=== PATIENT | male | born 1945 | race Caucasian/White ===

== ENCOUNTER → 2018-07-17 15:19 | Outpatient (CLI) | payer MEDICARE, BC, SELFPAY ==
[2018-07-17 16:51] LABS: Absolute Lymphocyte Count 2.88 X10^3/ul (0.83-4.51); Absolute Neutrophil Count 4.5 X10^3/uL (2.0-7.7); Basophil# 0.04 X10^3/uL; Basophil% 0.5 % (0-1); Eosinophil# 0.15 X10^3/uL; Eosinophils% 1.8 % (0-5); Hematocrit 39.9 % (40-54); Lymphocyte # 2.88 X10^3/ul (4.0); Lymphocyte % 34.4 % (19-41); Mean Corp Hgb Conc 32.6 g/gl (32-36); Mean Corpuscular Hgb 31.9 pg (27.0-32.0); Mean Platelet Vol. 10.8 fl (6.2-12.0); Monocyte# 0.78 X10^3/uL; Monocyte% 9.3 % (0-10); Neutrophil # 4.52 X10^3/uL (2.7-7.7); Neutrophil % 53.9 % (47-70); Platelet Count 285 K/mm3 (150-450); RBC Distribution Width CV 13.8 % (11.6-14.6); RBC Distribution Width SD 49.3 fl (35.1-43.9); Red Blood Count 4.07 M/mm3 (4.6-6.2); White Blood Count 8.4 K/mm3 (4.4-11.0)
[2018-07-17 16:54] LABS: POSITIVE COUNT NO; POSITIVE DIFFERENTIAL NO; POSITIVE MORPHOLOGY NO
[2018-07-17 17:29] LABS: Vitamin D,25 Hydroxy 16.3 ng/mL (29.95-100.01)
[2018-07-17 17:31] LABS: ALB/GLOB Ratio 1.1 RATIO (0.9-2.4); AST(SGOT) 16 U/L (15-37); Alanine Aminotransfer ALT/SGPT 22 U/L (16-61); Albumin, Serum 3.5 g/dL (3.2-5.0); Alkaline Phosphatase 402 U/L (45-117); Anion Gap 9 (5-15); BUN 16 mg/dL (7-18); BUN/Creat Ratio 16.1 RATIO (10-20); Calcium,Total 8.7 mg/dL (8.5-10.1); Chloride 109 mmol/L (98-107); Creatinine, Serum 0.99 mg/dL (0.70-1.30); EST Glomerular Filtration Rate 79 mL/min (>60); Est Glom Filt Rate - Afr Amer 96 mL/min (>60); Globulin 3.2 g/dL (2.2-4.2); Glucose 105 mg/dL (74-106); Potassium 4.1 mmol/L (3.5-5.1); Protein, Total 6.7 g/dL (6.4-8.2); Sodium Level 143 mmol/L (136-145); Thyroid Stim Hormone (TSH) 2.69 uIU/mL (0.358-3.74)
[2018-07-19 12:40] LABS: Hep C Antibodies <0.1 s/co ratio (0.0-0.9)
== END ==
PROVIDERS: Family Provider Family Medicine Geriatric Medicine; PCP Family Medicine Geriatric Medicine; Visit Provider Family Medicine Geriatric Medicine
DX: E55.9 Vitamin D deficiency, unspecified (principal); I10 Essential (primary) hypertension; F52.8 Other sexual dysfunction not due to a substance or known physiological condition; Z12.5 Encounter for screening for malignant neoplasm of prostate; Z13.89 Encounter for screening for other disorder
CPT/HCPCS: 36415; 80053; 82306; 84153; 84403; 84443; 85025; 86803; G0103

== ENCOUNTER → 2018-07-23 13:38 | Outpatient (CLI) | payer MEDICARE, BC, SELFPAY ==
--- NOTE | 2018-07-23 13:44 | CT_ITS ---
We are attempting to reach Jorgito Villeda MD to discuss findings. An addendum with communication details will be sent when the communication is complete. STUDY: LOW DOSE CT LUNG CANCER SCREENING REASON FOR EXAM: Male, 72 years old. Tobacco abuse, 1 years. Screening. RADIATION DOSAGE (If Supplied By Facility): CTDIvol = ( 3.02 ) mGy, DLP = ( 102.69 ) mGycm TECHNIQUE: No contrast was administered. Low dose technique was utilized (average mAS-38 and kVp 120). 1.25 mm axial source images with a slice interval of 1.25-mm were reconstructed in lung windows. Nodule measured using lung windows on PACS and/or independent workstation with automated measurement of minimum and maximum diameter. Nodule measurement reported as average diameter rounded to the nearest whole number. Growth is defined as an increase ins size of greater than 1.5 mm. COMPARISON: Low dose chest CT 11/25/2015. CT abdomen and pelvis 08/03/2016. FINDINGS: Total lung nodules (excluding granulomas): There are a few scattered small pulmonary nodules in the lungs, the largest in the right upper lobe measuring approximately 3.5 mm. Not substantially changed compared to prior imaging. Emphysema: Generalized pulmonary hyperlucency consistent with COPD with mild features of centrilobular emphysema, stable. Mild bronchial wall thickening in particular in the lower lobes, chronic inflammatory, stable. Endobronchial lesion: None. Aorta: Nonaneurysmal ectasia of the ascending aorta and proximal arch up to 3.8 cm. Minimal arch atherosclerosis. Coronary arteries: Moderate cortex cases are present in the proximal LAD, proximal circumflex, mid RCA. Heart: No cardiomegaly or pericardial effusion. Pulmonary artery: Nondilated. Mediastinal nodes: No mass or lymphadenopathy. A few small lymph nodes are present. Other chest and abdominal findings: Upper abdomen, supraclavicular and body wall soft tissues exhibit no acute process. There are multiple blastic lesions within multiple vertebral bodies in the thoracic spine, consistent with metastatic disease. Several small sclerotic lesions of the sternum. A few scattered in the ribs. Correlate clinically for any history of primary neoplasm. 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 Correlate relative to any known primary malignancy. A few tiny pulmonary nodules, 3 mm or less. ACR lung RADS category 2, benign appearance, less than 1% chance of pulmonary malignancy. Continued annual low dose screening chest CT follow-up is recommended. Coronary atherosclerosis. Nonaneurysmal ectasia of the ascending aorta and proximal arch, stable. IMPORTANT NOTES FOR USE: ACR Lung-RADS Version 1.0 Assessment Categories Release Date: September 08, 2013 Category: Coded 0-4 bases on nodule(s) with highest degree of suspicion. Negative screen is defined as categories 1 and 2; a positive screen is defined as categories 3 and 4. Category 3 and 4A nodules that are unchanged on interval CT should be coded as category 2, and individuals returned to screening in 12 months. Category 4X: Category 3 or 4 nodules with additional imaging findings that increase the suspicion of lung cancer, such as spiculation, GGN that doubles in size in 1 year, enlarged lymph notes, etc. Category Modifiers: S (significant finding unrelated to lung cancer) and C (prior history of treated lung cancer) may be added to the 0-4 Lung-RADS Electronically Signed: Bartolo Restrepo MD at 14:00 EDT Tel , Service support ,
== END ==
PROVIDERS: Family Provider Family Medicine Geriatric Medicine; PCP Family Medicine Geriatric Medicine; Referring Provider Family Medicine Geriatric Medicine; Visit Provider Family Medicine Geriatric Medicine
DX: Z87.891 Personal history of nicotine dependence (principal); Z12.2 Encounter for screening for malignant neoplasm of respiratory organs
CPT/HCPCS: G0297

== ENCOUNTER → 2018-08-01 09:47 | Outpatient (CLI) | payer MEDICARE, BC, SELFPAY ==
--- NOTE | 2018-08-01 09:50 | NM_ITS ---
CLINICAL: 72-year-old male with reported recent diagnosis of carcinoma of the prostate. WHOLE BODY 99m Tc MDP RADIONUCLIDE BONE SCINTIGRAPHY COMPARISON: CT of the chest report 07/23/2018 FINDINGS: Following the intravenous administration of 24.8 mCi of 99m Tc MDP, whole body bone images reveal: 1. Increased radiopharmaceutical concentration is multifocally apparent in the axial skeletal structures, too many to individually articulate-most accentuated at the level of the 11th-12th thoracic vertebra diffusely, focally apparent in the right femoral neck, the left distal femoral diaphysis medially, the right proximal tibial metaphysis, the distal left humeral diaphysis, right mid humeral diaphysis, the bilateral hemicalvarium. 2. Facilitated uptake is defined in the right elbow articulation, the glenohumeral compartments of both shoulders, acromioclavicular compartment of the left shoulder. 3. The remaining skeletal structures are scintigraphically unremarkable with normal-appearing renal images and urinary bladder activity identified. NM/Bone Scan Whole Body IMPRESSION: 1. The multifocal increase in radiopharmaceutical concentration noted in the calvarium, appendicular and axial skeletal structures is consistent with diffuse skeletal metastatic disease. 2. Degenerative arthritis is otherwise visualized in the right elbow articulation, bilateral shoulders. Electronically Signed: Bartolo Paredes DO at 23:24 EDT Tel , Service support ,
== END ==
PROVIDERS: Family Provider Family Medicine Geriatric Medicine; PCP Family Medicine Geriatric Medicine; Referring Provider Nurse Practitioner Adult Health; Visit Provider Nurse Practitioner Adult Health
DX: N40.2 Nodular prostate without lower urinary tract symptoms (principal); R97.20 Elevated prostate specific antigen [PSA]; R93.89 Abnormal findings on diagnostic imaging of other specified body structures
CPT/HCPCS: 78306

== ENCOUNTER → 2018-08-08 16:50 | Outpatient (CLI) | payer MEDICARE, BC, SELFPAY ==
--- NOTE | 2018-08-08 | PROSBIL_PTH ---
PATIENT: JUSTICE OWEN LOC: [facility] U#:[id number] AGE/SX: 79/M ROOM: RE08/08/[address]: Dr. Fei Fernandez MD : 1945 BED: DIS: SPEC #: [id number] RECD: 08/09/18 09:04 STATUS: JEUSS ASHWIN #: [id number] NBA: 08/08/18 00:[address]: Fei Fernandez DEPT: SURGICAL PATHOLOGY RECD BY: Bernabe Maravilla ENTERED: 08/09/18 09:05 SP TYPE: PROST BX JAYLAN DR: Dr. Jorgito Villeda MD Tissues: A - PROSTATE RIGHT B - PROSTATE RIGHT C - PROSTATE RIGHT D - PROSTATE LEFT E - PROSTATE LEFT F - PROSTATE LEFT Procedures: PROSTATE BX HEADER OPERATION: Prostate biopsy PRE-OP DIAGNOSIS: Elevated PSA TISSUE SUBMITTED: A - Right apex, B - Right mid, C - Right base, D - Left apex, E - Left mid, F - Left base MICROSCOPIC DIAGNOSIS A. Right prostate, apex, core biopsy: Adenocarcinoma: [place]ully grade: 7 (3+4). Cores involved: 1 out of 1 Tissue involved: 30% Greatest tumor length: 3.8 mm B. Right prostate, mid, core biopsy: Adenocarcinoma: Zully grade: 7 (4+3). Pattern 4 comprises 80% of tumor. Cores involved: 1 out of 1 Tissue involved: 80% Greatest tumor length: 7 mm C. Right prostate, base, core biopsy: Adenocarcinoma: Zully grade: 7 (4+3). Cores involved: 1 out of 1 Tissue involved: 98% Greatest tumor length: 9.5 mm D. Left prostate, apex, core biopsy: Adenocarcinoma: Zully grade: 7 (3+4). Pattern 4 comprises 90% of tumor. Cores involved: 2 out of 2 Tissue involved: 80% Greatest tumor length: 6 mm Perineural invasion: Present E. Left prostate, mid, core biopsy: Adenocarcinoma: [place] grade: 7 (3+4) Cores involved: 1 out of 1 Tissue involved: 70% Greatest tumor length: 7 mm Perineural invasion: Present F. Left prostate, base, core biopsy: Adenocarcinoma: Zully grade: 7 (4+3). Pattern 4 comprises 90% of tumor. Cores involved: 1 out of 1 Tissue involved: 70% Greatest tumor length: 9 mm Perineural invasion: Present AM:yobani 08/12/18 COMMENT Case has been reviewed in consultation with Dr. Langford who concurs with the above diagnosis. IDC:SJ MICROSCOPIC DESCRIPTION Slides are reviewed. GROSS DESCRIPTION A - Received is one container designated prostate, right apex. The specimen consists of one elongated fragment of light clark-white soft tissue measuring 1.4 cm in length and 0.1 cm in diameter. The specimen is totally submitted in one cassette. B - Received is one container designated prostate, right mid. The specimen consists of one elongated fragment of light clark-white soft tissue measuring 1 cm in length and 0.1 cm in diameter. The specimen is totally submitted in one cassette. C - Received is one container designated prostate, right base. The specimen consists of one elongated fragment of light clark-white soft tissue measuring 1.5 cm in length and 0.1 cm in diameter. The specimen is totally submitted in one cassette. D - Received is one container designated prostate, left apex. The specimen consists of two elongated fragments of light clark-white soft tissue measuring 0.5 and 0.8 cm in length and 0.1 cm in diameter. The specimen is totally submitted in one cassette. E - Received is one container designated prostate, left mid. The specimen consists of one elongated fragment of light clark-white soft tissue measuring 1.2 cm in length and 0.1 cm in diameter. The specimen is totally submitted in one cassette. F - Received is one container designated prostate, left base. The specimen consists of one elongated fragment of light clark-white soft tissue measuring 1.5 cm in length and 0.1 cm in diameter. The specimen is totally submitted in one cassette. / SJ:rg 08/09/18 TC:0 [facility]: [id number]
== END ==
PROVIDERS: Family Provider Family Medicine Geriatric Medicine; PCP Family Medicine Geriatric Medicine; Referring Provider Urology; Visit Provider Urology
DX: R97.20 Elevated prostate specific antigen [PSA] (principal)
CPT/HCPCS: 88305; G0416

== ENCOUNTER → 2018-08-12 16:26 | Outpatient (CLI) | payer MEDICARE, BC, SELFPAY | PROVIDERS: Family Provider Family Medicine Geriatric Medicine; PCP Family Medicine Geriatric Medicine; Visit Provider Family Medicine Geriatric Medicine | DX: N39.0 Urinary tract infection, site not specified (principal) | CPT/HCPCS: 87086 ==

== ENCOUNTER → 2018-08-21 | Outpatient (CLI) | payer MEDICARE, BC, SELFPAY ==
--- NOTE | 2018-08-21 15:22 | CT_ITS ---
STUDY: CT ABDOMEN AND PELVIS WITH CONTRAST REASON FOR EXAM: Male, 72 years old. New diagnosis of prostate cancer. RADIATION DOSAGE (If Supplied By Facility): CTDIvol = ( 17.16 ) mGy, DLP = ( 1080.66 ) mGycm TECHNIQUE: Transaxial images were obtained from the dome of the diaphragm to the symphysis pubis without oral contrast. 100 IV Isovue 370 was administered. Sagittal and coronal images were reconstructed. Individualized dose optimization techniques were used for this CT. COMPARISON: Comparison is made with prior study dated August 03, 2016. FINDINGS: The visualized lung bases are unremarkable. The visualized portions of the heart are within normal limits. Normal liver. Normal gallbladder and extrahepatic biliary system. Normal spleen. Normal pancreas. There is a small, circumscribed, smooth, low attenuation left adrenal mass, consistent with an adrenal adenoma. This measures 8.5 mm. Normal right adrenal gland. Normal right kidney. Normal left kidney. Normal visualized stomach. Normal small intestine. There are multiple colonic diverticula consistent with diverticulosis. The appendix is visualized and appears normal. There is diffuse atherosclerotic calcification of the abdominal aorta, without a demonstrated aneurysm. Normal inferior vena cava. There is borderline retroperitoneal lymphadenopathy with enlarged nodes no greater than 10mm in the short axis diameter. Normal urinary bladder. There are prostatic calcifications. Normal abdominal wall. Multiple sclerotic lesions are seen throughout the lumbar vertebrae and lower thoracic vertebrae as well as tiny blastic lesion seen in the pelvic bones. Lung metastasis should BE ruled out. CT/Abdomen/Pelvis WITH Contrast IMPRESSION: Small left adrenal adenoma. Findings suggestive of skeletal metastasis. Correlation with a bone scan is recommended. Electronically Signed: Vincent Marley, at 15:38 EDT , Service support ,
== END | disposition home or self-care (01) ==
LOC: CT 15:21
PROVIDERS: Family Provider Family Medicine Geriatric Medicine; PCP Family Medicine Geriatric Medicine; Referring Provider Urology; Visit Provider Urology
DX: C61 Malignant neoplasm of prostate (principal)
CPT/HCPCS: 74177; Q9967

== ENCOUNTER → 2018-09-24 11:50 | Outpatient (CLI) | payer MEDICARE, BC, SELFPAY | PROVIDERS: Family Provider Family Medicine Geriatric Medicine; PCP Family Medicine Geriatric Medicine; Referring Provider Urology; Visit Provider Urology | DX: C61 Malignant neoplasm of prostate (principal) | CPT/HCPCS: 36415; 84153 ==

== ENCOUNTER → 2018-10-03 | Outpatient (CLI) | payer MEDICARE, BC, SELFPAY ==
[2018-10-03 12:35] LABS: Absolute Lymphocyte Count 1.62 X10^3/ul (0.83-4.51); Absolute Neutrophil Count 3.4 X10^3/uL (2.0-7.7); Basophil# 0.03 X10^3/uL; Basophil% 0.5 % (0-1); Eosinophil# 0.09 X10^3/uL; Eosinophils% 1.5 % (0-5); Hematocrit 36.4 % (40-54); Hemoglobin 12.4 g/dl (13.0-16.5); Lymphocyte # 1.62 X10^3/ul (4.0); Lymphocyte % 27.2 % (19-41); Mean Corp Hgb Conc 34.1 g/gl (32-36); Mean Corpuscular Hgb 31.2 pg (27.0-32.0); Mean Corpuscular Volume 91.5 fL (80-94); Mean Platelet Vol. 10.1 fl (6.2-12.0); Monocyte# 0.77 X10^3/uL; Monocyte% 12.9 % (0-10); Neutrophil # 3.44 X10^3/uL (2.7-7.7); Neutrophil % 57.7 % (47-70); Platelet Count 313 K/mm3 (150-450); RBC Distribution Width SD 46.1 fl (35.1-43.9); Red Blood Count 3.98 M/mm3 (4.6-6.2)
[2018-10-03 12:43] LABS: POSITIVE COUNT NO; POSITIVE DIFFERENTIAL NO; POSITIVE MORPHOLOGY NO
[2018-10-03 13:07] LABS: BNP,B-Type NATRIURETIC PEPTIDE 31.2 pg/mL (0-100)
[2018-10-03 13:20] LABS: Anion Gap 4 (5-15); BUN 16 mg/dL (7-18); BUN/Creat Ratio 17.3 RATIO (10-20); CPK Total, Creatine Kinase 48 U/L (39-308); Calcium,Total 9.6 mg/dL (8.5-10.1); Chloride 109 mmol/L (98-107); Creatinine, Serum 0.92 mg/dL (0.70-1.30); EST Glomerular Filtration Rate 86 mL/min (>60); Est Glom Filt Rate - Afr Amer 104 mL/min (>60); Glucose 102 mg/dL (74-106); Potassium 4.7 mmol/L (3.5-5.1); Sodium Level 139 mmol/L (136-145)
[2018-10-04 10:12] LABS: Myoglobin, Serum < 21 ng/mL (28-72)
== END | disposition home or self-care (01) ==
LOC: POLAB3 12:00
PROVIDERS: Family Provider Family Medicine Geriatric Medicine; PCP Family Medicine Geriatric Medicine; Visit Provider Family Medicine Geriatric Medicine
DX: R07.9 Chest pain, unspecified (principal)
CPT/HCPCS: 36415; 80048; 82550; 83874; 83880; 84484; 85025

== ENCOUNTER → 2018-12-25 | Outpatient (CLI) | payer MEDICARE, BC, SELFPAY ==
[2018-12-25 12:59] LABS: PSA,Total- Diagnostic 0.83 ng/mL (0.0-4.0)
== END | disposition home or self-care (01) ==
LOC: LAB 11:33
PROVIDERS: Family Provider Family Medicine Geriatric Medicine; PCP Family Medicine Geriatric Medicine; Referring Provider Urology; Visit Provider Urology
DX: C61 Malignant neoplasm of prostate (principal)
CPT/HCPCS: 36415; 84153

== ENCOUNTER 2019-01-01 15:17 | Outpatient (RCR) | payer MEDICARE, BC, SELFPAY ==
--- NOTE | 2019-01-01 16:30 | HP.PTEVAL_ITS ---
Patient's Visit Information JUSTICE OWEN is a 73 year old M referred to Physical Therapy by Jorgito Villeda MD with a diagnosis of Dysequilibrium. Date of Evaluation: 01/01/19 Physical Therapist: Cortez Le, RUFUST, OCS, CSCS - Visit Plan Frequency: 2x /Week Duration: 4-6 Weeks Plan: will wait a week for new blood pressure meds to kick in then, if not improved, will go 2x/week for 4-6 weeks as needed for balance emphasizing vestibular system and head movements/VOR. Seems to be nore unsteadiness upon standing(blood pressure ) than true vestibualr dizzyness. Next session check foam stance ec, FGA, and VOR walking. - Subjective Findings: Dizzy all the time for 2.5 months now. Has prostate CA spread to bones diagnosed in july adn has been treated with hormone shots. Takes pills for legs restless adn low blood pressure adn bones. Might be low bood pressure. Described as loss of baalnce and goofy feeling but not spinning. Happens when up on feet. Doesn't feel it sitting or lying down. Sleeping not great due to restless leg but dizzyness isn't keeping him up. Retired from factory. Acitivites include sitting on couch and going for rides. Avoids yard work due to dizzyness with bending adn heat. Balance is not great but no falls. No AD needed or owned. Basic ADLs are getting done OK, shower can be tough due to dizzyness. - Objective Walks slowly but safely back to eval room without SOB. Trasnfers I but needs UE to exit chair. - B hallpike nicholas test, - roll test. LE AROM WFL, some tightness in HS and gasroc. Sensation WNL to gross light touch in LE. reflexes 2/3 patella and achilles. MSQ positions not causing dizzyness today. Oculomotor: no nystagmus with gaze or headshake. - skew eye deviation. normal convergence. pursuit and saccades are normal. VOR is normal in sitting but unsteady in walking and standing descirbed as dizzyness. - Balance Scores Functional Gait Assessment Score: 23 % Disability: 23.3400 CATSIB Score (Max score 120 seconds): 100 - Goals Goal 1:: Pt feel 75% back to normal withotu dizzyness Goal Time Frame: 4-6 Weeks Goal 2:: 25/30 FGA to improve steadiness. 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 Rehabilitation Potential: Questionable - Anticipated Interventions Patient/Client Instruction: Educate patient on: Condition, Plan of Care For the Purpose of:: To improve muscle performance and motor function, To increase tolerance to activity/condition/position, To improve gait and locomotor functions Therapeutic Exercise to Include: Strength training, Balance training Comment: adaptation For the Purpose of:: To increase tolerance to activity/condition/position, To improve balance Thank you for the opportunity to evaluate your patient. For Medicare and Medicare HMO plans, please review the plan of care and approve it. It will need to be FAXED BACK to us at [phone] for Medicare purposes. For Medicare only, by signing this I certify the plan of care. Please let me know if there are questions or concerns regarding this plan of ca re. Physician Signature: Date:
--- NOTE | 2019-02-19 13:52 | HP.PTDCNRP_ITS ---
HP - Discharge Summary (1) - Patient Information JUSTICE OWEN was seen in my office for initial evaluation on 01/01/19. The following Plan of Care was established for this patient: Initial Frequency: 2x /Week Initial Duration: 4-6 Weeks - Anticipated Interventions Patient/Client Instruction: Educate patient on: Condition, Plan of Care For the Purpose of:: To improve muscle performance and motor function, To incr ease tolerance to activity/condition/position, To improve gait and locomotor functions Therapeutic Exercise to Include: Strength training, Balance training For the Purpose of:: To increase tolerance to activity/condition/position, To improve balance This patient was last seen in our office 01/01/19. Pertinent comments regarding their Physical therapy will appear below: Pt seen for evaluation and POC was established if dizzyness returned once new blood pressure meds kicked in. Pt was to schedule but at this time, it has been over 6 weeks adn I will discontinue due to nonattendance. At this point I will be discontinuing this patient from physical therapy. I would be happy to see this patient again in the future if found appropriate by the physician. Thank you! Cortez Le, DPT, OCS, CSCS
== END 2019-01-01 19:00 | disposition home or self-care (01) ==
LOC: PT 15:17
PROVIDERS: Family Provider Family Medicine Geriatric Medicine; PCP Family Medicine Geriatric Medicine; Referring Provider Family Medicine Geriatric Medicine; Visit Provider Family Medicine Geriatric Medicine
DX: R42 Dizziness and giddiness (principal)
CPT/HCPCS: 97162

== ENCOUNTER → 2019-01-15 | Outpatient (CLI) | payer MEDICARE, BC, SELFPAY ==
[2019-01-15 12:35] LABS: Absolute Lymphocyte Count 2.14 X10^3/uL (0.83-4.51); Basophil# 0.04 X10^3/uL; Basophil% 0.5 % (0-1); Eosinophil# 0.26 X10^3/uL; Eosinophils% 3.2 % (0-5); Hematocrit 31.7 % (40-54); Hemoglobin 10.2 g/dL (13.0-16.5); Lymphocyte # 2.14 X10^3/ul (4.0); Mean Corp Hgb Conc 32.2 g/dL (32-36); Mean Corpuscular Hgb 30.6 pg (27.0-32.0); Mean Corpuscular Volume 95.2 fL (80-94); Mean Platelet Vol. 10.2 fl (6.2-12.0); Monocyte# 0.76 X10^3/uL; Monocyte% 9.2 % (0-10); NRBC Flagged by Analyzer 0 % (0-5); Neutrophil # 5.01 X10^3/uL (2.7-7.7); Neutrophil % 60.7 % (47-70); Platelet Count 302 K/mm3 (150-450); RBC Distribution Width CV 14.1 % (11.6-14.6); RBC Distribution Width SD 49.2 fl (35.1-43.9); Red Blood Count 3.33 M/mm3 (4.6-6.2); White Blood Count 8.2 K/mm3 (4.4-11.0)
[2019-01-15 13:00] LABS: ALB/GLOB Ratio 0.9 RATIO (0.9-2.4); AST(SGOT) 14 U/L (15-37); Alanine Aminotransfer ALT/SGPT 14 U/L (16-61); Albumin, Serum 3.4 g/dL (3.2-5.0); Alkaline Phosphatase 138 U/L (45-117); Anion Gap 6 (5-15); BUN 16 mg/dL (7-18); BUN/Creat Ratio 15.1 RATIO (10-20); Calcium,Total 9.3 mg/dL (8.5-10.1); Chloride 107 mmol/L (98-107); Creatinine, Serum 1.06 mg/dL (0.70-1.30); EST Glomerular Filtration Rate 73 mL/min (>60); Est Glom Filt Rate - Afr Amer 89 mL/min (>60); Globulin 3.7 g/dL (2.2-4.2); Glucose 135 mg/dL (74-106); Potassium 3.9 mmol/L (3.5-5.1); Protein, Total 7.1 g/dL (6.4-8.2); Sodium Level 139 mmol/L (136-145); Thyroid Stim Hormone (TSH) 4.15 uIU/mL (0.358-3.74); Vitamin D,25 Hydroxy 33.7 ng/mL (29.95-100.01)
== END | disposition home or self-care (01) ==
LOC: POLAB3 11:24
PROVIDERS: Family Provider Family Medicine Geriatric Medicine; PCP Family Medicine Geriatric Medicine; Visit Provider Family Medicine Geriatric Medicine
DX: E55.9 Vitamin D deficiency, unspecified (principal); I10 Essential (primary) hypertension; F52.8 Other sexual dysfunction not due to a substance or known physiological condition
CPT/HCPCS: 36415; 80053; 82306; 84403; 84443; 85025

== ENCOUNTER 2019-01-20 00:03 | Emergency (ER) | payer MEDICARE, BC, SELFPAY ==
[2019-01-20 00:04] VITALS: BP 125/83; PULSE 88; RESP 16; TEMP 36.8; O2SAT 97; BMI 26.7
[2019-01-20 00:08] VITALS: RESP 18
[2019-01-20] MEDS: Morphine 4 MG/ML Syringe IV ×2 (01:18→03:20)
[2019-01-20 01:25] LABS: Absolute Lymphocyte Count 1.93 X10^3/uL (0.83-4.51); Absolute Neutrophil Count 10.3 X10^3/uL (2.0-7.7); Basophil# 0.04 X10^3/uL; Basophil% 0.3 % (0-1); Eosinophils% 2.2 % (0-5); Hematocrit 29.3 % (40-54); Hemoglobin 9.6 g/dL (13.0-16.5); Lymphocyte # 1.93 X10^3/ul (4.0); Mean Corp Hgb Conc 32.8 g/dL (32-36); Mean Corpuscular Hgb 31.2 pg (27.0-32.0); Mean Corpuscular Volume 95.1 fL (80-94); Mean Platelet Vol. 9.9 fl (6.2-12.0); Monocyte# 1.16 X10^3/uL; Monocyte% 8.4 % (0-10); NRBC Flagged by Analyzer 0 % (0-5); Neutrophil % 74.9 % (47-70); Platelet Count 298 K/mm3 (150-450); RBC Distribution Width CV 13.7 % (11.6-14.6); RBC Distribution Width SD 47.9 fl (35.1-43.9); Red Blood Count 3.08 M/mm3 (4.6-6.2); White Blood Count 13.8 K/mm3 (4.4-11.0)
--- NOTE | 2019-01-20 01:30 | RAD_ITS ---
STUDY: X-RAY - RIGHT KNEE REASON FOR EXAM: Male, 73 years old. Sudden right-sided knee pain. TECHNIQUE: AP and lateral view(s) of the knee. COMPARISON: Bone scan dated August 01, 2018. FINDINGS: Normal visualized distal femur. Normal visualized proximal tibia and fibula. Normal proximal tibiofibular articulation. There is no demonstrated fracture. Normal medial femorotibial compartment. Normal lateral femorotibial compartment. Normal patellofemoral articulation. There is a soft tissue prominence in the suprapatellar region suggesting a small volume joint effusion. There are atherosclerotic calcifications. RAD/Knee 1 or 2 Views IMPRESSION: Small joint effusion. Electronically Signed: Shira Henriquez MD at 1:57 EDT , Service support ,
[2019-01-20 01:34] LABS: Anion Gap 7 (5-15); BUN 18 mg/dL (7-18); BUN/Creat Ratio 17.3 RATIO (10-20); Calcium,Total 9.3 mg/dL (8.5-10.1); Chloride 108 mmol/L (98-107); Creatinine, Serum 1.04 mg/dL (0.70-1.30); EST Glomerular Filtration Rate 75 mL/min (>60); Est Glom Filt Rate - Afr Amer 91 mL/min (>60); Estimated Creatinine Clearance 71.51 ml/min; Glucose 112 mg/dL (74-106); Potassium 4.2 mmol/L (3.5-5.1); Sodium Level 140 mmol/L (136-145)
--- NOTE | 2019-01-20 01:49 | ED.DCSUM_ITS ---
- ER Visit Summary Date of Service: 01/20/19 Chief Complaint: Right knee pain History of Present Illness: The patient is a 73 M who presents with right knee pain that began suddenly tonight. Patient states the pain began in the right knee. Patient denies any trauma or injury. Patient states the pain is sharp and is worse with any movement. Patient denies any paresthesias or weakness. Patient denies any trauma or injury. Patient states he does have a history of prostate cancer with metastasis to the bone. Patient denies any fevers or chills. Physical Examination: Vital signs are stable. Patient is afebrile. Patient is in no acute distress. Musculoskeletal exam reveals a mild effusion of the right knee. Range of motion was limited in all motions of the right knee secondary to pain. Patient maintains the knee at approximately 60 degrees of flexion. There is no erythema. There is no deformity noted. Pedal pulses are equal bilaterally. There is no calf tenderness. There are no motor or sensory deficits noted. Test Results: X-rays of the right knee were obtained. There is a mild effusion. There is no loose body noted. There is no evidence of metastasis. These were interpreted by myself and the radiologist. CBC showed a mild leukocytosis of 13.8. Emergency Department Course and Treatment: Given the leukocytosis and limited range of motion of his right knee, aspiration of the right knee was attempted. I was unable to aspirate any synovial fluid from the knee. Patient had improved range of motion of his right knee. Patient was given a dose of Ancef here. Patient was instructed to ice and elevate the right knee. Patient was given a prescription for [place]. Patient was instructed to follow-up with his primary care physician in 5 to 7 days. Patient understood and was agreeable with the plan. All questions were answered. Disposition: Discharge home Impression: Right knee pain This note was generated with [employer] dictation software. It may contain incorrect words, spelling, and punctuation that were not noted in review of the chart prior to signing ED Disposition - Plan for ED Patient: Disposition: Home or Assisted Living Diagnosis: Right knee pain Instructions: KNEE PAIN, Uncertain Cause Prescriptions: Hydrocodone Bitart/Apap 5-325 [[place] 5MG-325MG] 1 tab PO Q6H PRN PRN 3 Days #10 tab PRN Reason: Pain Prescription Printed Referrals: Jorgito Villeda Chi, MD [Primary Care Provider] - 3-5 Days
[2019-01-20 03:19] VITALS: BP 108/76; PULSE 81; RESP 22; O2SAT 97
[2019-01-20] MEDS: Cefazolin 1 GM/50 ML BAG IV (03:25)
== END 2019-01-20 04:19 | disposition home or self-care (01) ==
PROVIDERS: Emergency Provider Emergency Medicine; Family Provider Family Medicine Geriatric Medicine; PCP Family Medicine Geriatric Medicine
DX: M25.561 Pain in right knee (principal); I10 Essential (primary) hypertension; Z72.0 Tobacco use; Z79.899 Other long term (current) drug therapy; Z85.46 Personal history of malignant neoplasm of prostate; Z85.830 Personal history of malignant neoplasm of bone
CPT/HCPCS: 73560; 80048; 85025; 96365; 96375; 96376; 99285; J7040; A4216; J3490

== ENCOUNTER → 2019-02-11 | Outpatient (CLI) | payer MEDICARE, BC, SELFPAY ==
[2019-01-20 00:04] VITALS: BMI 26.7
[2019-02-11 17:24] LABS: Absolute Lymphocyte Count 2.44 X10^3/uL (0.83-4.51); Basophil# 0.04 X10^3/uL; Basophil% 0.5 % (0-1); Eosinophil# 0.13 X10^3/uL; Eosinophils% 1.7 % (0-5); Hematocrit 30.1 % (40-54); Hemoglobin 9.7 g/dL (13.0-16.5); Lymphocyte # 2.44 X10^3/ul (4.0); Lymphocyte % 32.7 % (19-41); Mean Corp Hgb Conc 32.2 g/dL (32-36); Mean Corpuscular Hgb 29.6 pg (27.0-32.0); Mean Corpuscular Volume 91.8 fL (80-94); Mean Platelet Vol. 10.1 fl (6.2-12.0); Monocyte# 0.82 X10^3/uL; NRBC Flagged by Analyzer 0 % (0-5); Neutrophil # 4.01 X10^3/uL (2.7-7.7); Neutrophil % 53.8 % (47-70); Platelet Count 424 K/mm3 (150-450); RBC Distribution Width CV 14.8 % (11.6-14.6); RBC Distribution Width SD 50.3 fl (35.1-43.9); Red Blood Count 3.28 M/mm3 (4.6-6.2); White Blood Count 7.5 K/mm3 (4.4-11.0)
[2019-02-11 17:35] LABS: Anion Gap 11 (5-15); BUN 14 mg/dL (7-18); BUN/Creat Ratio 13.1 RATIO (10-20); Calcium,Total 10.1 mg/dL (8.5-10.1); Chloride 102 mmol/L (98-107); Creatinine, Serum 1.07 mg/dL (0.70-1.30); EST Glomerular Filtration Rate 72 mL/min (>60); Est Glom Filt Rate - Afr Amer 88 mL/min (>60); Glucose 102 mg/dL (74-106); Potassium 4.3 mmol/L (3.5-5.1); Sodium Level 138 mmol/L (136-145)
== END | disposition home or self-care (01) ==
LOC: POLAB3 16:02
PROVIDERS: Family Provider Family Medicine Geriatric Medicine; PCP Family Medicine Geriatric Medicine; Visit Provider Family Medicine Geriatric Medicine
DX: R11.0 Nausea (principal)
CPT/HCPCS: 36415; 80048; 85025

== ENCOUNTER → 2019-02-12 | Outpatient (CLI) | payer MEDICARE, BC, SELFPAY ==
[2019-01-20 00:04] VITALS: BMI 26.7
[2019-02-12 15:52] LABS: Absolute Lymphocyte Count 2.61 X10^3/uL (0.83-4.51); Absolute Neutrophil Count 3.5 X10^3/uL (2.0-7.7); Basophil# 0.06 X10^3/uL; Basophil% 0.8 % (0-1); Eosinophil# 0.21 X10^3/uL; Eosinophils% 2.9 % (0-5); Hematocrit 29.6 % (40-54); Hemoglobin 9.6 g/dL (13.0-16.5); Lymphocyte # 2.61 X10^3/ul (4.0); Lymphocyte % 36.2 % (19-41); Mean Corp Hgb Conc 32.4 g/dL (32-36); Mean Corpuscular Volume 92.5 fL (80-94); Mean Platelet Vol. 10.1 fl (6.2-12.0); Monocyte# 0.77 X10^3/uL; Monocyte% 10.7 % (0-10); NRBC Flagged by Analyzer 0 % (0-5); Neutrophil # 3.54 X10^3/uL (2.7-7.7); Neutrophil % 49.1 % (47-70); POSITIVE MORPHOLOGY YES; Platelet Count 417 K/mm3 (150-450); RBC Distribution Width CV 14.7 % (11.6-14.6); RBC Distribution Width SD 50.1 fl (35.1-43.9); RET-HE 30.9 pg (30-35); Reticulocyte Count 1.83 % (0.5-1.5); White Blood Count 7.2 K/mm3 (4.4-11.0)
[2019-02-12 15:55] LABS: Differential Indicated SCAN CRITERIA MET
[2019-02-12 16:24] LABS: Differential Comment SCANNED
[2019-02-12 16:31] LABS: Ferritin 17 ng/mL (26-388); Iron 20 ug/dL (65-175); Iron Binding Capacity,Total 422 ug/dL (250-450)
[2019-02-13 10:03] LABS: Vitamin B12 283 pg/mL (211-911)
== END | disposition home or self-care (01) ==
LOC: POLAB3 14:01
PROVIDERS: Family Provider Family Medicine Geriatric Medicine; PCP Family Medicine Geriatric Medicine; Visit Provider Family Medicine Geriatric Medicine
DX: D50.9 Iron deficiency anemia, unspecified (principal)
CPT/HCPCS: 82607; 82728; 82746; 83540; 83550; 85025; 85045

== ENCOUNTER → 2019-02-14 | Outpatient (CLI) | payer MEDICARE, BC, SELFPAY ==
[2019-01-20 00:04] VITALS: BMI 26.7
[2019-02-14 11:05] LABS: Homocysteine 13.2 umol/L (3.2-10.7)
== END | disposition home or self-care (01) ==
LOC: POLAB3 09:49
PROVIDERS: Family Provider Family Medicine Geriatric Medicine; PCP Family Medicine Geriatric Medicine; Visit Provider Family Medicine Geriatric Medicine
DX: E53.8 Deficiency of other specified B group vitamins (principal)
CPT/HCPCS: 36415; 83090; 83921

== ENCOUNTER → 2019-02-17 | Outpatient (CLI) | payer MEDICARE, BC, SELFPAY ==
[2019-01-20 00:04] VITALS: BMI 26.7
--- NOTE | 2019-02-17 14:32 | CT_ITS ---
STUDY: CT BRAIN WITHOUT CONTRAST REASON FOR EXAM: Male, 73 years old. Dizziness RADIATION DOSAGE (If Supplied By Facility): CTDIvol = ( 44.99 ) mGy, DLP = ( 829.85 ) mGycm TECHNIQUE: Transaxial CT imaging of the brain was performed without administration of intravenous contrast material. Individualized dose optimization techniques were used for this CT. COMPARISON: No relevant priors. FINDINGS: Brain parenchyma is without focal lesions, mass effect, acute intracranial hemorrhage, extra parenchymal fluid collections, hydrocephalus or herniation. The patient has known skull metastases which are not well-visualized. Refer to prior imaging. CT/Brain/Head without Contrast IMPRESSION: 1. Normal CT brain. Electronically Signed: Popeye Pickett, at 16:27 EDT Tel , Service support ,
== END | disposition home or self-care (01) ==
LOC: CT 14:30
PROVIDERS: Family Provider Family Medicine Geriatric Medicine; PCP Family Medicine Geriatric Medicine; Referring Provider Family Medicine Geriatric Medicine; Visit Provider Family Medicine Geriatric Medicine
DX: R42 Dizziness and giddiness (principal)
CPT/HCPCS: 70450

== ENCOUNTER → 2019-03-11 | Outpatient (CLI) | payer MEDICARE, BC, SELFPAY ==
[2019-03-11 17:47] LABS: Absolute Lymphocyte Count 2.87 X10^3/uL (0.83-4.51); Absolute Neutrophil Count 4.7 X10^3/uL (2.0-7.7); Basophil# 0.04 X10^3/uL; Basophil% 0.5 % (0-1); Eosinophil# 0.29 X10^3/uL; Eosinophils% 3.3 % (0-5); Hematocrit 29.1 % (40-54); Lymphocyte # 2.87 X10^3/ul (4.0); Lymphocyte % 32.9 % (19-41); Mean Corp Hgb Conc 30.9 g/dL (32-36); Mean Corpuscular Hgb 28.5 pg (27.0-32.0); Mean Corpuscular Volume 92.1 fL (80-94); Monocyte# 0.85 X10^3/uL; Monocyte% 9.7 % (0-10); NRBC Flagged by Analyzer 0 % (0-5); Neutrophil # 4.66 X10^3/uL (2.7-7.7); Neutrophil % 53.4 % (47-70); Platelet Count 425 K/mm3 (150-450); RBC Distribution Width CV 15.9 % (11.6-14.6); Red Blood Count 3.16 M/mm3 (4.6-6.2); White Blood Count 8.7 K/mm3 (4.4-11.0)
== END | disposition home or self-care (01) ==
LOC: POLAB3 13:36
PROVIDERS: Family Provider Family Medicine Geriatric Medicine; PCP Family Medicine Geriatric Medicine; Visit Provider Family Medicine Geriatric Medicine
DX: D64.9 Anemia, unspecified (principal)
CPT/HCPCS: 36415; 85025

== ENCOUNTER → 2019-03-18 | Outpatient (CLI) | payer MEDICARE, BC, SELFPAY ==
[2019-03-18 17:54] LABS: Absolute Lymphocyte Count 2.84 X10^3/uL (0.83-4.51); Absolute Neutrophil Count 5.4 X10^3/uL (2.0-7.7); Basophil# 0.05 X10^3/uL; Basophil% 0.5 % (0-1); Eosinophils% 3.1 % (0-5); Hematocrit 27.7 % (40-54); Hemoglobin 8.6 g/dL (13.0-16.5); Lymphocyte # 2.84 X10^3/ul (4.0); Lymphocyte % 29.6 % (19-41); Mean Corpuscular Hgb 28.1 pg (27.0-32.0); Mean Corpuscular Volume 90.5 fL (80-94); Monocyte# 0.92 X10^3/uL; Monocyte% 9.6 % (0-10); NRBC Flagged by Analyzer 0 % (0-5); Neutrophil # 5.43 X10^3/uL (2.7-7.7); Neutrophil % 56.8 % (47-70); Platelet Count 432 K/mm3 (150-450); RBC Distribution Width CV 15.7 % (11.6-14.6); RBC Distribution Width SD 52.2 fl (35.1-43.9); Red Blood Count 3.06 M/mm3 (4.6-6.2); White Blood Count 9.6 K/mm3 (4.4-11.0)
== END | disposition home or self-care (01) ==
LOC: POLAB3 15:36
PROVIDERS: Family Provider Family Medicine Geriatric Medicine; PCP Family Medicine Geriatric Medicine; Visit Provider Family Medicine Geriatric Medicine
DX: D64.9 Anemia, unspecified (principal)
CPT/HCPCS: 36415; 85025

== ENCOUNTER → 2019-04-01 15:50 | Outpatient (CLI) | payer MEDICARE, BC, SELFPAY ==
[2019-04-01 18:06] LABS: PSA,Total- Diagnostic 0.24 ng/mL (0.0-4.0)
== END ==
PROVIDERS: Family Provider Family Medicine Geriatric Medicine; PCP Family Medicine Geriatric Medicine; Referring Provider Urology; Visit Provider Urology
DX: C61 Malignant neoplasm of prostate (principal)
CPT/HCPCS: 36415; 84153

== ENCOUNTER 2019-04-02 12:29 | Inpatient (IN) | payer MEDICARE, BC, SELFPAY ==
[2019-04-02] VITALS (8 sets, daily range): BP systolic 88–134; BP diastolic 64–83; PULSE 76–113; RESP 15–18; TEMP 36.4–36.9; O2SAT 95–100; BMI 26.2; BMI 25.3
--- NOTE | 2019-04-02 13:16 | ED.VIS.GEN ---
History of Present Illness Chief Complaint: Dizziness Detail of Chief Complaint: Lightheadedness with standing or rising from supine position Informant: Patient, Family Onset: Weeks Context: Onset with activity Timing: Intermittent Quality: Lightheadedness not vertigo Location: Change in position Current Severity: - - None Maximum Severity: Moderate Worsened by: Upright position Relieved by: Supine Associated Symptoms: History of anemia with Hemoccult positive stool Narrative: Patient is an elderly gentleman who presents because of orthostatic symptoms. He is scheduled to have endoscopy performed by Dr. Julien Sainz. He has been told that his stool has occult blood. His last hemoglobin was 8.4. He is only taking 1 iron tablet daily. He describes dark stool not black and is not sticky and does not have an odor. Patient denies nausea or vomiting. Patient is on no anticoagulant. He does have history of prostate cancer. Prior similar symptoms: Yes Recent Illness/Hospitalization: Yes - Past Medical History (1) Prostate cancer Status: Acute (2) Neuropathy Status: Acute (3) Iron deficiency anemia Status: Acute Past Medical History - Allergies and Home Meds Allergies/Adverse Reactions: Allergies No Known Allergies Allergy (Verified 04/02/19 12:40) Primary Care Physician: Jorgito Villeda Chi, MD [Primary Care Provider] - Prior records reviewed: Yes Lives: Alone Smoking Status: Current every day smoker Alcohol: None Drugs: None Review of Systems General: Reports: Malaise. Denies: Chills, Fever, Subjective, Sweats, Weight loss, - Eyes: Denies: Visual changes - bilaterally, Diplopia ENT: Denies: Bilateral ear pain, Rhinorrhea, Sore throat Cardiovascular: Denies: Chest pain, Palpitations Respiratory: Denies: Dyspnea, Cough, Sputum, Dyspnea on exertion Gastrointestinal: Denies: Abdominal pain, Nausea, Vomiting, Diarrhea, Melena, Hematochezia Genitourinary: Denies: Dysuria, Hematuria, Frequency Musculoskeletal: Denies: Myalgias, Arthralgias, Neck pain, Back pain, Swelling, Extremity Pain, -, - Neurological: Reports: Weakness, Parasthesia. Denies: Headache Psych: Denies: Depression Hematologic: Denies: Easy bruising, Easy bleeding Allergy: Denies: Uticaria, Swelling of the mouth Physical Exam Vital Signs/Narrative: Vital Signs Temp Pulse Resp BP Pulse Ox 04/02/19 12:38 98.1 F 04/02/19 12:30 98.1 F 89 15 121/82 H 95 Inital Vital Signs reviewed: Yes General: Well nourished, Well developed, No Acute Distress Head: Normocephalic, Atraumatic Eyes: Perrl, EOMI, Pale conjunctiva. Negative for: Scleral icterus ENT: Moist mucous membranes, No rhinorrhea, TM's clear Neck: Supple, Nontender Cardiovascular: Regular rate, Regular rhythm, No murmurs, Normal S1, Normal S2 Respiratory: No distress, CTA bilaterally, Chest nontender Abdomen: Soft, Nontender, Nondistended, Normal bowel sounds Back: Nontender, Normal Inspection Extremities: Nontender, No edema Skin: Normal color, No rash Neurological: Alert, Oriented x3, Cranial nerves II-XII grossly intact, Normal Strength, Normal Sensation Psychological: Normal affect, Normal Mood Diagnostic/Tx/Re-eval Laboratory Results 04/02/19 04/02/19 12:45 12:45 WBC 7.5 RBC 2.92 L Hgb 8.4 L Hct 25.3 L MCV 86.6 MCH 28.8 MCHC 33.2 RDW Std Deviation 49.1 H RDW Coeff of Lisa 15.4 H Plt Count 417 MPV 9.9 Immature Gran % (Auto) 0.400 Neut % (Auto) 55.5 Lymph % (Auto) 28.1 [place] % (Auto) 11.8 H Eos % (Auto) 3.7 Baso % (Auto) 0.5 Absolute Neuts (auto) 4.2 Absolute Lymphs (auto) 2.10 Nucleated RBC % 0 Sodium 140 Potassium 4.3 Chloride 108 H Carbon Dioxide 27.0 Anion Gap 5 BUN 18 Creatinine 1.03 Estim Creat Clear Calc 72.20 Est GFR (MDRD) Af Amer 92 Est GFR (MDRD) Non-Af 76 BUN/Creatinine Ratio 17.5 Glucose 84 Calcium 9.5 H&H has not changed from prior. BUN to creatinine ratio is less than 20-1 which is suggestive that this is not an acute bleed. Patient is markedly orthostatic. He did receive IV fluids. Since he has gradient of 40 mm drop in his blood pressure and greater than 30 rising his heart rate hospitalist was called for assignment to [facility] for IV hydration and further testing. - Medical Decision Making Orthostatic vital signs were ordered. CBC was obtained to assess H&H and indices. BMP was obtained to determine if there is elevated BUN to creatinine ratio which would suggest an acute GI bleed. His dark stool in all likely secondary to iron. He has been on iron for approximately 1 month. The dog stool has been present for 2 to 3 weeks. Patient markedly orthostatic positive. Will contact hospitalist for further hydration and testing. Dr. Julien Sainz was informed the patient. Patient was scheduled to have a colonoscopy in 2 weeks. He states he would perform colonoscopy if not performed during his hospital admission. ED Disposition - Plan for ED Patient: Disposition: Acute Care Hospital [facility] Diagnosis: Orthostatic hypotension, Anemia due to gastrointestinal blood loss Referrals: Jorgito Villeda Chi, MD [Primary Care Provider] -
[2019-04-02 13:19] LABS: Absolute Neutrophil Count 4.2 X10^3/uL (2.0-7.7); Basophil# 0.04 X10^3/uL; Basophil% 0.5 % (0-1); Eosinophil# 0.28 X10^3/uL; Eosinophils% 3.7 % (0-5); Hematocrit 25.3 % (40-54); Hemoglobin 8.4 g/dL (13.0-16.5); Lymphocyte % 28.1 % (19-41); Mean Corp Hgb Conc 33.2 g/dL (32-36); Mean Corpuscular Hgb 28.8 pg (27.0-32.0); Mean Corpuscular Volume 86.6 fL (80-94); Mean Platelet Vol. 9.9 fl (6.2-12.0); Monocyte# 0.88 X10^3/uL; Monocyte% 11.8 % (0-10); NRBC Flagged by Analyzer 0 % (0-5); Neutrophil # 4.15 X10^3/uL (2.7-7.7); Neutrophil % 55.5 % (47-70); Platelet Count 417 K/mm3 (150-450); RBC Distribution Width CV 15.4 % (11.6-14.6); RBC Distribution Width SD 49.1 fl (35.1-43.9); Red Blood Count 2.92 M/mm3 (4.6-6.2); White Blood Count 7.5 K/mm3 (4.4-11.0)
[2019-04-02 13:26] LABS: Anion Gap 5 (5-15); BUN 18 mg/dL (7-18); BUN/Creat Ratio 17.5 RATIO (10-20); Calcium,Total 9.5 mg/dL (8.5-10.1); Chloride 108 mmol/L (98-107); Creatinine, Serum 1.03 mg/dL (0.70-1.30); EST Glomerular Filtration Rate 76 mL/min (>60); Est Glom Filt Rate - Afr Amer 92 mL/min (>60); Glucose 84 mg/dL (74-106); Potassium 4.3 mmol/L (3.5-5.1); Sodium Level 140 mmol/L (136-145)
--- NOTE | 2019-04-02 15:46 | NURSING ---
MED SURG OBS ORTHOSTATIC HYPOTENSION, GI BLOOD LOSS CHRONIC, ANEMIA ABDELRAHMAN
[2019-04-02] MEDS: Lactated Ringers 1,000 ML 125 ML IV (17:43)
[2019-04-02] MEDS: Multivitamins,Therapeutic Tablet 1 TABLET PO (17:43)
--- NOTE | 2019-04-02 18:15 | CON.PCM_ITS ---
Problem List (1) Iron deficiency anemia Status: Acute Qualifiers: Iron deficiency anemia type: chronic blood loss Qualified Code(s): D50.0 - Iron deficiency anemia secondary to blood loss (chronic) Reason for Consult Date of Consultation: 04/02/19 History of Present Illness: The patient is a 73 year old M who presented to the [facility] emergency room with a 2-month history of anemia and a 1 month history of orthostatic dizziness. I have been asked to see him by Dr. Zayas and a written copy of my surgical consult will be present in the charting. It is of note that August 21, 2018 he was diagnosed as having metastatic prostate cancer. He is under the care of Dr. Fernandez. On October 03, 2018 his hemoglobin was 12.4 on January 15, 2019 it was 10.2 on January 20, 2019 it was 9.6 on March 18, 2019 it was 8.6 and then on his presentation to the emergency room today it was 8.4. The patient has been seen by gastroneurologist and had endoscopy scheduled for April 14. A request has been made for urgent endoscopic evaluation. The patient by report had a stool card that was positive. He absolutely denies any bright red blood per rectum or melena. He has not had any history of peptic ulcer disease. He has never had a previous colonoscopy. He has never had previous carotid duplex imaging. He states that when he goes from a lying to a standing position that he will become dizzy. He denies chest pain. He denies shortness of breath. His laboratory today demonstrates a white blood cell count of 7.5 with a hemoglobin 8.4 hematocrit 25.3 platelet count 417,000 with a normal differential except for monocytes of 11.8%. BUN is normal at 18 and creatinine is 1.03. 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 At the time of my interview with the patient he is completing a full regular supper Past Medical History Allergies No Known Allergies Allergy (Verified 04/02/19 12:40) Home Medications: Ambulatory Orders Medication Instructions Recorded Enzalutamide [Xtandi] 160 mg PO DAILY@1930 01/20/19 Iron Polysaccharide Complex 300 mg PO DAILY 04/02/19 [Ferrex 150] Multivitamin with Minerals 1 tab PO DAILY@1200 04/02/19 [Multiple Vitamin] Lives: Alone Smoking Status: Current every day smoker Tobacco Use: Cigarettes Alcohol: None Drugs: None Review of Systems Constitutional: Denies: Anorexia HEENT: Reports: Difficulty Hearing. Denies: Difficulty Swallowing Cardiovascular: Denies: Chest Pain Respiratory: Denies: Cough Gastrointestinal: Denies: Abdominal Pain, Hematochezia, Melena, Vomiting Neurological: Denies: Difficulty swallowing Patient Problems: Active and Suspected Problems Prostate cancer (Acute) Neuropathy (Acute) Iron deficiency anemia (Acute) Orthostatic hypotension (Acute) Anemia due to gastrointestinal blood loss (Acute) - Physical Exam Vitals/I&O's: Vital Signs Temp Pulse Resp BP Pulse Ox 97.6 F L 80 18 134/83 H 100 04/02/19 16:31 04/02/19 17:00 04/02/19 16:31 04/02/19 16:31 04/02/19 16:31 Oxygen Delivery Method Room Air Weight: 186 lb 11.704 oz Body Mass Index (BMI) 25.3 General: Alert, Oriented x3, Cooperative, No apparent distress HEENT: Atraumatic Oral: Moist Mucosa Neck: - - Carotids are 3+ bilateral. 2/6 bruit noted on the left Lungs: Clear to auscultation, Normal air movement Cardiovascular: Regular rate, Regular Rhythm Abdomen: Bowel Sounds Present, Soft, Non Tender, Non-Distended Extremities: No Calf Tenderness Psych/Mental Status: Normal Affect Laboratory Results 04/02/19 12:45: WBC 7.5, RBC 2.92 L, Hgb 8.4 L, Hct 25.3 L, MCV 86.6, MCH 28.8, MCHC 33.2, RDW Std Deviation 49.1 H, RDW Coeff of Lisa 15.4 H, Plt Count 417, MPV 9.9, Immature Gran % (Auto) 0.400, Neut % (Auto) 55.5, Lymph % (Auto) 28.1, [place] % (Auto) 11.8 H, Eos % (Auto) 3.7, Baso % (Auto) 0.5, Absolute Neuts (auto) 4.2, Absolute Lymphs (auto) 2.10, Nucleated RBC % 0 04/02/19 12:45: Sodium 140, Potassium 4.3, Chloride 108 H, Carbon Dioxide 27.0, Anion Gap 5, BUN 18, Creatinine 1.03, Estim Creat Clear Calc 72.20, Est GFR (MDRD) Af Amer 92, Est GFR (MDRD) Non-Af 76, BUN/Creatinine Ratio 17.5, Glucose 84, Calcium 9.5 Current Medications Acetaminophen (Tylenol) 500 mg PO Q4H PRN PRN PRN Reason: Temp > 100.4 F Heparin Sodium (Porcine) (Heparin Na) 5,000 unit SC Q12 AKANKSHA Lactated Ringer's () 1,000 mls @ 125 mls/hr IV .Q8H AKANKSHA Last Admin: 04/02/19 17:43 Dose: 125 mls/hr Documented by: Multivitamins/Minerals (Multivitamin With Minerals) 1 tablet PO DAILY@1200 AKANKSHA Nicotine (Nicoderm Cq (Pbkc)) 21 mg TRANSDERM. DAILY AKANKSHA Last Admin: 04/02/19 17:43 Dose: 21 mg Documented by: Nutritional Formula (Lactose Free) (Ensure Enlive) 120 ml PO 4X/DAY AKANKSHA Polysaccharide Iron Complex (Ferrex 150) 150 mg PO DAILY AKANKSHA Sodium Chloride () 10 - 40 ml IV UD PRN PRN Reason: SALINE FLUSH Assessment/Plan All Active Problems Prostate cancer (Acute) Neuropathy (Acute) Iron deficiency anemia (Acute) Orthostatic hypotension (Acute) Anemia due to gastrointestinal blood loss (Acute) 73-year-old gentleman with a two-month history of anemia of undetermined etiology. There is no gross evidence of active high volume GI blood loss at this time. By report stool was Hemoccult positive. He has orthostatic dizziness. He has a left carotid bruit. I recommended the patient carotid duplex imaging The patient has completed regular supper. We can review scheduling for possible combined esophagogastroduodenoscopy with biopsy and colonoscopy with possible biopsy or polypectomy on Sunday. I discussed the technique, benefits, risks, alternatives. I do have concerns regarding his prostate cancer and multiple skeletal mets. He is not clinically demonstrating active GI bleeding at this time He has had an opportunity to ask and have questions answered. We will initiate clear liquids tomorrow and proceed with endoscopy on Sunday if scheduling permits. CC: Dr. Ronal Noel M.D., F.A.C.S.
--- NOTE | 2019-04-02 18:28 | CDU_ITS ---
Reason For Study: bruit Rt. Velocities/BP Lt. Velocities/BP Prox CCA 96.9/35.6 cm/sec. Prox CCA 74.7/22.6 cm/sec. Mid CCA 93.0/29.1 cm/sec. Mid CCA 77.3/27.8 cm/sec. Dist CCA 82.6/35.6 cm/sec. Dist CCA 70.8/26.5 cm/sec. Prox ICA 76.0/21.3 cm/sec. Prox ICA 165.9/48.2 cm/sec. Mid ICA 95.6/33.0 cm/sec. Mid ICA 256.1/103.2 cm/sec. Dist ICA 109.9/48.6 cm/sec. Dist ICA 138.1/55.2 cm/sec. Rt. ICA/CCA = 1.2. Lt. ICA/CCA = 3.3. Prox ECA 57.8/9.5 cm/sec. Prox ECA 42.1/9.5 cm/sec. Rt. Vert. 90.4/27.8 cm/sec. Lt. Vert. 13.0/6.7 cm/sec. Right Extracranial There is intimal thickening but no significant atherosclerotic plaque noted in the right common carotid artery. There is heterogeneous, irregular atherosclerotic plaque noted in the right internal carotid artery. There is heterogeneous, irregular atherosclerotic plaque noted in the right external carotid artery. Antegrade flow is noted in the right vertebral artery. Left Extracranial There is intimal thickening but no significant atherosclerotic plaque noted in the left common carotid artery. There is heterogeneous, irregular atherosclerotic plaque noted in the left internal carotid artery. There is heterogeneous, irregular atherosclerotic plaque noted in the left external carotid artery. Antegrade flow is noted in the left vertebral artery. Procedure Carotid Duplex [id number]. The exam was diagnostic. Exam performed portable in patient room. Prelim called to Dr. Noel. Interpretation Summary Irregular plaque within the proximal right internal and external carotid arteries <50% stenosis right internal carotid <50% stenosis right external carotid Extensive plaque with narrowing at the proximal left internal carotid >70% stenosis left internal carotid <50% stenosis left external carotid Patent and antegrade vertebrals bilaterally Ordering Physician: Vito Noel Performed By: Farhat Pollard RVT
[2019-04-02] MEDS: Bisacodyl 5 MG Tablet 10 MG PO (19:19)
[2019-04-02] MEDS: ENZALUTAMIDE 40 MG CAPSULE 160 MG PO (19:20)
--- NOTE | 2019-04-02 19:52 | HP.PCM_ITS ---
History of Present Illness Date of Admission: 04/02/19 The patient is a 73 year old M who presented to the ED today 2/2 significant lightheadedness upon standing. He states that it has been ongoing but has been worse today and that's why he came in to the ED. He states that it take a fair amt of time to resolve. He was noted to have anemia and hemoccult was done and is + for blood. Pt denies and BRBPR but does state that his stool is dark and sticky. He is on po Fe at this time. He was scheduled to do a colonoscopy with Dr. Sainz on 04/14. He denies abdominal pain, nausea, vomiting or changes in his stools otherwise. He does state that he has been a bit more constipated as of recently. He was taking ASA but stopped this several days ago. Orthostatics were done in the ED and were markedly + when going from sitting to standing. Hgb was 8.6 on 03/18 and is 8.4 today. He has no other complaints. 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, C79.51 Anemia (Acute) D64.9 Allergies No Known Allergies Allergy (Verified 04/02/19 12:40) Home Medications: Ambulatory Orders Medication Instructions Recorded Enzalutamide [Xtandi] 160 mg PO DAILY@1930 01/20/19 Iron Polysaccharide Complex 300 mg PO DAILY 04/02/19 [Ferrex 150] Multivitamin with Minerals 1 tab PO DAILY@1200 04/02/19 [Multiple Vitamin] Surgical History: no surgical history Psychiatric History: No pertinent psych hx Lives: Alone Smoking Status: Current every day smoker Tobacco Use: Cigarettes Alcohol: None Drugs: None Review of Systems Constitutional: Reports: Weakness, Fatigue. Denies: Anorexia, Chills, Fever, Night Sweats, Malaise, Weight Change Eyes: Denies: Blurred vision, Cataracts, Conjunctivae Inflammation, Double vision, Drainage, Eyelid Inflammation, Pain, Redness, Vision Change HEENT: Denies: Difficulty Hearing, Difficulty Swallowing, Dysphasia, Ear Pain, Eye Pain, Hard of Hearing, Head Aches, Hearing Changes, Nasal bleeding, Nasal Congestion, Post Nasal Drip, Sinus Congestion, Sinus Drainage, Sore Throat, Visual Changes Cardiovascular: Reports: - - lightheadness with standing. Denies: Chest Pain, Claudication, Chest Pressure, Chest Tightness, Edema, Heaviness, Light Headedness, Orthopnea, Palpitations, Paroxysmal Noc. Dyspnea, Syncope Respiratory: Reports: Shortness of breath upon exertion. Denies: Cough, Hemoptysis, Pleuritic Pain, Shortness of Breath, Shortness of breath at rest, Sputum production, Wheezing Gastrointestinal: Reports: Constipation, Melena. Denies: Abdominal Pain, Diarrhea, Dyspepsia, Hematemesis, Hematochezia, Nausea, Vomiting Genitourinary: Reports: Retention. Denies: Dysuria, Frequency, Hematuria, Hesitancy, Incontinence, Nocturia, Urgency Musculoskeletal: Denies: Arm Pain, Back Pain, Foot Pain, Hand Pain, Joint Pain, Joint stiffness, Joint swelling, Joint Tenderness, Leg Pain, Muscle pain, Neck Pain, Shoulder Pain Skin: Denies: Dryness, Jaundice, Lesions, Pruritis, Rash, Skin Changes, Wounds Neurological: Denies: Balance problems, Blurred vision, Double vision, Change in Speech, Slurred speech, Confusion, Difficulty swallowing, Focal weakness, Headaches, Numbness, Tingling, Tremor, Seizures Psychiatric: Denies: Anxiety, Depression Endocrine: Denies: Change in Body Habitus, Heat/ Cold Intolerance, Polydipsia, Polyuria Hematologic/ Lymphatic: Reports: Anemia. Denies: Adenopathy, Easy Bruising, Easy Bleeding, Petechiae, Purpura, Hx of blood clot VTE Information - Inpt Only VTE Present on Admission: No VTE Mechan Device Prophylaxis: SCD's VTE Pharm Prophylaxis ordered?: Yes Patient Problems: Active and Suspected Problems Prostate cancer (Acute) Neuropathy (Acute) Iron deficiency anemia (Acute) Orthostatic hypotension (Acute) Anemia due to gastrointestinal blood loss (Acute) - Physical Exam Vitals/I&O's: Vital Signs Temp Pulse Resp BP Pulse Ox 97.6 F L 80 18 134/83 H 100 04/02/19 16:31 04/02/19 17:00 04/02/19 16:31 04/02/19 16:31 04/02/19 16:31 Oxygen Delivery Method Room Air Weight: 84.7 kg Body Mass Index (BMI) 25.3 Intake and Output for Last 24 Hours 03/31/19 04/01/19 04/02/19 23:59 23:59 23:59 Intake Total 240 / 240 Balance 240 / 240 General: Alert, Oriented x3, Cooperative, No apparent distress, Well developed, - - thin, friends at bedside HEENT: Atraumatic, PERRLA, EOMI, Normocephalic, EAC Clear Oral: Moist Mucosa, No Gingival or Mucosal Lesions/ Ulcerations, - - poor dentition Neck: Supple, No JVD, Negative Carotid Bruits, Negative Hepatojugular Reflux, No Nodes, No Nuchal Rigidity, Trachea Midline, Thyroid Normal Size and Texture Lungs: Clear to auscultation, No rhonchi, No wheeze, No rales Cardiovascular: Regular rate, Regular Rhythm, Normal S1, Normal S2, No murmurs, No Ectopic Activity, No rub noted, No Gallop Abdomen: Bowel Sounds Present, Soft, Non Tender, Non-Distended, No Hepato- splenomegaly, Passing Flatus Extremities: No clubbing, No cyanosis, No edema, Capillary Refill Less than 3 Seconds, Peripheral Pulses Normal Skin: No rashes, No breakdown Musculoskeletal: No Tenderness to Palpation of Joints or Extremities, No Muscle Wasting, Arthritic Changes Lymphatic: No Cervical, Supraclavicular, or Inguinal Adenopathy Neurological: Cranial nerves II-XII grossly intact, Deep Tendon Reflexes 2+/4 and Symmetrical, Neuro grossly intact, Motor Exam 5/5 strength throughout Psych/Mental Status: Normal Affect, Appropriate Laboratory Results 04/02/19 12:45: WBC 7.5, RBC 2.92 L, Hgb 8.4 L, Hct 25.3 L, MCV 86.6, MCH 28.8, MCHC 33.2, RDW Std Deviation 49.1 H, RDW Coeff of Lisa 15.4 H, Plt Count 417, MPV 9.9, Immature Gran % (Auto) 0.400, Neut % (Auto) 55.5, Lymph % (Auto) 28.1, [place] % (Auto) 11.8 H, Eos % (Auto) 3.7, Baso % (Auto) 0.5, Absolute Neuts (auto) 4.2, Absolute Lymphs (auto) 2.10, Nucleated RBC % 0 04/02/19 12:45: Sodium 140, Potassium 4.3, Chloride 108 H, Carbon Dioxide 27.0, Anion Gap 5, BUN 18, Creatinine 1.03, Estim Creat Clear Calc 72.20, Est GFR (MDRD) Af Amer 92, Est GFR (MDRD) Non-Af 76, BUN/Creatinine Ratio 17.5, Glucose 84, Calcium 9.5 Current Medications Acetaminophen (Tylenol) 500 mg PO Q4H PRN PRN PRN Reason: Temp > 100.4 F Bisacodyl (Dulcolax) 10 mg PO X1 ONE Stop: 04/03/19 08:01 Heparin Sodium (Porcine) (Heparin Na) 5,000 unit SC Q12 AKANKSHA Lactated Ringer's () 1,000 mls @ 125 mls/hr IV .Q8H AKANKSHA Last Admin: 04/02/19 17:43 Dose: 125 mls/hr Documented by: Multivitamins/Minerals (Multivitamin With Minerals) 1 tablet PO DAILY@1200 AKANKSHA Nicotine (Nicoderm Cq (Pbkc)) 21 mg TRANSDERM. DAILY [facility] Last Admin: 04/02/19 17:43 Dose: 21 mg Documented by: Nutritional Formula (Lactose Free) (Ensure Enlive) 120 ml PO 4X/DAY [facility] Last Admin: 04/02/19 18:23 Dose: 120 ml Documented by: Polysaccharide Iron Complex (Ferrex 150) 150 mg PO DAILY [facility] Sodium Chloride () 10 - 40 ml IV UD PRN PRN Reason: SALINE FLUSH Sodium Chloride/Electrolytes (Nulytely) 4,000 ml PO X1 ONE Stop: 04/03/19 14:01 Assessment/Plan All Active Problems Prostate cancer (Acute) Neuropathy (Acute) Iron deficiency anemia (Acute) Orthostatic hypotension (Acute) Anemia due to gastrointestinal blood loss (Acute) Orthostatic Hypotension -no current need for blood products -transfuse for Hgb < 7 or active bleeding -LR at 125 cc/hr continuos--> do expect dilutional drop in hgb -repeat orthostatics in am Iron Deficient Anemia -Hemoccult + -consult GS for c-scope -concern for R sided malignancy -continue PO iron -pt has never had a colonoscopy -no current need for transfusion Metastatic Prostate Cancer -bony mets -pain is controlled -continue home chemotherapeutic agent--> takes at 1930 daily Tobacco Abuse -recommend smoking cessation -nicotine patch DVT prophylaxis -SCD/Heparin Code Visit Inpatient E&M: 72897 Init Hosp L3
[2019-04-03] VITALS (13 sets, daily range): BP systolic 85–138; BP diastolic 62–87; PULSE 82–115; RESP 14–18; TEMP 36.2–37; O2SAT 97–100; BMI 25.3
[2019-04-03] MEDS: Lactated Ringers 1,000 ML 125 ML IV ×4 (01:47→22:59)
--- NOTE | 2019-04-03 06:04 | PN.SURG_ITS ---
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 Claims that his stool is dark. He claims that the Dulcolax tablets worked pretty efficiently at 5:00 this morning. He states he had quite a bit of looser stool. - Physical Exam Vitals/I&O's: Vital Signs Temp Pulse Resp BP Pulse Ox 97.6 F L 86 18 107/66 99 04/03/19 03:25 04/03/19 05:53 04/03/19 03:25 04/03/19 05:53 04/03/19 03:25 Oxygen Delivery Method Room Air Weight: 186 lb 11.704 oz Body Mass Index (BMI) 25.3 Orthostatic Vital Signs Start: 04/03/19 05:53 Freq: q24h Status: Active Protocol: Activity Type Activity Date Activity User E-Sign Co-Sign Detail Recorded Client Recorded Date Recorded By Document 04/03/19 05:53 CJY [id number] 04/03/19 05:57 CJY 04/03/19 05:53 Orthostatic Vitals Standing -Blood Pressure (90/60-120/80) 91/62 -Extremity Use Left Arm -Pulse Rate (60-100) 115 H Sitting -Blood Pressure (90/60-120/80) 115/73 -Extremity Use Left Arm -Pulse Rate (60-100) 100 Lying -Blood Pressure (90/60-120/80) 107/66 -Extremity Use Left Arm -Pulse Rate (60-100) 86 Intake and Output for Last 24 Hours 04/01/19 04/02/19 04/03/19 23:59 23:59 23:59 Intake Total 240 / 480 1740 / 1740 Output Total 800 / 800 Balance 240 / -20 940 / 940 Laboratory Results 04/02/19 12:45: WBC 7.5, RBC 2.92 L, Hgb 8.4 L, Hct 25.3 L, MCV 86.6, MCH 28.8, MCHC 33.2, RDW Std Deviation 49.1 H, RDW Coeff of Lisa 15.4 H, Plt Count 417, MPV 9.9, Immature Gran % (Auto) 0.400, Neut % (Auto) 55.5, Lymph % (Auto) 28.1, Williams % (Auto) 11.8 H, Eos % (Auto) 3.7, Baso % (Auto) 0.5, Absolute Neuts (auto) 4.2, Absolute Lymphs (auto) 2.10, Nucleated RBC % 0 04/02/19 12:45: Sodium 140, Potassium 4.3, Chloride 108 H, Carbon Dioxide 27.0, Anion Gap 5, BUN 18, Creatinine 1.03, Estim Creat Clear Calc 72.20, Est GFR (MDRD) Af Amer 92, Est GFR (MDRD) Non-Af 76, BUN/Creatinine Ratio 17.5, Glucose 84, Calcium 9.5 Current Medications Acetaminophen (Tylenol) 500 mg PO Q4H PRN PRN PRN Reason: Temp > 100.4 F Bisacodyl (Dulcolax) 10 mg PO X1 ONE Stop: 04/03/19 08:01 Heparin Sodium (Porcine) (Heparin Na) 5,000 unit SC Q12 [facility] Last Admin: 04/02/19 21:10 Dose: Not Given Documented by: Lactated Ringer's () 1,000 mls @ 125 mls/hr IV .Q8H [facility] Last Admin: 04/03/19 01:47 Dose: 125 mls/hr Documented by: Multivitamins/Minerals (Multivitamin With Minerals) 1 tablet PO DAILY@1200 AKANKSHA Nicotine (Nicoderm Cq (Pbkc)) 21 mg TRANSDERM. DAILY [facility] Last Admin: 04/02/19 17:43 Dose: 21 mg Documented by: Nutritional Formula (Lactose Free) (Ensure Enlive) 120 ml PO 4X/DAY [facility] Last Admin: 04/02/19 21:09 Dose: 120 ml Documented by: Polysaccharide Iron Complex (Ferrex 150) 150 mg PO DAILY [facility] Sodium Chloride () 10 - 40 ml IV UD PRN PRN Reason: SALINE FLUSH Sodium Chloride/Electrolytes (Nulytely) 4,000 ml PO X1 ONE Stop: 04/03/19 06:16 Medical Necessity - Tobacco Use Smoking Status: Current every day smoker Tobacco Use: Cigarettes Assessment/Plan All Active Problems (Last Updated 04/02/19 @ 19:59 by Manju Zayas DO) Prostate cancer (Acute) Neuropathy (Acute) Iron deficiency anemia (Acute) Orthostatic hypotension (Acute) Anemia due to gastrointestinal blood loss (Acute) Tobacco abuse (Acute) 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 The patient has had some results just from Dulcolax tablet. Will consider rushing a GoLYTELY prep in order to attempt an upper and lower endoscopy lower today. Hopefully that will be a sufficient cleanout. If not we can redo it and reschedule as an outpatient in the future. Will stop heparin until it can be decided whether the patient is actually bleeding
[2019-04-03 06:11] LABS: Absolute Lymphocyte Count 2.51 X10^3/uL (0.83-4.51); Absolute Neutrophil Count 3.7 X10^3/uL (2.0-7.7); Basophil# 0.05 X10^3/uL; Basophil% 0.7 % (0-1); Eosinophil# 0.37 X10^3/uL; Eosinophils% 4.9 % (0-5); Hematocrit 22.9 % (40-54); Hemoglobin 7.3 g/dL (13.0-16.5); Lymphocyte # 2.51 X10^3/ul (4.0); Lymphocyte % 33.2 % (19-41); Mean Corp Hgb Conc 31.9 g/dL (32-36); Mean Corpuscular Hgb 27.2 pg (27.0-32.0); Mean Corpuscular Volume 85.4 fL (80-94); Mean Platelet Vol. 9.6 fl (6.2-12.0); Monocyte# 0.91 X10^3/uL; NRBC Flagged by Analyzer 0 % (0-5); Neutrophil % 48.8 % (47-70); POSITIVE MORPHOLOGY YES; Platelet Count 351 K/mm3 (150-450); RBC Distribution Width CV 15.5 % (11.6-14.6); Red Blood Count 2.68 M/mm3 (4.6-6.2); White Blood Count 7.6 K/mm3 (4.4-11.0)
[2019-04-03 06:17] LABS: Differential Indicated SCAN CRITERIA MET
[2019-04-03 06:18] LABS: Prothrombin Time (Protime)PT. 12.7 SECONDS (11.7-14.9)
[2019-04-03] MEDS: Electrolyte Solution/Peg's 4000 ML PO (06:26)
[2019-04-03 06:30] LABS: ALB/GLOB Ratio 0.9 RATIO (0.9-2.4); AST(SGOT) 12 U/L (15-37); Alanine Aminotransfer ALT/SGPT 8 U/L (16-61); Alkaline Phosphatase 111 U/L (45-117); Anion Gap 6 (5-15); BUN 16 mg/dL (7-18); BUN/Creat Ratio 16.2 RATIO (10-20); Calcium,Total 9.1 mg/dL (8.5-10.1); Chloride 109 mmol/L (98-107); Creatinine, Serum 0.99 mg/dL (0.70-1.30); EST Glomerular Filtration Rate 79 mL/min (>60); Est Glom Filt Rate - Afr Amer 96 mL/min (>60); Estimated Creatinine Clearance 75.12 ml/min; Globulin 3.3 g/dL (2.2-4.2); Glucose 89 mg/dL (74-106); Potassium 3.7 mmol/L (3.5-5.1); Protein, Total 6.3 g/dL (6.4-8.2); Sodium Level 139 mmol/L (136-145)
[2019-04-03] MEDS: Bisacodyl 5 MG Tablet 10 MG PO (11:01)
--- NOTE | 2019-04-03 11:10 | CASEMGMT ---
RN CM Face to Face with patient for initial transition planning/care coordination assessment. RN CM introduced self and role at [facility]. Patient sitting in chair, alert and oriented, family at bedside. Patient willing to participate in assessment and is able to answer all questions appropriately. Care providers, pharmacy, and demographics verified. Patient wishes to discharge home, denies need for home health at this time. Patient states he has no further needs or concerns at this time. CM to follow for discharge planning needs that may arise. PCP: Ronal Specialists: Rebecca urologist Preferred Pharmacy: [facility] Alexandra Insurance: [facility] Prescription Benefit: Yes Living Will/HPOA: yes, Mago Carvalho LNOK: Living Arrangements: Patient lives with in mobile home with 1-2 steps to enter the home. Patient independent at home. Transportation: self/ DME/HHC: Patient has shower chair, cane, walker at home. Patient denies HHC at this time. Disposition Plan: Patient to discharge home with family support and follow-up plans in place. Dahlia HAHN, RN, CM
--- NOTE | 2019-04-03 12:21 | PN_ITS ---
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 He was admitted with a complaint of lightheadedness which worsened when he stood up. It worsened on day of admission so he decided to come in. On admission in the ED he was noted to be anemic, with Hb of 8.4, and stool was positive for occult blood. He admitted to dark sticky stools but denied any bright red bleeding per rectum. He had been scheduled for outpatient colonoscopy with Dr. Yeung on 04/14/19. Patient has no complaints this morning. His lightheadedness has improved. Review of systems otherwise negative. Labs and vitals reviewed. As for colonoscopy. Hemoglobin noted to have dropped to 7.6 from 8.4 on admission. Vitals/I&O's: Vital Signs Temp Pulse Resp BP Pulse Ox 98.2 F 105 H 18 94/68 98 04/03/19 08:39 04/03/19 08:39 04/03/19 08:39 04/03/19 08:39 04/03/19 10:00 Oxygen Delivery Method Room Air Weight: 186 lb 11.704 oz Body Mass Index (BMI) 25.3 Orthostatic Vital Signs Start: 04/03/19 05:53 Freq: q24h Status: Active Protocol: Activity Type Activity Date Activity User E-Sign Co-Sign Detail Recorded Client Recorded Date Recorded By Document 04/03/19 05:53 Y [id number] 04/03/19 05:57 Y 04/03/19 05:53 Orthostatic Vitals Standing -Blood Pressure (90/60-120/80) 91/62 -Extremity Use Left Arm -Pulse Rate (60-100) 115 H Sitting -Blood Pressure (90/60-120/80) 115/73 -Extremity Use Left Arm -Pulse Rate (60-100) 100 Lying -Blood Pressure (90/60-120/80) 107/66 -Extremity Use Left Arm -Pulse Rate (60-100) 86 Intake and Output for Last 24 Hours 04/01/19 04/02/19 04/03/19 23:59 23:59 23:59 Intake Total 240 / 480 2704.58 / 2704.58 Output Total 800 / 800 Balance 240 / -20 1904.58 / 1904.58 General: Alert, Oriented x3, Cooperative, No apparent distress HEENT: Atraumatic, PERRLA, EOMI, Normocephalic Oral: Moist Mucosa Neck: Supple, No JVD, Negative Carotid Bruits Lungs: Clear to auscultation, Normal air movement, No rhonchi, No wheeze Cardiovascular: Regular rate, Regular Rhythm, Normal S1, Normal S2, No murmurs Abdomen: Bowel Sounds Present, Soft, Non Tender, Non-Distended, No Hepato- splenomegaly Extremities: No clubbing, No cyanosis, No edema, Capillary Refill Less than 3 Seconds Skin: No rashes, No breakdown Musculoskeletal: No Tenderness to Palpation of Joints or Extremities Neurological: Cranial nerves II-XII grossly intact, Neuro grossly intact, Motor Exam 5/5 strength throughout Psych/Mental Status: Normal Affect, Appropriate, Alert and oriented to time, place, person, mood and affect Laboratory Results 04/02/19 12:45: WBC 7.5, RBC 2.92 L, Hgb 8.4 L, Hct 25.3 L, MCV 86.6, MCH 28.8, MCHC 33.2, RDW Std Deviation 49.1 H, RDW Coeff of Lisa 15.4 H, Plt Count 417, MPV 9.9, Immature Gran % (Auto) 0.400, Neut % (Auto) 55.5, Lymph % (Auto) 28.1, Trigg % (Auto) 11.8 H, Eos % (Auto) 3.7, Baso % (Auto) 0.5, Absolute Neuts (auto) 4.2, Absolute Lymphs (auto) 2.10, Nucleated RBC % 0 04/02/19 12:45: Sodium 140, Potassium 4.3, Chloride 108 H, Carbon Dioxide 27.0, Anion Gap 5, BUN 18, Creatinine 1.03, Estim Creat Clear Calc 72.20, Est GFR (MDRD) Af Amer 92, Est GFR (MDRD) Non-Af 76, BUN/Creatinine Ratio 17.5, Glucose 84, Calcium 9.5 04/03/19 05:51: WBC 7.6, RBC 2.68 L, Hgb 7.3 L, Hct 22.9 L, MCV 85.4, MCH 27.2, MCHC 31.9 L, RDW Std Deviation 48.0 H, RDW Coeff of Lisa 15.5 H, Plt Count 351, MPV 9.6, Immature Gran % (Auto) 0.400, Neut % (Auto) 48.8, Lymph % (Auto) 33.2, Trigg % (Auto) 12.0 H, Eos % (Auto) 4.9, Baso % (Auto) 0.7, Absolute Neuts (auto) 3.7, Absolute Lymphs (auto) 2.51, Nucleated RBC % 0 04/03/19 05:51: PT 12.7, INR 1.0 04/03/19 05:51: Sodium 139, Potassium 3.7, Chloride 109 H, Carbon Dioxide 24.0, Anion Gap 6, BUN 16, Creatinine 0.99, Estim Creat Clear Calc 75.12, Est GFR (MDRD) Af Amer 96, Est GFR (MDRD) Non-Af 79, BUN/Creatinine Ratio 16.2, Glucose 89, Calcium 9.1, Total Bilirubin 0.30, AST 12 L, ALT 8 L, Alkaline Phosphatase 111, Total Protein 6.3 L, Albumin 3.0 L, Globulin 3.3, Albumin/Globulin Ratio 0.9 Current Medications Acetaminophen (Tylenol) 500 mg PO Q4H PRN PRN PRN Reason: Temp > 100.4 F Lactated Ringer's () 1,000 mls @ 125 mls/hr IV .Q8H [facility] Last Admin: 04/03/19 09:30 Dose: 125 mls/hr Documented by: Multivitamins/Minerals (Multivitamin With Minerals) 1 tablet PO DAILY@1200 [facility] Last Admin: 04/03/19 09:36 Dose: Not Given Documented by: Nicotine (Nicoderm Cq (Pbkc)) 21 mg TRANSDERM. DAILY [facility] Last Admin: 04/03/19 09:32 Dose: 21 mg Documented by: Nutritional Formula (Lactose Free) (Ensure Enlive) 120 ml PO 4X/DAY [facility] Last Admin: 04/03/19 09:23 Dose: Not Given Documented by: Polysaccharide Iron Complex (Ferrex 150) 150 mg PO DAILY [facility] Last Admin: 04/03/19 09:35 Dose: Not Given Documented by: Sodium Chloride () 10 - 40 ml IV UD PRN PRN Reason: SALINE FLUSH STROKE Vital Signs/Narrative: Vital Signs Temp Pulse Resp BP Pulse Ox 04/03/19 10:00 98 04/03/19 08:39 98.2 F 105 H 18 94/68 98 Medical Necessity - Tobacco Use Smoking Status: Current every day smoker Tobacco Use: Cigarettes Assessment/Plan All Active Problems (Last Updated 04/02/19 @ 19:59 by Manju Zayas DO) Prostate cancer (Acute) Neuropathy (Acute) Iron deficiency anemia (Acute) Orthostatic hypotension (Acute) Anemia due to gastrointestinal blood loss (Acute) Tobacco abuse (Acute) 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 Orthostatic hypotension due to acute GI bleed * currently not actively bleeding; Hb has dropped to 7.6 from 8.4 on admission. * Bp is now in 130s systolic * continue hydrating with IVF- Ringer;s Lacteate at 125cc/hr * transfuse if actively bleeding, or for Hb <7 * general surgery on board for GI bleed; for colonoscopy later today * 2. Acute GI bleed: as under 1 3. iron deficiency anemia due to acute lower GI bleed * 2 focal blood was positive though he has not had any overt bleeding. * general surgery on board. Still had a colonoscopy before. * For colonoscopy today as under 1. * 4. Metastatic prostate cancer: with bony metastases. Pain well controlled. On enzalutamide (Xtandi) 5. Nicotine abuse: on nicotine patch DVT prophylaxis; SCDs o/a of GI bleed Code Visit OBSV E&M: 58106 Subsequent observation care L3
--- NOTE | 2019-04-03 12:34 | NURSING ---
report called to MENDEZ Celis in [facility] for pre-op.
[2019-04-03 12:57] LABS: Hematocrit 22.5 % (40-54); Hemoglobin 7.1 g/dL (13.0-16.5)
--- NOTE | 2019-04-03 14:00 | IMM_PTH ---
PATIENT: JUSTICE OWEN LOC: MS3 U#:[id number] AGE/SX: 73/M ROOM: MS309 RE04/03/[address]: Dr. Kelle Garcia MD : 1945 BED: 1 DIS: 04/05/2019 SPEC #: [id number] RECD: 04/04/19 12:42 STATUS: SOUJade REQ #: [id number] NBA: 04/03/19 14:[address]: Vito Noel DEPT: IMMUNOHISTOCHEMISTRY RECD BY: Gavi May ENTERED: 04/04/19 12:43 SP TYPE: IMMUNO OTHR DR: DO Dr. Kelle Mckeon MD Dr. Tai Chi Kwok, MD Tissues: B - Stomach, NOS Procedures: H Pylori (initial) MSH2 (add) MLH-1 (add) MSH6 (add) Anti-PMS2 (add) FINK-2 (add) HER2 YEYO (add) P53 (add) KI-67 (initial) PHYSICIAN & [address] [address] SPECIMEN INFORMATION: Tissue Source: B - Antrum biopsy, D - Biopsy of proximal ascending colon mass Clinical Info: Ana Specimen Number: [id number] B & D CPT code: 62186 x2, 83237 x7 METHODOLOGY: Deparaffinized sections of prefer/formalin-fixed tissue or PAP/DQ stained slides are incubated with monoclonal/polyclonal antibodies/oligonucleotide probes. Localization is made via biotin free immunoperoxidase method. Appropriate controls are performed and reacted as expected. Results on target cell population are indicated in the following table: RESULTS: ANTIBODY / CLONE RESULT Block B H Pylori (polyclonal) positive, abundant Block D Ki-67 (30-9) positive, 80% P53 (DO-7) positive, 52% FINK-2 (SP21) positive MLH-1 (M1) positive MSH2 (25D12) positive MSH6 (44) positive PMS2 (ESC8585) positive Her-2neu (CB11) negative These tests were developed and their performance characteristics determined by [facility]. They may not have been cleared or approved by the U.[place]. Food and Drug Administration. The FDA has determined that such clearance or approval is not necessary. INTERPRETATION: B. Gastric antrum, biopsy: Positive for abundant Helicobacter pylori organisms. D. Proximal ascending colon mass, biopsy: Invasive adenocarcinoma. Result of Microsatellite Instability Study: Negative (no loss of mismatch protein; no microsatellite instability detected). AM:yobani 04/08/19
--- NOTE | 2019-04-03 14:00 | EGD_PTH ---
PATIENT: JUSTICE OWEN LOC: MS3 U#:[id number] AGE/SX: 73/M ROOM: [facility] RE04/03/[address]: Dr. Kelle Garcia MD : 1945 BED: 1 DIS: 04/05/2019 SPEC #: [id number] RECD: 04/03/19 14:25 STATUS: JESUS ASHWIN #: [id number] NBA: 04/03/19 14:[address]: Vito Noel DEPT: SURGICAL PATHOLOGY RECD BY: Candelario Walker ENTERED: 04/04/19 11:06 SP TYPE: EGD BIOPSY OT DR: DO Dr. Kelle Mckeon MD Dr. Tai Chi Kwok, MD Tissues: A - Duodenum, NOS B - Gastric mucous membrane C - Esophageal mucous membrane D - Ascending colon E - Transverse colon F - Descending colon G - Sigmoid colon biopsy H - Sigmoid colon biopsy Procedures: Surgery Specimen Level IV HEADER OPERATION: Colonoscopy, EGD ([facility]) PRE-OP DIAGNOSIS: Anemia TISSUE SUBMITTED: A - Duodenum biopsy, B - Antrum biopsy for H. pylori and path, C - Distal esophagus biopsy, D - Biopsy of proximal ascending colon mass, E - Biopsy of distal transverse polyp cold snare, F - Descending colon biopsy and cold snare, G - Proximal sigmoid colon biopsy and cold snare, H - Mid sigmoid biopsy MICROSCOPIC DIAGNOSIS A. Duodenum, biopsy: Focal gastric metaplasia. Mild chronic active ileitis. B. Gastric antrum, biopsy: Chronic active gastritis. Positive for Helicobacter pylori. See comment. C. Distal esophagus, biopsy: Consistent with reflux esophagitis. D. Proximal ascending colon mass, biopsy: Invasive well differentiated adenocarcinoma. See comment. E. Distal transverse colon polyp, biopsy: Fragments of tubular adenoma. F. Descending colon, biopsy: Tubular adenoma. G. Proximal sigmoid colon polyp, biopsy: No significant pathologic change. H. Mid sigmoid colon, biopsy: Tubular adenoma with minimally invasive well differentiated adenocarcinoma. AM:yobani 04/07/19 COMMENT B. The results of immunohistochemistry for Helicobacter pylori will be reported separately ([id number]). D & G. Immunohistochemistry ([id number]) supports the above diagnosis. Case has been reviewed in consultation with Dr. Lnagford who concurs with the above diagnosis. IDC:SJ MICROSCOPIC DESCRIPTION Slides are reviewed. GROSS DESCRIPTION A - Received in fixative is one container labeled with the patient's name and designated duodenum biopsy. The specimen consists of two irregular fragments of light clark soft tissue that in aggregate measure 0.4 x 0.2 x 0.1 cm. The specimen is totally submitted in one cassette. B - Received in fixative is one container labeled with the patient's name and designated antrum biopsy. The specimen consists of one irregular fragment of light clark soft tissue that measures 0.3 x 0.3 x 0.1 cm. The specimen is totally submitted in one cassette. C - Received in fixative is one container labeled with the patient's name and designated distal esophagus biopsy. The specimen consists of multiple irregular fragments of light clark soft tissue that in aggregate measure 0.8 x 0.3 x 0.1 cm. The specimen is totally submitted in one cassette. D - Received in fixative is one container labeled with the patient's name and designated biopsy proximal ascending colon mass. The specimen consists of multiple irregular fragments of light clark soft tissue that in aggregate measure 1 x 0.5 x 0.1 cm. The specimen is totally submitted in one cassette. E - Received in fixative is one container labeled with the patient's name and designated biopsy of distal transverse. The specimen consists of multiple irregular fragments of light clark soft tissue that in aggregate measure 1.5 x 0.5 x 0.1 cm. The specimen is totally submitted in one cassette. F - Received in fixative is one container labeled with the patient's name and designated descending colon biopsy. The specimen consists of multiple irregular fragments of light clark soft tissue that in aggregate measure 0.8 x 0.3 x 0.1 cm. The specimen is totally submitted in one cassette. G - Received in fixative is one container labeled with the patient's name and designated proximal sigmoid colon. The specimen consists of one irregular fragment of light clark soft tissue that measures 0.3 x 0.3 x 0.1 cm. The specimen is totally submitted in one cassette. H - Received in fixative is one container labeled with the patient's name and designated mid sigmoid biopsy. The specimen consists of a clark-pink polyp measuring 1.5 x 1 x 0.7 cm. The apparent base is inked. The polyp is serially sectioned and submitted entirely in one cassette. / YUNG:yobani 04/04/19 TC:0 CPT: 42002 x8
--- NOTE | 2019-04-03 14:05 | OP.EGD_ITS ---
Patient Name: Bartolo Carvalho Procedure Date: 04/03/2019 1:01 PM Date of : 1945 Age: 73 Procedure: Upper GI endoscopy Indications: Occult blood in stool Providers: Vito Noel MD Referring MD: Manju Zayas DO Medicines: See the Anesthesia note for documentation of the administered medications Complications: No immediate complications. Procedure: Pre-Anesthesia Assessment: - Prior to the procedure, a History and Physical was performed, and patient medications and allergies were reviewed. The patient's tolerance of previous anesthesia was also reviewed. The risks and benefits of the procedure and the sedation options and risks were discussed with the patient. All questions were answered, and informed consent was obtained. Prior Anticoagulants: The patient has taken no previous anticoagulant or antiplatelet agents. ASA Grade Assessment: II - A patient with mild systemic disease. After reviewing the risks and benefits, the patient was deemed in satisfactory condition to undergo the procedure. After obtaining informed consent, the endoscope was passed under direct vision. Throughout the procedure, the patient's blood pressure, pulse, and oxygen saturations were monitored continuously. The gastroscope was introduced through the mouth, and advanced to the second part of duodenum. The upper GI endoscopy was accomplished without difficulty. The patient tolerated the procedure well. Scope In: 1:18:08 PM Scope Out: 1:24:07 PM Total Procedure Duration Time 0 hours 5 minutes 59 seconds Findings: LA Grade A (one or more mucosal breaks less than 5 mm, not extending between tops of 2 mucosal folds) esophagitis with no bleeding was found 41 cm from the incisors. Biopsies were taken with a cold forceps for histology. The Z-line was irregular and was found 41 cm from the incisors. A medium-sized hiatal hernia was present. Grade I varices were found in the middle third of the esophagus. Diffuse mild inflammation characterized by erosions was found in the gastric antrum. Biopsies were taken with a cold forceps for histology. Diffuse mildly erythematous mucosa without active bleeding and with no stigmata of bleeding was found in the duodenal bulb. Biopsies were taken with a cold forceps for histology. Impression: - LA Grade A reflux esophagitis. Biopsied. - Z-line irregular, 41 cm from the incisors. - Medium-sized hiatal hernia. - Grade I esophageal varices. - Chronic gastritis. Biopsied. - Erythematous duodenopathy. Biopsied. Recommendation: - [facility] to [facility] care. - Resume regular diet. - Continue present medications. - Use Prilosec (omeprazole) 40 mg PO daily. Procedure Code(s): --- Professional --- 32507, Esophagogastroduodenoscopy, flexible, transoral; with biopsy, single or multiple Diagnosis Code(s): --- Professional --- K21.0, Gastro-esophageal reflux disease with esophagitis K22.8, Other specified diseases of esophagus K44.9, Diaphragmatic hernia without obstruction or gangrene I85.00, Esophageal varices without bleeding K29.50, Unspecified chronic gastritis without bleeding K31.89, Other diseases of stomach and duodenum R19.5, Other fecal abnormalities CPT copyright 2017 [employer]. All rights reserved. The codes documented in this report are preliminary and upon repulping supervisor review may be revised to meet current compliance requirements. Vito Noel MD 04/03/2019 2:05:18 PM This report has been signed electronically. Number of Addenda: 0 Note Initiated On: 04/03/2019 1:01 PM
--- NOTE | 2019-04-03 14:17 | OP.COLON_ITS ---
Patient Name: Bartolo Carvalho Procedure Date: 04/03/2019 1:25 PM Date of : 1945 Age: 73 Procedure: Colonoscopy Indications: Iron deficiency anemia Providers: Vito Noel MD Referring MD: Manju Zayas DO Medicines: See the Anesthesia note for documentation of the administered medications Patient Profile: Last Colonoscopy: none. The patient's first colonoscopy is today. Complications: No immediate complications. Procedure: Pre-Anesthesia Assessment: - Prior to the procedure, a History and Physical was performed, and patient medications and allergies were reviewed. The patient's tolerance of previous anesthesia was also reviewed. The risks and benefits of the procedure and the sedation options and risks were discussed with the patient. All questions were answered, and informed consent was obtained. Prior Anticoagulants: The patient has taken no previous anticoagulant or antiplatelet agents. ASA Grade Assessment: II - A patient with mild systemic disease. After reviewing the risks and benefits, the patient was deemed in satisfactory condition to undergo the procedure. After I obtained informed consent, the scope was passed under direct vision. Throughout the procedure, the patient's blood pressure, pulse, and oxygen saturations were monitored continuously. The Colonoscope was introduced through the anus and advanced to the cecum, identified by appendiceal orifice and ileocecal valve. The colonoscopy was performed without difficulty. The patient tolerated the procedure well. The quality of the bowel preparation was good. The ileocecal valve was photographed. Scope In: 1:27:15 PM Scope Withdrawal Time 0 hours 27 minutes 9 seconds Scope Out: 1:58:16 PM Total Procedure Duration Time 0 hours 31 minutes 1 second Findings: Hemorrhoids were found on perianal exam. lax anal tone A fungating non-obstructing large mass was found in the proximal ascending colon. No bleeding was present. This was biopsied with a cold forceps for histology. A 7 mm polyp was found in the distal transverse colon. The polyp was sessile. The polyp was removed with a cold biopsy forceps. The polyp was removed with a cold snare. Resection and retrieval were complete. A 6 mm polyp was found in the descending colon. The polyp was sessile. The polyp was removed with a cold snare. Resection and retrieval were complete. A 13 mm polyp was found in the proximal sigmoid colon. The polyp was semi-pedunculated. Biopsies were taken with a cold forceps for histology. For location marking, one hemostatic clip was successfully placed. Proximal to this I markded with Arianna ink. There was no bleeding at the end of the procedure. An infiltrative partially obstructing large mass was found in the mid sigmoid colon. The mass was partially circumferential (involving one-half of the lumen circumference). No bleeding was present. The mass was partially removed with a hot snare and retrieved with a Torres net. Distal to this lesion I marked with arianna ink Impression: - Hemorrhoids found on perianal exam. - Malignant tumor in the proximal ascending colon. Biopsied. - One 7 mm polyp in the distal transverse colon, removed with a cold biopsy forceps and removed with a cold snare. Resected and retrieved. - One 6 mm polyp in the descending colon, removed with a cold snare. Resected and retrieved. - One 13 mm polyp in the proximal sigmoid colon. Biopsied. Clip was placed. Ink placed proximal to this - Malignant partially obstructing tumor in the mid sigmoid colon. Ink placed distal to this. - The examination was suspicious for a malignant-appearing tumor. Tissue was removed. Recommendation: - Observe patient in patient room for ongoing care. - Resume previous diet. - Continue present medications. Definitive surgery will be recommended. Will obtain CMP and CEA and Abd pelvic CT Will plan future complex surgery Will not require chronic hospitalization until surgical arrangements are made - Repeat colonoscopy in 1 year for surveillance. Procedure Code(s): --- Professional --- 48637, Colonoscopy, flexible; with removal of tumor(s), polyp(s), or other lesion(s) by snare technique 77771, 59, Colonoscopy, flexible; with biopsy, single or multiple 21372, Unlisted procedure, colon Diagnosis Code(s): --- Professional --- K64.9, Unspecified hemorrhoids C18.2, Malignant neoplasm of ascending colon C18.7, Malignant neoplasm of sigmoid colon K56.690, Other partial intestinal obstruction D12.3, Benign neoplasm of transverse colon (hepatic flexure or splenic flexure) D12.4, Benign neoplasm of descending colon D12.5, Benign neoplasm of sigmoid colon D50.9, Iron deficiency anemia, unspecified CPT copyright 2017 [employer]. All rights reserved. The codes documented in this report are preliminary and upon siebel consultant review may be revised to meet current compliance requirements. Vito Noel MD 04/03/2019 2:16:51 PM This report has been signed electronically. Number of Addenda: 0 Note Initiated On: 04/03/2019 1:25 PM
--- NOTE | 2019-04-03 14:55 | RAD_ITS ---
STUDY: X-RAY - ABDOMEN/PELVIS REASON FOR EXAM: Male, 73 years old. Colonoscopy with clip. TECHNIQUE: Single AP view of the abdomen / pelvis. COMPARISON: None. FINDINGS: Normal visualized lung bases. There is an unremarkable bowel gas pattern. Mineral density consistent with the history of a clip seen in the right pelvis. There is no demonstrated free abdominal air. The visualized liver, spleen and kidneys are grossly normal in size and morphology. Normal soft tissue structures. Normal visualized osseous structures. RAD/Abdomen Single View (Portable) IMPRESSION: No acute abnormality. Electronically Signed: Zach Urena MD at 16:52 EST , Service support ,
[2019-04-03 15:45] LABS: BUN 14 mg/dL (7-18); Creatinine, Serum 1.02 mg/dL (0.70-1.30); Estimated Creatinine Clearance 72.91 ml/min; Glucose 98 mg/dL (74-106)
[2019-04-03 15:46] LABS: ALB/GLOB Ratio 0.9 RATIO (0.9-2.4); AST(SGOT) 17 U/L (15-37); Alanine Aminotransfer ALT/SGPT 11 U/L (16-61); Alkaline Phosphatase 120 U/L (45-117); Anion Gap 7 (5-15); BUN/Creat Ratio 13.7 RATIO (10-20); Calcium,Total 8.8 mg/dL (8.5-10.1); Chloride 107 mmol/L (98-107); EST Glomerular Filtration Rate 76 mL/min (>60); Est Glom Filt Rate - Afr Amer 93 mL/min (>60); Globulin 3.3 g/dL (2.2-4.2); Potassium 3.6 mmol/L (3.5-5.1); Protein, Total 6.3 g/dL (6.4-8.2); Sodium Level 140 mmol/L (136-145)
--- NOTE | 2019-04-03 16:03 | CT_ITS ---
STUDY: CTA NECK WITH CONTRAST REASON FOR EXAM: Male, 73 years old. 70% stenosis of the left ICA on ultrasound RADIATION DOSAGE (If Supplied By Facility): CTDIvol = ( 23.04 ) mGy, DLP = ( 593.36 ) mGycm TECHNIQUE: CT angiography with multi-detector data acquisition was performed from the aortic arch to the skull base following intravenous administration of IV Isovue 370 100CC. MIP images were reconstructed from the axial data set. Post-processing of the angiographic images was performed, with multiplanar reformation and 3D reconstruction. Individualized dose optimization techniques were used for this CT. COMPARISON: None. FINDINGS: AORTIC ARCH: Normal visualized aortic arch. Normal origins of the brachiocephalic, left common carotid, and left subclavian arteries. RIGHT CAROTID ARTERIES: Normal right common carotid artery (CCA). There is mild atherosclerotic plaque formation without definite narrowing of the right carotid bulb. Normal origin of the right internal carotid (ICA) artery without a hemodynamically significant stenosis. Normal visualized cervical portion of the right internal carotid artery. Normal origin of the right external carotid artery (ECA). LEFT CAROTID ARTERIES: Normal left common carotid artery (CCA). There is moderate atherosclerotic plaque formation with moderate to marked narrowing of the carotid bulb. There is moderate to marked atherosclerotic plaque formation of the origin of the left internal carotid artery with an estimated stenosis of greater than 70%. Normal visualized cervical portion of the left internal carotid artery. Normal origin of the left external carotid artery (ECA). VERTEBRAL ARTERIES: There is enhancement within the bilateral vertebral arteries with a small left vertebral artery, and a dominant right vertebral artery. CT/CTA Neck W/WO Contrast IMPRESSION: There is confirmation of moderate to marked calcified plaque of the left carotid bulb and ICA origin, with high grade, 70% or greater stenosis for a short segment of the left ICA. No other significant findings. Electronically Signed: Zach Urena MD at 17:04 EST , Service support ,
[2019-04-03] MEDS: 0.9% Saline Lock 10 ML Syringe IV (16:52)
[2019-04-03] MEDS: Pantoprazole Sodium 40 MG Tablet PO (16:53)
[2019-04-03] MEDS: ENZALUTAMIDE 40 MG CAPSULE 160 MG PO (18:48)
[2019-04-04] VITALS (14 sets, daily range): BP systolic 80–127; BP diastolic 44–70; PULSE 76–103; RESP 16–20; TEMP 36.8–37.6; O2SAT 93–100
[2019-04-04] MEDS: 0.9% Normal Saline 1,000 ML 999 ML IV ×2 (04:28→09:14)
--- NOTE | 2019-04-04 06:02 | PCM.PN.BLA ---
Progress Note Patient became orthostatic this morning. He is currently receiving a 500 cc bolus of saline. Labs are pending. Carotid duplex and CTA of the neck both demonstrate greater than 70% focal stenosis of the proximal left internal carotid. I believe that this is complicating his anemia and orthostasis. His colonoscopy demonstrated a right sided apparent neoplasm and a apparent sigmoid neoplasm. The transverse colon appeared otherwise relatively clean except for what appeared to be a benign polyp. I am subsequently proposing a combined laparoscopic right colectomy and a laparoscopic sigmoid colectomy. Admittedly this is a significant amount of abdominal surgery. Blood loss will not be 0 but hopefully can be contained in a more minimal amount. My concern is that if his current level of anemia is at 7 and he will require a carotid enterectomy followed up then by an extensive abdominal surgery that unfortunately he will require blood transfusion pre-interventions. I will be working with the operating room schedulers to try to expedite his left carotid endarterectomy. I would anticipate that after expected transfusion that he could be discharged today. I am looking toward surgery the very early part of next week. I do not believe that he can safely undergo his abdominal cancer surgery until his carotid is repaired. I do not believe that he is a candidate for carotid stenting because that would then require ongoing anticoagulation which would interfere with his cancer surgery. I appreciate the opportunity of assisting with surgical care and will continue to try to assist through this rather complicated process Vito Noel M.D., F.A.C.S. STROKE Vital Signs/Narrative: Vital Signs Temp Pulse Resp BP Pulse Ox 04/04/19 04:21 99.1 F 103 H 18 80/44 L 93
[2019-04-04 06:18] LABS: Absolute Lymphocyte Count 1.43 X10^3/uL (0.83-4.51); Absolute Neutrophil Count 4.5 X10^3/uL (2.0-7.7); Basophil# 0.03 X10^3/uL; Basophil% 0.5 % (0-1); Eosinophil# 0.08 X10^3/uL; Eosinophils% 1.2 % (0-5); Hemoglobin 6.7 g/dL (13.0-16.5); Lymphocyte # 1.43 X10^3/ul (4.0); Lymphocyte % 21.7 % (19-41); Mean Corp Hgb Conc 31.9 g/dL (32-36); Mean Corpuscular Hgb 27.2 pg (27.0-32.0); Mean Corpuscular Volume 85.4 fL (80-94); Mean Platelet Vol. 9.5 fl (6.2-12.0); Monocyte# 0.58 X10^3/uL; Monocyte% 8.8 % (0-10); NRBC Flagged by Analyzer 0 % (0-5); Neutrophil # 4.46 X10^3/uL (2.7-7.7); Neutrophil % 67.5 % (47-70); Platelet Count 327 K/mm3 (150-450); RBC Distribution Width CV 15.5 % (11.6-14.6); RBC Distribution Width SD 47.6 fl (35.1-43.9); Red Blood Count 2.46 M/mm3 (4.6-6.2); White Blood Count 6.6 K/mm3 (4.4-11.0)
[2019-04-04 06:39] LABS: Anion Gap 8 (5-15); BUN 10 mg/dL (7-18); BUN/Creat Ratio 10.6 RATIO (10-20); Calcium,Total 8.2 mg/dL (8.5-10.1); Chloride 108 mmol/L (98-107); Creatinine, Serum 0.94 mg/dL (0.70-1.30); EST Glomerular Filtration Rate 84 mL/min (>60); Est Glom Filt Rate - Afr Amer 102 mL/min (>60); Estimated Creatinine Clearance 79.11 ml/min; Glucose 89 mg/dL (74-106); Potassium 3.8 mmol/L (3.5-5.1); Sodium Level 139 mmol/L (136-145)
[2019-04-04] MEDS: Lactated Ringers 1,000 ML 125 ML IV ×2 (08:17→19:27)
--- NOTE | 2019-04-04 08:58 | NURSING ---
Miroslava Student nurse informed this nurse of low bp. Dr. Garcia aware and orders for bolus.
[2019-04-04] MEDS: Iron Polysaccharide Complex 150 MG CAPSULE PO (09:15)
[2019-04-04] MEDS: Multivitamins,Ther W-Minerals Tablet 1 TABLET PO (09:16)
[2019-04-04] MEDS: Pantoprazole Sodium 40 MG Tablet PO (09:16)
--- NOTE | 2019-04-04 10:25 | PN_ITS ---
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 He had no complaints and felt well actually. Review of systems is otherwise negative. Patient was suspect discharged home. Labs and vitals reviewed. Hemoglobin has dropped to 6.7 today. Patient counseled that he cannot be discharged with such a low hemoglobin and would need to be transfused. Blood pressure has also been running low and was down to 80/44 in the early hours of this morning. His vitals are otherwise stable. Vitals/I&O's: Vital Signs Temp Pulse Resp BP Pulse Ox 98.7 F 93 16 96/49 L 96 04/04/19 08:25 04/04/19 08:25 04/04/19 08:25 04/04/19 08:25 04/04/19 08:25 Oxygen Delivery Method Room Air Weight: 186 lb 11.704 oz Body Mass Index (BMI) 25.3 Orthostatic Vital Signs Start: 04/03/19 05:53 Freq: q24h Status: Active Protocol: Activity Type Activity Date Activity User E-Sign Co-Sign Detail Recorded Client Recorded Date Recorded By Document 04/03/19 05:53 Y [id number] 04/03/19 05:57 CJY 04/03/19 05:53 Orthostatic Vitals Standing -Blood Pressure (90/60-120/80) 91/62 -Extremity Use Left Arm -Pulse Rate (60-100) 115 H Sitting -Blood Pressure (90/60-120/80) 115/73 -Extremity Use Left Arm -Pulse Rate (60-100) 100 Lying -Blood Pressure (90/60-120/80) 107/66 -Extremity Use Left Arm -Pulse Rate (60-100) 86 Intake and Output for Last 24 Hours 04/02/19 04/03/19 04/04/19 23:59 23:59 23:59 Intake Total 240 / 480 4875.00 / 4875.00 1962.50 / 1962.50 Output Total 1400 / 1400 325 / 325 Balance 240 / -20 3475.00 / 3475.00 1637.50 / 1637.50 General: Alert, Oriented x3, Cooperative, No apparent distress HEENT: Atraumatic, PERRLA, EOMI, Normocephalic Oral: Moist Mucosa Neck: Supple, No JVD, Negative Carotid Bruits Lungs: Clear to auscultation, Normal air movement, No rhonchi, No wheeze Cardiovascular: Regular rate, Regular Rhythm, Normal S1, Normal S2, No murmurs Abdomen: Bowel Sounds Present, Soft, Non Tender, Non-Distended, No Hepato- splenomegaly Extremities: No clubbing, No cyanosis, No edema, Capillary Refill Less than 3 Seconds Skin: No rashes, No breakdown Musculoskeletal: No Tenderness to Palpation of Joints or Extremities Neurological: Cranial nerves II-XII grossly intact, Neuro grossly intact, Motor Exam 5/5 strength throughout Psych/Mental Status: Normal Affect, Appropriate, Alert and oriented to time, place, person, mood and affect Laboratory Results 04/03/19 12:40: Hgb 7.1 L, Hct 22.5 L 04/03/19 15:05: Sodium 140, Potassium 3.6, Chloride 107, Carbon Dioxide 26.0, Anion Gap 7, BUN 14, Creatinine 1.02, Estim Creat Clear Calc 72.91, Est GFR (MDRD) Af Amer 93, Est GFR (MDRD) Non-Af 76, BUN/Creatinine Ratio 13.7, Glucose 98, Calcium 8.8, Total Bilirubin 0.30, AST 17, ALT 11 L, Alkaline Phosphatase 120 H, Total Protein 6.3 L, Albumin 3.0 L, Globulin 3.3, Albumin/Globulin Ratio 0.9 04/03/19 15:05: Carcinoembryonic Ag Pending 04/04/19 06:00: Blood Type A POSITIVE, Antibody Screen NEGATIVE 04/04/19 06:00: Crossmatch See Detail 04/04/19 06:05: WBC 6.6, RBC 2.46 L, Hgb 6.7 L, Hct 21.0 L, MCV 85.4, MCH 27.2, MCHC 31.9 L, RDW Std Deviation 47.6 H, RDW Coeff of Lisa 15.5 H, Plt Count 327, MPV 9.5, Immature Gran % (Auto) 0.300, Neut % (Auto) 67.5, Lymph % (Auto) 21.7, Schuyler % (Auto) 8.8, Eos % (Auto) 1.2, Baso % (Auto) 0.5, Absolute Neuts (auto) 4.5, Absolute Lymphs (auto) 1.43, Nucleated RBC % 0 04/04/19 06:05: Sodium 139, Potassium 3.8, Chloride 108 H, Carbon Dioxide 23.0, Anion Gap 8, BUN 10, Creatinine 0.94, Estim Creat Clear Calc 79.11, Est GFR (MDRD) Af Amer 102, Est GFR (MDRD) Non-Af 84, BUN/Creatinine Ratio 10.6, Glucose 89, Calcium 8.2 L Diagnostic Data KUB X-Ray 04/03/19 14:55 IMPRESSION: No acute abnormality. Electronically Signed: Zach Urena MD at 16:52 EST , Service support , Neck CTA 04/03/19 16:03 IMPRESSION: There is confirmation of moderate to marked calcified plaque of the left carotid bulb and ICA origin, with high grade, 70% or greater stenosis for a short segment of the left ICA. No other significant findings. Electronically Signed: Zach Urena MD at 17:04 EST , Service support , Current Medications Acetaminophen (Tylenol) 500 mg PO Q4H PRN PRN PRN Reason: Temp > 100.4 F Lactated Ringer's () 1,000 mls @ 125 mls/hr IV .Q8H AKANKSHA Last Infusion: 04/04/19 08:55 Dose: 0 mls/hr Documented by: Multivitamins/Minerals (Multivitamin With Minerals) 1 tablet PO DAILY@1200 AKANKSHA Last Admin: 04/04/19 09:16 Dose: 1 tablet Documented by: Nicotine (Nicoderm Cq (Pbkc)) 21 mg TRANSDERM. DAILY AKANKSHA Last Admin: 04/04/19 09:15 Dose: 21 mg Documented by: Nutritional Formula (Lactose Free) (Ensure Enlive) 120 ml PO 4X/DAY AKANKSHA Last Admin: 04/04/19 09:15 Dose: 120 ml Documented by: Pantoprazole Sodium (Protonix) 40 mg PO DAILY [facility] Last Admin: 04/04/19 09:16 Dose: 40 mg Documented by: Polysaccharide Iron Complex (Ferrex 150) 150 mg PO DAILY [facility] Last Admin: 04/04/19 09:15 Dose: 150 mg Documented by: Sodium Chloride () 10 - 40 ml IV UD PRN PRN Reason: SALINE FLUSH Last Admin: 04/03/19 16:52 Dose: 10 ml Documented by: STROKE Vital Signs/Narrative: Vital Signs Temp Pulse Resp BP Pulse Ox 04/04/19 08:25 98.7 F 93 16 96/49 L 96 Medical Necessity - Tobacco Use Smoking Status: Current every day smoker Tobacco Use: Cigarettes Assessment/Plan All Active Problems (Last Updated 04/02/19 @ 19:59 by Manju Zayas DO) Prostate cancer (Acute) Neuropathy (Acute) Iron deficiency anemia (Acute) Orthostatic hypotension (Acute) Anemia due to gastrointestinal blood loss (Acute) Tobacco abuse (Acute) 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 Orthostatic hypotension due to acute GI bleed and carotid stenosis * hb is down to 6.7 today * BP was down to 80/44mmhg this morning * give a bolus of NS 1L today. * colonoscopy: fungating non-obstructing large mass in proximal ascending colon, and infiltrative partially obstructing large mass in mid sigmoid colon, wihc was partially removed; hemorrhoids.ascending colon mass was biopsied. * EGD: reflux esophagitis and grade 1 esophageal varices as well as chronic gastritis and erythematous duodenopathy * will transfuse with 2 units of pRBCs * continue ringer's lactate at 125cc/hr * carotid USG: extensive plaque with narrowing at left proximal internal carotid with >70% stenosis, >50% stenosis of right internal and external carotids * plan is for carotid endarterectomy, by dr Noel. * give high intensity statin * 2. Acute GI bleed: as under 1 3. iron deficiency anemia due to acute lower GI bleed * as under 1. For transfusion of 2 units of PRBCs today * 4. Carotid stenosis: * as under 1. carotid endarterectomy being scheduled by Dr Noel; thinks this should be taken care of before patient can have surgery for malignant lesions in the colon. * Patient likely had a candidate for carotid stenting as he will require long- term anticoagulation which will not be feasible since he requires surgery for cancer. * 5. Metastatic prostate cancer: with bony metastases. Pain well controlled. On enzalutamide (Xtandi) 6. Nicotine abuse: on nicotine patch DVT prophylaxis; SCDs Code Visit Inpatient E&M: 33364 Subs Hosp L3
[2019-04-04 11:19] LABS: Cholesterol 120 mg/dL (200); High Density Lipoprotein 36 mg/dL; Triglycerides 55 mg/dL; Very Low Density Lipoprotein 11 mg/dL (5-40)
--- NOTE | 2019-04-04 11:19 | PCM.PN.BLA ---
Progress Note Agree with transfusion Pt can then be discharged Return as outpt on Sunday for Left CEA Pending his recovery, then can plan lap right and sigmoid colectomy RMauricio Noel STROKE Vital Signs/Narrative: Vital Signs Temp Pulse Resp BP Pulse Ox 04/04/19 08:25 98.7 F 93 16 96/49 L 96
[2019-04-04] MEDS: 0.9% Saline Lock 10 ML Syringe IV ×2 (16:12→19:33)
[2019-04-04] MEDS: ENZALUTAMIDE 40 MG CAPSULE 160 MG PO (19:28)
[2019-04-05] MEDS: Lactated Ringers 1,000 ML 125 ML IV (02:55)
[2019-04-05 02:59] VITALS: BP 115/61; PULSE 76; RESP 16; TEMP 36.7; O2SAT 98
[2019-04-05 07:29] LABS: Absolute Lymphocyte Count 2.08 X10^3/uL (0.83-4.51); Absolute Neutrophil Count 3.9 X10^3/uL (2.0-7.7); Basophil# 0.03 X10^3/uL; Basophil% 0.4 % (0-1); Eosinophil# 0.33 X10^3/uL; Eosinophils% 4.6 % (0-5); Hematocrit 28.5 % (40-54); Hemoglobin 9.3 g/dL (13.0-16.5); Lymphocyte # 2.08 X10^3/ul (4.0); Lymphocyte % 29.1 % (19-41); Mean Corp Hgb Conc 32.6 g/dL (32-36); Mean Corpuscular Hgb 27.7 pg (27.0-32.0); Mean Corpuscular Volume 84.8 fL (80-94); Mean Platelet Vol. 10.2 fl (6.2-12.0); Monocyte% 11.2 % (0-10); NRBC Flagged by Analyzer 0 % (0-5); Neutrophil # 3.88 X10^3/uL (2.7-7.7); Neutrophil % 54.4 % (47-70); Platelet Count 307 K/mm3 (150-450); RBC Distribution Width CV 15.5 % (11.6-14.6); RBC Distribution Width SD 47.6 fl (35.1-43.9); Red Blood Count 3.36 M/mm3 (4.6-6.2); White Blood Count 7.1 K/mm3 (4.4-11.0)
[2019-04-05 08:17] LABS: Anion Gap 6 (5-15); BUN 6 mg/dL (7-18); BUN/Creat Ratio 6.8 RATIO (10-20); Calcium,Total 8.6 mg/dL (8.5-10.1); Chloride 110 mmol/L (98-107); Creatinine, Serum 0.89 mg/dL (0.70-1.30); EST Glomerular Filtration Rate 90 mL/min (>60); Est Glom Filt Rate - Afr Amer 109 mL/min (>60); Estimated Creatinine Clearance 83.56 ml/min; Glucose 86 mg/dL (74-106); Potassium 4.1 mmol/L (3.5-5.1); Sodium Level 141 mmol/L (136-145)
[2019-04-05 08:58] VITALS: BP 133/78; PULSE 78; RESP 20; TEMP 36.8; O2SAT 96
--- NOTE | 2019-04-05 09:03 | PCM.DC ---
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) Anemia (Acute) You will use the following diet at home:: Cardiac Your liquids should be the consistency of: Regular/Thin Discharge Activity: Return to Normal Activity Weight Bearing Status: Weight bearing as tolerated Call your doctor if you observe: Fever of 101 or Higher, Shortness of breath, Dizziness, Fainting spells, Swelling in the ankles Instructions: Anemia, Low Blood Pressure (Hypotension), What Is Colon and Rectal Cancer (Colorectal Cancer)?, Cancer of the Colon and Rectum Allergies/Adverse Reactions: Allergies No Known Allergies Allergy (Verified 04/02/19 12:40) Medications to take at Discharge Enzalutamide [Xtandi] 160 mg PO DAILY@1930 01/20/19 Iron Polysaccharide Complex [Ferrex 150] 300 mg PO DAILY 04/02/19 Multivitamin with Minerals [Multiple Vitamin] 1 tab PO DAILY@1200 04/02/19 Pantoprazole Sodium [Protonix] 40 mg PO DAILY #30 tab 04/05/19 The following prescriptions were given: Pantoprazole Sodium [Protonix] 40 mg PO DAILY #30 tab Transmission Status: Pending to [facility]/pharmacy #[id number] Primary Care Physician: Jorgito Villeda Chi, MD [Primary Care Provider] - Please follow up with your Primary Care Physician in: one week Test Results: Test results from this visit will be discussed in further detail at your follow-up appointment, if applicable. Please Follow Up With: Vito Noel MD When: on Sunday04/07/19 for carotid endarterectomy at [facility] Proposed Discharge Date: 04/05/19
--- NOTE | 2019-04-05 09:04 | DS.PCM_ITS ---
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 Electronically Signed: Zach Urena MD at 16:52 EST , Service support , Neck CTA 04/03/19 16:03 IMPRESSION: There is confirmation of moderate to marked calcified plaque of the left carotid bulb and ICA origin, with high grade, 70% or greater stenosis for a short segment of the left ICA. No other significant findings. Electronically Signed: Zach Urena MD at 17:04 EST , Service support , general surgery- Dr Noel Procedures: None, Colonoscopy, EGD Summary of Care Provided: The patient is a 73 year old M with past medical history as listed was admitted through the ED on 04/02/2019 with a complaint of significant lightheadedness upon standing. He said this is been ongoing for a while but worsened on the day of admission. He also had a history of dark stools though he said he was on iron. On admission he was found to be anemic and stool for occult blood was also positive. He had is scheduled to have colonoscopy on outpatient basis with Dr. Sainz on April 14. He was not on any blood thinner as he had stopped aspirin several days before admission. Hemoglobin on admission was 8.4. He denied any nausea vomiting abdominal pain. Orthostatics done in the ED were positive. He was therefore admitted and managed for orthostatic hypotension likely due to acute GI bleed, plus iron deficiency anemia. He was admitted and hydrated with IV fluids. General surgery was consulted. Hemoglobin dropped to 7.3 and then fell to 6.7. Colonoscopy showed a fungating nonobstructing large mass in the proximal ascending colon and infiltrative partially obstructing large mass in the mid colon which was partially removed as well as hemorrhoids. EGD showed reflux esophagitis and grade 1 esophageal varices as well as chronic gastritis and erythematous to adenopathy. Of note, due to orthostatic hypotens ion. Patient also had carotid ultrasound which showed extensive plaque with narrowing of the left proximal internal carotid with more than 70% stenosis and more than 50 percent stenosis of right internal and external carotid. Patient was transfused 2 units of packed red blood cells on account of hemoglobin falling to 6.7. Myoglobin subsequently improved to 7.3. General surgery made decision for him to have carotid endarterectomy on 04/07/2019 at [facility] after which he will be scheduled for colectomy. Remained stable and was discharged home on 04/05/2019. He is follow-up with his primary care doctor and is to present at [facility] on 04/07/2019 for carotid endarterectomy by Dr. Barahona. Patient seen and examined prior to discharge. He felt well and was eager to be discharged. He had no complaints. Review of systems otherwise negative. Labs and vitals reviewed. Home medication reviewed and reconciled. o/e: Vital Signs Height 6 ft Weight: 186 lb 11.704 oz Weight in Pounds 186.7 lbs Pulse Ox 96 Temperature 98.3 F Pulse Rate [Standing] 115 Pulse Rate [Sitting] 100 Pulse Rate [Lying] 86 Pulse Rate 78 Respiratory Rate 20 Blood Pressure [Standing] 91/62 Blood Pressure [Sitting] 115/73 Blood Pressure [Lying] 107/66 Blood Pressure 133/78 Blood Pressure Position Semi-Fowlers General: Alert, Oriented x3, Cooperative, No apparent distress HEENT: Atraumatic, PERRLA, EOMI, Normocephalic Oral: Moist Mucosa Neck: Supple, No JVD, Negative Carotid Bruits Lungs: Clear to auscultation, Normal air movement, No rhonchi, No wheeze Cardiovascular: Regular rate, Regular Rhythm, Normal S1, Normal S2, No murmurs Abdomen: Bowel Sounds Present, Soft, Non Tender, Non-Distended, No Hepato- splenomegaly Extremities: No clubbing, No cyanosis, No edema, Capillary Refill Less than 3 Seconds Skin: No rashes, No breakdown Musculoskeletal: No Tenderness to Palpation of Joints or Extremities Neurological: Cranial nerves II-XII grossly intact, Neuro grossly intact, Motor Exam 5/5 strength throughout Psych/Mental Status: Normal Affect, Appropriate, Alert and oriented to time, place, person, mood and affect Plan as above. - Physical Exam Vitals/I&O's: Vital Signs Temp Pulse Resp BP Pulse Ox 98.1 F 76 16 115/61 98 04/05/19 02:59 04/05/19 02:59 04/05/19 02:59 04/05/19 02:59 04/05/19 02:59 Oxygen Delivery Method Room Air Weight: 186 lb 11.704 oz Body Mass Index (BMI) 25.3 Orthostatic Vital Signs Start: 04/03/19 05:53 Freq: 1000 Status: Active Protocol: Activity Type Activity Date Activity User E-Sign Co-Sign Detail Recorded Client Recorded Date Recorded By Document 04/03/19 05:53 Y [id number] 04/03/19 05:57 Y 04/03/19 05:53 Orthostatic Vitals Standing -Blood Pressure (90/60-120/80 mm Hg) 91/62 -Extremity Use Left Arm -Pulse Rate (60-100 beats/min) 115 H Sitting -Blood Pressure (90/60-120/80 mm Hg) 115/73 -Extremity Use Left Arm -Pulse Rate (60-100 beats/min) 100 Lying -Blood Pressure (90/60-120/80 mm Hg) 107/66 -Extremity Use Left Arm -Pulse Rate (60-100 beats/min) 86 Intake and Output for Last 24 Hours 04/03/19 04/04/19 04/05/19 23:59 23:59 23:59 Intake Total 4875.00 / 4875.00 3602.50 / 3602.50 933.33 / 933.33 Output Total 1400 / 1400 625 / 625 1300 / 1300 Balance 3475.00 / 3475.00 2977.50 / 2977.50 -366.67 / -366.67 Laboratory Results 04/04/19 06:00: Crossmatch See Detail 04/04/19 06:05: Triglycerides 55, Cholesterol 120, LDL Cholesterol 73, VLDL Cholesterol 11, HDL Cholesterol 36 L 04/05/19 06:20: WBC 7.1, RBC 3.36 L, Hgb 9.3 L, Hct 28.5 L, MCV 84.8, MCH 27.7, MCHC 32.6, RDW Std Deviation 47.6 H, RDW Coeff of Lisa 15.5 H, Plt Count 307, MPV 10.2, Immature Gran % (Auto) 0.300, Neut % (Auto) 54.4, Lymph % (Auto) 29.1, [place] % (Auto) 11.2 H, Eos % (Auto) 4.6, Baso % (Auto) 0.4, Absolute Neuts (auto) 3.9, Absolute Lymphs (auto) 2.08, Nucleated RBC % 0 04/05/19 06:20: Sodium 141, Potassium 4.1, Chloride 110 H, Carbon Dioxide 25.0, Anion Gap 6, BUN 6 L, Creatinine 0.89, Estim Creat Clear Calc 83.56, Est GFR (MDRD) Af Amer 109, Est GFR (MDRD) Non-Af 90, BUN/Creatinine Ratio 6.8 L, Glucose 86, Calcium 8.6 Current Medications Acetaminophen (Tylenol) 500 mg PO Q4H PRN PRN PRN Reason: Temp > 100.4 F Aspirin (Aspirin, Baby) 81 mg PO X1 ONE Stop: 04/06/19 08:01 Lactated Ringer's () 1,000 mls @ 125 mls/hr IV .Q8H [facility] Last Admin: 04/05/19 02:55 Dose: 125 mls/hr Documented by: Multivitamins/Minerals (Multivitamin With Minerals) 1 tablet PO DAILY@1200 [facility] Last Admin: 04/04/19 09:16 Dose: 1 tablet Documented by: Nicotine (Nicoderm Cq (Pbkc)) 21 mg TRANSDERM. DAILY [facility] Last Admin: 04/04/19 09:15 Dose: 21 mg Documented by: Nutritional Formula (Lactose Free) (Ensure Enlive) 120 ml PO 4X/DAY [facility] Last Admin: 04/04/19 22:00 Dose: Not Given Documented by: Pantoprazole Sodium (Protonix) 40 mg PO DAILY [facility] Last Admin: 04/04/19 09:16 Dose: 40 mg Documented by: Polysaccharide Iron Complex (Ferrex 150) 150 mg PO DAILY [facility] Last Admin: 04/04/19 09:15 Dose: 150 mg Documented by: Sodium Chloride () 10 - 40 ml IV UD PRN PRN Reason: SALINE FLUSH Last Admin: 04/04/19 19:33 Dose: 10 ml Documented by: Discharge Diet: Low fat/ Low Cholesterol Discharge Activity: Return to Normal Activity Weight Bearing Status: Weight bearing as tolerated Call your doctor if you observe: Fever of 101 or Higher, Shortness of breath, Dizziness, Fainting spells, Swelling in the ankles Home Medications: Medications to take at Discharge Enzalutamide [Xtandi] 160 mg PO DAILY@1930 01/20/19 Iron Polysaccharide Complex [Ferrex 150] 300 mg PO DAILY 04/02/19 Multivitamin with Minerals [Multiple Vitamin] 1 tab PO DAILY@1200 04/02/19 Pantoprazole Sodium [Protonix] 40 mg PO DAILY #30 tab 04/05/19 Following Prescrptions Were Given to Patient: Pantoprazole Sodium [Protonix] 40 mg PO DAILY #30 tab Transmission Status: Received by [id number] Primary Care Physician: Jorgito Villeda Chi, MD [Primary Care Provider] - Please follow up with your Primary Care Physician in: one week Please Follow Up With: Vito Noel MD When: on Sunday04/07/19 for carotid endarterectomy at [facility] Patient Instructions: Anemia, What Is Colon and Rectal Cancer (Colorectal Cancer)?, Cancer of the Colon and Rectum, Low Blood Pressure (Hypotension) Disposition: Home Minutes spent on discharge:: 45 Patient Condition:: Stable Medical Necessity - Tobacco Use Smoking Status: Current every day smoker Tobacco Use: Cigarettes Meaningful Use Info Meaningful Use Diagnoses (Choose all that apply): None applicable Code Visit Inpatient E&M: 99654 Disch Hosp
[2019-04-05] MEDS: Pantoprazole Sodium 40 MG Tablet PO (09:25)
[2019-04-05] MEDS: Iron Polysaccharide Complex 150 MG CAPSULE PO (09:25)
--- NOTE | 2019-04-05 10:15 | NURSING ---
Called hardboard coating machine operator to page Dr. Noel to notify of pt d/c and to see if there are any other pre op orders. Notified Dr. Downing is internal corrosion specialist. This RN spoke with Dr. Downing and stated to have pt complete chlorohex night before and morning of and to be NPO after midnight night prior to surgery. This RN notified Anh. Dr. Downing called in again shortly after and states to not complete chlorohex due to possibility that a plaque might break off. Notified to take 1 baby aspirin Sunday, NPO after midnight and blood work will be completed AM prior to surgery. This RN notified Anh, primary RN that pt should NOT have chlorohex bath at all, and of new orders via telephone.
[2019-04-05 13:01] LABS: Carcinoembryonic Antigen 4.1 ng/mL (0.0-4.7)
== END 2019-04-05 10:26 | disposition home or self-care (01) | DRG 375 ==
LOC: ED 15:27 → MS3 16:23
PROVIDERS: Surgery; Admitting Provider Internal Medicine; Emergency Provider Emergency Medicine; Family Provider Family Medicine Geriatric Medicine; PCP Family Medicine Geriatric Medicine; Referring Provider Internal Medicine; Visit Provider Student in an Organized Health Care Education/Training Program
PROC: 0DJD8ZZ Inspection of Lower Intestinal Tract, Via Natural or Artificial Opening Endoscopic (ICD-10-PCS; CPT 45378; principal; 2019-04-03 13:55)
DX: C18.9 Malignant neoplasm of colon, unspecified (principal); C79.51 Secondary malignant neoplasm of bone; I85.00 Esophageal varices without bleeding; K92.2 Gastrointestinal hemorrhage, unspecified; C61 Malignant neoplasm of prostate; F17.210 Nicotine dependence, cigarettes, uncomplicated; I95.1 Orthostatic hypotension; K29.50 Unspecified chronic gastritis without bleeding; K31.89 Other diseases of stomach and duodenum; K21.0 Gastro-esophageal reflux disease with esophagitis; I65.23 Occlusion and stenosis of bilateral carotid arteries; K64.9 Unspecified hemorrhoids; K63.5 Polyp of colon; D50.0 Iron deficiency anemia secondary to blood loss (chronic); G62.9 Polyneuropathy, unspecified
CPT/HCPCS: 36415; 70498; 74018; 80048; 80053; 80061; 82378; 84153; 85014; 85018; 85025; 85610; 86850; 86900; 86901; 86920; 88305; 88341; 88342; 93880; 97802; 99285; J7030; J7040; J7120; P9016; Q9967; A4216; A4648; J1610

== ENCOUNTER 2019-04-07 07:14 | Inpatient (IN) | payer MEDICARE, BC, SELFPAY ==
[2019-04-03 12:24] VITALS: BMI 25.3
[2019-04-07] VITALS (21 sets, daily range): BP systolic 94–132; BP diastolic 34–75; PULSE 47–84; RESP 16–18; TEMP 35.9–36.6; O2SAT 92–100; BMI 26.0
--- NOTE | 2019-04-07 06:33 | PCM.HP.BLA ---
Problem List (1) Carotid stenosis, bilateral Status: Acute (2) Orthostatic hypotension Status: Acute (3) Colonic mass Status: Acute (4) Acute on chronic blood loss anemia Status: Chronic History and Physical Date of Admission: 04/07/19 73-year-old gentleman who was urgently hospitalized on April 02, 2019 with orthostatic hypotension and severe anemia with a hemoglobin that drifted into the 6. I detected left carotid bruit and I obtained carotid duplex exam demonstrating a very high flow jet velocity in the left felt to be greater than 70% stenosis. CTA of the neck confirmed greater than 70% stenosis of the left internal carotid. He did require 2 units of blood transfusion. I performed an upper and lower endoscopy. This demonstrated mild reflux esophagitis and mild gastritis H. pylori negative. The colonoscopy demonstrated a mass lesion in the proximal ascending colon and a mass lesion in the sigmoid colon with 2 additional polyps as noted in the dictation. The left and right colonic masses appear to be malignant. These appear to be the source of his blood loss. The stenosis of the left internal carotid however is felt to be severe and contributing to his orthostasis. It is felt that this needs to be addressed prior to his colonic lesions particularly in light of the complexity of the colon surgery that will be required. The patient returns now for his left carotid enterectomy. My previous note is as follows Problem List (1) Iron deficiency anemia Status: Acute Qualifiers: Iron deficiency anemia type: chronic blood loss Qualified Code(s): D50.0 - Iron deficiency anemia secondary to blood loss (chronic) Reason for Consult Date of Consultation: 04/02/19 History of Present Illness: The patient is a 73 year old M who presented to the [facility] emergency room with a 2-month history of anemia and a 1 month history of orthostatic dizziness. I have been asked to see him by Dr. Zayas and a written copy of my surgical consult will be present in the charting. It is of note that August 21, 2018 he was diagnosed as having metastatic prostate cancer. He is under the care of Dr. Fernandez. On October 03, 2018 his hemoglobin was 12.4 on January 15, 2019 it was 10.2 on January 20, 2019 it was 9.6 on March 18, 2019 it was 8.6 and then on his presentation to the emergency room today it was 8.4. The patient has been seen by gastroneurologist and had endoscopy scheduled for April 14. A request has been made for urgent endoscopic evaluation. The patient by report had a stool card that was positive. He absolutely denies any bright red blood per rectum or melena. He has not had any history of peptic ulcer disease. He has never had a previous colonoscopy. He has never had previous carotid duplex imaging. He states that when he goes from a lying to a standing position that he will become dizzy. He denies chest pain. He denies shortness of breath. His laboratory today demonstrates a white blood cell count of 7.5 with a hemoglobin 8.4 hematocrit 25.3 platelet count 417,000 with a normal differential except for monocytes of 11.8%. BUN is normal at 18 and creatinine is 1.03. 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 At the time of my interview with the patient he is completing a full regular supper Past Medical History Allergies No Known Allergies Allergy (Verified 04/02/19 12:40) Home Medications: Ambulatory Orders Medication Instructions Recorded Enzalutamide [Xtandi] 160 mg PO DAILY@1930 01/20/19 Iron Polysaccharide Complex 300 mg PO DAILY 04/02/19 [Ferrex 150] Multivitamin with Minerals 1 tab PO DAILY@1200 04/02/19 [Multiple Vitamin] Lives: Alone Smoking Status: Current every day smoker Tobacco Use: Cigarettes Alcohol: None Drugs: None Review of Systems Constitutional: Denies: Anorexia HEENT: Reports: Difficulty Hearing. Denies: Difficulty Swallowing Cardiovascular: Denies: Chest Pain Respiratory: Denies: Cough Gastrointestinal: Denies: Abdominal Pain, Hematochezia, Melena, Vomiting Neurological: Denies: Difficulty swallowing Patient Problems: Active and Suspected Problems Prostate cancer (Acute) Neuropathy (Acute) Iron deficiency anemia (Acute) Orthostatic hypotension (Acute) Anemia due to gastrointestinal blood loss (Acute) - Physical Exam Vitals/I&O's: Vital Signs Temp Pulse Resp BP Pulse Ox 97.6 F L 80 18 134/83 H 100 04/02/19 16:31 04/02/19 17:00 04/02/19 16:31 04/02/19 16:31 04/02/19 16:31 Oxygen Delivery Method Room Air Weight: 186 lb 11.704 oz Body Mass Index (BMI) 25.3 General: Alert, Oriented x3, Cooperative, No apparent distress HEENT: Atraumatic Oral: Moist Mucosa Neck: - - Carotids are 3+ bilateral. 2/6 bruit noted on the left Lungs: Clear to auscultation, Normal air movement Cardiovascular: Regular rate, Regular Rhythm Abdomen: Bowel Sounds Present, Soft, Non Tender, Non-Distended Extremities: No Calf Tenderness Psych/Mental Status: Normal Affect Laboratory Results 04/02/19 12:45: WBC 7.5, RBC 2.92 L, Hgb 8.4 L, Hct 25.3 L, MCV 86.6, MCH 28.8, MCHC 33.2, RDW Std Deviation 49.1 H, RDW Coeff of Lisa 15.4 H, Plt Count 417, MPV 9.9, Immature Gran % (Auto) 0.400, Neut % (Auto) 55.5, Lymph % (Auto) 28.1, [place] % (Auto) 11.8 H, Eos % (Auto) 3.7, Baso % (Auto) 0.5, Absolute Neuts (auto) 4.2, Absolute Lymphs (auto) 2.10, Nucleated RBC % 0 04/02/19 12:45: Sodium 140, Potassium 4.3, Chloride 108 H, Carbon Dioxide 27.0, Anion Gap 5, BUN 18, Creatinine 1.03, Estim Creat Clear Calc 72.20, Est GFR (MDRD) Af Amer 92, Est GFR (MDRD) Non-Af 76, BUN/Creatinine Ratio 17.5, Glucose 84, Calcium 9.5 Current Medications Acetaminophen (Tylenol) 500 mg PO Q4H PRN PRN PRN Reason: Temp > 100.4 F Heparin Sodium (Porcine) (Heparin Na) 5,000 unit SC Q12 [facility] Lactated Ringer's () 1,000 mls @ 125 mls/hr IV .Q8H [facility] Last Admin: 04/02/19 17:43 Dose: 125 mls/hr Documented by: Multivitamins/Minerals (Multivitamin With Minerals) 1 tablet PO DAILY@1200 [facility] Nicotine (Nicoderm Cq (Pbkc)) 21 mg TRANSDERM. DAILY [facility] Last Admin: 04/02/19 17:43 Dose: 21 mg Documented by: Nutritional Formula (Lactose Free) (Ensure Enlive) 120 ml PO 4X/DAY [facility] Polysaccharide Iron Complex (Ferrex 150) 150 mg PO DAILY [facility] Sodium Chloride () 10 - 40 ml IV UD PRN PRN Reason: SALINE FLUSH Assessment/Plan All Active Problems Prostate cancer (Acute) Neuropathy (Acute) Iron deficiency anemia (Acute) Orthostatic hypotension (Acute) Anemia due to gastrointestinal blood loss (Acute) 73-year-old gentleman with a two-month history of anemia of undetermined etiology. There is no gross evidence of active high volume GI blood loss at this time. By report stool was Hemoccult positive. He has orthostatic dizziness. He has a left carotid bruit. I recommended the patient carotid duplex imaging The patient has completed regular supper. We can review scheduling for possible combined esophagogastroduodenoscopy with biopsy and colonoscopy with possible biopsy or polypectomy on Sunday. I discussed the technique, benefits, risks, alternatives. I do have concerns regarding his prostate cancer and multiple skeletal mets. He is not clinically demonstrating active GI bleeding at this time He has had an opportunity to ask and have questions answered. We will initiate clear liquids tomorrow and proceed with endoscopy on Sunday if scheduling permits. CC: Dr. Ronal Noel M.D., F.A.C.S. 04/03/19 0608 <Electronically signed by Vito Noel MD> Date Vito Noel MD In detail I have discussed with the patient a left carotid endarterectomy with patch angioplasty. We have discussed arterial line placement to assist with monitoring. He is aware of the technique, benefits, risks, alternatives. No guarantees of success been offered. He initiated an 81 mg aspirin one day preoperatively. This could not be started sooner because of his GI blood loss anemia from his colonic masses. This is the same reason why carotid stenting is felt to be contraindicated as the patient is not a candidate for aggressive anticoagulation. He has had an opportunity to ask and have questions answered. He returns today to proceed with definitive left carotid surgery and then it is anticipated that he will have definitive colon surgery in the near future. Vito Noel M.D., Maggi Mcgee have re-examined the patient. There are no clinical changes since date of exam.
--- NOTE | 2019-04-07 06:40 | DCINST_ITS ---
Discharge Diet: Light diet - advance as tolerated - if you have questions about your diet instructions, please talk to you doctor. Discharge Activity: May Not Drive - for 1 week or while taking narcotic pain medicine. May shower in (days): 3 - You may shower starting on Sunday Lifting Restrictions: 10 pounds Call your doctor if your incision/area has: Continuous Slow Oozing, Sudden Increased Bleeding, Increased Pain/ Swelling, Increased Redness, Foul Smelling Discharge Call your doctor if you observe: Fever of 101 or Higher Suture Line Care: Avoid Pulling/Pushing, Avoid Pinching/Bending Additional Dressing/Incision Instructions:: Please apply a dry gauze dressing to your left neck as needed to protect from clothing. Otherwise you may leave the Steri-Strips in place for 1 week then you may remove them Additional Instructions: Please take a low dose 81 mg aspirin orally daily. Tylenol (acetaminophen) will be your safest medication for discomfort Allergies/Adverse Reactions: Allergies No Known Allergies Allergy (Verified 04/02/19 12:40) Medications to take at Discharge Enzalutamide [Xtandi] 160 mg PO DAILY@1930 01/20/19 Iron Polysaccharide Complex [Ferrex 150] 300 mg PO DAILY 04/02/19 Multivitamin with Minerals [Multiple Vitamin] 1 tab PO DAILY@1200 04/02/19 Pantoprazole Sodium [Protonix] 40 mg PO DAILY #30 tab 04/05/19 Primary Care Physician: Jorgito Villeda Chi, MD [Primary Care Provider] - Test Results: Test results from this visit will be discussed in further detail at your follow- up appointment, if applicable. Please Follow Up With: Vito Noel MD - [phone] When: Call to make an appointment to be seen in about 7 days.
[2019-04-07 07:41] LABS: Hematocrit 32.3 % (40-54); Hemoglobin 10.2 g/dL (13.0-16.5); Mean Corp Hgb Conc 31.6 g/dL (32-36); Mean Corpuscular Hgb 27.3 pg (27.0-32.0); Mean Corpuscular Volume 86.4 fL (80-94); Platelet Count 369 K/mm3 (150-450); RBC Distribution Width CV 15.6 % (11.6-14.6); RBC Distribution Width SD 49.1 fl (35.1-43.9); Red Blood Count 3.74 M/mm3 (4.6-6.2); White Blood Count 8.4 K/mm3 (4.4-11.0)
--- NOTE | 2019-04-07 10:05 | PLAQ_PTH ---
PATIENT: JUSTICE OWEN LOC: PCU U#:[id number] AGE/SX: 73/M ROOM: [facility] RE04/07/[address]: Dr. Vito Noel MD : 1945 BED: 1 DIS: 04/08/2019 SPEC #: [id number] RECD: 04/07/19 14:39 STATUS: JESUS REQ #: [id number] NBA: 04/07/19 10:[address]: Vito Noel DEPT: SURGICAL PATHOLOGY RECD BY: Andrea Burns ENTERED: 04/07/19 14:58 SP TYPE: PLAQUE OTHR DR: Dr. Jorgito Villeda MD Tissues: PLAQUE Procedures: Decalcification bone/plaque Surgery Specimen Level III HEADER OPERATION: Left carotid endarterectomy PRE-OP DIAGNOSIS: Left carotid stenosis, orthostatic hypotension TISSUE SUBMITTED: Left carotid plaque MICROSCOPIC DIAGNOSIS Left carotid plaque, endarterectomy: Atherosclerotic tissue with focal calcifications (plaque). YUNG:yobani 04/11/19 GROSS DESCRIPTION Received in fixative is one container labeled with the patient's name and designated left carotid plaque. The specimen consists of a previously opened tubular piece of clark, indurated tissue measuring 3 cm in length and 1 cm in diameter. The specimen cuts focally with gritty sensation. Focally, the lumen shows partial obliteration. The entire specimen is submitted in one cassette after decalcification. / SJ:yobani 04/07/19 TC:5 CPT: 46008, 74779
[2019-04-07] MEDS: Cefazolin 2 GM in 0.9% Normal Saline 100 ML IV (11:00)
[2019-04-07] MEDS: Bupivacaine Mpf 0.5% 30 ML VIAL (11:11)
[2019-04-07] MEDS: Heparin Injection (Vial) 5,000 UNIT/ML VIAL 5000 UNIT (11:11)
--- NOTE | 2019-04-07 13:21 | PCM.OPRPT ---
Problem List (1) Carotid stenosis, bilateral Status: Acute (2) Orthostatic hypotension Status: Acute (3) Colonic mass Status: Acute (4) Acute on chronic blood loss anemia Status: Chronic Report of Operation Date of Procedure: 04/07/19 Pre-Operative Diagnosis: Symptomatic critical stenosis left extracranial internal carotid Post-Operative Diagnosis: Same Surgery/Procedure Performed:: Radial arterial line placement. Left carotid endarterectomy with bovine patch angioplasty. [employer] bovine reference number [id number]. Lot number [id number]. PN number [id number]. Expiry date 04/10/2023 Description of Surgical Findings:: Timeout and informed consent was obtained. At the bedside Abelino test performed demonstrating adequate ulnar flow. The left wrist was extended prepped with Betadine. Under ultrasound guidance 1% lidocaine was instilled as local anesthetic. A total of 1 cc under ultrasound guidance a 20-gauge Arrow Angiocath was advanced into the radial artery followed by Seldinger wire technique followed by advancement of the catheter. The catheter was secured to the skin with OpSite dressing followed by Angi wrap. He tolerated procedure well good waveform was obtained no apparent complication. The patient was subsequently taken to the operating room. Again timeout and was obtained. Ancef 2 g given intravenously preoperatively. The patient underwent general endotracheal intubation and anesthesia. The left neck was sterilely prepped draped. An oblique incision was made along the anterior border the sternocleidomastoid on the left. Sharp and blunt dissection was used down through the platysma. The sternocleidomastoid was reflected laterally. The bifurcation slightly lower than anticipated. Sharp dissection carried down to the vessel. Crossing facial vein was secured with 3-0 Vicryl ligature. Smaller structures were secured with hemoclips. Circumferential control was seen in the common carotid a Mojica tie Dacron tape placed. Circumferential control stain of the internal carotid and a Dacron tape and Paz tourniquet was applied. The external carotid was secured with a vessel loop. The superior thyroid with a Mojica tie of 3-0 Vicryl. The patient received 9000 units of heparin weight-based. 30 minutes into the procedure he received an additional 1000 units of heparin IV. Peripheral vascular clamps were placed on the internal and external and common carotid. An 11 blade was used to make an arteriotomy which was extended with Mojica scissors. A #10 USCI style shunt was placed cephalad and proximally. Time the place the shunt was 3 minutes. A endarterectomy was performed with a layer of the external elastic lamina. The plaque was sharply transected the common carotid then carefully feathered at the internal carotid and an inversion enterectomy was performed to the external carotid. Debris was carefully removed. The internal carotid intima was further gently dissected. I then placed 2 tacking sutures of 7-0 Prolene. A bovine patch was shaped deformed and a patch angioplasty created with a running 6-0 Prolene. Prior to completion the shunt was removed the vessel was irrigated the patch angioplasty was completed. Initial flow was instituted from the external carotid and common carotid find the internal carotid. Time for shunt removal was 3 minutes and 30 seconds. Several repair sutures of 7-0 Prolene required for hemostasis. Hemostasis was achieved. The vessel appeared to have good positional lie. There was good pulsation within the internal carotid. The hemostasis is further assisted with topical Surgicel. That was removed at the end of the procedure. The wound was closed by approximated the platysma with a running 3-0 Vicryl. Skin edges proximal running septic or 5-0 Vicryl. The alyx-incisional was anesthetized with 10 cc of 0.5% Marcaine. Sponge and instrument and needle counts were reported to the surgeon to be correct. Specimen is plaque. Drains none. Blood loss 200 cc. The patient awoke was felt to be neurologically intact and was taken to the recovery area in satisfactory condition without apparent complication. Vito Noel M.D., F.A.C.S. Type of Anesthesia:: General, Local Anesthesiologist: Min Bright
--- NOTE | 2019-04-07 15:58 | CPS ---
SMI placed at bedside...pt out of room at is time...[id number]
[2019-04-07] MEDS: ENZALUTAMIDE 40 MG CAPSULE 160 MG PO (18:47)
[2019-04-07] MEDS: Aspirin 81 MG TAB.CHEW PO (18:47)
[2019-04-07] MEDS: 0.9% Saline Lock 10 ML Syringe IV (19:58)
[2019-04-07] MEDS: Cefazolin 1 GM/50 ML BAG IV (19:58)
[2019-04-08] MEDS: Cefazolin 1 GM/50 ML BAG IV (04:01)
[2019-04-08] MEDS: Acetaminophen 325 MG Tablet PO (04:02)
[2019-04-08] MEDS: 0.9% Saline Lock 10 ML Syringe IV (04:02)
[2019-04-08 04:03] VITALS: BP 112/61; PULSE 57; RESP 18; TEMP 36.7; O2SAT 96
[2019-04-08 05:11] LABS: Absolute Lymphocyte Count 2.52 X10^3/uL (0.83-4.51); Absolute Neutrophil Count 4.2 X10^3/uL (2.0-7.7); Basophil# 0.02 X10^3/uL; Basophil% 0.3 % (0-1); Eosinophil# 0.36 X10^3/uL; Eosinophils% 4.7 % (0-5); Hemoglobin 7.8 g/dL (13.0-16.5); Lymphocyte # 2.52 X10^3/ul (4.0); Lymphocyte % 33.1 % (19-41); Mean Corp Hgb Conc 31.2 g/dL (32-36); Mean Corpuscular Hgb 26.9 pg (27.0-32.0); Mean Corpuscular Volume 86.2 fL (80-94); Mean Platelet Vol. 9.9 fl (6.2-12.0); Monocyte# 0.54 X10^3/uL; Monocyte% 7.1 % (0-10); NRBC Flagged by Analyzer 0 % (0-5); Neutrophil # 4.15 X10^3/uL (2.7-7.7); Neutrophil % 54.5 % (47-70); POSITIVE MORPHOLOGY YES; Platelet Count 294 K/mm3 (150-450); RBC Distribution Width CV 15.6 % (11.6-14.6); RBC Distribution Width SD 49.1 fl (35.1-43.9); White Blood Count 7.6 K/mm3 (4.4-11.0)
--- NOTE | 2019-04-08 06:06 | PCM.CAROT ---
General Carotid Note - Subjective Post-Op Day #: 1 - Objective Vital Signs Temp Pulse Resp BP Pulse Ox 98.1 F 57 L 18 112/61 96 04/08/19 04:03 04/08/19 04:03 04/08/19 04:03 04/08/19 04:03 04/08/19 04:03 Laboratory Tests Past 24 Hrs 04/07/19 04/07/19 04/08/19 07:25 07:25 05:00 WBC 8.4 Pending RBC 3.74 L Pending Hgb 10.2 L Pending Hct 32.3 L Pending MCV 86.4 Pending MCH 27.3 Pending MCHC 31.6 L Pending RDW Std Deviation 49.1 H Pending RDW Coeff of Lisa 15.6 H Pending Plt Count 369 Pending MPV 10.0 Neut % (Auto) Pending Absolute Neuts (auto) Pending Blood Type A POSITIVE Antibody Screen NEGATIVE Patient is alert with no acute complaints. He states he was able to ambulate last night. He denies any current dizziness. He does not have any significant discomfort. Neck: Supple, - - Left neck clean dry and intact Neurological: Cranial nerves II-XII grossly intact Cardiovascular: Regular rate, Regular Rhythm - Patient appears to be quite stable. CBC is pending. Anticipate discharge this morning. Anticipate office follow-up in 1 week. Anticipate attempt at laparoscopic right and sigmoid colectomy's in 2 weeks from now.Vito Noel M.D., F.A.C.S.
[2019-04-08 06:19] LABS: Differential Indicated SCAN CRITERIA MET
[2019-04-08 06:49] LABS: Differential Comment SCANNED
[2019-04-08 07:59] VITALS: BP 113/68; PULSE 72; RESP 16; TEMP 36.4; O2SAT 96
[2019-04-08] MEDS: Iron Polysaccharide Complex 150 MG CAPSULE 300 MG PO (08:08)
[2019-04-08] MEDS: Pantoprazole Sodium 40 MG Tablet PO (08:08)
[2019-04-08] MEDS: Aspirin 81 MG TAB.CHEW PO (08:09)
--- NOTE | 2019-04-08 08:10 | NURSING ---
AM MEDS GIVEN AT THIS TIME PT TAKES AT HOME PER PTS REQUEST
--- NOTE | 2019-04-08 08:59 | PCM.PN.BLA ---
Progress Note Labs reviewed. Patient to repeat blood work as an outpatient the morning of his carotid follow-up visit. Order placed. STROKE Vital Signs/Narrative: Vital Signs Temp Pulse Resp BP Pulse Ox 04/08/19 07:59 97.6 F L 72 16 113/68 96
--- NOTE | 2019-04-08 09:30 | CASEMGMT ---
Readmission chart review: Pt was initially admitted 04/03-04/05/19 for orthostatic hypotension/anemia. During this visit, he had a upper/lower scope performed by Dr. Noel, pt was originally scheduled for scope by Alisatir on 04/14/19. Per Bert's note, pt has obstructing masses in the ascending and sigmoid colon with prostate cancer and multiple skeletal mets. During this visit, pt had a carotid ultrasound which shower bilat carotid stenosis and pt was scheduled to come back to have this taken care of on 04/07/19 prior to having extensive colon surgery that has been scheduled for 04/21/[address] Noel. See RN CM assessment completed by Ken SIMMS CM on 04/03/19. CM to follow for any further concerns/needs prior to discharge. SStsoumya SIMMS CM
== END 2019-04-08 10:18 | disposition home or self-care (01) | DRG 38 ==
LOC: AC 10:13 → ACINP 11:09 → PCU 14:12
PROVIDERS: Admitting Provider Surgery; Family Provider Family Medicine Geriatric Medicine; PCP Family Medicine Geriatric Medicine; Referring Provider Surgery; Visit Provider Surgery
PROC: 03CL0ZZ Extirpation of Matter from Left Internal Carotid Artery, Open Approach (ICD-10-PCS; CPT 35301; principal; 2019-04-07 09:45)
DX: I65.22 Occlusion and stenosis of left carotid artery (principal); C79.51 Secondary malignant neoplasm of bone; C61 Malignant neoplasm of prostate; F17.210 Nicotine dependence, cigarettes, uncomplicated
CPT/HCPCS: 36415; 85025; 85027; 86850; 86900; 86901; 88304; 88311; 93005; 99251; J7040; J7050; J7120; A4216; G0463; J2405

== ENCOUNTER → 2019-04-14 14:18 | Outpatient (CLI) | payer MEDICARE, BC, SELFPAY ==
[2019-04-07 08:08] VITALS: BMI 26.0
[2019-04-14 14:47] LABS: Hematocrit 30.9 % (40-54); Mean Corp Hgb Conc 32.4 g/dL (32-36); Mean Corpuscular Hgb 27.7 pg (27.0-32.0); Mean Corpuscular Volume 85.6 fL (80-94); Mean Platelet Vol. 9.6 fl (6.2-12.0); Platelet Count 490 K/mm3 (150-450); RBC Distribution Width CV 15.7 % (11.6-14.6); RBC Distribution Width SD 49.2 fl (35.1-43.9); Red Blood Count 3.61 M/mm3 (4.6-6.2); White Blood Count 7.1 K/mm3 (4.4-11.0)
== END ==
PROVIDERS: Family Provider Family Medicine Geriatric Medicine; PCP Family Medicine Geriatric Medicine; Referring Provider Surgery; Visit Provider Surgery
DX: C18.9 Malignant neoplasm of colon, unspecified (principal)
CPT/HCPCS: 36415; 85027

== ENCOUNTER → 2019-04-17 13:36 | Outpatient (CLI) | payer MEDICARE, BC, SELFPAY ==
[2019-04-16 07:03] VITALS: BMI 26.0
--- NOTE | 2019-04-17 13:37 | CDU_ITS ---
Reason For Study: carotid endart Rt. Velocities/BP Lt. Velocities/BP Prox CCA 89.1/27.8 cm/sec. Prox CCA 98.2/29.1 cm/sec. Mid CCA 85.2/33.0 cm/sec. Mid CCA 79.9/29.1 cm/sec. Dist CCA 85.2/33.0 cm/sec. Dist CCA 74.7/23.9 cm/sec. Prox ICA 77.3/16.0 cm/sec. Prox ICA 82.5/27.8 cm/sec. Mid ICA 96.9/31.7 cm/sec. Mid ICA 69.5/27.8 cm/sec. Dist ICA 85.1/34.3 cm/sec. Dist ICA 105.7/38.6 cm/sec. Rt. ICA/CCA = 1.1. Lt. ICA/CCA = 1.3. Prox ECA 65.6/14.7 cm/sec. Prox ECA 60.4/13.4 cm/sec. Rt. Vert. 83.8/34.3 cm/sec. Lt. Vert. 35.7/12.1 cm/sec. Right Extracranial There is intimal thickening but no significant atherosclerotic plaque noted in the right common carotid artery. There is heterogeneous, irregular atherosclerotic plaque noted in the right internal carotid artery. There is heterogeneous, irregular atherosclerotic plaque noted in the right external carotid artery. Antegrade flow is noted in the right vertebral artery. Left Extracranial There is intimal thickening but no significant atherosclerotic plaque noted in the left common carotid artery. There is intimal thickening but no significant atherosclerotic plaque noted in the left internal carotid artery. There is intimal thickening but no significant atherosclerotic plaque noted in the left external carotid artery. Antegrade flow is noted in the left vertebral artery. Procedure Carotid Duplex [id number]. The exam was diagnostic. Exam performed in department. Interpretation Summary Irregular calcific plaque at the proximal right internal and external carotid arteries. <50% stenosis right internal carotid <50% stenosis right external carotid Postoperative changes left carotid bulb and proximal internal carotid <50% stenosis left internal carotid <50% stenosis left external carotid Patent and antegrade vertebrals bilaterally Ordering Physician: Vito Noel Performed By: Farhat Pollard RVT
== END ==
PROVIDERS: Family Provider Family Medicine Geriatric Medicine; PCP Family Medicine Geriatric Medicine; Referring Provider Surgery; Visit Provider Surgery
DX: I65.22 Occlusion and stenosis of left carotid artery (principal)
CPT/HCPCS: 93880

== ENCOUNTER 2019-04-21 05:17 | Inpatient (IN) | payer MEDICARE, BC, SELFPAY ==
[2019-04-07 08:08] VITALS: BMI 26.0
[2019-04-16 07:03] VITALS: BMI 26.0
--- NOTE | 2019-04-16 07:09 | HP_ITS ---
Intake Vital Signs 04/16/19 Blood Pressure 102/72 04/16/19 Blood Pressure Location Rt brachial 04/16/19 Blood Pressure Position Sitting 04/16/19 Respiratory Rate 18 04/16/19 Body Mass Index (BMI) 26.0 Intake Visit Reasons: f/u CEA Chief Complaint: HYPOTENSION, ANEMIA [employer] Le[employer] Agent Required: No Is patient in pain?: No Allergies No Known Allergies Allergy (Verified 04/16/19 08:04) Medications Enzalutamide [Xtandi] 160 mg PO DAILY@1930 01/20/19 [History Confirmed 04/16/19] Iron Polysaccharide Complex [Ferrex 150] 300 mg PO DAILY 04/02/19 [History Confirmed 04/16/19] Multivitamin with Minerals [Multiple Vitamin] 1 tab PO DAILY@1200 04/02/19 [History Confirmed 04/16/19] Pantoprazole Sodium [Protonix] 40 mg PO DAILY #30 tab 04/05/19 [Rx Confirmed 04/16/19] bismuth subsalicylate 525 mg/15 mL oral suspension 525 mg PO .qid 14 Days #236 ml 04/08/19 [Rx Confirmed 04/16/19] metronidazole 250 mg tablet 250 mg PO .qid #56 tab 04/08/19 [Rx Confirmed 04/16/19] pantoprazole 40 mg tablet,delayed release 40 mg PO BID #28 tab 04/08/19 [Rx Confirmed 04/16/19] tetracycline 500 mg capsule 500 mg PO .qid #56 cap 04/08/19 [Rx Confirmed 04/16/19] PFSH Medical History Colon cancer (Acute) Tobacco abuse (Acute) 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 He also has a known adenocarcinoma of the ascending colon and of the sigmoid colon. He is being prepared for combined laparoscopic right and left colectomy. My previous notes reflect the following: Problem List (1) Carotid stenosis, bilateral Status: Acute (2) Orthostatic hypotension Status: Acute (3) Colonic mass Status: Acute (4) Acute on chronic blood loss anemia Status: Chronic History and Physical Date of Admission: 04/07/19 73-year-old gentleman who was urgently hospitalized on April 02, 2019 with orthostatic hypotension and severe anemia with a hemoglobin that drifted into the 6. I detected left carotid bruit and I obtained carotid duplex exam demonstrating a very high flow jet velocity in the left felt to be greater than 70% stenosis. CTA of the neck confirmed greater than 70% stenosis of the left internal carotid. He did require 2 units of blood transfusion. I performed an upper and lower endoscopy. This demonstrated mild reflux esophagitis and mild gastritis H. pylori negative. The colonoscopy demonstrated a mass lesion in the proximal ascending colon and a mass lesion in the sigmoid colon with 2 additional polyps as noted in the dictation. The left and right colonic masses appear to be malignant. These appear to be the source of his blood loss. The stenosis of the left internal carotid however is felt to be severe and contributing to his orthostasis. It is felt that this needs to be addressed prior to his colonic lesions particularly in light of the complexity of the colon surgery that will be required. The patient returns now for his left carotid enterectomy. My previous note is as follows Problem List (1) Iron deficiency anemia Status: Acute Qualifiers: Iron deficiency anemia type: chronic blood loss Qualified Code(s): D50.0 - Iron deficiency anemia secondary to blood loss (chronic) Reason for Consult Date of Consultation: 04/02/19 History of Present Illness: The patient is a 73 year old M who presented to the [facility] emergency room with a 2-month history of anemia and a 1 month history of orthostatic dizziness. I have been asked to see him by Dr. Zayas and a written copy of my surgical consult will be present in the charting. It is of note that August 21, 2018 he was diagnosed as having metastatic prostate cancer. He is under the care of Dr. Fernandez. On October 03, 2018 his hemoglobin was 12.4 on January 15, 2019 it was 10.2 on January 20, 2019 it was 9.6 on March 18, 2019 it was 8.6 and then on his presentation to the emergency room today it was 8.4. The patient has been seen by gastroneurologist and had endoscopy scheduled for April 14. A request has been made for urgent endoscopic evaluation. The patient by report had a stool card that was positive. He absolutely denies any bright red blood per rectum or melena. He has not had any history of peptic ulcer disease. He has never had a previous colonoscopy. He has never had previous carotid duplex imaging. He states that when he goes from a lying to a standing position that he will become dizzy. He denies chest pain. He denies shortness of breath. His laboratory today demonstrates a white blood cell count of 7.5 with a hemoglobin 8.4 hematocrit 25.3 platelet count 417,000 with a normal differential except for monocytes of 11.8%. BUN is normal at 18 and creatinine is 1.03. 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 At the time of my interview with the patient he is completing a full regular supper Past Medical History Allergies No Known Allergies Allergy (Verified 04/02/19 12:40) Home Medications: Ambulatory Orders Medication Instructions Recorded Enzalutamide [Xtandi] 160 mg PO DAILY@1930 01/20/19 Iron Polysaccharide Complex 300 mg PO DAILY 04/02/19 [Ferrex 150] Multivitamin with Minerals 1 tab PO DAILY@1200 04/02/19 [Multiple Vitamin] Lives: Alone Smoking Status: Current every day smoker Tobacco Use: Cigarettes Alcohol: None Drugs: None Review of Systems Constitutional: Denies: Anorexia HEENT: Reports: Difficulty Hearing. Denies: Difficulty Swallowing Cardiovascular: Denies: Chest Pain Respiratory: Denies: Cough Gastrointestinal: Denies: Abdominal Pain, Hematochezia, Melena, Vomiting Neurological: Denies: Difficulty swallowing Patient Problems: Active and Suspected Problems Prostate cancer (Acute) Neuropathy (Acute) Iron deficiency anemia (Acute) Orthostatic hypotension (Acute) Anemia due to gastrointestinal blood loss (Acute) - Physical Exam Vitals/I&O's: Vital Signs Temp Pulse Resp BP Pulse Ox 97.6 F L 80 18 134/83 H 100 04/02/19 16:31 04/02/19 17:00 04/02/19 16:31 04/02/19 16:31 04/02/19 16:31 Oxygen Delivery Method Room Air Weight: 186 lb 11.704 oz Body Mass Index (BMI) 25.3 General: Alert, Oriented x3, Cooperative, No apparent distress HEENT: Atraumatic Oral: Moist Mucosa Neck: - - Carotids are 3+ bilateral. 2/6 bruit noted on the left Lungs: Clear to auscultation, Normal air movement Cardiovascular: Regular rate, Regular Rhythm Abdomen: Bowel Sounds Present, Soft, Non Tender, Non-Distended Extremities: No Calf Tenderness Psych/Mental Status: Normal Affect Laboratory Results 04/02/19 12:45: WBC 7.5, RBC 2.92 L, Hgb 8.4 L, Hct 25.3 L, MCV 86.6, MCH 28.8, MCHC 33.2, RDW Std Deviation 49.1 H, RDW Coeff of Lisa 15.4 H, Plt Count 417, MPV 9.9, Immature Gran % (Auto) 0.400, Neut % (Auto) 55.5, Lymph % (Auto) 28.1, Butts % (Auto) 11.8 H, Eos % (Auto) 3.7, Baso % (Auto) 0.5, Absolute Neuts (auto) 4.2, Absolute Lymphs (auto) 2.10, Nucleated RBC % 0 04/02/19 12:45: Sodium 140, Potassium 4.3, Chloride 108 H, Carbon Dioxide 27.0, Anion Gap 5, BUN 18, Creatinine 1.03, Estim Creat Clear Calc 72.20, Est GFR (MDRD) Af Amer 92, Est GFR (MDRD) Non-Af 76, BUN/Creatinine Ratio 17.5, Glucose 84, Calcium 9.5 Current Medications Acetaminophen (Tylenol) 500 mg PO Q4H PRN PRN PRN Reason: Temp > 100.4 F Heparin Sodium (Porcine) (Heparin Na) 5,000 unit SC Q12 AKANKSHA Lactated Ringer's () 1,000 mls @ 125 mls/hr IV .Q8H AKANKSHA Last Admin: 04/02/19 17:43 Dose: 125 mls/hr Documented by: Multivitamins/Minerals (Multivitamin With Minerals) 1 tablet PO DAILY@1200 AKANKSHA Nicotine (Nicoderm Cq ([facility])) 21 mg TRANSDERM. DAILY [facility] Last Admin: 04/02/19 17:43 Dose: 21 mg Documented by: Nutritional Formula (Lactose Free) (Ensure Enlive) 120 ml PO 4X/DAY AKANKSHA Polysaccharide Iron Complex (Ferrex 150) 150 mg PO DAILY AKANKSHA Sodium Chloride () 10 - 40 ml IV UD PRN PRN Reason: SALINE FLUSH Assessment/Plan All Active Problems Prostate cancer (Acute) Neuropathy (Acute) Iron deficiency anemia (Acute) Orthostatic hypotension (Acute) Anemia due to gastrointestinal blood loss (Acute) 73-year-old gentleman with a two-month history of anemia of undetermined etiology. There is no gross evidence of active high volume GI blood loss at this time. By report stool was Hemoccult positive. He has orthostatic dizziness. He has a left carotid bruit. I recommended the patient carotid duplex imaging The patient has completed regular supper. We can review scheduling for possible combined esophagogastroduodenoscopy with biopsy and colonoscopy with possible biopsy or polypectomy on Sunday. I discussed the technique, benefits, risks, alternatives. I do have concerns regarding his prostate cancer and multiple skeletal mets. He is not clinically demonstrating active GI bleeding at this time He has had an opportunity to ask and have questions answered. We will initiate clear liquids tomorrow and proceed with endoscopy on Sunday if scheduling permits. CC: Dr. Ronal Nole M.D., F.A.C.S. 04/03/19 0608<Electronically signed by Vito Noel MD> Date Vito Noel MD In detail I have discussed with the patient a left carotid endarterectomy with patch angioplasty. We have discussed arterial line placement to assist with monitoring. He is aware of the technique, benefits, risks, alternatives. No guarantees of success been offered. He initiated an 81 mg aspirin one day preoperatively. This could not be started sooner because of his GI blood loss anemia from his colonic masses. This is the same reason why carotid stenting is felt to be contraindicated as the patient is not a candidate for aggressive anticoagulation. He has had an opportunity to ask and have questions answered. He returns today to proceed with definitive left carotid surgery and then it is anticipated that he will have definitive colon surgery in the near future. Vito Noel M.D., F.A.C.S. I have re-examined the patient. There are no clinical changes since date of exam. 04/07/19 1052<Electronically signed by Vito Noel MD> Date Vito Noel MD [facility] Medical Records Department [address] [place] [address] Colonoscopy Report MR#: [id number]:[id number] Name:JUSTICE OWEN DRep #:[id number] : [id number]: Vito Noel MD PCP:Ronal RAHMAN,[facility] Status:ADM MATTHEW Patient Name: Justice Owen Procedure Date: 04/03/2019 1:25 PM Date of : 1945 Age: 73 Procedure: Colonoscopy Indications: Iron deficiency anemia Providers: Vito Noel MD Referring MD: Manju Zayas DO Medicines: See the Anesthesia note for documentation of the administered medications Patient Profile: Last Colonoscopy: none. The patient's first colonoscopy is today. Complications: No immediate complications. Procedure: Pre-Anesthesia Assessment: - Prior to the procedure, a History and Physical was performed, and patient medications and allergies were reviewed. The patient's tolerance of previous anesthesia was also reviewed. The risks and benefits of the procedure and the sedation options and risks were discussed with the patient. All questions were answered, and informed consent was obtained. Prior Anticoagulants: The patient has taken no previous anticoagulant or antiplatelet agents. ASA Grade Assessment: II - A patient with mild systemic disease. After reviewing the risks and benefits, the patient was deemed in satisfactory condition to undergo the procedure. After I obtained informed consent, the scope was passed under direct vision. Throughout the procedure, the patient's blood pressure, pulse, and oxygen saturations were monitored continuously. The Colonoscope was introduced through the anus and advanced to the cecum, identified by appendiceal orifice and ileocecal valve. The colonoscopy was performed without difficulty. The patient tolerated the procedure well. The quality of the bowel preparation was good. The ileocecal valve was photographed. Scope In: 1:27:15 PM Scope Withdrawal Time 0 hours 27 minutes 9 seconds Scope Out: 1:58:16 PM Total Procedure Duration Time 0 hours 31 minutes 1 second Findings: Hemorrhoids were found on perianal exam. lax anal tone A fungating non-obstructing large mass was found in the proximal ascending colon. No bleeding was present. This was biopsied with a cold forceps for histology. A 7 mm polyp was found in the distal transverse colon. The polyp was sessile. The polyp was removed with a cold biopsy forceps. The polyp was removed with a cold snare. Resection and retrieval were complete. A 6 mm polyp was found in the descending colon. The polyp was sessile. The polyp was removed with a cold snare. Resection and retrieval were complete. A 13 mm polyp was found in the proximal sigmoid colon. The polyp was semi-pedunculated. Biopsies were taken with a cold forceps for histology. For location marking, one hemostatic clip was successfully placed. Proximal to this I markded with Arianna ink. There was no bleeding at the end of the procedure. An infiltrative partially obstructing large mass was found in the mid sigmoid colon. The mass was partially circumferential (involving one-half of the lumen circumference). No bleeding was present. The mass was partially removed with a hot snare and retrieved with a Torres net. Distal to this lesion I marked with arianna ink Impression: - Hemorrhoids found on perianal exam. - Malignant tumor in the proximal ascending colon. Biopsied. - One 7 mm polyp in the distal transverse colon, removed with a cold biopsy forceps and removed with a cold snare. Resected and retrieved. - One 6 mm polyp in the descending colon, removed with a cold snare. Resected and retrieved. - One 13 mm polyp in the proximal sigmoid colon. Biopsied. Clip was placed. Ink placed proximal to this - Malignant partially obstructing tumor in the mid sigmoid colon. Ink placed distal to this. - The examination was suspicious for a malignant-appearing tumor. Tissue was removed. Recommendation: - Observe patient in patient room for ongoing care. - Resume previous diet. - Continue present medications. Definitive surgery will be recommended. Will obtain CMP and CEA and Abd pelvic CT Will plan future complex surgery Will not require chronic hospitalization until surgical arrangements are made - Repeat colonoscopy in 1 year for surveillance. Procedure Code(s): --- Professional --- 26273, Colonoscopy, flexible; with removal of tumor(s), polyp(s), or other lesion(s) by snare technique 45614, 59, Colonoscopy, flexible; with biopsy, single or multiple 90620, Unlisted procedure, colon Diagnosis Code(s): --- Professional --- K64.9, Unspecified hemorrhoids C18.2, Malignant neoplasm of ascending colon C18.7, Malignant neoplasm of sigmoid colon K56.690, Other partial intestinal obstruction D12.3, Benign neoplasm of transverse colon (hepatic flexure or splenic flexure) D12.4, Benign neoplasm of descending colon D12.5, Benign neoplasm of sigmoid colon D50.9, Iron deficiency anemia, unspecified CPT copyright 2017 [employer]. All rights reserved. The codes documented in this report are preliminary and upon dental scheduler review may be revised to meet current compliance requirements. Vito Noel MD 04/03/2019 2:16:51 PM This report has been signed electronically. Number of Addenda: 0 Note Initiated On: 04/03/2019 1:25 PM 04/03/19 1417 Date [facility] Medical Records Department [address] [place] [address] EGD Report MR#: [id number] Name:JUSTICE OWEN [facility] #:[id number]: Vito Noel MD PCP:Ronal RAHMAN,Jorgito Chi Status:ADM MATTHEW Patient Name: Justice Owen Procedure Date: 04/03/2019 1:01 PM Date of : 1945 Age: 73 Procedure: Upper GI endoscopy Indications: Occult blood in stool Providers: Vito Noel MD Referring MD: Manju Zayas DO Medicines: See the Anesthesia note for documentation of the administered medications Complications: No immediate complications. Procedure: Pre-Anesthesia Assessment: - Prior to the procedure, a History and Physical was performed, and patient medications and allergies were reviewed. The patient's tolerance of previous anesthesia was also reviewed. The risks and benefits of the procedure and the sedation options and risks were discussed with the patient. All questions were answered, and informed consent was obtained. Prior Anticoagulants: The patient has taken no previous anticoagulant or antiplatelet agents. ASA Grade Assessment: II - A patient with mild systemic disease. After reviewing the risks and benefits, the patient was deemed in satisfactory condition to undergo the procedure. After obtaining informed consent, the endoscope was passed under direct vision. Throughout the procedure, the patient's blood pressure, pulse, and oxygen saturations were monitored continuously. The gastroscope was introduced through the mouth, and advanced to the second part of duodenum. The upper GI endoscopy was accomplished without difficulty. The patient tolerated the procedure well. Scope In: 1:18:08 PM Scope Out: 1:24:07 PM Total Procedure Duration Time 0 hours 5 minutes 59 seconds Findings: LA Grade A (one or more mucosal breaks less than 5 mm, not extending between tops of 2 mucosal folds) esophagitis with no bleeding was found 41 cm from the incisors. Biopsies were taken with a cold forceps for histology. The Z-line was irregular and was found 41 cm from the incisors. A medium-sized hiatal hernia was present. Grade I varices were found in the middle third of the esophagus. Diffuse mild inflammation characterized by erosions was found in the gastric antrum. Biopsies were taken with a cold forceps for histology. Diffuse mildly erythematous mucosa without active bleeding and with no stigmata of bleeding was found in the duodenal bulb. Biopsies were taken with a cold forceps for histology. Impression: - LA Grade A reflux esophagitis. Biopsied. - Z-line irregular, 41 cm from the incisors. - Medium-sized hiatal hernia. - Grade I esophageal varices. - Chronic gastritis. Biopsied. - Erythematous duodenopathy. Biopsied. Recommendation: - Return patient to [facility] for ongoing care. - Resume regular diet. - Continue present medications. - Use Prilosec (omeprazole) 40 mg PO daily. Procedure Code(s): --- Professional --- 24912, Esophagogastroduodenoscopy, flexible, transoral; with biopsy, single or multiple Diagnosis Code(s): --- Professional --- K21.0, Gastro-esophageal reflux disease with esophagitis K22.8, Other specified diseases of esophagus K44.9, Diaphragmatic hernia without obstruction or gangrene I85.00, Esophageal varices without bleeding K29.50, Unspecified chronic gastritis without bleeding K31.89, Other diseases of stomach and duodenum R19.5, Other fecal abnormalities CPT copyright 2017 [employer]. All rights reserved. The codes documented in this report are preliminary and upon dental scheduler review may be revised to meet current compliance requirements. Vito Noel MD 04/03/2019 2:05:18 PM This report has been signed electronically. Number of Addenda: 0 Note Initiated On: 04/03/2019 1:01 PM 04/03/19 1405 Date Vito Nole MD [facility] Signature:Date (if indicated) 1 [facility] [id number] [facility] CENTERPadminiDUNDEE, [place] [phone] Page 1of 2The contents of this transmission are privileged, confidential and exempt from disclosureunder applicable law. If you have received this information in error, call . JUSTICE OWEN MR# [id number]: JUSTICE OWEN/Sex: 73/[address]:Manju Zayas Unit #: [id number]: [id number]: 1945Status:DIS INFacility:[facility] Spec#:[id number] Spec Date: 04/03/19[facility] Dr: [place] Type: EGDOPERATION: Colonoscopy, EGD ([facility])PRE-OP DIAGNOSIS: AnemiaTISSUE SUBMITTED: A ?Duodenum biopsy, B ?Antrum biopsy for H. pylori and path, C ?Distal esophagus biopsy, D ?Biopsy of proximal ascending colon mass, E ?Biopsy of distal transverse polyp cold snare, F ?Descending colon biopsy and cold snare, G ?Proximal sigmoid colon biopsy and cold snare, H ?Mid sigmoid biopsy MICROSCOPIC DIAGNOSISA. Duodenum, biopsy:Focal gastric metaplasia.Mild chronic active ileitis. B. Gastric antrum, biopsy:Chronic active gastritis.Positive for Helicobacter pylori.See comment. C. Distal esophagus, biopsy:Consistent with reflux esophagitis. D. Proximal ascending colon mass, biopsy:Invasive well differentiated adenocarcinoma.See comment. E. Distal transverse colon polyp, biopsy:Fragments of tubular adenoma. F. Descending colon, biopsy:Tubular adenoma. G. Proximal sigmoid colon polyp, biopsy:No significant pathologic change. H. Mid sigmoid colon, biopsy:Tubular adenoma with minimally invasive well differentiated adenocarcinoma.AM:yobani Electronically Signed by: Dr. Troy Hamilton DO 04/08/19 1005 H. pylori was positive and the patient was initiated on appropriate therapy. He is presenting now in follow-up of his left carotid endarterectomy in preparation for his colon cancer surgery. Exam Const General: cooperative, healthy appearing, comfortable, no acute distress Nutritional Appearance: average body habitus Orientation: alert, awake HENMD Other: Nicely healing incision left neck/carotid endarterectomy. Not expansile. No bruits Chest Other: Increased anterior posterior diameter Resp Effort & Inspection: normal respiratory effort Auscultation: clear to auscultation bilaterally Cardio Rate: regular rate Rhythm: regular rhythm GI Palpation: soft, no hepatosplenomegaly Auscultation: normal bowel sounds Neuro Cranial Nerves: CN's II-XI intact bilaterally Other: Moderate hearing deficit noted Extrem General: no calf tenderness bilaterally Psych Affect: normal affect Assessment & Plan Problems 1. Anemia due to gastrointestinal blood loss D50.0 2. Carotid stenosis, bilateral I65.23 3. Malignant neoplasm of ascending colon C18.2 Plan 73-year-old gentleman appears to be making adequate progress status post left carotid enterectomy. I anticipate obtaining a postsurgical carotid duplex exam. On today's visit we have discussed laparoscopic right colectomy and laparoscopic sigmoid colectomy and treatment of his individual colon cancers. He has known metastatic prostate cancer to his bones. I am not proposing a total colectomy at this time. We will process him via our enhanced recovery protocol. He has had an opportunity to ask and have questions answered. We are scheduling in expediting his care because of his iron deficiency blood loss anemia and ongoing blood loss risk. He has been maintained on an 81 mg aspirin since the detection of his carotid occlusive disease. CC: Dr. Ronal Noel M.D., F.A.C.S. Orders Orders: Carotid Duplex Ultrasound Today I65.22 Coding Level of Care Code Global Post Op Diagnoses Anemia due to gastrointestinal blood loss D50.0 Carotid stenosis, bilateral I65.23 Malignant neoplasm of ascending colon C18.2 ??Colon location: ascending 04/16/19 0822 <Electronically signed by Vito cortez MD> Date _ Vito Noel MD A CT scan that was performed August 21, 2018 did not demonstrate any evidence of liver metastasis or adenopathy at that time. It did demonstrate the skeletal metastasis felt be secondary to his prostate cancer. Preoperative CEA level was 4.1 No acute changes since the patient is office visit and carotid endarterectomy. He is still complaining of orthostatic dizziness and he is being referred back to his primary care physician Dr. Villeda for ongoing evaluation postoperatively. Vito Noel M.D., F.A.C.S.
[2019-04-18 14:12] VITALS: BP 95/70; PULSE 85; RESP 16; TEMP 36.2; O2SAT 99; BMI 25.6
[2019-04-21] VITALS (9 sets, daily range): BP systolic 119–149; BP diastolic 64–95; PULSE 60–72; RESP 14–18; TEMP 36–36.6; O2SAT 96–100; BMI 25.6
--- NOTE | 2019-04-21 | IMM_PTH ---
PATIENT: JUSTICE OWEN LOC: MS3 U#:[id number] AGE/SX: 73/M ROOM: ME322 RE04/21/[address]: Dr. Vito Noel MD : 1945 BED: 1 DIS: 04/24/2019 SPEC #: [id number] RECD: 04/23/19 11:53 STATUS: JESUS REQ #: [id number] NBA: 04/21/19 00:[address]: Vito Noel DEPT: IMMUNOHISTOCHEMISTRY RECD BY: Andrea Bursn ENTERED: 04/23/19 11:55 SP TYPE: IMMUNO OTHR DR: Dr. Jorgito Villeda MD Tissues: Sigmoid colon biopsy Procedures: MLH-1 (add) MSH6 (add) Anti-PMS2 (add) FINK-2 (add) HER2 YEYO (add) KI-67 (add) P53 (add) MSH2 (initial) PHYSICIAN & INSTITUTION [place] [address] SPECIMEN INFORMATION: Tissue Source: A. Sigmoid colon Clinical Info: Malignant neoplasm of ascending colon and sigmoid colon Specimen Number: [id number] [facility] code: 98929, 35412 x7 METHODOLOGY: Deparaffinized sections of prefer/formalin-fixed tissue or PAP/DQ stained slides are incubated with monoclonal/polyclonal antibodies/oligonucleotide probes. Localization is made via biotin free immunoperoxidase method. Appropriate controls are performed and reacted as expected. Results on target cell population are indicated in the following table: RESULTS: ANTIBODY / CLONE RESULT Block A9 COLON CANCER PROFILE (Prognostic Markers) Ki-67 (30-9) positive, 85% P53 (DO-7) positive, 80% IFNK-2 (SP21) positive MLH-1 (M1) positive MSH2 (25D12) positive MSH6 (44) positive PMS2 (TPM9901) positive Her-2neu (CB11) negative These tests were developed and their performance characteristics determined by [facility]. They may not have been cleared or approved by the U.S. Food and Drug Administration. The FDA has determined that such clearance or approval is not necessary. The above immunohistochemical/dualISH markers are ordered and reviewed by the Pathologist. INTERPRETATION: Sigmoid colon mass, colectomy: Invasive adenocarcinoma. Result of Microsatellite Instability Study: Negative (no loss of mismatch protein; no microsatellite instability detected). AM:yobani 04/24/19
[2019-04-21] MEDS: Lactated Ringers 1,000 ML 40 ML IV ×2 (06:25→15:25)
[2019-04-21] MEDS: Lidocaine/D5W 2,000 MG/250 ML IV.SOLN 25.5 MG IV (06:25)
[2019-04-21] MEDS: Magnesium Sulfate 4gm/100mL 4 GM/100 ML IV.SOLN. IV (06:27)
[2019-04-21 06:36] LABS: Bedside Glucose 182 mg/dL (70-110)
--- NOTE | 2019-04-21 07:15 | COL._PTH ---
PATIENT: JUSTICE OWEN LOC: MS3 U#:[id number] AGE/SX: 73/M ROOM: MD322 RE04/21/[address]: Dr. Vito Noel MD : 1945 BED: 1 DIS: 04/24/2019 SPEC #: [id number] RECD: 04/21/19 10:45 STATUS: JESUS REMerlyn #: [id number] NBA: 04/21/19 07:[address]: Vito Noel DEPT: SURGICAL PATHOLOGY RECD BY: Andrea Burns ENTERED: 04/21/19 11:33 SP TYPE: COLON OTHR DR: Dr. Jorgito Villeda MD Tissues: A - Colon, NOS B - Colon, NOS C - Colon Donuts D - Colon Donuts Procedures: Surgery Specimen Level IV Surgery Specimen Level HEADER OPERATION: ERAS, laparoscopic right and sigmoid colectomies PRE-OP DIAGNOSIS: Malignant neoplasm of ascending colon and sigmoid colon, other partial intestinal obstruction, benign neoplasm of descending colon and sigmoid colon TISSUE SUBMITTED: A. Sigmoid colon, fresh to lab, B. Right colon, C. Proximal (sigmoid) donut, D. Distal (rectal) donut MICROSCOPIC DIAGNOSIS A. Sigmoid colon, segmental colectomy: Invasive moderately adenocarcinoma. See cancer check list below. B. Right colon, segmental colectomy: Invasive moderately differentiated adenocarcinoma. See cancer check list below. C. Proximal mucosal donut. No evidence of carcinoma. D. Distal mucosal donut, excision. No evidence of carcinoma. AM:constance 04/23/19 COMMENT A. CANCER CASE SUMMARY Procedure: Sigmoid colectomy Tumor Site: Sigmoid colon Tumor Size: 3.5 x. 2.5 x 2.5 cm Macroscopic Tumor Perforation: Not identified. Histologic Type: Adenocarcinoma. Histologic Grade: G2 (moderately differentiated). Tumor Extension: Tumor invades into muscularis propria Margins: All margins are uninvolved by invasive carcinoma, dysplasia or carcinoma in situ Margins Examined: Proximal, distal and serosal margins. Treatment Effect: Unknown Lymphovascular Invasion: Not identified. Perineural Invasion: Not identified. Tumor Deposits: Not identified. Regional Lymph Nodes: 16 out of 16 lymph nodes negative for metastatic carcinoma. Ancillary Studies: Microsatellite Study: [id number]: Negative No Microsatellite instability detected (No loss of MSI markers). Additional Pathologic Findings: Benign mucosal polyps. Pathologic Stage: T2, N0, MX Case has been reviewed in consultation with Dr. Langford who concurs with the above diagnosis. IDC:YUNG Francisco CANCER CASE SUMMARY Procedure: Right hemicolectomy Tumor Site: Cecum Tumor Size: 4.3 x. 3.7 x 2 cm Macroscopic Tumor Perforation: Not identified. Histologic Type: Adenocarcinoma. Histologic Grade: G2 (moderately differentiated). Tumor Extension: Tumor invades through muscularis propria into subserosa Margins: All margins are uninvolved by invasive carcinoma, dysplasia or carcinoma in situ Margins Examined: Proximal, distal and serosal margins. Treatment Effect: Unknown Lymphovascular Invasion: Not identified. Perineural Invasion: Not identified. Tumor Deposits: Not identified. Regional Lymph Nodes: 6 out of 17 lymph nodes positive for metastatic carcinoma. Ancillary Studies: Microsatellite Study: Previously performed on same tumor ([id number]): Negative No Microsatellite instability detected (No loss of MSI markers). Additional Pathologic Findings: Benign mucosal polyp. Pathologic Stage: T3, N2a, MX Case has been reviewed in consultation with Dr. Langford who concurs with the above diagnosis. IDC:SJ MICROSCOPIC DESCRIPTION Slides are reviewed. GROSS DESCRIPTION A. Received fresh for oral consultation labeled with the patient's name is a specimen designated sigmoid colon. The specimen consists of a 23 cm segment of bowel, located 8 cm from the open end of the bowel and identified by a metallic clip is a polypoid lesion measuring 1.2 x 1 x 1 cm. A second polypoid mass measures 3.5 x 2.5 x 2.5 cm is present and located 8 cm from the closed end of the bowel. The remainder of the bowel mucosa contains a single polyp measuring 0.8 cm and located 3 cm proximal to the largest tumor. The size of the lesions and their proximity to the margin is conveyed to the surgeon intraoperatively. Serial sections of the polypoid lesion with metallic clip does not reveal involvement of underlying bowel wall. Serial sections of the larger polypoid lesion show possible extension into the underlying bowel wall. The attached fibrofatty tissue contains a number of nodules resembling lymph nodes. [employer] sections are submitted as follows: 1 - margin at open end of bowel, 2 - margin at closed end of bowel, 3 - small mucosal polyp, 4 & 5 - polypoid mass at clip, totally submitted, 7 through 9 - larger polypoid mass, 10 through 12 - multiple lymph nodes in each cassette. B. Received in fixative is one container labeled with the patient's name and designated right colon and staple line. The specimen consists of an 11 cm segment of terminal ileum and a 11.5 cm segment of large bowel with attached 5 cm segment of appendix that has an average diameter of 0.6 cm located approximately 8 cm from the distal margin (closest mucosal margin is a fungating apple core lesion within the cecum measuring 4.3 x 3.7 x 2 cm. Distal to the mass are two polyps approximately 3 and 4 cm distal to the mass. These polyps range in size from 0.5 to 0.7 cm. The mass does not appear to involve the ileocecal valve. Serial sections of the mass reveal the mass to extend into the subserosal fatty tissue. The serosa in the area of the mass in inked. The attached fibrofatty tissue contains a number of nodules resembling lymph nodes. A fragment of unremarkable separate mucosal tissue in container measures 4 x 0.2 cm in greatest dimension. [employer] sections are submitted as follows: 1 - mucosal margins, 2 - appendix, 3 - ileocecal valve, polyps and fragment free in container (inked blue), 4 - brewery representative sections of uninvolved large and small bowel, 5 through 8 - tumor, 9 - one lymph node, bisected, 10 - one lymph node, bisected, 11 - one lymph node, bisected, 12 through 14 - multiple lymph nodes in one cassette, 15 - one lymph node, serially sectioned. C. Received in fixative is one container labeled with the patient's name and designated proximal sigmoid donut. The specimen consists of a mucosal donut measuring 2 cm in diameter and 1 cm in thickness. Serial sections do not reveal mass lesions. [employer] sections are submitted in one cassette. D. Received in fixative is one container labeled with the patient's name and designated distal donut. The specimen consists of a mucosal donut measuring 3 cm in diameter and 1 cm in thickness. Serial sections do not reveal mass lesions. [employer] sections are submitted in one cassette. AM:sp 04/22/19 TC: 0 CPT: 03151 x2, 85820 x2
--- NOTE | 2019-04-21 07:23 | DCINST_ITS ---
<Vito Noel - Last Filed: 04/21/19 07:23> Discharge Diet: Light diet - advance as tolerated - if you have questions about your diet instructions, please talk to you doctor. Discharge Activity: May Not Drive - for 1 week or while taking narcotic pain medicine. May shower in (days): 1 Lifting Restrictions: 10 pounds Call your doctor if your incision/area has: Continuous Slow Oozing, Sudden Increased Bleeding, Increased Pain/ Swelling, Increased Redness, Foul Smelling Discharge Call your doctor if you observe: Fever of 101 or Higher Suture Line Care: Avoid Pulling/Pushing, Avoid Pinching/Bending Additional Dressing/Incision Instructions:: Change or remove dressing in2 days. Leave steri-strips in place for 1 week. Allergies/Adverse Reactions: Allergies No Known Allergies Allergy (Verified 04/18/19 13:59) Medications to take at Discharge Enzalutamide [Xtandi] 160 mg PO DAILY@1930 01/20/19 Iron Polysaccharide Complex [Ferrex 150] 300 mg PO DAILY 04/02/19 Multivitamin with Minerals [Multiple Vitamin] 1 tab PO DAILY@1200 04/02/19 Bismuth Subsalicylate [Stomach Relief] 525 mg PO TID PRN 04/18/19 Metronidazole 250 mg PO .qid 04/18/19 Pantoprazole Sodium 40 mg PO BID 04/18/19 Tetracycline HCl 500 mg PO .qid 04/18/19 Amox/Clavulanate Tablet [Augmentin Tablet] 875 mg PO Q12H #10 tab 04/24/19 The following prescriptions were given: Amox/Clavulanate Tablet [Augmentin Tablet] 875 mg PO Q12H #10 tab Transmission Status: Pending to [facility]/pharmacy #[id number] Orders to be completed after discharge: CBC W/Diff, Automated Time Frame: 04/28/19, Facility: [facility], Location: Laboratory Primary Care Physician: Jorgito Villeda Chi, MD [Primary Care Provider] - Test Results: Test results from this visit will be discussed in further detail at your follow- up appointment, if applicable. Please Follow Up With: Vito Noel MD - [phone] When: Call to make an appointment to be seen in about 10 days. Please Follow Up With: Jorgito Villeda Chi, MD When: Please followup within one week of discharge <Laurel Henley - Last Filed: 04/24/19 07:13> Additional Instructions: Please continue your medication for the H Pylori infection until completed. Our office will order a breath test to be completed in the office once completed with your treatment. This will be discussed at your follow-up with Dr. Noel You will need to follow the transitional diet at home until we see you back in our office. There should be a list of recommended food items in your surgery folder that was given prior to surgery Test Results: Test results from this visit will be discussed in further detail at your follow- up appointment, if applicable. When: Sunday; 04/28 at 3:00 pm. Go to lab prior to the appointment for blood work Proposed Discharge Date: 04/24/19
[2019-04-21] MEDS: Insulin Lispro 100 UNIT/ML INSULN.PEN SC (07:25)
[2019-04-21] MEDS: Lidocaine/D5W 2,000 MG/250 ML IV.SOLN 2000 MG (07:50)
[2019-04-21] MEDS: Lubricating Jelly 60 GM Tube 30 GM TOPICAL ×2 (07:50→09:48)
[2019-04-21] MEDS: 0.9% Normal Saline (Pres. free 10 ML Vial (11:11)
[2019-04-21] MEDS: BUPIVACAINE LIPOSOME/PF 20 ML VIAL OPERA.SITE (11:11)
[2019-04-21] MEDS: Bupivacaine 0.25% 30 ML Vial (11:11)
--- NOTE | 2019-04-21 11:42 | PCM.OPRPT ---
Problem List (1) Cancer of ascending colon Status: Acute (2) Cancer of sigmoid colon Status: Acute Report of Operation Date of Procedure: 04/21/19 Pre-Operative Diagnosis: Ascending colon cancer and synchronous sigmoid colon cancer Post-Operative Diagnosis: Same Surgery/Procedure Performed:: Laparoscopic right hemicolectomy. Laparoscopic sigmoid colectomy. Bilateral tap block Description of Surgical Findings:: Timeout and informed consent was obtained. 73-year-old gent was taken out from placement table underwent general endotracheal intubation anesthesia. He was placed on a bleeding bag. He was placed in a low lithotomy position. The beanbag was secured to the table with tape. He was secured with a shoulder roll. Patient's legs was placed in leggings. A Vickers catheter was placed. It is of note that he did receive 2 g of cefotetan intravenously preoperatively. The abdomen and perineum was sterilely prepped draped. Ioban draping was used as well. Exparel mixed with 40 cc of 0.25% Marcaine with additional 40 cc of saline was used for local anesthetic. A infraumbilical incision was created holding sutures of 0 Vicryl placed varies needle inserted saline drop test performed the abdomen was insufflated with CO2 to a pressure of 10 the cervical pressure. Paulino trocar inserted 10 lap scope inserted no ventricular injuries. Under localization was able to identify adhesions in the right lower quadrant keeping the cecum and ascending colon adhered against the sidewall however there did not appear to be infiltration. There was evidence of Arianna ink staining in the pelvis rectosigmoid area. Did not appear to be any masses in the greater omentum. I placed a 5 m trocar in the epigastric area. I placed 2 5 mm trochars in the right lower quadrant. I then elevated the cecum and ascending colon by incompletely incising the white line of Toldt. Dissection was somewhat challenging due to the deeply placed nature of the cecum and appendix. It gradually got that carefully elevated to I had the entire right colon elevated. I then had to elevate the greater omentum off the ascending colon to allow for visualization I did that with the Enseal device as was the energy device that I used throughout the case. That is what I used to elevate the right colon as well. Having achieved that I could elevate the greater omentum in place it toward the left upper quadrant this gave me visualization to the vascular supply to the right colon. I found the ileocolonic vessels used the Enseal device to incise the mesentery and then I used 2 extra-large Hem-o-mei clips proximally distally prior to transecting the area with the Enseal device. This allowed me now to completely elevate the right colon. I placed a medium wound protector in as a length of the infraumbilical midline incision just far enough to for the wound protector. I exited the right colon. I transected the small bowel and colon with 75 mm JACOBO stapler. The bowel was placed [id number] enterotomies were created in the bowel was anastomosed with the 75 mm JACOBO stapler. The enterotomy sites closed with a TA 60 stapler. I then further protected the staple lines with inversion with a running number suture of 4-0 silk. That appeared to have good positional lie good healthy tissue. I had dabbed the ends with the sterile Betadine drop that back within the abdomen. I used a Dacron tape to seal off the medium wound protector. Now gave inspection to the left lower quadrant area. Through my epigastric port in my to right lower quadrant ports I elevated the sigmoid colon I could see where the Arianna ink was marked both proximally and distally. I carefully incized the peritoneum completely elevated the colon. The course of the ureter on the left was identified and carefully protected. The sigmoid mesentery right at the base was transected using Enseal to the upper device and I carried that down to the pelvic reflection. I used the Enseal device to secure the mesentery throughout. Having achieved that I upsized my 5 mm port in the right anterior iliac crest area to a 12 m port. I placed a gold load and [place] and transected the rectum with 2 firings of the [place]. I then exited the bowel through the infraumbilical small midline incision with wound protector I finished transecting the mesentery up to the bowel I used a Kocker clamp to crush the bowel transected that specimen was sent to pathology where the 2 areas of concern were identified by the pathologist with good margins identified. The end of the sigmoid colon I treated with a running 2-0 Prolene whip suture. I placed a 33 mm stapler and secured it with a pursestring, dabbed that with Betadine and dropped that back into the abdomen.. The rectum was irrigated with dilute Betadine solution. Copious lubrication was used sizers were used. Then the 33 circular stapler was inserted per rectum the trocar was exited right to the mid of the staple line it was mated to the anvil. There appeared to be good position absolutely no tension on the sigmoid colon there was good blood supply. The 2 were approximated the device was fired and it was removed. The donuts were inspected and noted to be completely intact. Then a rigid sigmoidoscope was inserted and air was insufflated and a leak test performed_water. There was absolutely no air leak. Excess fluid naris aspirated free from the abdomen. Now a bilateral tap block was performed under laparoscopic inspection. Carefully and the transverse abdominal Splane the local solution was injected and this was done bilaterally with guidance. Having achieved that now the 12 m port site in the right anterior iliac crest area was removed and I closed that with a 0 Vicryl grainy new note [id number] suture. Greater omentum was placed overlying the small bowel hemostasis was intact there is been no apparent complication he had tolerated the procedure well. Trochars were now removed under visualization. The midline wound was closed with a running #1 PDS. Chiara-incisional was anesthetized with a local anesthetic. Wounds were closed with a combination of interrupted 4-0 Monocryl subdermal stitches and running 4-0 Monocryl sub-dermal stitches. Steri-Strips Telfa and OpSite dressings applied. Sponge and instrument and needle counts were reported the surgeon to be correct. Blood loss 100 cc. Specimens include the right colon and the sigmoid colon. Drains none. Blood loss 100 cc. Vito Noel M.D., F.A.C.S. Type of Anesthesia:: General, Local Anesthesiologist: Lenore Goldberg
[2019-04-21 12:40] LABS: Bedside Glucose 130 mg/dL (70-110)
[2019-04-21] MEDS: Gabapentin 600 MG Tablet PO (13:10)
[2019-04-21] MEDS: Acetaminophen 500 MG Tablet 1000 MG PO ×2 (13:10→19:43)
[2019-04-21] MEDS: 0.9% Saline Lock 10 ML Syringe IV ×3 (13:52→19:44)
[2019-04-21] MEDS: HYDROmorphone 0.5 MG/0.5 ML SYRINGE IV (13:52)
[2019-04-21] MEDS: Ketorolac 15 MG/ML Vial IV ×2 (15:13→19:43)
[2019-04-21] MEDS: ENZALUTAMIDE 40 MG CAPSULE 160 MG PO (19:43)
--- NOTE | 2019-04-21 21:45 | NURSING ---
pt up to brp. pt passed flatus and sm bm. pt flushed toilet before this RN was able to look at bm. ambulated to hallway and back x2.
[2019-04-21] MEDS: Pantoprazole Sodium 40 MG Tablet PO (22:10)
[2019-04-21] MEDS: Docusate Sodium 100 MG Capsule PO (22:10)
[2019-04-22 02:09] VITALS: BP 120/70; PULSE 62; RESP 16; TEMP 36; O2SAT 100
[2019-04-22] MEDS: Ketorolac 15 MG/ML Vial IV ×4 (02:14→19:16)
[2019-04-22] MEDS: 0.9% Saline Lock 10 ML Syringe IV ×4 (02:14→19:19)
[2019-04-22] MEDS: Acetaminophen 500 MG Tablet 1000 MG PO ×4 (02:14→20:14)
--- NOTE | 2019-04-22 05:33 | NURSING ---
pt up to brp and had medium liquid green/brown bm. pt denies pain/nausea. pt ambulated and sat up in chair.
[2019-04-22 05:34] VITALS: PULSE 63; TEMP 36.2; O2SAT 98
--- NOTE | 2019-04-22 05:59 | PN.SURG_ITS ---
Patient Problems: Active and Suspected Problems (Last Reviewed 04/16/19 @ 08:04 by Maddie Mckeon) Cancer of ascending colon (Acute) Cancer of sigmoid colon (Acute) Subjective: Pt has has some stool and flatus, no complaints - Physical Exam Vitals/I&O's: Vital Signs Temp Pulse Resp BP Pulse Ox 97.2 F L 63 16 120/70 98 04/22/19 05:34 04/22/19 05:34 04/22/19 02:09 04/22/19 02:09 04/22/19 05:34 Oxygen Flow Rate (L/min) 6 Oxygen Delivery Method Room Air Weight: 188 lb 14.978 oz Body Mass Index (BMI) 25.6 Intake and Output for Last 24 Hours 04/20/19 04/21/19 04/22/19 23:59 23:59 23:59 Intake Total 1980.90 / 1979.90 520 / 520 Output Total 400 / 400 725 / 725 Balance 1580.90 / 1580.90 -205 / -205 Abdomen: Bowel Sounds Present, Soft, Non Tender, Distended Laboratory Results 04/21/19 06:10: POC Glucose 182 H 04/21/19 12:37: POC Glucose 130 H Current Medications Acetaminophen (Tylenol) 1,000 mg PO Q6H [facility] Last Admin: 04/22/19 02:14 Dose: 1,000 mg Documented by: Calcium Carbonate (Tums) 500 mg PO TID PRN PRN Reason: .STOMACH DISTRESS Docusate Sodium (Colace) 100 mg PO BID [facility] Last Admin: 04/21/19 22:10 Dose: 100 mg Documented by: Enoxaparin Sodium (Lovenox) 40 mg SC DAILY [facility] Hydromorphone HCl (Dilaudid Inj) 0.5 mg IV Q3H PRN PRN PRN Reason: Pain Score 6-10/10 Last Admin: 04/21/19 13:52 Dose: 0.5 mg Documented by: Lactated Ringer's () 1,000 mls @ 40 mls/hr IV .Q25H [facility] Last Admin: 04/21/19 15:25 Dose: 40 mls/hr Documented by: Insulin Human Lispro (Humalog Kwikpen (Bkc)) 0 unit SC Q4H PRN PRN; Protocol PRN Reason: BG >/= 180, SEE PROTOCOL Last Admin: 04/21/19 07:25 Dose: 1 units Documented by: Ketorolac Tromethamine (Toradol) 15 mg IV Q6H [facility] Stop: 04/22/19 19:31 Last Admin: 04/22/19 02:14 Dose: 15 mg Documented by: Magnesium Oxide (Mag-Ox 400) 400 mg PO DAILY PRN PRN PRN Reason: Constipation Meclizine HCl (Antivert) 12.5 mg PO 4X/DAY PRN PRN PRN Reason: dizzyness Nutritional Formula (Lactose Free) (Ensure Enlive) 120 ml PO 4X/DAY [facility] Last Admin: 04/21/19 22:09 Dose: 120 ml Documented by: Ondansetron HCl (Zofran Odt) 4 mg PO Q6H PRN PRN PRN Reason: NAUSEA Ondansetron HCl (Zofran) 4 mg IV Q8H PRN PRN PRN Reason: nausea Oxycodone HCl (Oxyir) 5 - 10 mg PO Q4H PRN PRN PRN Reason: Pain Score 4-10/10 Pantoprazole Sodium (Protonix) 40 mg PO BID [facility] Last Admin: 04/21/19 22:10 Dose: 40 mg Documented by: Sodium Chloride () 10 - 40 ml IV UD PRN PRN Reason: SALINE FLUSH Last Admin: 04/22/19 02:14 Dose: 10 ml Documented by: Medical Necessity - Tobacco Use Smoking Status: Current every day smoker Tobacco Use: Cigarettes Assessment/Plan All Active Problems (Last Reviewed 04/16/19 @ 08:04 by Maddie Mckeon) Cancer of ascending colon (Acute) Cancer of sigmoid colon (Acute) Prostate cancer (Acute) Neuropathy (Acute) Iron deficiency anemia (Acute) Orthostatic hypotension (Acute) Anemia due to gastrointestinal blood loss (Acute) Carotid stenosis, bilateral (Acute) Colonic mass (Acute) Colon cancer (Acute) Tobacco abuse (Acute) 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
[2019-04-22 06:42] LABS: Hematocrit 23.1 % (40-54); Hemoglobin 7.5 g/dL (13.0-16.5); Mean Corp Hgb Conc 32.5 g/dL (32-36); Mean Corpuscular Hgb 27.1 pg (27.0-32.0); Mean Corpuscular Volume 83.4 fL (80-94); Mean Platelet Vol. 9.8 fl (6.2-12.0); Platelet Count 287 K/mm3 (150-450); RBC Distribution Width CV 16.2 % (11.6-14.6); RBC Distribution Width SD 49.6 fl (35.1-43.9); Red Blood Count 2.77 M/mm3 (4.6-6.2); White Blood Count 6.1 K/mm3 (4.4-11.0)
[2019-04-22 06:48] LABS: Anion Gap 6 (5-15); BUN 17 mg/dL (7-18); BUN/Creat Ratio 13.2 RATIO (10-20); Calcium,Total 8.4 mg/dL (8.5-10.1); Chloride 108 mmol/L (98-107); Creatinine, Serum 1.29 mg/dL (0.70-1.30); EST Glomerular Filtration Rate 58 mL/min (>60); Est Glom Filt Rate - Afr Amer 71 mL/min (>60); Estimated Creatinine Clearance 57.65 ml/min; Glucose 97 mg/dL (74-106); Sodium Level 139 mmol/L (136-145)
[2019-04-22] MEDS: Meclizine 12.5 MG Tablet PO (07:25)
[2019-04-22 07:51] VITALS: BP 99/57; PULSE 70; RESP 16; TEMP 36.4; O2SAT 100
[2019-04-22] MEDS: Enoxaparin 40 MG/0.4 ML Syringe SC (09:29)
[2019-04-22] MEDS: Pantoprazole Sodium 40 MG Tablet PO ×2 (09:30→21:54)
[2019-04-22 11:00] VITALS: O2SAT 96
[2019-04-22 14:11] VITALS: BP 135/75; PULSE 71; RESP 12; TEMP 36.4; O2SAT 99
--- NOTE | 2019-04-22 15:00 | CASEMGMT ---
Readmission chart review. Patient was recently here at [facility] on 04/03/19-04/05/19 for orthostatic hypotension and anemia. Patient had colonoscopy which found a mass. Patient was schedule for a Radial arterial line placement. Left carotid endarterectomy with bovine patch angioplasty and was admitted after surgery on 04/07/19-04/08/19. Patient had scheduled sigmoid colectomy on 04/21/19. See RN CM assessment from 04/03/19. CM will continue to follow this patient and plan for a safe discharge.
[2019-04-22] MEDS: Lactated Ringers 1,000 ML 40 ML IV (16:06)
[2019-04-22] MEDS: ENZALUTAMIDE 40 MG CAPSULE 160 MG PO (19:20)
[2019-04-22 20:02] VITALS: BP 130/73; PULSE 79; RESP 18; TEMP 36.9; O2SAT 97
[2019-04-23] MEDS: Acetaminophen 500 MG Tablet 1000 MG PO ×4 (02:43→20:18)
[2019-04-23 02:44] VITALS: BP 122/69; PULSE 93; RESP 16; TEMP 37; O2SAT 96
[2019-04-23 05:33] LABS: Absolute Lymphocyte Count 1.88 X10^3/uL (0.83-4.51); Absolute Neutrophil Count 9.6 X10^3/uL (2.0-7.7); Basophil# 0.02 X10^3/uL; Basophil% 0.2 % (0-1); Eosinophil# 0.07 X10^3/uL; Eosinophils% 0.6 % (0-5); Hematocrit 20.9 % (40-54); Hemoglobin 6.9 g/dL (13.0-16.5); Lymphocyte # 1.88 X10^3/ul (4.0); Lymphocyte % 15.3 % (19-41); Mean Corpuscular Hgb 26.8 pg (27.0-32.0); Mean Corpuscular Volume 81.3 fL (80-94); Mean Platelet Vol. 9.8 fl (6.2-12.0); Monocyte# 0.67 X10^3/uL; Monocyte% 5.5 % (0-10); NRBC Flagged by Analyzer 0 % (0-5); Neutrophil # 9.59 X10^3/uL (2.7-7.7); Neutrophil % 77.9 % (47-70); Platelet Count 251 K/mm3 (150-450); RBC Distribution Width CV 16.4 % (11.6-14.6); RBC Distribution Width SD 47.8 fl (35.1-43.9); Red Blood Count 2.57 M/mm3 (4.6-6.2); White Blood Count 12.3 K/mm3 (4.4-11.0)
--- NOTE | 2019-04-23 05:44 | PN.SURG_ITS ---
Patient Problems: Active and Suspected Problems (Last Reviewed 04/16/19 @ 08:04 by Maddie Mckeon) Cancer of ascending colon (Acute) Cancer of sigmoid colon (Acute) Subjective: Patient notes urgent looser stools. Notes right flank discomfort with movement. No fever or chills or nausea. - Physical Exam Vitals/I&O's: Vital Signs Temp Pulse Resp BP Pulse Ox 98.6 F 93 16 122/69 H 96 04/23/19 02:44 04/23/19 02:44 04/23/19 02:44 04/23/19 02:44 04/23/19 02:44 Oxygen Flow Rate (L/min) 6 Oxygen Delivery Method Room Air Weight: 188 lb 14.978 oz Body Mass Index (BMI) 25.6 Intake and Output for Last 24 Hours 04/21/19 04/22/19 04/23/19 23:59 23:59 23:59 Intake Total 1980.90 / 1980.90 2407.33 / 2407.33 Output Total 400 / 400 1215 / 1215 Balance 1580.90 / 1580.90 1192.33 / 1192.33 Abdomen: Bowel Sounds Present, Soft, Non Tender, Non-Distended Laboratory Results 04/22/19 06:08: WBC 6.1, RBC 2.77 L, Hgb 7.5 L, Hct 23.1 L, MCV 83.4, MCH 27.1, MCHC 32.5, RDW Std Deviation 49.6 H, RDW Coeff of Lisa 16.2 H, Plt Count 287, MPV 9.8 04/22/19 06:08: Sodium 139, Potassium 4.0, Chloride 108 H, Carbon Dioxide 25.0, Anion Gap 6, BUN 17, Creatinine 1.29, Estim Creat Clear Calc 57.65, Est GFR (MDRD) Af Amer 71, Est GFR (MDRD) Non-Af 58 L, BUN/Creatinine Ratio 13.2, Glucose 97, Calcium 8.4 L 04/23/19 05:22: WBC 12.3 H, RBC 2.57 L, Hgb 6.9 L, Hct 20.9 L, MCV 81.3, MCH 26.8 L, MCHC 33.0, RDW Std Deviation 47.8 H, RDW Coeff of Lisa 16.4 H, Plt Count 251, MPV 9.8, Immature Gran % (Auto) 0.500, Neut % (Auto) 77.9 H, Lymph % (Auto) 15.3 L, [place] % (Auto) 5.5, Eos % (Auto) 0.6, Baso % (Auto) 0.2, Absolute Neuts (auto) 9.6 H, Absolute Lymphs (auto) 1.88, Nucleated RBC % 0 Current Medications Acetaminophen (Tylenol) 1,000 mg PO Q6H [facility] Last Admin: 04/23/19 02:43 Dose: 1,000 mg Documented by: Calcium Carbonate (Tums) 500 mg PO TID PRN PRN Reason: .STOMACH DISTRESS Enoxaparin Sodium (Lovenox) 40 mg SC DAILY [facility] Last Admin: 04/22/19 09:29 Dose: 40 mg Documented by: Hydromorphone HCl (Dilaudid Inj) 0.5 mg IV Q3H PRN PRN PRN Reason: Pain Score 6-10/10 Last Admin: 04/21/19 13:52 Dose: 0.5 mg Documented by: Insulin Human Lispro (Humalog Kwikpen (Bkc)) 0 unit SC Q4H PRN PRN; Protocol PRN Reason: BG >/= 180, SEE PROTOCOL Last Admin: 04/21/19 07:25 Dose: 1 units Documented by: Meclizine HCl (Antivert) 12.5 mg PO 4X/DAY PRN PRN PRN Reason: dizzyness Last Admin: 04/22/19 07:25 Dose: 12.5 mg Documented by: Nutritional Formula (Lactose Free) (Ensure Enlive) 120 ml PO 4X/DAY [facility] Last Admin: 04/22/19 21:55 Dose: 120 ml Documented by: Ondansetron HCl (Zofran Odt) 4 mg PO Q6H PRN PRN PRN Reason: NAUSEA Ondansetron HCl (Zofran) 4 mg IV Q8H PRN PRN PRN Reason: nausea Oxycodone HCl (Oxyir) 5 - 10 mg PO Q4H PRN PRN PRN Reason: Pain Score 4-10/10 Pantoprazole Sodium (Protonix) 40 mg PO BID [facility] Last Admin: 04/22/19 21:54 Dose: 40 mg Documented by: Sodium Chloride () 10 - 40 ml IV UD PRN PRN Reason: SALINE FLUSH Last Admin: 04/22/19 19:19 Dose: 10 ml Documented by: Medical Necessity - Tobacco Use Smoking Status: Current every day smoker Tobacco Use: Cigarettes Assessment/Plan All Active Problems (Last Reviewed 04/16/19 @ 08:04 by Maddie Mckeon) Cancer of ascending colon (Acute) Cancer of sigmoid colon (Acute) Prostate cancer (Acute) Neuropathy (Acute) Iron deficiency anemia (Acute) Orthostatic hypotension (Acute) Anemia due to gastrointestinal blood loss (Acute) Carotid stenosis, bilateral (Acute) Colonic mass (Acute) Colon cancer (Acute) Tobacco abuse (Acute) 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 Bowel sounds present. Anticipate discharge today. I will initiate Imodium to assist with looser stools. I will discontinue stool softeners and magnesium. The patient will be discharged with Imodium added to the PRN list. Vito Noel M.D., F.A.C.S. ADDN; Labs suggest leukocytosis which is new. Pt noted some right flank pain. Will review pt again and look for potential source of infection. Abdomen seemed benign. Diarrhea, possible Cdiff, possible anastomotic leak. Will pursue investigations. Kika
[2019-04-23 07:35] VITALS: PULSE 80
[2019-04-23 07:42] VITALS: O2SAT 95
[2019-04-23] MEDS: 0.9% Saline Lock 10 ML Syringe IV ×2 (07:43→20:17)
[2019-04-23 07:45] LABS: ALB/GLOB Ratio 0.9 RATIO (0.9-2.4); AST(SGOT) 30 U/L (15-37); Alanine Aminotransfer ALT/SGPT 17 U/L (16-61); Albumin, Serum 2.2 g/dL (3.2-5.0); Alkaline Phosphatase 95 U/L (45-117); Anion Gap 4 (5-15); BUN 12 mg/dL (7-18); BUN/Creat Ratio 15.6 RATIO (10-20); Calcium,Total 7.9 mg/dL (8.5-10.1); Chloride 111 mmol/L (98-107); Creatinine, Serum 0.77 mg/dL (0.70-1.30); EST Glomerular Filtration Rate 106 mL/min (>60); Est Glom Filt Rate - Afr Amer 129 mL/min (>60); Estimated Creatinine Clearance 74.37 ml/min; Globulin 2.4 g/dL (2.2-4.2); Glucose 95 mg/dL (74-106); Potassium 3.9 mmol/L (3.5-5.1); Protein, Total 4.6 g/dL (6.4-8.2); Sodium Level 141 mmol/L (136-145)
--- NOTE | 2019-04-23 08:32 | RAD_ITS ---
STUDY: X-RAY - ABDOMEN/PELVIS REASON FOR EXAM: Male, 73 years old. Pain TECHNIQUE: 4 views of the abdomen were obtained COMPARISON: None. FINDINGS: Clear lung bases. There is evidence for free intra-abdominal air beneath hemidiaphragms. Postsurgical changes are seen in the right lower quadrant. The visualized bowel gas pattern is nonspecific. Linear densities are seen in the region of the right renal fossa, nonspecific. Normal soft tissue structures. Normal visualized osseous structures. RAD/Abd Inc Decub and/or Erect IMPRESSION: There is evidence of free intraperitoneal air consistent with given history of recent laparotomy. Mildly prominent loops of gas-filled small bowel may be consistent with ileus. Electronically Signed: Derrick Kohli, at 17:45 EST Tel , Service support ,
[2019-04-23] MEDS: Pantoprazole Sodium 40 MG Tablet PO ×2 (09:20→20:18)
[2019-04-23 09:22] VITALS: BP 118/63; PULSE 77; RESP 14; TEMP 36.9; O2SAT 97
[2019-04-23 10:16] LABS: Bacteria 0 SEEN /hpf (None Seen); Mucous, Urine 0 SEEN /hpf (<or=2+); Red Blood Cells-Urine 0 SEEN /hpf (0-5); White Blood Cells 0 SEEN /hpf (0-5)
[2019-04-23 10:37] LABS: Color, Urine Yellow (Yellow); Glucose, Dipstick Normal (Normal); Ketone-Dipstick Negative (Negative); Leukocyte Esterase-Dipstick Negative /ul (Negative); Nitrite-Dipstick Negative (Negative); Occult Blood-Urine Negative /ul (Negative); Protein-Dipstick 15 mg/dl (Negative); Urine Bilirubin Dipstick Negative (Negative); Urine Clarity Sl. Cloudy (Clear); Urine Urobilinogen Normal (Normal)
[2019-04-23 10:42] LABS: Squamous Epithelial Cells - UA 0-5 SEEN /hpf (0-5)
--- NOTE | 2019-04-23 12:25 | RAD_ITS ---
We are attempting to reach an attending provider to discuss findings. An addendum with communication details will be sent when the communication is complete. STUDY: X-RAY CHEST REASON FOR EXAM: Male, 73 years old. Cough TECHNIQUE: Single frontal view of the chest. COMPARISON: None. FINDINGS: Free intra-abdominal air is noted beneath the hemidiaphragms. Cardiac silhouette unremarkable. Pulmonary vascularity unremarkable. Aorta unremarkable. No focal airspace consolidation. There are likely 2 left midlung pulmonary nodules. No pleural effusions. Osseous structures intact. No pneumothorax. RAD/Chest PA and Lateral IMPRESSION: Free intra-abdominal air. Left pulmonary nodules. No focal pulmonary consolidation. Pulmonary nodule follow-up may be continued as per recommendations on prior chest CT. Electronically Signed: Derrick Kohli, at 17:27 EST Tel , Service support ,
[2019-04-23 15:25] LABS: Absolute Lymphocyte Count 1.68 X10^3/uL (0.83-4.51); Absolute Neutrophil Count 11.3 X10^3/uL (2.0-7.7); Basophil# 0.01 X10^3/uL; Basophil% 0.1 % (0-1); Eosinophil# 0.07 X10^3/uL; Eosinophils% 0.5 % (0-5); Hematocrit 21.5 % (40-54); Hemoglobin 7.1 g/dL (13.0-16.5); Lymphocyte # 1.68 X10^3/ul (4.0); Mean Corpuscular Hgb 27.4 pg (27.0-32.0); Mean Platelet Vol. 9.4 fl (6.2-12.0); Monocyte# 0.79 X10^3/uL; Monocyte% 5.7 % (0-10); NRBC Flagged by Analyzer 0 % (0-5); Neutrophil # 11.32 X10^3/uL (2.7-7.7); Neutrophil % 81.1 % (47-70); Platelet Count 249 K/mm3 (150-450); RBC Distribution Width CV 16.9 % (11.6-14.6); RBC Distribution Width SD 50.1 fl (35.1-43.9); Red Blood Count 2.59 M/mm3 (4.6-6.2)
[2019-04-23 16:00] VITALS: BP 131/72; PULSE 82; RESP 18; TEMP 36.4; O2SAT 100
--- NOTE | 2019-04-23 16:13 | CT_ITS ---
STUDY: CT ABDOMEN AND PELVIS WITH CONTRAST REASON FOR EXAM: Male, 73 years old. Abdominal pain status post left colectomy RADIATION DOSAGE (If Supplied By Facility): CTDIvol = ( 13.44 ) mGy, DLP = ( 921.04 ) mGycm TECHNIQUE: Transaxial images were obtained from the dome of the diaphragm to the symphysis pubis without oral contrast. Oral and amp; IV Gastrografin and amp; 100mL Isovue-370 was administered. Sagittal and coronal images were reconstructed. Individualized dose optimization techniques were used for this CT. COMPARISON: None. FINDINGS: There is a small left pleural effusion and atelectasis at left base. There is a tiny effusion on the right.. The visualized portions of the heart are within normal limits. Liver is fatty infiltrated without mass or bile duct dilatation.. Normal gallbladder and extrahepatic biliary system. Normal spleen. Normal pancreas. Normal right adrenal. Small hypoattenuated left adrenal nodule most likely adenoma. Normal right kidney. Normal left kidney. Normal visualized stomach. Normal small intestine. Postop changes status post partial right hemicolectomy. There is concentric thickening of the wall of the bowel and a trace of fluid in the right paracolic gutter.. There are also postsurgical changes of the sigmoid colon with thickening of the hardin of the bowel at the anastomosis. There is mild stranding of fat and small amount of fluid in pelvis. There is no free contrast seen within the abdomen or pelvis to suggest extravasation at the anastomoses. There is a small amount of free air within the abdomen scattered air bubbles within the abdomen and pelvis consistent with recent surgery. Atherosclerotic changes of the aorta without evidence for aneurysm. Normal inferior vena cava. Normal retroperitoneum. Incompletely distended thick-walled bladder containing air possibly due to recent catheterization Small fat-containing left inguinal hernia is noted.. Lumbar spine demonstrates degenerative changes. Multiple sclerotic lesions seen within the spine and pelvis consistent with known metastasis.. CT/Abdomen/Pelvis WITH Contrast IMPRESSION: There are postsurgical changes involving the descending colon and sigmoid with thickening of the hardin of bowel at the anastomotic sites with mild stranding in the adjacent fat and a small amount of fluid. There are scattered air bubbles within both the abdomen and pelvis consistent with recent surgery. There is no contrast extravasation seen within the abdomen or pelvis to suggest anastomotic leak. There is air seen within the incompletely distended thick-walled bladder most likely due to recent catheterization. Sclerotic bone metastasis Electronically Signed: Jean Carlos Desai MD at 18:52 EST , Service support ,
[2019-04-23] MEDS: ENZALUTAMIDE 40 MG CAPSULE 160 MG PO (19:42)
[2019-04-23 20:10] VITALS: BP 125/72; PULSE 81; RESP 18; TEMP 36.7; O2SAT 98
--- NOTE | 2019-04-23 20:10 | NURSING ---
Patient ambulated in hallway with this RN, tolerated well.
[2019-04-24 02:17] VITALS: BP 105/59; PULSE 82; RESP 18; TEMP 36.6; O2SAT 96
[2019-04-24] MEDS: Acetaminophen 500 MG Tablet 1000 MG PO ×2 (02:47→08:47)
--- NOTE | 2019-04-24 05:38 | PN.SURG_ITS ---
Patient Problems: Active and Suspected Problems (Last Reviewed 04/16/19 @ 08:04 by Maddie Mckeon) Cancer of ascending colon (Acute) Cancer of sigmoid colon (Acute) Subjective: Pt again feels well, no discomfort CT: no leak or source of infection identified - Physical Exam Vitals/I&O's: Vital Signs Temp Pulse Resp BP Pulse Ox 97.8 F 82 18 105/59 L 96 04/24/19 02:17 04/24/19 02:17 04/24/19 02:17 04/24/19 02:17 04/24/19 02:17 Oxygen Flow Rate (L/min) 6 Oxygen Delivery Method Room Air Weight: 188 lb 14.978 oz Body Mass Index (BMI) 25.6 Intake and Output for Last 24 Hours 04/22/19 04/23/19 04/24/19 23:59 23:59 23:59 Intake Total 2407.33 / 2407.33 856.67 / 856.67 50 / 50 Output Total 1215 / 1215 200 / 200 Balance 1192.33 / 1192.33 656.67 / 656.67 50 / 50 Abdomen: Bowel Sounds Present, Soft, Non Tender - wounds clean Microbiology Past 72 Hours 04/23/19 10:20 Stool C. difficile DNA Amplification - Final Laboratory Results 04/23/19 05:22: Sodium 141, Potassium 3.9, Chloride 111 H, Carbon Dioxide 26.0, Anion Gap 4 L, BUN 12, Creatinine 0.77, Estim Creat Clear Calc 74.37, Est GFR (MDRD) Af Amer 129, Est GFR (MDRD) Non-Af 106, BUN/Creatinine Ratio 15.6, Glucose 95, Calcium 7.9 L, Total Bilirubin 0.40, AST 30, ALT 17, Alkaline Phosphatase 95, Total Protein 4.6 L, Albumin 2.2 L, Globulin 2.4, Albumin/Globulin Ratio 0.9 04/23/19 10:05: Urine Color Yellow, Urine Clarity Sl. Cloudy, Urine pH 5.0, Ur Specific [place] 1.020, Urine Protein 15 H, Urine Glucose (UA) Normal, Urine Ketones Negative, Urine Occult Blood Negative, Urine Nitrite Negative, Urine Bilirubin Negative, Urine Urobilinogen Normal, Ur Leukocyte Esterase Negative, Urine RBC 0 SEEN, Urine WBC 0 SEEN, Ur Squamous Epith Cells 0-5 SEEN, Urine Bacteria 0 SEEN, Urine Mucus 0 SEEN 04/23/19 15:13: WBC 14.0 H, RBC 2.59 L, Hgb 7.1 L, Hct 21.5 L, MCV 83.0, MCH 27.4, MCHC 33.0, RDW Std Deviation 50.1 H, RDW Coeff of Lisa 16.9 H, Plt Count 249, MPV 9.4, Immature Gran % (Auto) 0.600, Neut % (Auto) 81.1 H, Lymph % (Auto) 12.0 L, Bee % (Auto) 5.7, Eos % (Auto) 0.5, Baso % (Auto) 0.1, Absolute Neuts (auto) 11.3 H, Absolute Lymphs (auto) 1.68, Nucleated RBC % 0 Current Medications Acetaminophen (Tylenol) 1,000 mg PO Q6H [facility] Last Admin: 04/24/19 02:47 Dose: 1,000 mg Documented by: Calcium Carbonate (Tums) 500 mg PO TID PRN PRN Reason: .STOMACH DISTRESS Hydromorphone HCl (Dilaudid Inj) 0.5 mg IV Q3H PRN PRN PRN Reason: Pain Score 6-10/10 Last Admin: 04/21/19 13:52 Dose: 0.5 mg Documented by: Piperacillin Sod/Tazobactam (Sod 3.375 gm/ Sodium Chloride) 50 mls @ 12.5 mls/hr IV Q8 AKANKSHA Last Infusion: 04/24/19 00:25 Dose: Infused Documented by: Sodium Chloride () 250 mls @ 15 mls/hr IV .[id number] PRN PRN Reason: Saline Flush Last Infusion: 04/24/19 00:26 Dose: 15 mls/hr Documented by: Insulin Human Lispro (Humalog Kwikpen (Bkc)) 0 unit SC Q4H PRN PRN; Protocol PRN Reason: BG >/= 180, SEE PROTOCOL Last Admin: 04/21/19 07:25 Dose: 1 units Documented by: Meclizine HCl (Antivert) 12.5 mg PO 4X/DAY PRN PRN PRN Reason: dizzyness Last Admin: 04/22/19 07:25 Dose: 12.5 mg Documented by: Nutritional Formula (Lactose Free) (Ensure Enlive) 120 ml PO 4X/DAY [facility] Last Admin: 04/23/19 20:19 Dose: Not Given Documented by: Ondansetron HCl (Zofran Odt) 4 mg PO Q6H PRN PRN PRN Reason: NAUSEA Ondansetron HCl (Zofran) 4 mg IV Q8H PRN PRN PRN Reason: nausea Oxycodone HCl (Oxyir) 5 - 10 mg PO Q4H PRN PRN PRN Reason: Pain Score 4-10/10 Pantoprazole Sodium (Protonix) 40 mg PO BID [facility] Last Admin: 04/23/19 20:18 Dose: 40 mg Documented by: Sodium Chloride () 10 - 40 ml IV UD PRN PRN Reason: SALINE FLUSH Last Admin: 04/23/19 20:17 Dose: 10 ml Documented by: Medical Necessity - Tobacco Use Smoking Status: Current every day smoker Tobacco Use: Cigarettes Assessment/Plan All Active Problems (Last Reviewed 04/16/19 @ 08:04 by Maddie Mckeon) Cancer of ascending colon (Acute) Cancer of sigmoid colon (Acute) Prostate cancer (Acute) Neuropathy (Acute) Iron deficiency anemia (Acute) Orthostatic hypotension (Acute) Anemia due to gastrointestinal blood loss (Acute) Carotid stenosis, bilateral (Acute) Colonic mass (Acute) Colon cancer (Acute) Tobacco abuse (Acute) 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
[2019-04-24 06:20] LABS: Absolute Lymphocyte Count 2.11 X10^3/uL (0.83-4.51); Absolute Neutrophil Count 9.8 X10^3/uL (2.0-7.7); Basophil# 0.02 X10^3/uL; Basophil% 0.2 % (0-1); Eosinophils% 1.5 % (0-5); Hematocrit 19.8 % (40-54); Hemoglobin 6.6 g/dL (13.0-16.5); Lymphocyte # 2.11 X10^3/ul (4.0); Lymphocyte % 16.3 % (19-41); Mean Corp Hgb Conc 33.3 g/dL (32-36); Mean Corpuscular Hgb 27.4 pg (27.0-32.0); Mean Corpuscular Volume 82.2 fL (80-94); Mean Platelet Vol. 10.3 fl (6.2-12.0); Monocyte# 0.81 X10^3/uL; Monocyte% 6.3 % (0-10); NRBC Flagged by Analyzer 0 % (0-5); Neutrophil # 9.75 X10^3/uL (2.7-7.7); Neutrophil % 75.3 % (47-70); Platelet Count 231 K/mm3 (150-450); RBC Distribution Width CV 17.2 % (11.6-14.6); RBC Distribution Width SD 50.7 fl (35.1-43.9); Red Blood Count 2.41 M/mm3 (4.6-6.2); White Blood Count 12.9 K/mm3 (4.4-11.0)
[2019-04-24 06:49] LABS: ALB/GLOB Ratio 0.8 RATIO (0.9-2.4); AST(SGOT) 24 U/L (15-37); Alanine Aminotransfer ALT/SGPT 16 U/L (16-61); Albumin, Serum 2.1 g/dL (3.2-5.0); Alkaline Phosphatase 100 U/L (45-117); Anion Gap 6 (5-15); BUN 9 mg/dL (7-18); BUN/Creat Ratio 11.8 RATIO (10-20); Calcium,Total 8.1 mg/dL (8.5-10.1); Chloride 110 mmol/L (98-107); Creatinine, Serum 0.76 mg/dL (0.70-1.30); EST Glomerular Filtration Rate 107 mL/min (>60); Est Glom Filt Rate - Afr Amer 129 mL/min (>60); Estimated Creatinine Clearance 74.37 ml/min; Globulin 2.6 g/dL (2.2-4.2); Glucose 83 mg/dL (74-106); Potassium 3.9 mmol/L (3.5-5.1); Protein, Total 4.7 g/dL (6.4-8.2); Sodium Level 142 mmol/L (136-145)
--- NOTE | 2019-04-24 07:20 | PCM.DC.SUM ---
Discharge Date and Diagnosis Date of Admission: 04/21/19 Date of Discharge: 04/24/19 - Primary Discharge Diagnosis Active and Suspected Problems (Last Reviewed 04/16/19 @ 08:04 by Maddie Mckeon) Cancer of ascending colon (Acute) Cancer of sigmoid colon (Acute) - Secondary Discharge Diagnosis Chronic Problems (Last Reviewed 04/16/19 @ 08:04 by Maddie Mckeon) Acute on chronic blood loss anemia (Chronic) Hospital Course and Treatment Operations: colectomy - Laparoscopic right hemicolectomy and sigmoidectomy Summary of Care Provided: The patient is a 73 year old M who presented for an elective colectomy for colon cancer. Dr. Noel performed Laparoscopic right hemicolectomy. Laparoscopic sigmoid colectomy on 04/21/19. Patient tolerated the procedure well. On POD #2, patient's white count had elevated. CXR, UA and CT of the abdomen/pelvis were all unremarkable. Patient was sent home on 5 day course of antibiotics in conjunction with his treatment for H pylori. Patient denies nausea, vomiting, fever. He notes right sided abdominal discomfort. Positive BM, flatus. - Physical Exam Vitals/I&O's: Vital Signs Temp Pulse Resp BP Pulse Ox 97.8 F 82 18 105/59 L 96 04/24/19 02:17 04/24/19 02:17 04/24/19 02:17 04/24/19 02:17 04/24/19 02:17 Oxygen Flow Rate (L/min) 6 Oxygen Delivery Method Room Air Weight: 188 lb 14.978 oz Body Mass Index (BMI) 25.6 Intake and Output for Last 24 Hours 04/22/19 04/23/19 04/24/19 23:59 23:59 23:59 Intake Total 2407.33 / 2407.33 856.67 / 856.67 131 / 131 Output Total 1215 / 1215 200 / 200 Balance 1192.33 / 1192.33 656.67 / 656.67 131 / 131 General: Alert, Oriented x3, Cooperative Abdomen: Bowel Sounds Present, Soft, Non Tender, - - Incisions c/d/i. No erythema or infection noted Microbiology Past 72 Hours 04/23/19 10:20 Stool C. difficile DNA Amplification - Final Laboratory Results 04/23/19 05:22: Sodium 141, Potassium 3.9, Chloride 111 H, Carbon Dioxide 26.0, Anion Gap 4 L, BUN 12, Creatinine 0.77, Estim Creat Clear Calc 74.37, Est GFR (MDRD) Af Amer 129, Est GFR (MDRD) Non-Af 106, BUN/Creatinine Ratio 15.6, Glucose 95, Calcium 7.9 L, Total Bilirubin 0.40, AST 30, ALT 17, Alkaline Phosphatase 95, Total Protein 4.6 L, Albumin 2.2 L, Globulin 2.4, Albumin/Globulin Ratio 0.9 04/23/19 10:05: Urine Color Yellow, Urine Clarity Sl. Cloudy, Urine pH 5.0, Ur Specific [place] 1.020, Urine Protein 15 H, Urine Glucose (UA) Normal, Urine Ketones Negative, Urine Occult Blood Negative, Urine Nitrite Negative, Urine Bilirubin Negative, Urine Urobilinogen Normal, Ur Leukocyte Esterase Negative, Urine RBC 0 SEEN, Urine WBC 0 SEEN, Ur Squamous Epith Cells 0-5 SEEN, Urine Bacteria 0 SEEN, Urine Mucus 0 SEEN 04/23/19 15:13: WBC 14.0 H, RBC 2.59 L, Hgb 7.1 L, Hct 21.5 L, MCV 83.0, MCH 27.4, MCHC 33.0, RDW Std Deviation 50.1 H, RDW Coeff of Lisa 16.9 H, Plt Count 249, MPV 9.4, Immature Gran % (Auto) 0.600, Neut % (Auto) 81.1 H, Lymph % (Auto) 12.0 L, [place] % (Auto) 5.7, Eos % (Auto) 0.5, Baso % (Auto) 0.1, Absolute Neuts (auto) 11.3 H, Absolute Lymphs (auto) 1.68, Nucleated RBC % 0 04/24/19 06:08: WBC 12.9 H, RBC 2.41 L, Hgb 6.6 L, Hct 19.8 L, MCV 82.2, MCH 27.4, MCHC 33.3, RDW Std Deviation 50.7 H, RDW Coeff of Lisa 17.2 H, Plt Count 231, MPV 10.3, Immature Gran % (Auto) 0.400, Neut % (Auto) 75.3 H, Lymph % (Auto) 16.3 L, [place] % (Auto) 6.3, Eos % (Auto) 1.5, Baso % (Auto) 0.2, Absolute Neuts (auto) 9.8 H, Absolute Lymphs (auto) 2.11, Nucleated RBC % 0 04/24/19 06:08: Sodium 142, Potassium 3.9, Chloride 110 H, Carbon Dioxide 26.0, Anion Gap 6, BUN 9, Creatinine 0.76, Estim Creat Clear Calc 74.37, Est GFR (MDRD) Af Amer 129, Est GFR (MDRD) Non-Af 107, BUN/Creatinine Ratio 11.8, Glucose 83, Calcium 8.1 L, Total Bilirubin 0.60, AST 24, ALT 16, Alkaline Phosphatase 100, Total Protein 4.7 L, Albumin 2.1 L, Globulin 2.6, Albumin/Globulin Ratio 0.8 L Current Medications Acetaminophen (Tylenol) 1,000 mg PO Q6H [facility] Last Admin: 04/24/19 02:47 Dose: 1,000 mg Documented by: Calcium Carbonate (Tums) 500 mg PO TID PRN PRN Reason: .STOMACH DISTRESS Hydromorphone HCl (Dilaudid Inj) 0.5 mg IV Q3H PRN PRN PRN Reason: Pain Score 6-10/10 Last Admin: 04/21/19 13:52 Dose: 0.5 mg Documented by: Piperacillin Sod/Tazobactam (Sod 3.375 gm/ Sodium Chloride) 50 mls @ 12.5 mls/hr IV Q8 AKANKSHA Last Admin: 04/24/19 05:50 Dose: 12.5 mls/hr Documented by: Sodium Chloride () 250 mls @ 15 mls/hr IV .[id number] PRN PRN Reason: Saline Flush Last Infusion: 04/24/19 05:50 Dose: 0 mls/hr Documented by: Insulin Human Lispro (Humalog Kwikpen (Bkc)) 0 unit SC Q4H PRN PRN; Protocol PRN Reason: BG >/= 180, SEE PROTOCOL Last Admin: 04/21/19 07:25 Dose: 1 units Documented by: Meclizine HCl (Antivert) 12.5 mg PO 4X/DAY PRN PRN PRN Reason: dizzyness Last Admin: 04/22/19 07:25 Dose: 12.5 mg Documented by: Nutritional Formula (Lactose Free) (Ensure Enlive) 120 ml PO 4X/DAY [facility] Last Admin: 04/23/19 20:19 Dose: Not Given Documented by: Ondansetron HCl (Zofran Odt) 4 mg PO Q6H PRN PRN PRN Reason: NAUSEA Ondansetron HCl (Zofran) 4 mg IV Q8H PRN PRN PRN Reason: nausea Oxycodone HCl (Oxyir) 5 - 10 mg PO Q4H PRN PRN PRN Reason: Pain Score 4-10/10 Pantoprazole Sodium (Protonix) 40 mg PO BID [facility] Last Admin: 04/23/19 20:18 Dose: 40 mg Documented by: Sodium Chloride () 10 - 40 ml IV UD PRN PRN Reason: SALINE FLUSH Last Admin: 04/23/19 20:17 Dose: 10 ml Documented by: Discharge Diet: Light diet - advance as tolerated - if you have questions about your diet instructions, please talk to you doctor. Discharge Activity: May Not Drive - for 1 week or while taking narcotic pain medicine. May shower in (days): 1 Call your doctor if your incision/area has: Continuous Slow Oozing, Sudden Increased Bleeding, Increased Pain/ Swelling, Increased Redness, Foul Smelling Discharge Call your doctor if you observe: Fever of 101 or Higher Suture Line Care: Avoid Pulling/Pushing, Avoid Pinching/Bending Additional Dressing/Incision Instructions:: Change or remove dressing in2 days. Leave steri-strips in place for 1 week. Home Medications: Medications to take at Discharge Enzalutamide [Xtandi] 160 mg PO DAILY@1930 01/20/19 Iron Polysaccharide Complex [Ferrex 150] 300 mg PO DAILY 04/02/19 Multivitamin with Minerals [Multiple Vitamin] 1 tab PO DAILY@1200 04/02/19 Bismuth Subsalicylate [Stomach Relief] 525 mg PO TID PRN 04/18/19 Metronidazole 250 mg PO .qid 04/18/19 Pantoprazole Sodium 40 mg PO BID 04/18/19 Tetracycline HCl 500 mg PO .qid 04/18/19 Amox/Clavulanate Tablet [Augmentin Tablet] 875 mg PO Q12H #10 tab 04/24/19 Following Prescrptions Were Given to Patient: Amox/Clavulanate Tablet [Augmentin Tablet] 875 mg PO Q12H #10 tab Transmission Status: Received by [id number] Primary Care Physician: Jorgito Villeda Chi, MD [Primary Care Provider] - Please Follow Up With: Vito Noel MD - [phone] When: Sunday; 04/28 at 3:00 pm. Go to lab prior to the appointment for blood work Please Follow Up With: Jorgito Villeda Chi, MD When: Please followup within one week of discharge Additional Instructions: Please continue your medication for the H Pylori infection until completed. Our office will order a breath test to be completed in the office once completed with your treatment. This will be discussed at your follow-up with Dr. Noel You will need to follow the transitional diet at home until we see you back in our office. There should be a list of recommended food items in your surgery folder that was given prior to surgery Disposition: Home Minutes spent on discharge:: 20 Patient Condition:: Stable Medical Necessity - Tobacco Use Smoking Status: Current every day smoker Tobacco Use: Cigarettes Meaningful Use Info Meaningful Use Diagnoses (Choose all that apply): None applicable Code Visit Inpatient E&M: 92103 Disch Hosp - No charge
[2019-04-24 08:10] VITALS: BP 124/76; PULSE 72; RESP 16; TEMP 36.7; O2SAT 95
[2019-04-24] MEDS: Pantoprazole Sodium 40 MG Tablet PO (08:48)
--- NOTE | 2019-04-24 10:40 | CASEMGMT ---
As per PAT RN, pt does not have LW/POA and declined additional information. SUE Gomez
[2019-04-24 11:56] VITALS: BP 130/70; PULSE 80; RESP 18; TEMP 36.6; O2SAT 95
== END 2019-04-24 11:57 | disposition home or self-care (01) | DRG 330 ==
LOC: ACINP 05:18 → MS3 04-22 08:05
PROVIDERS: Physician Assistant; Admitting Provider Surgery; Family Provider Family Medicine Geriatric Medicine; PCP Family Medicine Geriatric Medicine; Referring Provider Surgery; Visit Provider Surgery
PROC: 0DTN0ZZ Resection of Sigmoid Colon, Open Approach (ICD-10-PCS; CPT 44204; principal; 2019-04-21 06:50)
DX: C18.2 Malignant neoplasm of ascending colon (principal); C18.7 Malignant neoplasm of sigmoid colon; C79.51 Secondary malignant neoplasm of bone; F17.210 Nicotine dependence, cigarettes, uncomplicated; C61 Malignant neoplasm of prostate
CPT/HCPCS: 36415; 71046; 74019; 74177; 80048; 80053; 81001; 82962; 85025; 85027; 87040; 87086; 87493; 88304; 88305; 88309; 88341; 88342; 99251; 99406; J7050; J7120; Q9967; A4216; C1760; G0463; J2405; J3490

== ENCOUNTER → 2019-04-28 14:04 | Outpatient (CLI) | payer MEDICARE, BC, SELFPAY ==
[2019-04-21 13:21] VITALS: BMI 25.6
[2019-04-28 14:20] LABS: Absolute Lymphocyte Count 2.04 X10^3/uL (0.83-4.51); Absolute Neutrophil Count 4.8 X10^3/uL (2.0-7.7); Basophil# 0.02 X10^3/uL; Basophil% 0.2 % (0-1); Eosinophil# 0.35 X10^3/uL; Eosinophils% 4.2 % (0-5); Hematocrit 24.8 % (40-54); Lymphocyte # 2.04 X10^3/ul (4.0); Lymphocyte % 24.8 % (19-41); Mean Corp Hgb Conc 32.3 g/dL (32-36); Mean Corpuscular Volume 83.8 fL (80-94); Mean Platelet Vol. 9.9 fl (6.2-12.0); Monocyte# 0.95 X10^3/uL; Monocyte% 11.5 % (0-10); NRBC Flagged by Analyzer 0 % (0-5); Neutrophil # 4.84 X10^3/uL (2.7-7.7); Neutrophil % 58.8 % (47-70); Platelet Count 330 K/mm3 (150-450); RBC Distribution Width CV 18.1 % (11.6-14.6); RBC Distribution Width SD 53.8 fl (35.1-43.9); Red Blood Count 2.96 M/mm3 (4.6-6.2); White Blood Count 8.2 K/mm3 (4.4-11.0)
== END ==
PROVIDERS: Physician Assistant; Family Provider Family Medicine Geriatric Medicine; PCP Family Medicine Geriatric Medicine; Visit Provider Surgery
DX: D64.9 Anemia, unspecified (principal)
CPT/HCPCS: 36415; 85025

== ENCOUNTER → 2019-05-13 12:21 | Outpatient (CLI) | payer MEDICARE, BC, SELFPAY ==
[2019-04-28 14:36] VITALS: BMI 25.6
[2019-05-13 12:49] LABS: Absolute Lymphocyte Count 2.08 X10^3/uL (0.83-4.51); Absolute Neutrophil Count 3.4 X10^3/uL (2.0-7.7); Basophil# 0.05 X10^3/uL; Basophil% 0.8 % (0-1); Eosinophil# 0.32 X10^3/uL; Hematocrit 27.1 % (40-54); Hemoglobin 8.8 g/dL (13.0-16.5); Lymphocyte # 2.08 X10^3/ul (4.0); Lymphocyte % 32.3 % (19-41); Mean Corp Hgb Conc 32.5 g/dL (32-36); Mean Corpuscular Hgb 27.4 pg (27.0-32.0); Mean Corpuscular Volume 84.4 fL (80-94); Mean Platelet Vol. 9.5 fl (6.2-12.0); Monocyte# 0.62 X10^3/uL; Monocyte% 9.6 % (0-10); NRBC Flagged by Analyzer 0 % (0-5); Neutrophil # 3.35 X10^3/uL (2.7-7.7); POSITIVE MORPHOLOGY YES; Platelet Count 472 K/mm3 (150-450); RBC Distribution Width CV 20.1 % (11.6-14.6); RBC Distribution Width SD 60.6 fl (35.1-43.9); Red Blood Count 3.21 M/mm3 (4.6-6.2); White Blood Count 6.4 K/mm3 (4.4-11.0)
[2019-05-13 12:51] LABS: Differential Indicated SCAN CRITERIA MET
[2019-05-13 13:31] LABS: Anisocytosis 1+
[2019-05-16 12:50] LABS: Carcinoembryonic Antigen 1.5 ng/mL (0.0-4.7)
== END ==
PROVIDERS: Family Provider Family Medicine Geriatric Medicine; PCP Family Medicine Geriatric Medicine; Referring Provider Surgery; Visit Provider Surgery
DX: C18.2 Malignant neoplasm of ascending colon (principal); C18.7 Malignant neoplasm of sigmoid colon; D50.9 Iron deficiency anemia, unspecified
CPT/HCPCS: 36415; 82378; 85025

== ENCOUNTER → 2019-05-21 14:35 | Outpatient (CLI) | payer MEDICARE, BC, SELFPAY ==
[2019-05-13 13:12] VITALS: BMI 23.1
--- NOTE | 2019-05-21 14:38 | CT_ITS ---
STUDY: CT CHEST WITH CONTRAST REASON FOR EXAM: Male, 73 years old. Lung nodules. Colon cancer. Prostate cancer with bone metastases. Former smoker. RADIATION DOSAGE (If Supplied By Facility): CTDIvol = ( 8.93 ) mGy, DLP = ( 365.92 ) mGycm TECHNIQUE: Transaxial imaging was performed following intravenous administration of IV 100mL Isovue-300. Individualized dose optimization techniques were used for this CT. COMPARISON: 07/23/2018 CT chest. FINDINGS: Heart and great vessels: Heart size normal. No dissection or aneurysm of the thoracic aorta. Coronary artery atherosclerosis, not well evaluated secondary to cardiac motion. Lungs, pleura: No pneumonia, edema, or acute abnormality in the lungs. No pleural effusion. No pneumothorax. Unchanged 3 mm nodule lower lobe left lung anteriorly and superiorly series 4 image 80 unchanged. No new nodules are evident. Small pneumatocele right lower lobe unchanged. Small amount of secretions in the trachea. Mediastinum: No adenopathy or mass or hematoma. Osseous:No fracture or acute osseous abnormality. Numerous blastic osseous metastases are similar to previous. Chest wall: No concerning findings. Upper abdomen: No acute findings. 1.5 cm diameter adenoma left adrenal gland unchanged. CT/Chest WITH Contrast IMPRESSION: No concerning interval change. 3 mm nodule left lower lobe unchanged. Osseous blastic metastatic disease unchanged. Electronically Signed: Fuad Brewer, at 5:15 EST Tel , Service support ,
== END ==
PROVIDERS: Family Provider Family Medicine Geriatric Medicine; PCP Family Medicine Geriatric Medicine; Referring Provider Internal Medicine Medical Oncology; Visit Provider Internal Medicine Medical Oncology
DX: C18.7 Malignant neoplasm of sigmoid colon (principal); R91.1 Solitary pulmonary nodule
CPT/HCPCS: 71260; Q9967

== ENCOUNTER 2019-06-18 05:16 | Day surgery (SDC) | payer MEDICARE, BC, SELFPAY ==
[2019-06-13 13:51] VITALS: BMI 24.4
--- NOTE | 2019-06-18 | GASB_PTH ---
PATIENT: JUSTICE OWEN LOC: [facility] U#:[id number] AGE/SX: 73/M ROOM: RE06/18/[address]: Dr. Vito Noel MD : 1945 BED: DIS: 06/18/2019 SPEC #: [id number] RECD: 06/18/19 12:44 STATUS: JESUS REMerlyn #: [id number] NBA: 06/18/19 00:[address]: Vito Noel DEPT: SURGICAL PATHOLOGY RECD BY: Bernabe Maravilla ENTERED: 06/18/19 12:45 SP TYPE: Gastric Bx OTHR DR: Dr. Jorgito Villeda MD Tissues: A - Gastric mucous membrane B - Gastric mucous membrane C - Rectum, NOS Procedures: Surgery Specimen Level IV HEADER OPERATION: Colonoscopy, EGD ([facility] [place] [place]) PRE-OP DIAGNOSIS: Anemia TISSUE SUBMITTED: A - Prepyloric biopsy, B - Antrum biopsy for histo and H. pylori, C - Rectum polyp MICROSCOPIC DIAGNOSIS A. Prepyloric biopsy: Mild gastritis. See microscopic description. B. Antrum biopsy: Mild gastritis. See microscopic description and comment. C. Rectal polyp, biopsy: Fragments of serrated adenoma (mixed tubular adenoma and hyperplastic polyp). SJ:yobani 06/19/19 COMMENT B. The results of immunohistochemistry for Helicobacter pylori will be reported separately ([id number]). Please make reference to previous specimen ([id number]) sigmoid colon, segmental colectomy with diagnosis of invasive moderately adenocarcinoma and right colon, segmental colectomy with diagnosis of invasive moderately differentiated adenocarcinoma. Case has been reviewed in consultation with Dr. Hamilton who concurs with the above diagnosis. IDC:AM MICROSCOPIC DESCRIPTION Slides are reviewed. A. The specimen shows fragments of gastric mucosa with chronic inflammatory cell infiltrates in the lamina propria consisting of lymphocytes and plasma cells, consistent with mild chronic gastritis. A minute lymphoid aggregate is also noted, favor benign. B. The specimen shows fragments of gastric mucosa with chronic inflammatory cell infiltrates in the lamina propria consisting of lymphocytes and plasma cells, consistent with mild chronic gastritis. GROSS DESCRIPTION A - Received in fixative is one container labeled with the patient's name and designated prepyloric biopsy. The specimen consists of two irregular fragments of light clark soft tissue that in aggregate measure 0.6 x 0.3 x 0.1 cm. The specimen is totally submitted in one cassette. B - Received in fixative is one container labeled with the patient's name and designated antrum biopsy. The specimen consists of multiple irregular fragments of light clrak soft tissue that in aggregate measure 1 x 0.4 x 0.1 cm. The specimen is totally submitted in one cassette. C - Received in fixative is one container labeled with the patient's name and designated rectum polyp. The specimen consists of multiple irregular fragments of light clark soft tissue that in aggregate measure 0.8 x 0.5 x 0.1 cm. The specimen is totally submitted in one cassette. / SJ:rg 06/18/19 TC:1 CPT: 28016 x3
[2019-06-18 05:41] VITALS: BP 110/74; PULSE 79; RESP 16; TEMP 36.2; O2SAT 98; BMI 23.4
--- NOTE | 2019-06-18 05:47 | HP.PCM_ITS ---
Problem List (1) Iron deficiency anemia Status: Acute Qualifiers: History and Physical Date of Admission: 06/18/19 Intake Visit Reasons: TO DISCUSS EGD & C-SCOPE/COLECTOMY 2019 Chief Complaint: [employer] Required: No Is patient in pain?: No Allergies No Known Allergies Allergy (Verified 06/13/19 13:35) Medications Enzalutamide [Xtandi] 160 mg PO DAILY@1930 01/20/19 [History Confirmed 06/13/19] Iron Polysaccharide Complex [Ferrex 150] 300 mg PO DAILY 04/02/19 [History Confirmed 06/13/19] Multivitamin with Minerals [Multiple Vitamin] 1 tab PO DAILY@1200 04/02/19 [His tory Confirmed 06/13/19] Bismuth Subsalicylate [Stomach Relief] 525 mg PO TID PRN 04/18/19 [History Confirmed 06/13/19] Pantoprazole Sodium 40 mg PO BID 04/18/19 [History Confirmed 06/13/19] PFSH Medical History Colon cancer (Acute) Tobacco abuse (Acute) 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 Preoperatively he had an upper endoscopy demonstrating H. pylori gastritis. He also had both a ascending and a sigmoid colon cancer and I went laparoscopic resection of each of these. Postoperatively however he has not been able to regain a normal blood count. He also has a history of prostate cancer metastatic to bone. He has iron deficiency. He is currently getting IV iron supplementation. After discussion with Dr. Carpenter is felt pertinent proceed with repeat upper and lower scope to exclude possible GI source of loss ROS General General: Yes weight change, fatigue and colon cancer; no appetite, breast cancer or weakness HEENT HEENT: No difficulty swallowing, eye injury, eye surgery, swollen glands or hoarseness Endo Endocrine: No thyroid disease, diabetes mellitus, thyroid cancer, Hair loss, heat intolerance or cold intolerance Skin Skin: No rash or changing moles Breast Breast: No left breast lump, right breast lump, nipple discharge, breast pain, abnormal mammogram, abnormal US or breast enlargement Musc Musculoskeletal: No back problems, arthritis, rheumatoid arthritis, gout or joint pain Cardio Cardiovascular: No murmur, pacemaker, heart disease, atrial fibrillation, high blood pressure, heart attack, heart stent, palpitations, shortness of breat with exertion or chest pain Psych Psychiatric: No depression, anxiety or hearing voices Resp Respiratory: Yes shortness of breath, No sleep apnea, No cough, No COPD, No asthma, No emphysema, No wheezing Gastro Gastrointestinal: No abdominal pain, No nausea or vomiting, No diarrhea, No constipation, Yes blood in stool, No acid reflux, No hemorrhoids, No ulcers, No gallbladder problem, No black,tarry stools William Hematologic: No blood thinners, No blood disorders, No bleeding, Yes anemia, No blood clots Neuro Neurologic: No system reviewed and no additional complaints, except as docu, No as per HPI, No abnormal walking, No abnormal hearing, No abnormal movements, No abnormal speech, No behavioral changes, No burning sensations, No confusion, No seizure-like activity, No unsteadiness, No dizziness, No localized weakness, No frequent falls, No headache(s), No lack of coordination, No loss of vision, No memory loss, No numbness, No other visual disturbances, No radiating pain, No restless legs, No sensory deficit, No fainting, No tingling, No tremor(s), No weakness, No other Exam Const General: cooperative Nutritional Appearance: average body habitus Orientation: alert, awake Other: Anxious, heavy odor of tobacco Chest Breast Palpation: No nipple discharge Other: Increased anterior posterior diameter Resp Effort & Inspection: normal respiratory effort Auscultation: clear to auscultation bilaterally Cardio Rate: regular rate Rhythm: regular rhythm Heart Sounds: no murmurs GI Palpation: soft Auscultation: normal bowel sounds Extrem General: no calf tenderness bilaterally Psych Affect: normal affect Assessment & Plan Problems 1. Iron deficiency anemia due to chronic blood loss D50.0 Plan I recommended the patient a esophagogastroduodenoscopy with possible biopsy or polypectomy and a colonoscopy with possible biopsy or polypectomy as indicated. He is aware of the technique, benefit, risk, alternatives. He has had an opportunity to ask and have questions answered. We will schedule and expedite his care. I appreciate the ongoing opportunity of assisting with his surgical care. Vito Noel M.D., F.A.C.S. Coding Level of Care Code Global Post Op Diagnoses Iron deficiency anemia due to chronic blood loss D50.0 ??Iron deficiency anemia type: chronic blood loss 06/13/19 1351 <Electronically signed by Vito cortez MD> Date _ Vito Noel MD I have re-examined the patient. There are no clinical changes since date of exam.
[2019-06-18] MEDS: Lactated Ringers 1,000 ML 100 ML IV ×2 (06:23→06:59)
--- NOTE | 2019-06-18 06:30 | IMM_PTH ---
PATIENT: JUSTICE OWEN LOC: [facility] U#:[id number] AGE/SX: 73/M ROOM: RE06/18/[address]: Dr. Vito Noel MD : 1945 BED: DIS: 06/18/2019 SPEC #: [id number] RECD: 06/19/19 07:31 STATUS: JESUS REMerlyn #: [id number] NBA: 06/18/19 06:[address]: Vito Noel DEPT: IMMUNOHISTOCHEMISTRY RECD BY: Gavi May ENTERED: 06/19/19 07:31 SP TYPE: IMMUNO OTHR DR: Dr. Jorgito Villeda MD Tissues: B - Stomach, NOS Procedures: H Pylori (initial) PHYSICIAN & INSTITUTION [place] [id number] SPECIMEN INFORMATION: Tissue Source: B - Antrum biopsy Clinical Info: Anemia Specimen Number: [id number] CPT code: 05567 METHODOLOGY: Deparaffinized sections of prefer/formalin-fixed tissue or PAP/DQ stained slides are incubated with monoclonal/polyclonal antibodies/oligonucleotide probes. Localization is made via biotin free immunoperoxidase method. Appropriate controls are performed and reacted as expected. Results on target cell population are indicated in the following table: RESULTS: ANTIBODY / CLONE RESULT Block B H Pylori (polyclonal) negative These tests were developed and their performance characteristics determined by [facility]. They may not have been cleared or approved by the U.S. Food and Drug Administration. The FDA has determined that such clearance or approval is not necessary. INTERPRETATION: B. Antrum biopsy: Negative for Helicobacter pylori organisms. SJ:yobani 06/19/19
[2019-06-18 06:59] VITALS: BP 110/74; BP 94/66; TEMP 36.1
--- NOTE | 2019-06-18 07:00 | OP.EGD_ITS ---
Patient Name: Bartolo Carvalho Procedure Date: 06/18/2019 6:10 AM Date of : 1945 Age: 73 Procedure: Upper GI endoscopy Indications: Iron deficiency anemia Providers: Vito Noel MD Referring MD: Jorgito Villeda MD Medicines: See the Anesthesia note for documentation of the administered medications Complications: No immediate complications. Procedure: Pre-Anesthesia Assessment: - Prior to the procedure, a History and Physical was performed, and patient medications and allergies were reviewed. The patient's tolerance of previous anesthesia was also reviewed. The risks and benefits of the procedure and the sedation options and risks were discussed with the patient. All questions were answered, and informed consent was obtained. Prior Anticoagulants: The patient has taken no previous anticoagulant or antiplatelet agents. ASA Grade Assessment: III - A patient with severe systemic disease. After reviewing the risks and benefits, the patient was deemed in satisfactory condition to undergo the procedure. After obtaining informed consent, the endoscope was passed under direct vision. Throughout the procedure, the patient's blood pressure, pulse, and oxygen saturations were monitored continuously. The gastroscope was introduced through the mouth, and advanced to the second part of duodenum. The upper GI endoscopy was accomplished without difficulty. The patient tolerated the procedure well. Scope In: 6:31:05 AM Scope Out: 6:37:24 AM Total Procedure Duration Time 0 hours 6 minutes 19 seconds Findings: A small hiatal hernia was present. The Z-line was variable and was found 45 cm from the incisors. Diffuse mildly erythematous mucosa without bleeding was found in the gastric antrum. Biopsies were taken with a cold forceps for histology. The examined duodenum was normal. Impression: - Small hiatal hernia. - Z-line variable, 45 cm from the incisors. - Erythematous mucosa in the antrum. Biopsied pre pyloric and antrum separately - Normal examined duodenum. Recommendation: - Discharge patient to home. - Resume previous diet. - Continue present medications. - Telephone my office for pathology results in 1 week. No evidence for blood loss other than enough irritation to activivate a stool card Procedure Code(s): --- Professional --- 80264, Esophagogastroduodenoscopy, flexible, transoral; with biopsy, single or multiple Diagnosis Code(s): --- Professional --- K44.9, Diaphragmatic hernia without obstruction or gangrene K22.8, Other specified diseases of esophagus K31.89, Other diseases of stomach and duodenum D50.9, Iron deficiency anemia, unspecified CPT copyright 2017 [place] [employer]. All rights reserved. The codes documented in this report are preliminary and upon physician coder review may be revised to meet current compliance requirements. Vito Noel MD 06/18/2019 7:00:16 AM This report has been signed electronically. Number of Addenda: 0 Note Initiated On: 06/18/2019 6:10 AM
--- NOTE | 2019-06-18 07:00 | OP.CCLET_ITS ---
06/18/2019 Jaguar Carpenter MD [address] [place] [address] Re : Upper GI endoscopy procedure for Bartolo Carvalho Dear Dr. Carpenter This procedure was performed on Tuesday, June 18, 2019. My impressions and recommendations are as follows: Impressions : - Small hiatal hernia. - Z-line variable, 45 cm from the incisors. - Erythematous mucosa in the antrum. Biopsied pre pyloric and antrum separately - Normal examined duodenum. Recommendations : - Discharge patient to home. - Resume previous diet. - Continue present medications. - Telephone my office for pathology results in 1 week. No evidence for blood loss other than enough irritation to activivate a stool card My findings are described in the full procedure note, which is enclosed. If I can be of further assistance, please feel free to contact me at Doctor phone number(s): Work: . Sincerely, Vito Noel MD 06/18/2019 7:00:16 AM This report has been signed electronically.
[2019-06-18 07:05] VITALS: BP 100/68; BP 110/74; PULSE 68; RESP 16; O2SAT 99
--- NOTE | 2019-06-18 07:06 | OP.COLON_ITS ---
Patient Name: Bartolo Carvalho Procedure Date: 06/18/2019 6:38 AM Date of : 1945 Age: 73 Procedure: Colonoscopy Indications: Iron deficiency anemia Providers: Vito Noel MD Referring MD: Jorgito Villeda MD Medicines: See the Anesthesia note for documentation of the administered medications Patient Profile: Last Colonoscopy: March 2019. Complications: No immediate complications. Procedure: Pre-Anesthesia Assessment: - Prior to the procedure, a History and Physical was performed, and patient medications and allergies were reviewed. The patient's tolerance of previous anesthesia was also reviewed. The risks and benefits of the procedure and the sedation options and risks were discussed with the patient. All questions were answered, and informed consent was obtained. Prior Anticoagulants: The patient has taken no previous anticoagulant or antiplatelet agents. ASA Grade Assessment: III - A patient with severe systemic disease. After reviewing the risks and benefits, the patient was deemed in satisfactory condition to undergo the procedure. After I obtained informed consent, the scope was passed under direct vision. Throughout the procedure, the patient's blood pressure, pulse, and oxygen saturations were monitored continuously. The colonoscope was introduced through the anus and advanced to the ileocolonic anastomosis. The colonoscopy was performed without difficulty. The patient tolerated the procedure well. The quality of the bowel preparation was good. Ileocolonic anastomosis were photographed. Scope In: 6:39:59 AM Scope Withdrawal Time 0 hours 10 minutes 8 seconds Scope Out: 6:52:50 AM Total Procedure Duration Time 0 hours 12 minutes 51 seconds Findings: Hemorrhoids were found on perianal exam. A 5 mm polyp was found in the rectum (benign-appearing lesion). The polyp was sessile. The polyp was removed with a hot snare. Resection and retrieval were complete. There was evidence of a prior functional end-to-end ileo-colonic anastomosis in the proximal transverse colon. This was patent and was characterized by healthy appearing mucosa. There was evidence of a prior end-to-end colo-colonic anastomosis in the distal sigmoid colon. This was patent and was characterized by healthy appearing mucosa. The exam was otherwise without abnormality. Impression: - Hemorrhoids found on perianal exam. - One benign appearing 5 mm polyp in the rectum, removed with a hot snare. Resected and retrieved. - Patent functional end-to-end ileo-colonic anastomosis, characterized by healthy appearing mucosa. - Patent end-to-end colo-colonic anastomosis, characterized by healthy appearing mucosa. - The examination was otherwise normal. No evidence for colonic source of blood loss Recommendation: - Discharge patient to home. - Resume previous diet. - Continue present medications. - Telephone my office for pathology results in 1 week. - Repeat colonoscopy in 1 year for surveillance. Procedure Code(s): --- Professional --- 42162, Colonoscopy, flexible; with removal of tumor(s), polyp(s), or other lesion(s) by snare technique Diagnosis Code(s): --- Professional --- K64.9, Unspecified hemorrhoids K62.1, Rectal polyp Z98.0, Intestinal bypass and anastomosis status D50.9, Iron deficiency anemia, unspecified CPT copyright 2017 [employer]. All rights reserved. The codes documented in this report are preliminary and upon chief of anesthesiology review may be revised to meet current compliance requirements. Vito Noel MD 06/18/2019 7:05:25 AM This report has been signed electronically. Number of Addenda: 0 Note Initiated On: 06/18/2019 6:38 AM
--- NOTE | 2019-06-18 07:06 | OP.CCLET_ITS ---
06/18/2019 Jaguar Carpenter MD [address] [place] [address] Re : Colonoscopy procedure for Bartolo Carvalho Dear Dr. Carpenter This procedure was performed on Tuesday, June 18, 2019. My impressions and recommendations are as follows: Impressions : - Hemorrhoids found on perianal exam. - One benign appearing 5 mm polyp in the rectum, removed with a hot snare. Resected and retrieved. - Patent functional end-to-end ileo-colonic anastomosis, characterized by healthy appearing mucosa. - Patent end-to-end colo-colonic anastomosis, characterized by healthy appearing mucosa. - The examination was otherwise normal. No evidence for colonic source of blood loss Recommendations : - Discharge patient to home. - Resume previous diet. - Continue present medications. - Telephone my office for pathology results in 1 week. - Repeat colonoscopy in 1 year for surveillance. My findings are described in the full procedure note, which is enclosed. If I can be of further assistance, please feel free to contact me at Doctor phone number(s): Work: . Sincerely, Vito Noel MD 06/18/2019 7:05:25 AM This report has been signed electronically.
[2019-06-18 07:10] VITALS: BP 103/88; BP 110/74; PULSE 68; RESP 16; O2SAT 100
[2019-06-18 07:14] VITALS: BP 110/74; BP 119/73; PULSE 67; RESP 16; TEMP 36.8; O2SAT 100
[2019-06-18 07:28] VITALS: BP 110/74
== END 2019-06-18 07:33 | disposition home or self-care (01) ==
LOC: EN 05:16 → AC 05:18
PROVIDERS: PCP Family Medicine Geriatric Medicine; Referring Provider Family Medicine Geriatric Medicine; Visit Provider Surgery
PROC: 0DJD8ZZ Inspection of Lower Intestinal Tract, Via Natural or Artificial Opening Endoscopic (ICD-10-PCS; CPT 45378; principal; 2019-06-18 06:25)
DX: K29.70 Gastritis, unspecified, without bleeding (principal); D12.8 Benign neoplasm of rectum; D50.0 Iron deficiency anemia secondary to blood loss (chronic); K64.9 Unspecified hemorrhoids; K44.9 Diaphragmatic hernia without obstruction or gangrene; C61 Malignant neoplasm of prostate; C79.51 Secondary malignant neoplasm of bone; F17.200 Nicotine dependence, unspecified, uncomplicated; Z79.82 Long term (current) use of aspirin; K21.9 Gastro-esophageal reflux disease without esophagitis; Z85.038 Personal history of other malignant neoplasm of large intestine; Z90.49 Acquired absence of other specified parts of digestive tract; Z86.718 Personal history of other venous thrombosis and embolism; Z79.899 Other long term (current) drug therapy
CPT/HCPCS: 43239; 45380; 88305; 88342; J7120

== ENCOUNTER → 2019-07-01 | Outpatient (CLI) | payer MEDICARE, BC, SELFPAY ==
[2019-06-26 13:15] VITALS: BMI 24.1
[2019-07-01 15:10] LABS: D-Dimer Quantitative (DVT/PE) 0.62 FEU/ug/m (0.27-0.49)
== END | disposition home or self-care (01) ==
LOC: POLAB3 14:24
PROVIDERS: PCP Family Medicine Geriatric Medicine; Visit Provider Family Medicine Geriatric Medicine
DX: R06.89 Other abnormalities of breathing (principal)
CPT/HCPCS: 36415; 85379

== ENCOUNTER → 2019-07-02 10:11 | Outpatient (CLI) | payer MEDICARE, BC, SELFPAY ==
[2019-06-26 13:15] VITALS: BMI 24.1
--- NOTE | 2019-07-02 10:16 | CT_ITS ---
STUDY: CTA CHEST REASON FOR EXAM: Male, 73 years old. ELEVATED D-DIMER, HX PROSTATE CA, NEW COLON CA DIAGNOSIS RADIATION DOSAGE (If Supplied By Facility): CTDIvol = ( 15.87 ) mGy, DLP = ( 372.35 ) mGycm TECHNIQUE: The examination was performed with the intravenous administration of IV 100mL Isovue-370. Post-processing of the angiographic images was performed, with multiplanar reformation and 3D reconstruction. Individualized dose optimization techniques were used for this CT. COMPARISON: Comparison is made with prior study dated May 21, 2019. FINDINGS: Normal enhancement of the main pulmonary artery and right and left pulmonary arteries. Normal enhancement of the bilateral peripheral pulmonary arteries. There is no demonstrated pulmonary embolism. Normal thoracic aorta and visualized great vessels. There is no demonstrated aortic dissection. Normal heart and pericardium. There are visualized mediastinal lymph nodes, which are within normal size limits, and with normal morphology. Normal hilar regions. Normal visualized trachea and bronchi. The lungs are well expanded. Normal pulmonary parenchyma. Normal pleura. Normal chest wall structures. Stable findings of osteoblastic metastasis. Stable 1.3 cm adenoma in the left adrenal gland. CT/CTA Chest W/WO Contrast IMPRESSION: No evidence of pulmonary embolism. There has been no change since prior study. Electronically Signed: Vincent Marley, at 11:19 EST , Service support ,
== END ==
PROVIDERS: PCP Family Medicine Geriatric Medicine; Referring Provider Family Medicine Geriatric Medicine; Visit Provider Family Medicine Geriatric Medicine
DX: I26.99 Other pulmonary embolism without acute cor pulmonale (principal)
CPT/HCPCS: 71275; Q9967

== ENCOUNTER → 2019-07-15 | Outpatient (CLI) | payer MEDICARE, BC, SELFPAY ==
[2019-07-03 11:27] VITALS: BMI 24.3
[2019-07-15 13:12] LABS: Absolute Lymphocyte Count 2.38 X10^3/uL (0.83-4.51); Absolute Neutrophil Count 2.3 X10^3/uL (2.0-7.7); Basophil# 0.04 X10^3/uL; Basophil% 0.7 % (0-1); Eosinophil# 0.35 X10^3/uL; Eosinophils% 6.3 % (0-5); Hematocrit 32.8 % (40-54); Hemoglobin 11.1 g/dL (13.0-16.5); Lymphocyte # 2.38 X10^3/ul (4.0); Lymphocyte % 42.7 % (19-41); Mean Corp Hgb Conc 33.8 g/dL (32-36); Mean Corpuscular Hgb 31.8 pg (27.0-32.0); Monocyte# 0.54 X10^3/uL; Monocyte% 9.7 % (0-10); NRBC Flagged by Analyzer 0 % (0-5); Neutrophil # 2.26 X10^3/uL (2.7-7.7); Neutrophil % 40.4 % (47-70); POSITIVE MORPHOLOGY YES; Platelet Count 309 K/mm3 (150-450); RBC Distribution Width CV 23.8 % (11.6-14.6); RBC Distribution Width SD 78.7 fl (35.1-43.9); Red Blood Count 3.49 M/mm3 (4.6-6.2); White Blood Count 5.6 K/mm3 (4.4-11.0)
[2019-07-15 13:36] LABS: AST(SGOT) 16 U/L (15-37); Alanine Aminotransfer ALT/SGPT 12 U/L (16-61); Albumin, Serum 3.5 g/dL (3.2-5.0); Alkaline Phosphatase 94 U/L (45-117); Anion Gap 5 (5-15); BUN 19 mg/dL (7-18); BUN/Creat Ratio 21.3 RATIO (10-20); Calcium,Total 9.7 mg/dL (8.5-10.1); Chloride 108 mmol/L (98-107); Creatinine, Serum 0.89 mg/dL (0.70-1.30); EST Glomerular Filtration Rate 89 mL/min (>60); Est Glom Filt Rate - Afr Amer 108 mL/min (>60); Globulin 3.6 g/dL (2.2-4.2); Glucose 63 mg/dL (74-106); LDH 148 U/L (87-241); PSA,Total- Diagnostic 0.05 ng/mL (0.0-4.0); Potassium 4.1 mmol/L (3.5-5.1); Protein, Total 7.1 g/dL (6.4-8.2); Sodium Level 140 mmol/L (136-145)
[2019-07-15 13:39] LABS: Differential Indicated SCAN CRITERIA MET
[2019-07-15 13:40] LABS: Anisocytosis 1+; Atypical Lymphocyte RARE %; Hypochromasia 1+; Platelet Estimate ADEQUATE (ADEQ); Target Cells RARE
== END | disposition home or self-care (01) ==
LOC: LAB 12:15
PROVIDERS: Internal Medicine Medical Oncology; PCP Family Medicine Geriatric Medicine; Referring Provider Urology; Visit Provider Urology
DX: C61 Malignant neoplasm of prostate (principal); C18.7 Malignant neoplasm of sigmoid colon; Z79.899 Other long term (current) drug therapy
CPT/HCPCS: 36415; 80053; 83615; 84153; 85025

== ENCOUNTER → 2019-08-05 | Outpatient (CLI) | payer MEDICARE, BC, SELFPAY ==
[2019-07-24 14:23] VITALS: BMI 24.5
[2019-08-05 16:27] LABS: Absolute Lymphocyte Count 2.41 X10^3/uL (0.83-4.51); Absolute Neutrophil Count 2.3 X10^3/uL (2.0-7.7); Basophil# 0.04 X10^3/uL; Basophil% 0.7 % (0-1); Eosinophil# 0.27 X10^3/uL; Eosinophils% 4.8 % (0-5); Hematocrit 33.7 % (40-54); Hemoglobin 11.4 g/dL (13.0-16.5); Lymphocyte # 2.41 X10^3/ul (4.0); Lymphocyte % 42.8 % (19-41); Mean Corp Hgb Conc 33.8 g/dL (32-36); Mean Corpuscular Hgb 33.3 pg (27.0-32.0); Mean Corpuscular Volume 98.5 fL (80-94); Mean Platelet Vol. 10.7 fl (6.2-12.0); Monocyte% 10.7 % (0-10); NRBC Flagged by Analyzer 0 % (0-5); Neutrophil % 40.8 % (47-70); POSITIVE MORPHOLOGY YES; Platelet Count 266 K/mm3 (150-450); RBC Distribution Width CV 22.8 % (11.6-14.6); RBC Distribution Width SD 82.2 fl (35.1-43.9); Red Blood Count 3.42 M/mm3 (4.6-6.2); White Blood Count 5.6 K/mm3 (4.4-11.0)
[2019-08-05 16:29] LABS: Differential Indicated SCAN CRITERIA MET
[2019-08-05 16:53] LABS: ALB/GLOB Ratio 1.2 RATIO (0.9-2.4); AST(SGOT) 18 U/L (15-37); Alanine Aminotransfer ALT/SGPT 14 U/L (16-61); Albumin, Serum 3.6 g/dL (3.2-5.0); Alkaline Phosphatase 104 U/L (45-117); Anion Gap 5 (5-15); BUN 17 mg/dL (7-18); BUN/Creat Ratio 17.1 RATIO (10-20); Calcium,Total 9.7 mg/dL (8.5-10.1); Chloride 108 mmol/L (98-107); EST Glomerular Filtration Rate 78 mL/min (>60); Est Glom Filt Rate - Afr Amer 95 mL/min (>60); Globulin 3.1 g/dL (2.2-4.2); Glucose 77 mg/dL (74-106); Potassium 4.3 mmol/L (3.5-5.1); Protein, Total 6.7 g/dL (6.4-8.2); Sodium Level 140 mmol/L (136-145); Thyroid Stim Hormone (TSH) 4.02 uIU/mL (0.358-3.74)
[2019-08-05 17:13] LABS: Differential Comment SCANNED
[2019-08-05 17:14] LABS: Anisocytosis 4+; Reactive Lymphocyte RARE; Target Cells RARE
[2019-08-05 17:15] LABS: Platelet Estimate ADEQUATE (ADEQ)
== END | disposition home or self-care (01) ==
LOC: POLAB3 13:39
PROVIDERS: PCP Family Medicine Geriatric Medicine; Visit Provider Family Medicine Geriatric Medicine
DX: I10 Essential (primary) hypertension (principal); F52.8 Other sexual dysfunction not due to a substance or known physiological condition
CPT/HCPCS: 36415; 80053; 84403; 84443; 85025

== ENCOUNTER → 2019-09-22 | Outpatient (CLI) | payer MEDICARE, BC, SELFPAY ==
[2019-07-24 14:23] VITALS: BMI 24.5
[2019-09-04 13:41] VITALS: BMI 24.4
[2019-09-22 13:42] LABS: Absolute Lymphocyte Count 2.68 X10^3/uL (0.83-4.51); Absolute Neutrophil Count 2.8 X10^3/uL (2.0-7.7); Basophil# 0.03 X10^3/uL; Basophil% 0.5 % (0-1); Eosinophils% 4.7 % (0-5); Hemoglobin 11.5 g/dL (13.0-16.5); Lymphocyte # 2.68 X10^3/ul (4.0); Lymphocyte % 41.7 % (19-41); Mean Corp Hgb Conc 34.8 g/dL (32-36); Mean Corpuscular Hgb 36.9 pg (27.0-32.0); Mean Corpuscular Volume 105.8 fL (80-94); Mean Platelet Vol. 9.9 fl (6.2-12.0); Monocyte# 0.56 X10^3/uL; Monocyte% 8.7 % (0-10); NRBC Flagged by Analyzer 0 % (0-5); Neutrophil # 2.84 X10^3/uL (2.7-7.7); Neutrophil % 44.2 % (47-70); POSITIVE MORPHOLOGY YES; Platelet Count 298 K/mm3 (150-450); RBC Distribution Width CV 19.2 % (11.6-14.6); RBC Distribution Width SD 74.4 fl (35.1-43.9); Red Blood Count 3.12 M/mm3 (4.6-6.2); White Blood Count 6.4 K/mm3 (4.4-11.0)
[2019-09-22 14:07] LABS: ALB/GLOB Ratio 1.1 RATIO (0.9-2.4); AST(SGOT) 16 U/L (15-37); Alanine Aminotransfer ALT/SGPT 10 U/L (16-61); Albumin, Serum 3.5 g/dL (3.2-5.0); Alkaline Phosphatase 100 U/L (45-117); Anion Gap 6 (5-15); BUN 16 mg/dL (7-18); BUN/Creat Ratio 18.7 RATIO (10-20); Chloride 109 mmol/L (98-107); Creatinine, Serum 0.86 mg/dL (0.70-1.30); EST Glomerular Filtration Rate 94 mL/min (>60); Est Glom Filt Rate - Afr Amer 113 mL/min (>60); Globulin 3.1 g/dL (2.2-4.2); Glucose 79 mg/dL (74-106); LDH 147 U/L (87-241); Potassium 3.9 mmol/L (3.5-5.1); Protein, Total 6.6 g/dL (6.4-8.2); Sodium Level 141 mmol/L (136-145)
[2019-09-22 14:21] LABS: Atypical Lymphocyte 1+ %; Differential Indicated SCAN CRITERIA MET
[2019-09-22 14:22] LABS: Anisocytosis 2+; Platelet Estimate ADEQUATE (ADEQ); Red Cell Morphology N CHROM NORMAL (NORM C&C)
[2019-09-22 21:38] LABS: Xtra Tube EP Lab EXTRA TUBE
== END | disposition home or self-care (01) ==
LOC: POLAB3 13:25
PROVIDERS: Internal Medicine Medical Oncology; PCP Family Medicine Geriatric Medicine; Visit Provider Family Medicine Geriatric Medicine
DX: C18.2 Malignant neoplasm of ascending colon (principal); E03.9 Hypothyroidism, unspecified
CPT/HCPCS: 80053; 83615; 84443; 85025

== ENCOUNTER → 2019-10-01 15:05 | Outpatient (CLI) | payer MEDICARE, BC, SELFPAY ==
[2019-09-25 10:32] VITALS: BMI 25.1
--- NOTE | 2019-10-01 15:09 | RAD_ITS ---
STUDY: X-RAY - RIGHT KNEE REASON FOR EXAM: Male, 73 years old. Right knee pain, NKI TECHNIQUE: 4 view(s) of the knee. COMPARISON: 01/20/2019. FINDINGS: Normal visualized distal femur. Normal visualized proximal tibia and fibula. Normal proximal tibiofibular articulation. There is no demonstrated fracture. Normal medial femorotibial compartment. Normal lateral femorotibial compartment. Normal patellofemoral articulation. There is no demonstrated joint effusion. There are atherosclerotic calcifications. RAD/Knee 4 or More Views IMPRESSION: No definite acute or significant abnormality seen. Electronically Signed: Zach Urena MD at 16:18 EDT , Service support ,
== END ==
PROVIDERS: PCP Family Medicine Geriatric Medicine; Referring Provider Family Medicine Geriatric Medicine; Visit Provider Family Medicine Geriatric Medicine
DX: M25.569 Pain in unspecified knee (principal)
CPT/HCPCS: 73564

== ENCOUNTER → 2020-01-26 | Outpatient (CLI) | payer MEDICARE, BC, SELFPAY ==
[2019-11-27 10:57] VITALS: BMI 24.5
[2020-01-26 11:03] LABS: PSA,Total- Diagnostic 0.01 ng/mL (0.0-4.0)
== END | disposition home or self-care (01) ==
LOC: LAB 10:00
PROVIDERS: PCP Family Medicine Geriatric Medicine; Referring Provider Urology; Visit Provider Urology
DX: C61 Malignant neoplasm of prostate (principal)
CPT/HCPCS: 36415; 84153

== ENCOUNTER → 2020-02-03 | Outpatient (CLI) | payer MEDICARE, BC, SELFPAY ==
[2019-11-27 10:57] VITALS: BMI 24.5
[2020-02-03 17:47] LABS: Absolute Lymphocyte Count 2.24 X10^3/uL (0.83-4.51); Basophil# 0.04 X10^3/uL; Basophil% 0.6 % (0-1); Eosinophil# 0.29 X10^3/uL; Hemoglobin 10.2 g/dL (13.0-16.5); Lymphocyte # 2.24 X10^3/ul (4.0); Lymphocyte % 30.9 % (19-41); Mean Corp Hgb Conc 32.9 g/dL (32-36); Mean Corpuscular Volume 109.5 fL (80-94); Mean Platelet Vol. 10.8 fl (6.2-12.0); Monocyte# 0.65 X10^3/uL; NRBC Flagged by Analyzer 0 % (0-5); Neutrophil # 4.01 X10^3/uL (2.7-7.7); Neutrophil % 55.2 % (47-70); Platelet Count 254 K/mm3 (150-450); RBC Distribution Width CV 13.1 % (11.6-14.6); RBC Distribution Width SD 52.1 fl (35.1-43.9); Red Blood Count 2.83 M/mm3 (4.6-6.2); White Blood Count 7.3 K/mm3 (4.4-11.0)
[2020-02-03 18:00] LABS: Vitamin D,25 Hydroxy 47.9 ng/mL
[2020-02-03 18:34] LABS: ALB/GLOB Ratio 1.1 RATIO (0.9-2.4); AST(SGOT) 20 U/L (15-37); Alanine Aminotransfer ALT/SGPT 14 U/L (16-61); Albumin, Serum 3.4 g/dL (3.2-5.0); Alkaline Phosphatase 88 U/L (45-117); Anion Gap 5 (5-15); BUN 24 mg/dL (7-18); BUN/Creat Ratio 28.3 RATIO (10-20); Calcium,Total 8.9 mg/dL (8.5-10.1); Chloride 109 mmol/L (98-107); Creatinine, Serum 0.85 mg/dL (0.70-1.30); EST Glomerular Filtration Rate 95 mL/min (>60); Est Glom Filt Rate - Afr Amer 114 mL/min (>60); Globulin 3.2 g/dL (2.2-4.2); Glucose 86 mg/dL (74-106); Potassium 4.3 mmol/L (3.5-5.1); Protein, Total 6.6 g/dL (6.4-8.2); Sodium Level 140 mmol/L (136-145); Thyroid Stim Hormone (TSH) 3.25 uIU/mL (0.358-3.74)
== END | disposition home or self-care (01) ==
LOC: POLAB3 14:39
PROVIDERS: PCP Family Medicine Geriatric Medicine; Visit Provider Family Medicine Geriatric Medicine
DX: E55.9 Vitamin D deficiency, unspecified (principal); I10 Essential (primary) hypertension; F52.8 Other sexual dysfunction not due to a substance or known physiological condition
CPT/HCPCS: 36415; 80053; 82306; 84403; 84443; 85025

== ENCOUNTER → 2020-04-22 12:47 | Outpatient (CLI) | payer MEDICARE, BC, SELFPAY ==
[2020-03-10 10:22] VITALS: BMI 26.2
[2020-04-22 13:45] LABS: Anion Gap 3 (5-15); BUN 20 mg/dL (7-18); BUN/Creat Ratio 23.1 RATIO (10-20); Calcium,Total 9.1 mg/dL (8.5-10.1); Chloride 107 mmol/L (98-107); Creatinine, Serum 0.86 mg/dL (0.70-1.30); EST Glomerular Filtration Rate 92 mL/min (>60); Est Glom Filt Rate - Afr Amer 112 mL/min (>60); Glucose 98 mg/dL (74-106); PSA,Total- Diagnostic < 0.01 ng/mL (0.0-4.0); Potassium 4.3 mmol/L (3.5-5.1); Sodium Level 140 mmol/L (136-145)
== END ==
PROVIDERS: PCP Family Medicine Geriatric Medicine; Referring Provider Urology; Visit Provider Urology
DX: C61 Malignant neoplasm of prostate (principal)
CPT/HCPCS: 36415; 80048; 84153

== ENCOUNTER → 2020-05-17 07:32 | Outpatient (CLI) | payer MEDICARE, BC, SELFPAY ==
[2020-02-26 11:01] VITALS: BMI 25.8
[2020-03-10 10:22] VITALS: BMI 26.2
--- NOTE | 2020-05-17 07:34 | CT_ITS ---
STUDY: CT ABDOMEN AND PELVIS WITH CONTRAST REASON FOR EXAM: Male, 74 years old. COLON CA-ASSESS TREATMENT RESPONSE, CHEMO PILLS, PROSTATE CA WITH METS TO BONE, PARTIAL COLECTOMY RADIATION DOSAGE (If Supplied By Facility): CTDIvol = ( 13.72 ) mGy, DLP = ( 905.58 ) mGycm TECHNIQUE: Transaxial images were obtained from the dome of the diaphragm to the symphysis pubis without oral contrast. IV 100mL Isovue-300 was administered. Sagittal and coronal images were reconstructed. Individualized dose optimization techniques were used for this CT. COMPARISON: None. FINDINGS: The visualized lung bases are unremarkable. The visualized portions of the heart are within normal limits. Normal liver. Normal gallbladder and extrahepatic biliary system. Normal spleen. Normal pancreas. Normal bilateral adrenal glands. Normal right kidney. Normal left kidney. Normal visualized stomach. Normal small intestine. Normal colon. The appendix is visualized and appears normal. Normal abdominal aorta. Normal inferior vena cava. Normal retroperitoneum. Normal urinary bladder. Normal abdominal wall. Normal osseous structures. CT/Abdomen/Pelvis WITH Contrast IMPRESSION: Normal enhanced CT of the abdomen and pelvis. Pending Final Proof Editing
== END ==
PROVIDERS: PCP Family Medicine Geriatric Medicine; Referring Provider Internal Medicine Medical Oncology; Visit Provider Internal Medicine Medical Oncology
DX: C18.7 Malignant neoplasm of sigmoid colon (principal)
CPT/HCPCS: 74177; Q9967

== ENCOUNTER → 2020-05-19 11:23 | Outpatient (CLI) | payer MEDICARE, BC, SELFPAY ==
[2020-03-10 10:22] VITALS: BMI 26.2
[2020-05-19 12:04] LABS: LDH 188 U/L (87-241)
[2020-05-19 12:07] LABS: AST(SGOT) 12 U/L (15-37); Alanine Aminotransfer ALT/SGPT 14 U/L (16-61); Albumin, Serum 3.6 g/dL (3.2-5.0); Alkaline Phosphatase 123 U/L (45-117); Anion Gap 3 (5-15); BUN 19 mg/dL (7-18); BUN/Creat Ratio 22.4 RATIO (10-20); Calcium,Total 9.1 mg/dL (8.5-10.1); Chloride 109 mmol/L (98-107); Creatinine, Serum 0.85 mg/dL (0.70-1.30); EST Glomerular Filtration Rate 94 mL/min (>60); Est Glom Filt Rate - Afr Amer 114 mL/min (>60); Globulin 3.5 g/dL (2.2-4.2); Glucose 89 mg/dL (74-106); Protein, Total 7.1 g/dL (6.4-8.2); Sodium Level 141 mmol/L (136-145)
[2020-05-19 12:47] LABS: Absolute Lymphocyte Count 2.36 X10^3/uL (0.83-4.51); Absolute Neutrophil Count 3.6 X10^3/uL (2.0-7.7); Basophil# 0.05 X10^3/uL; Basophil% 0.7 % (0-1); Eosinophil# 0.29 X10^3/uL; Eosinophils% 4.2 % (0-5); Hematocrit 34.6 % (40-54); Hemoglobin 11.5 g/dL (13.0-16.5); Lymphocyte # 2.36 X10^3/ul (4.0); Lymphocyte % 34.3 % (19-41); Mean Corp Hgb Conc 33.2 g/dL (32-36); Mean Corpuscular Volume 99.1 fL (80-94); Mean Platelet Vol. 10.3 fl (6.2-12.0); Monocyte# 0.59 X10^3/uL; Monocyte% 8.6 % (0-10); NRBC Flagged by Analyzer 0 % (0-5); Neutrophil # 3.58 X10^3/uL (2.7-7.7); Neutrophil % 51.9 % (47-70); Platelet Count 317 K/mm3 (150-450); RBC Distribution Width CV 14.2 % (11.6-14.6); RBC Distribution Width SD 51.7 fl (35.1-43.9); Red Blood Count 3.49 M/mm3 (4.6-6.2); White Blood Count 6.9 K/mm3 (4.4-11.0)
[2020-05-19 19:46] LABS: Xtra Tube EP Lab EXTRA TUBE
[2020-05-20 15:13] LABS: Carcinoembryonic Antigen 3.8 ng/mL (0.0-4.7)
== END ==
PROVIDERS: PCP Family Medicine Geriatric Medicine; Visit Provider Internal Medicine Medical Oncology
DX: C18.7 Malignant neoplasm of sigmoid colon (principal); R91.1 Solitary pulmonary nodule
CPT/HCPCS: 36415; 80053; 82378; 83615; 85025

== ENCOUNTER → 2020-07-28 10:25 | Outpatient (CLI) | payer MEDICARE, BC, SELFPAY ==
[2020-03-10 10:22] VITALS: BMI 26.2
[2020-07-12 10:02] VITALS: BMI 28.2
[2020-07-28 11:48] LABS: PSA,Total- Diagnostic < 0.01 ng/mL (0.0-4.0)
== END ==
PROVIDERS: PCP Family Medicine Geriatric Medicine; Referring Provider Urology; Visit Provider Urology
DX: C61 Malignant neoplasm of prostate (principal)
CPT/HCPCS: 84153

== ENCOUNTER → 2020-08-05 14:24 | Outpatient (CLI) | payer MEDICARE, BC, SELFPAY ==
[2020-07-12 10:02] VITALS: BMI 28.2
[2020-08-05 15:09] LABS: Absolute Lymphocyte Count 2.63 X10^3/uL (0.83-4.51); Absolute Neutrophil Count 4.6 X10^3/uL (2.0-7.7); Basophil# 0.04 X10^3/uL; Basophil% 0.5 % (0-1); Eosinophil# 0.28 X10^3/uL; Eosinophils% 3.4 % (0-5); Hematocrit 35.6 % (40-54); Hemoglobin 11.4 g/dL (13.0-16.5); Lymphocyte # 2.63 X10^3/ul (4.0); Lymphocyte % 31.6 % (19-41); Mean Corpuscular Hgb 31.7 pg (27.0-32.0); Mean Corpuscular Volume 98.9 fL (80-94); Mean Platelet Vol. 10.9 fl (6.2-12.0); Monocyte# 0.74 X10^3/uL; Monocyte% 8.9 % (0-10); NRBC Flagged by Analyzer 0 % (0-5); Neutrophil # 4.62 X10^3/uL (2.7-7.7); Neutrophil % 55.4 % (47-70); Platelet Count 266 K/mm3 (150-450); RBC Distribution Width CV 13.9 % (11.6-14.6); RBC Distribution Width SD 50.9 fl (35.1-43.9); White Blood Count 8.3 K/mm3 (4.4-11.0)
[2020-08-05 15:30] LABS: ALB/GLOB Ratio 1.1 RATIO (0.9-2.4); AST(SGOT) 17 U/L (15-37); Alanine Aminotransfer ALT/SGPT 16 U/L (16-61); Albumin, Serum 3.5 g/dL (3.2-5.0); Alkaline Phosphatase 117 U/L (45-117); Anion Gap 3 (5-15); BUN 15 mg/dL (7-18); BUN/Creat Ratio 18.3 RATIO (10-20); Chloride 110 mmol/L (98-107); Creatinine, Serum 0.82 mg/dL (0.70-1.30); EST Glomerular Filtration Rate 98 mL/min (>60); Est Glom Filt Rate - Afr Amer 119 mL/min (>60); Globulin 3.3 g/dL (2.2-4.2); Glucose 78 mg/dL (74-106); Potassium 4.9 mmol/L (3.5-5.1); Protein, Total 6.8 g/dL (6.4-8.2); Sodium Level 141 mmol/L (136-145); Thyroid Stim Hormone (TSH) 2.97 uIU/mL (0.358-3.74)
[2020-08-05 18:18] LABS: Vitamin D,25 Hydroxy 25.3 ng/mL
== END ==
PROVIDERS: PCP Family Medicine Geriatric Medicine; Visit Provider Family Medicine Geriatric Medicine
DX: E55.9 Vitamin D deficiency, unspecified (principal); F52.8 Other sexual dysfunction not due to a substance or known physiological condition; I10 Essential (primary) hypertension
CPT/HCPCS: 36415; 80053; 82306; 84403; 84443; 85025

== ENCOUNTER → 2020-09-09 12:38 | Outpatient (CLI) | payer MEDICARE, BC, SELFPAY ==
[2020-08-27 10:00] VITALS: BMI 27.8
--- NOTE | 2020-09-09 12:39 | CDU_ITS ---
Reason For Study: Carotid stenosis Rt. Velocities/BP Lt. Velocities/BP Prox CCA 83.9/20 cm/sec. Prox CCA 112.5/27.8 cm/sec. Mid CCA 93/26.5 cm/sec. Mid CCA 83.8/23.9 cm/sec. Dist CCA 74.7/22.6 cm/sec. Dist CCA 104.7/27.9 cm/sec. Prox ICA 70.8/21.3 cm/sec. Prox ICA 104.7/22.5 cm/sec. Mid ICA 94.3/33 cm/sec. Mid ICA 108.3/37.1 cm/sec. Dist ICA 94.3/36.9 cm/sec. Dist ICA 102.8/37.1 cm/sec. Rt. ICA/CCA = 1.28. Lt. ICA/CCA = 1.03. Prox ECA 72.1/13.4 cm/sec. Prox ECA 64/9.1 cm/sec. Rt. Vert. 64.3/16 cm/sec. Lt. Vert. 78.4/24.5 cm/sec. Right Extracranial There is intimal thickening but no significant atherosclerotic plaque noted in the right common carotid artery. There is heterogeneous, irregular atherosclerotic plaque noted in the right internal carotid artery. There is homogeneous, smooth atherosclerotic plaque noted in the right external carotid artery. Antegrade flow is noted in the right vertebral artery. Left Extracranial There is homogeneous, smooth atherosclerotic plaque noted in the left common carotid artery. There is heterogeneous, irregular atherosclerotic plaque noted in the left internal carotid artery. There is intimal thickening but no significant atherosclerotic plaque noted in the left external carotid artery. Antegrade flow is noted in the left vertebral artery. Procedure Carotid Duplex 03144. This is a Carotid Duplex examination using B-mode, color flow and specral Doppler. Exam performed in department. VL/Carotid Duplex Ultrasound Interpretation Summary Minimal irregular plaque at the proximal right internal carotid artery with les s than 50% stenosis Less than 50% stenosis right external carotid artery Postoperative changes left carotid bulb and proximal internal carotid artery wi th less than 50% stenosis Less than 50% stenosis left external carotid artery patent and antegrade verteb ral arteries bilaterally No change from the previous examination of April 17, 2019 Ordering Physician: Vito Noel Referring Physician: Jorgito Villeda Chi Performed By: Dahlia Aj RVT
== END ==
PROVIDERS: PCP Family Medicine Geriatric Medicine; Referring Provider Surgery; Visit Provider Surgery
DX: I65.23 Occlusion and stenosis of bilateral carotid arteries (principal)
CPT/HCPCS: 93880

== ENCOUNTER 2020-09-15 05:18 | Day surgery (SDC) | payer MEDICARE, BC, SELFPAY ==
[2020-08-27 10:00] VITALS: BMI 27.8
[2020-09-15] VITALS (7 sets, daily range): BP systolic 99–133; BP diastolic 70–77; PULSE 58–98; RESP 16–18; TEMP 36–36.3; O2SAT 96–100; BMI 27.7
[2020-09-15] MEDS: Lactated Ringers 1,000 ML 100 ML IV (05:40)
--- NOTE | 2020-09-15 05:56 | HP.PCM_ITS ---
History and Physical Date of Admission: 09/15/20 Intake Visit Reasons: CSCOPE Chief Complaint: c-scope consult Siding Installer Required: No Accompanied by: Is patient in pain?: No Allergies No Known Allergies Allergy (Verified 08/27/20 10:01) Medications Enzalutamide [Xtandi] 160 mg PO DAILY@1930 01/20/19 [History Confirmed 08/27/20] Aspirin [Aspir 81] 81 mg PO QHS 06/16/19 [History Confirmed 08/27/20] Iron Polysaccharide Complex [Ferrex 150] 150 mg PO DAILYCM #90 cap 06/24/19 [Rx Confirmed 08/27/20] Levothyroxine [Synthroid] 25 mcg PO DAILY 08/14/19 [History Confirmed 08/27/20] Pramipexole Di-HCl [Mirapex] 2.25 mg PO QHS 08/14/19 [History Confirmed 08/27/20] PFSH Medical History? Colon cancer (Acute) Tobacco abuse (Acute) Prostate cancer metastatic to bone (Acute) Cortisone injection (Acute) Surgical History? (Updated 08/27/20 @ 09:59 by Stephanie Steven) History of colonoscopy (Acute ~06/18/19) History of left-sided carotid endarterectomy (Acute) S/P colectomy (Acute) Family History? Mother Cancer Social History? (Updated 08/27/20 @ 10:[address] Vito Noel MD) Smoking Status:? Heavy Smoker (>10/day)? HPI HPI HPI: JUSTICE OWEN, is a 74 M who presents to the office today for follow-up of extracranial carotid artery occlusive disease with a history of a left carotid enterectomy April 07, 2019.? The patient also had a combined laparoscopic right hemicolectomy and laparoscopic sigmoid colectomy for synchronous colon cancer on April 21, 2019.? He had had preoperative weight loss and preoperative anemia.? In addition he has known metastatic prostate cancer to bone.? His history as noted below.? Also noted below is an updated abdominal CT scan and updated laboratory.? The CT is stable and the laboratory is improved HPI: JUSTICE OWEN, is a 74 M who presents to the office today for ongoing surgical consultation regarding his anemia.? Preoperatively he had an upper endoscopy demonstrating H. pylori gastritis.? He also had both a ascending and a sigmoid colon cancer and I went laparoscopic resection of each of these.? Postoperatively however he has not been able to regain a normal blood count.? He also has a history of prostate cancer metastatic to bone.? He has iron deficiency. Prostate cancer stage IV-bony metastases, stable with normal PSA. On Xtandi April 07, 2019 because of symptomatic critical stenosis of his left internal carotid I perform a left carotid endarterectomy with bovine patch angioplasty.? This had to be performed prior to proceeding with his colon surgery. As noted above he had an upper endoscopy and a colonoscopy for anemia.? The upper endoscopy detected H. pylori for which she had to be treated.? Subsequent to the left carotid endarterectomy then he ended up with a laparoscopic right a nd sigmoid colectomy for synchronous right and sigmoid colon cancer's Report of Operation Date of Procedure: 04/21/19 Pre-Operative Diagnosis: Ascending colon cancer and synchronous sigmoid colon cancer Post-Operative Diagnosis: Same Surgery/Procedure Performed:: Laparoscopic right hemicolectomy.? Laparoscopic sigmoid colectomy.? Bilateral tap block 74 y.o.man was found to have positive occult blood in stool.? Colonoscopy showed fungating mass in the proximal ascending colon and partially obstructing sigmoid colon mass.? Biopsy on 04/03/2019 showed infiltrating adenocarcinoma.? He had bilateral carotid stenosis with critical stenosis on the left so underwent left carotid endarterectomy with bovine patch angioplasty on 04/07/2019.? He underwent right hemicolectomy and sigmoidectomy on 04/21/2019. Pathology on 04/21/2019 showed sigmoid colon invasive carcinoma tumor invades the muscularis propria, lymph nodes 16 out of 16 negative, stage pT2 pN0.? Cecal area of colon, right hemicolectomy, tumor invades through muscularis propria into subserosa, lymph nodes 6 out of 17 positive, staging pT3 pN2a.? MSI negative. CT a/p on 04/23/2019 showed postsurgical changes involving the ascending colon and sigmoid colon with sclerotic bone metastasis. CXR on 04/23/2019 showed a lung nodule. CT chest on 05/21/2019 was negative. He FOBT positive stools and iron deficiency anemia. He received IV iron replacement. He UGI endoscopy and colonoscopy on 06/18/2019.? Synchronous colon cancer, cecal stage III(pT3 pN2a M0) and sigmoid stage I(pT2 pN0 M0). Colonoscopy June 18, 2019 Impression: ? - Hemorrhoids found on perianal exam. ? - One benign appearing 5 mm polyp in the? rectum, removed with a hot snare. Resected and? retrieved. ? - Patent functional end-to-end ileo-colonic? anastomosis, characterized by healthy appearing? mucosa. ? - Patent end-to-end colo-colonic anastomosis,? characterized by healthy appearing mucosa. ? - The examination was otherwise normal. ? No evidence for colonic source of blood loss Esophagogastroduodenoscopy June 18, 2019 Impression: ? - Small hiatal hernia. ? - Z-line variable, 45 cm from the incisors. ? - Erythematous mucosa in the antrum. Biopsied? pre pyloric and antrum separately ? - Normal examined duodenum. No ongoing source of GI blood loss was identified June 18, 2019 as noted above Current laboratory RUN DATE: 08/27/20? ? ? [facility], DEPARTMENT OF LABORATORIES ? ? PAGE? ? 1 RUN TIME: 0558? Specimen Inquiry? [address] [place], [place],? [address] ? PATIENT: JUSTICE OWEN ? LOC:? POLAB3 ? ? U #: [id number] : ? ? 1945? AGE/SX: 74/M? ? ? FACILITY: [facility]? ROOM:? RE08/05/[address]: Dr. Jorgito Villeda MD? ? STATUS:REG CLI BED: ? ? DIS:? ~ SPEC #: [id number] ? ? ? NBA: 08/05/20 ? ? STATUS:? COMP ? REQ #: [id number] ? RECD: 08/05/20 ? ? SUBM DR: Dr. Jorgito Villeda MD? ENTERED:? 08/05/20 ? OTHR DR: ? ~ ? Test? Result ? Flag? ? Adult Reference Range ? CBCD? WBC? 8.3? 4.4-11.0 K/mm3 ? ? RBC? 3.60 ? L ? ? 4.6-6.2 M/mm3 ? ? HGB? 11.4 ? L ? ? 13.0-16.5 g/dL ? ? HCT? 35.6 ? L ? ? 40-54 % ? MCV? 98.9 ? H ? ? 80-94 fL? MCH? 31.7 ? 27.0-32.0 pg ? ? MCHC ? 32.0 ? 32-36 g/dL? RDW CV ? 13.9 ? 11.6-14.6 %? ? ? RDW SD ? 50.9 ? H ? ? 35.1-43.9 fl ? ? PLT? 266? 150-450 K/mm3 ? ? MPV? 10.9 ? 6.2-12.0 fl? ? ? NEUT%? 55.4 ? 47-70 % ? LY%? 31.6 ? 19-41 % ? MONO%? 8.9? 0-10 %? EO%? 3.4? 0-5 % ? BASO%? 0.5? 0-1 % ? IG% ? 0.200 ? 0.0-0.9 % ? IG% - Immature Granulocytes (promyelocytes, myelocytes and ? metamyelocytes) > 1% indicates that a LEFT SHIFT is Present. ? ? Absolute Neut? 4.6? 2.0-7.7 X10^3/uL ? ? Absolute Lymph ? 2.63 ? 0.83-4.51 X10^3/uL ? ? NUCLEATED RBC ? 0 ? 0-5 %? RUN DATE: 08/27/20? ? COMP METABOLIC? GLU ? 78? 74-106 mg/dL ? Please note revised GLUCOSE reference range effective ? 06/15/2017. ? ? BUN ? 15? 7-18 mg/dL? CREAT,SERUM? 0.82 ? 0.70-1.30 mg/dL ? The validity of the calculated GFR & GFRAA in patients over ? 70 years has not been determined. Clinical correlation is ? essential. ? ? EST GFR ? 98? >60 mL/min? Non- GFR Calc ? ? EST GFR - AA ? 119? >60 mL/min? GFR Calc ? ? BUN/CRE? 18.3 ? 10-20 RATIO? ? ? T PROT ? 6.8? 6.4-8.2 g/dL ? ? ALB? 3.5? 3.2-5.0 g/dL ? ? GLOB ? 3.3? 2.2-4.2 g/dL ? ? A/G? 1.1? 0.9-2.4 RATIO ? ? CA,Total ? 9.0? 8.5-10.1 mg/dL ? ? AST ? 17? 15-37 U/L ? ALK P? 117? 45-117 U/L? ALT ? 16? 16-61 U/L ? T BILI ? 0.30 ? 0.20-1.00 mg/dL ? For patients on eltrombopag therapy, use of ? Dimension Clark TBIL is not recommended. ? ? NA ? 141? 136-145 mmol/L ? ? Potassium? 4.9? 3.5-5.1 mmol/L ? ? CL ? 110? H ? ? 98-107 mmol/L ? ? CO2? 28.0 ? 21.0-32.0 mmol/L ? ? GAP ? 3 ? L ? ? 5-15? TSH? 2.97 ? 0.358-3.74 uIU/mL? May 17, 2020 [facility] Imaging Services [address] [place] [id number] Abdomen/Pelvis WITH Contrast MR#:? [id number]:[id number] Name: JUSTICE OWEN DRe #:[id number] :? 1946M 74 ? From:? Cortez Rowe DO PCP:Dr. Jorgito Villeda MD? Status:REG CLI Study:Abdomen/Pelvis WITH Contrast? Date of Exam:05/17/20 Exam#[id number]? Ordering Dr:? Jaguar Carpneter MD STUDY:? CT ABDOMEN AND PELVIS WITH CONTRAST REASON FOR EXAM: ? Male, 74 years old.? COLON CA-ASSESS TREATMENT RESPONSE, CHEMO PILLS, PROSTATE CA WITH METS TO BONE, PARTIAL COLECTOMY RADIATION DOSAGE (If Supplied By Facility):? CTDIvol = ( 13.72 ) mGy, DLP = ( 905.58 ) mGycm TECHNIQUE: ? Transaxial images were obtained from the dome of the diaphragm to the symphysis pubis without oral contrast. IV 100mL Isovue-300 was administered.? Sagittal and coronal images were reconstructed. Individualized dose optimization techniques were used for this CT. COMPARISON: ? None. FINDINGS: The visualized lung bases are unremarkable.? The visualized portions of the heart are within normal limits. Normal liver.? Normal gallbladder and extrahepatic biliary system.? Normal spleen.? Normal pancreas. Normal bilateral adrenal glands. Normal right kidney.? Normal left kidney. Normal visualized stomach.? Normal small intestine.? Normal colon.? The appendix is visualized and appears normal. Normal abdominal aorta.? Normal inferior vena cava.? Normal retroperitoneum. Normal urinary bladder. Normal abdominal wall.? Normal osseous structures. CT/Abdomen/Pelvis WITH Contrast IMPRESSION: Normal enhanced CT of the abdomen and pelvis. ? Pending Final Proof Editing ? HPI HPI HPI: JUSTICE OWEN, is a 74 M who presents to the office today for? ROS General General: Yes colon cancer; no weight change, appetite, fatigue, breast cancer or weakness HEENT HEENT: No difficulty swallowing, eye injury, eye surgery, swollen glands or hoarseness Endo Endocrine: No thyroid disease, diabetes mellitus, thyroid cancer, Hair loss, heat intolerance or cold intolerance Skin Skin: No rash or changing moles Breast Breast: No left breast lump, right breast lump, nipple discharge, breast pain, abnormal mammogram, abnormal US or breast enlargement Musc Musculoskeletal: Yes arthritis; no back problems, rheumatoid arthritis, gout or joint pain Cardio Cardiovascular: No murmur, pacemaker, heart disease, atrial fibrillation, high blood pressure, heart attack, heart stent, palpitations, shortness of breat with exertion or chest pain Psych Psychiatric: No depression, anxiety or hearing voices Resp Respiratory: No shortness of breath, No sleep apnea, No cough, No COPD, No asthma, No emphysema, No wheezing Gastro Gastrointestinal: No abdominal pain, No nausea or vomiting, No diarrhea, No constipation, No blood in stool, No acid reflux, No hemorrhoids, No ulcers, No gallbladder problem, No black,tarry stools William Hematologic: No blood thinners, No blood disorders, No bleeding, No anemia, No blood clots Neuro Neurologic: No system reviewed and no additional complaints, except as docu, No as per HPI, No abnormal walking, No abnormal hearing, No abnormal movements, No abnormal speech, No behavioral changes, No burning sensations, No confusion, No seizure-like activity, No unsteadiness, No dizziness, No localized weakness, No frequent falls, No headache(s), No lack of coordination, No loss of vision, No memory loss, No numbness, No other visual disturbances, No radiating pain, No restless legs, No sensory deficit, No fainting, No tingling, No tremor(s), No weakness, No other Exam Const General: cooperative, healthy appearing, comfortable Nutritional Appearance: other (Patient has gained weight since previous visit) Orientation: alert, awake, oriented x3 HENMT Head: normal to inspection Chest Breast Palpation: No nipple discharge Other: Increased anterior posterior diameter Resp Effort & Inspection: normal respiratory effort Auscultation: clear to auscultation bilaterally Cardio Rate: regular rate Rhythm: regular rhythm Heart Sounds: no murmurs GI Other: Soft, well-healed infraumbilical incision, well-healed port sites, no hepatosplenomegaly, no masses Skin General: no rashes or lesions noted Neuro Cognition: normal cognition Other: Hearing deficit noted Extrem Other: Bilateral support hose in place Psych Affect: normal affect Assessment & Plan Problems 1. Bilateral carotid artery stenosis? I65.23 2. History of colon cancer, stage III? Z85.038 Plan I recommend to the patient a bilateral carotid duplex exam.?? Colonoscopy was June with removal of a rectal serrated adenoma.? At that time his right and sigmoid anastomotic sites appear to be intact.? I recommend doing a follow-up colonoscopy due to the high risk nature of his disea se.? If this colonoscopy is unremarkable then perhaps follow-up at 3 years could be pursued. He has had an opportunity to ask and have questions answered.? I appreciate the ongoing opportunity of assisting with his surgical care. Copy: Dr. Jaguar Carpenter and Dr. Jorgito Noel M.D., F.A.C.S. I have re-examined the patient. There are no clinical changes since date of exam. Carotid duplex examination of September 09, 2020 demonstrated less than 50% stenosis bilateral internal carotid arteries with postoperative changes noted on the left.
--- NOTE | 2020-09-15 06:30 | COLBX_PTH ---
PATIENT: JUSTICE OWEN LOC: EN U#:[id number] AGE/SX: 74/M ROOM: RE09/15/[address]: Dr. Vito Noel MD : 1945 BED: DIS: 09/15/2020 SPEC #: [id number] RECD: 09/15/20 11:37 STATUS: JESUS CHRISTOPHER #: [id number] NBA: 09/15/20 06:[address]: Vito Noel DEPT: SURGICAL PATHOLOGY RECD BY: Andrea Burns ENTERED: 09/15/20 13:20 SP TYPE: COLON BX OTHR DR: Dr. Jorgito Villeda MD Tissues: A - Descending colon B - Rectum, NOS C - Rectum, NOS Procedures: Surgery Specimen Level IV HEADER OPERATION: Colonoscopy (MAC) PRE-OP DIAGNOSIS: Colon cancer TISSUE SUBMITTED: A - Biopsy of descending polyp, B - Biopsy of rectal polyp, C - Rectal polyp by hot snare MICROSCOPIC DIAGNOSIS A. Descending colon polyp, biopsy: Colonic mucosa with focal hyperplastic change B. Rectal polyp, biopsy: Hyperplastic polyp. C. Rectal polyp by hot snare, biopsy: Cauterized fragment of chronic mucosa. AM:yobani 09/16/2020 COMMENT A. Neither hyperplastic nor adenomatous change is identified. Clinical correlation is suggested. MICROSCOPIC DESCRIPTION Slides are reviewed. GROSS DESCRIPTION A - Received in fixative is one container labeled with the patient's name and designated descending polyp biopsy. The specimen consists of one irregular fragment of light clark soft tissue that measures 0.3 x 0.3 x 0.1 cm. The specimen is totally submitted in one cassette. B - Received in fixative is one container labeled with the patient's name and designated biopsy of rectal polyp. The specimen consists of one irregular fragment of light clark soft tissue that measures 0.3 x 0.3 x 0.1 cm. The specimen is totally submitted in one cassette. C - Received in fixative is one container labeled with the patient's name and designated rectal polyp hot snare. The specimen consists of scant fragments of tissue measuring 0.2 x 0.1 x 0.1 cm. / SJ:yobani 09/15/20 TC:4 CPT: 78612 x3
--- NOTE | 2020-09-15 06:51 | OP.CCLET_ITS ---
09/15/2020 Jorgito Villeda MD [address] [place] [address] Re : Colonoscopy procedure for Bartolo Carvalho Dear Dr. Villeda This procedure was performed on Tuesday, September 15, 2020. My impressions and recommendations are as follows: Impressions : - Hemorrhoids found on perianal exam. - One 4 mm polyp in the descending colon, removed with a cold biopsy forceps. Resected and retrieved. - One 5 mm polyp in the rectum, removed with a hot snare. Resected and retrieved. - Patent functional end-to-end ileo-colonic anastomosis. - Patent end-to-end colo-colonic anastomosis, characterized by healthy appearing mucosa. - Diverticulosis in the sigmoid colon. Recommendations : - Discharge patient to home. - Resume previous diet. - Continue present medications. - Repeat colonoscopy in 3 years for surveillance. - Telephone my office for pathology results in 1 week. My findings are described in the full procedure note, which is enclosed. If I can be of further assistance, please feel free to contact me at Doctor phone number(s): Work: . Sincerely, Vito Noel MD 09/15/2020 6:50:59 AM This report has been signed electronically.
--- NOTE | 2020-09-15 06:51 | OP.COLON_ITS ---
Patient Name: Bartolo Carvalho Procedure Date: 09/15/2020 6:13 AM Date of : 1945 Age: 74 Procedure: Colonoscopy Indications: High risk colon cancer surveillance: Personal history of colon cancer Providers: Vito Noel MD Referring MD: Jorgito Villeda MD Medicines: See the Anesthesia note for documentation of the administered medications Patient Profile: Last Colonoscopy: 1 year ago. Complications: No immediate complications. Procedure: Pre-Anesthesia Assessment: - Prior to the procedure, a History and Physical was performed, and patient medications and allergies were reviewed. The patient's tolerance of previous anesthesia was also reviewed. The risks and benefits of the procedure and the sedation options and risks were discussed with the patient. All questions were answered, and informed consent was obtained. Prior Anticoagulants: The patient has taken no previous anticoagulant or antiplatelet agents. ASA Grade Assessment: II - A patient with mild systemic disease. After reviewing the risks and benefits, the patient was deemed in satisfactory condition to undergo the procedure. After I obtained informed consent, the scope was passed under direct vision. Throughout the procedure, the patient's blood pressure, pulse, and oxygen saturations were monitored continuously. The Colonoscope was introduced through the anus and advanced to the cecum, identified by appendiceal orifice and ileocecal valve. The colonoscopy was performed without difficulty. The patient tolerated the procedure well. The quality of the bowel preparation was good. Scope In: 6:28:38 AM Scope Withdrawal Time 0 hours 12 minutes 24 seconds Scope Out: 6:42:58 AM Total Procedure Duration Time 0 hours 14 minutes 20 seconds Findings: Hemorrhoids were found on perianal exam. A 4 mm polyp was found in the descending colon. The polyp was sessile. The polyp was removed with a cold biopsy forceps. Resection and retrieval were complete. A 5 mm polyp was found in the rectum. The polyp was sessile. The polyp was removed with a hot snare. Resection and retrieval were complete. There was evidence of a prior functional end-to-end ileo-colonic anastomosis in the ascending colon. This was patent. There was evidence of a prior end-to-end colo-colonic anastomosis in the sigmoid colon. This was patent and was characterized by healthy appearing mucosa. A few diverticula were found in the sigmoid colon. A 4 mm polyp was found in the rectum. The polyp was sessile. The polyp was removed with a cold biopsy forceps. Resection and retrieval were complete. There was a small lipoma, in the descending colon. Impression: - Hemorrhoids found on perianal exam. - One 4 mm polyp in the descending colon, removed with a cold biopsy forceps. Resected and retrieved. - One 5 mm polyp in the rectum, removed with a hot snare. Resected and retrieved. - Patent functional end-to-end ileo-colonic anastomosis. - Patent end-to-end colo-colonic anastomosis, characterized by healthy appearing mucosa. - Diverticulosis in the sigmoid colon. Recommendation: - Discharge patient to home. - Resume previous diet. - Continue present medications. - Repeat colonoscopy in 3 years for surveillance. - Telephone my office for pathology results in 1 week. Procedure Code(s): --- Professional --- 69461, Colonoscopy, flexible; with removal of tumor(s), polyp(s), or other lesion(s) by snare technique 36998, 59, Colonoscopy, flexible; with biopsy, single or multiple Diagnosis Code(s): --- Professional --- Z85.038, Personal history of other malignant neoplasm of large intestine K64.9, Unspecified hemorrhoids D12.4, Benign neoplasm of descending colon K62.1, Rectal polyp Z98.0, Intestinal bypass and anastomosis status K57.30, Diverticulosis of large intestine without perforation or abscess without bleeding CPT copyright 2017 [employer]. All rights reserved. The codes documented in this report are preliminary and upon slope runner review may be revised to meet current compliance requirements. Vito Noel MD 09/15/2020 6:50:59 AM This report has been signed electronically. Number of Addenda: 0 Note Initiated On: 09/15/2020 6:13 AM
== END 2020-09-15 07:22 ==
LOC: EN 05:18 → AC 05:20
PROVIDERS: PCP Family Medicine Geriatric Medicine; Referring Provider Family Medicine Geriatric Medicine; Visit Provider Surgery
PROC: 0DJD8ZZ Inspection of Lower Intestinal Tract, Via Natural or Artificial Opening Endoscopic (ICD-10-PCS; CPT 45378; principal; 2020-09-15 06:25)
DX: Z12.11 Encounter for screening for malignant neoplasm of colon (principal); K62.1 Rectal polyp; K57.30 Diverticulosis of large intestine without perforation or abscess without bleeding; D17.79 Benign lipomatous neoplasm of other sites; K64.9 Unspecified hemorrhoids; Z85.038 Personal history of other malignant neoplasm of large intestine; C79.51 Secondary malignant neoplasm of bone; C61 Malignant neoplasm of prostate; I65.23 Occlusion and stenosis of bilateral carotid arteries; E03.9 Hypothyroidism, unspecified; F17.200 Nicotine dependence, unspecified, uncomplicated; Z98.0 Intestinal bypass and anastomosis status; Z79.899 Other long term (current) drug therapy; Z90.49 Acquired absence of other specified parts of digestive tract
CPT/HCPCS: 45380; 88305; J7120; J2405

== ENCOUNTER → 2020-10-27 12:28 | Outpatient (CLI) | payer MEDICARE, BC, SELFPAY ==
[2020-09-15 05:52] VITALS: BMI 27.7
[2020-10-27 14:26] LABS: PSA,Total- Diagnostic < 0.01 ng/mL (0.0-4.0)
== END ==
PROVIDERS: PCP Family Medicine Geriatric Medicine; Referring Provider Urology; Visit Provider Urology
DX: C61 Malignant neoplasm of prostate (principal)
CPT/HCPCS: 36415; 84153

== ENCOUNTER → 2020-11-16 13:29 | Outpatient (CLI) | payer MEDICARE, BC, SELFPAY ==
[2020-09-15 05:52] VITALS: BMI 27.7
--- NOTE | 2020-11-16 13:43 | CT_ITS ---
STUDY: CT ABDOMEN AND PELVIS WITH CONTRAST REASON FOR EXAM: Male, 75 years old. COLON CANCER-SURVEILLANCE -- HISTORY OF PROSTATE CA WITH BONE METS RADIATION DOSAGE (If Supplied By Facility): CTDIvol = ( 14.91 ) mGy, DLP = ( 1285.40 ) mGycm TECHNIQUE: Transaxial images were obtained from the dome of the diaphragm to the symphysis pubis without oral contrast. Oral and amp; IV Readi-CAT and amp; 100mL Isovue-300 was administered. Sagittal and coronal images were reconstructed. Individualized dose optimization techniques were used for this CT. COMPARISON: Comparison is made with prior examination dated 05/17/2020. FINDINGS: The visualized lung bases are unremarkable. Coronary artery calcification. There is decreased attenuation of the liver consistent with steatosis. There is a 5.6 cm x 6.3 cm hypodense mass within the posterior aspect of the right lobe of the liver. This has increased in size as compared to prior study. A previously measured 3.6 cm x 3.6 cm. Adjacent to this dominant nodule along the posterior medial aspect of the liver, there is a similar appearing hypodense mass measuring 3.5 cm x 2.9 cm. It previously measured 1.6 cm. The posterior inferior aspect of the liver shows area of increased uptake due to the hypervascularity. Normal gallbladder and extrahepatic biliary system. There are multiple benign calcified granulomata of the spleen. Normal pancreas. Normal bilateral adrenal glands. Normal right kidney. Normal left kidney. Normal visualized stomach. Normal small intestine. Normal colon. The appendix is visualized and appears normal. There is diffuse atherosclerotic calcification of the abdominal aorta and its major visceral branches, without a demonstrated aneurysm. Normal inferior vena cava. Normal retroperitoneum. The bladder is empty at the time of the examination. Normal abdominal wall. There are degenerative changes of the visualized lumbar spine. Heterogeneous appearance of the lumbar vertebrae suggestive of metastatic deposits. CT/Abdomen/Pelvis WITH Contrast IMPRESSION: Interval increase in size of the hypodensities in the posterior aspect of the right lobe of the liver and confirmed with liver metastasis. Heterogeneous appearance of the lumbar vertebrae in keeping with metastatic disease. Electronically Signed: Vincent Marley MD at 14:38 EDT , Service support ,
[2020-11-16 13:56] LABS: CREATININE FINGERSTICK 0.9 mg/dL (0.70-1.30); EGFR FINGERSTICK > 60.0000 mL/min (>60)
[2020-11-16 13:56] LABS: Absolute Neutrophil Count 5.7 X10^3/uL (2.0-7.7); Basophil# 0.04 X10^3/uL; Basophil% 0.4 % (0-1); Eosinophil# 0.22 X10^3/uL; Eosinophils% 2.3 % (0-5); Hematocrit 35.6 % (40-54); Hemoglobin 11.9 g/dL (13.0-16.5); Lymphocyte % 28.7 % (19-41); Mean Corp Hgb Conc 33.4 g/dL (32-36); Mean Corpuscular Hgb 32.8 pg (27.0-32.0); Mean Corpuscular Volume 98.1 fL (80-94); Monocyte# 0.76 X10^3/uL; Monocyte% 8.1 % (0-10); NRBC Flagged by Analyzer 0 % (0-5); Neutrophil # 5.65 X10^3/uL (2.7-7.7); Neutrophil % 60.2 % (47-70); Platelet Count 300 K/mm3 (150-450); RBC Distribution Width CV 14.9 % (11.6-14.6); RBC Distribution Width SD 54.1 fl (35.1-43.9); Red Blood Count 3.63 M/mm3 (4.6-6.2); White Blood Count 9.4 K/mm3 (4.4-11.0)
[2020-11-16 14:22] LABS: ALB/GLOB Ratio 1.2 RATIO (0.9-2.4); AST(SGOT) 24 U/L (15-37); Alanine Aminotransfer ALT/SGPT 15 U/L (16-61); Albumin, Serum 3.8 g/dL (3.2-5.0); Alkaline Phosphatase 146 U/L (45-117); Anion Gap 5 (5-15); BUN 18 mg/dL (7-18); BUN/Creat Ratio 20.3 RATIO (10-20); Calcium,Total 9.1 mg/dL (8.5-10.1); Chloride 107 mmol/L (98-107); Creatinine, Serum 0.89 mg/dL (0.70-1.30); EST Glomerular Filtration Rate 89 mL/min (>60); Est Glom Filt Rate - Afr Amer 108 mL/min (>60); Globulin 3.3 g/dL (2.2-4.2); Glucose 91 mg/dL (74-106); LDH 205 U/L (87-241); Potassium 4.3 mmol/L (3.5-5.1); Protein, Total 7.1 g/dL (6.4-8.2); Sodium Level 137 mmol/L (136-145)
[2020-11-18 07:42] LABS: Carcinoembryonic Antigen 15.7 ng/mL (0.0-4.7)
== END ==
PROVIDERS: PCP Family Medicine Geriatric Medicine; Referring Provider Internal Medicine Medical Oncology; Visit Provider Internal Medicine Medical Oncology
DX: C18.2 Malignant neoplasm of ascending colon (principal); C18.7 Malignant neoplasm of sigmoid colon
CPT/HCPCS: 36415; 74177; 80053; 82378; 83615; 85025; Q9967

== ENCOUNTER → 2020-11-17 13:36 | Outpatient (CLI) | payer MEDICARE, BC, SELFPAY ==
[2020-09-15 05:52] VITALS: BMI 27.7
--- NOTE | 2020-11-17 13:44 | RAD_ITS ---
STUDY: X-RAY - LEFT KNEE REASON FOR EXAM: Male, 75 years old. KNEE PAIN TECHNIQUE: 3 view(s) of the knee. COMPARISON: Comparison is made with prior study dated 07/12/2020. 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 Normal visualized proximal tibia and fibula. Normal proximal tibiofibular articulation. Normal medial femorotibial compartment. Normal lateral femorotibial compartment. Normal patellofemoral articulation. There are atherosclerotic calcifications. RAD/Knee 3 Views IMPRESSION: No acute abnormality is seen. Stable examination. Electronically Signed: Vincent Marley MD at 15:37 EDT , Service support ,
== END ==
PROVIDERS: PCP Family Medicine Geriatric Medicine; Referring Provider Family Medicine Geriatric Medicine; Visit Provider Family Medicine Geriatric Medicine
DX: M25.562 Pain in left knee (principal)
CPT/HCPCS: 73562

== ENCOUNTER → 2020-11-23 09:16 | Outpatient (CLI) | payer MEDICARE, BC, SELFPAY ==
[2020-09-15 05:52] VITALS: BMI 27.7
[2020-11-18 14:30] VITALS: BMI 28.3
--- NOTE | 2020-11-23 09:38 | BD_ITS ---
STUDY: DUAL ENERGY X-RAY ABSORPTIOMETRY / DXA REASON FOR EXAM: Male, 75 years old. PROSTATE TECHNIQUE: Bone Mineral Density (BMD) measurements of lumbar spine and right hip were obtained. COMPARISON: None. FINDINGS: Lumbar Spine (L1-L4): g/cm2 (1.176) / T-score (0.8) / Z-score (1.7) Findings are suggestive of normal bone density with a low fracture risk. Right Femur Total: g/cm2 (0.983) / T-score (-0.3) / Z-score (0.4) Right Femoral Neck: g/cm2 (0.870) / T-score (-0.4) / Z-score (0.8) BD/Dexa Bone Density Study IMPRESSION: The patient is considered normal as outlined below according to World David Organization (WHO) criteria with a low fracture risk. Reference Information: The T-score is the number of standard deviations above or below the standard which is normal for young adults at their peak bone mineral density. The World Health Organization (WHO) interprets the T-scores as follows: Above -1 Normal bone density Between -1 and -2.5 Osteopenia Equal to / or below -2.5 Osteoporosis As a practical clinical guideline, osteopenia may be graded as follows: Mild -1 through -1.5 Moderate -1.6 through -2.0 Severe -2.1 through -2.4 The Z-score is the number of standard deviations above or below age-matched controls. A Z-score of less than -1.5 would be considered abnormal. References: 1. NIH Osteoporosis and Related Bone Diseases www osteo.org 2. International Society for Clinical Densitometry www iscd.org 3. National Osteoporosis Foundation www nof.org Electronically Signed: Vincent Marley MD at 15:42 EDT , Service support ,
== END ==
PROVIDERS: PCP Family Medicine Geriatric Medicine; Referring Provider Urology; Visit Provider Urology
DX: C79.51 Secondary malignant neoplasm of bone (principal); Z09 Encounter for follow-up examination after completed treatment for conditions other than malignant neoplasm; C61 Malignant neoplasm of prostate
CPT/HCPCS: 77080

== ENCOUNTER → 2020-11-29 17:42 | Outpatient (CLI) | payer MEDICARE, BC, SELFPAY ==
[2020-11-24 10:09] VITALS: BMI 28.3
--- NOTE | 2020-11-29 17:47 | CT_ITS ---
STUDY: CT CHEST WITH CONTRAST REASON FOR EXAM: Male, 75 years old. Restaging, recurrent disease detected in the liver. History of prostate cancer with metastasis to the bone. Colon cancer. RADIATION DOSAGE (If Supplied By Facility): CTDIvol = ( 12.73 ) mGy, DLP = ( 474.67 ) mGycm TECHNIQUE: Transaxial imaging was performed following intravenous administration of IV 100mL Isovue-370. Multiplanar coronal and sagittal images were reformatted. Individualized dose optimization techniques were used for this CT. COMPARISON: Comparison is made with prior examination dated 05/21/2019. FINDINGS: Mild degree of emphysematous changes. There is a 1.8 cm bulla in the posterior medial aspect of the right lower lobe. There is no demonstrated pleural abnormality. There are calcifications of the coronary arteries. There are multiple small lymph nodes within the mediastinum, which are normal in size and morphology most compatible with reactive lymph hyperplasia. Normal hilar regions. Normal enhanced pulmonary arteries. Normal aorta arch and descending thoracic aorta. There are multi-level degenerative changes of the thoracic spine. Focal sclerotic density is seen in the T12 vertebrae. Hypoechoic solid nodules are seen in the liver. The largest is in the right lower lobe posteriorly and measures 5.7 cm x 5.9 cm. This is in keeping with the liver metastasis. Subcentimeters cyst is seen in the upper aspect of the spleen. CT/Chest WITH Contrast IMPRESSION: Mild degree of emphysematous changes. Liver metastasis. Sclerotic focus in the T12 vertebrae. Electronically Signed: Vincent Marley MD at 10:07 EDT , Service support ,
== END ==
PROVIDERS: PCP Family Medicine Geriatric Medicine; Referring Provider Nurse Practitioner Family; Visit Provider Nurse Practitioner Family
DX: C18.9 Malignant neoplasm of colon, unspecified (principal); C78.7 Secondary malignant neoplasm of liver and intrahepatic bile duct
CPT/HCPCS: 71260; Q9967

== ENCOUNTER → 2020-12-22 | Outpatient (CLI) | payer MEDICARE, BC, SELFPAY ==
[2020-12-02 10:30] VITALS: BMI 27.7
[2020-12-22] VITALS (10 sets, daily range): BP systolic 105–141; BP diastolic 56–80; PULSE 57–69; RESP 12–18; TEMP 36.6; O2SAT 37–98; BMI 27.4
--- NOTE | 2020-12-22 | ASPIGT_PTH ---
PATIENT: JUTSICE OWEN LOC: CT U#:[id number] AGE/SX: 75/M ROOM: RE12/22/[address]: ARTEM Wray : 1945 BED: DIS: 12/22/2020 SPEC #: [id number] RECD: 12/22/20 10:30 STATUS: JESUS ASHWIN #: [id number] NBA: 12/22/20 00:[address]: Izabel Ghotra NP DEPT: SURGICAL PATHOLOGY RECD BY: Andrea Burns ENTERED: 12/22/20 11:18 SP TYPE: ASP RAD OTHR DR: Dr. Jorgito Villeda MD Tissues: Liver, NOS Procedures: FNA Specimen Adequacy Special Stain Group II Surgery Specimen Level IV Imprint (control) HEADER OPERATION: CT-guided core biopsy, liver PRE-OP DIAGNOSIS: Liver mass TISSUE SUBMITTED: Liver 18-gauge MICROSCOPIC DIAGNOSIS Liver, CT-guided core biopsy: Metastatic adenocarcinoma, consistent with colonic primary. See comment. SJ:yobani 12/23/2020 COMMENT The specimen is evaluated at the time of biopsy by Dr. Langford. Immediate Evaluation = Malignant cells present. Immunohistochemistry ([id number]) supports the above diagnosis. Please make reference to previous specimen ([id number]) sigmoid colon, segmental colectomy with diagnosis of ?invasive moderately differentiated adenocarcinoma? and right colon, segmental colectomy with diagnosis of ?invasive moderately differentiated adenocarcinoma.? Case has been reviewed in consultation with Dr. Hamilton who concurs with the above diagnosis. IDC:AM MICROSCOPIC DESCRIPTION Slides are reviewed. GROSS DESCRIPTION Received in fixative is one container labeled with the patient's name and designated liver biopsy. The specimen consists of multiple irregular and elongated fragments of clark tissue that in aggregate measure 2 x 0.5 x <0.1 cm. The specimen is totally submitted in one cassette. / AM:yobani 12/22/20 TC:0 [facility]: [id number], [id number] ADDENDUM ADDENDUM ADDENDUM ADDENDUM ADDENDUM ADDENDUM ADDENDUM ADDENDUM ADDENDUM ADDENDUM ADDENDUM ADDENDUM ADDENDUM ADDENDUM ADDENDUM ADDENDUM ADDENDUM ADDENDUM ADDENDUM ADDENDUM ADDENDUM ADDENDUM ADDENDUM ADDENDUM ADDENDUM ADDENDUM ADDENDUM ADDENDUM ADDENDUM ADDENDUM ADDENDUM 01/18/2021 12:17 ADDENDUM 01/18/2021 12:17 ADDENDUM 01/18/2021 12:17 ADDENDUM 01/18/2021 12:17 ADDENDUM 01/18/2021 12:17 [facility] Advanced Solid Tumor NGS report 1. DETECTED GENOMIC ALTERATIONS Tier I: Variants of strong clinical significance KRAS p.(Avg69Dau) Tier II: Variants of potential clinical significance APC p. ([id number]) PIK3CA p. ([id number]) TP53 p. (Odl606Upi) Tier III: Variants of unknown clinical significance POLE p. ([id number]) 2. IMMUNOTHERAPY BIOMARKERS TUMOR MUTATIONS BURDEN: LOW (6.3 MUTATIONS/MB) MICROSATELLITE INSTABILITY: MSI NEGATIVE 3. INTERPRETATION SUMMARY A. A mutation in APC (p.([id number])) was detected in patient?s sample B. 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 Hotspot mutation in PIK3CA (p(.Qht2588Spc) ) was detected in this patient?s sample D. A mutation in TP53 p.(Lvs298Qix) was detected in this patient?s sample E. An unclear variant in POLE p.(Roa0440Vgx)) was detected in this patient?s sample F. The present sample analysis is NEGATIVE for evidence of high level Tumor Mutation Hurricane or high level microsatellite instability Results of the complete details of the tumor analysis are viewable in EMR under: Reports - Pathology - Lab Pathology Report, Scanned.
--- NOTE | 2020-12-22 09:00 | CT_ITS ---
PROCEDURE: CT DIRECTED CORE LIVER BIOPSY INDICATION: Male, 75 years old. Liver metastasis. PHYSICIAN: Dr. TAMMIE Frye CONSENT: Written informed consent was obtained having explained the risks, including infection and bleeding, benefits and alternatives in detail with the patient who accepted the risks and agreed to proceed. Laboratory review and clinical assessment was performed. CONSCIOUS SEDATION PROTOCOL: The Drugs used were: 2 mg Versed, IV., and 100 mcg Fentanyl, IV. The sedation time was: 23 minutes. Conscious sedation was started at 9:59 AM and terminated at 10:22 AM. The conscious sedation protocol was independently monitored. RADIATION DOSAGE (If Supplied By Facility): CTDIvol = ( 22 ) mGy, DLP = ( 155.4 ) mGycm Individualized dose optimization techniques were used for this CT. TECHNIQUE: Using CT image guidance with image documentation, a suitable location in the right lobe of the liver was identified. Using a right lateral approach, puncture of the liver was uneventful with an 18-gauge core needle system. 4 18-gauge core samples were obtained, and submitted in formalin to the pathologist for further assessment. Followup CT scan revealed no distinct sequelae. The patient tolerated the procedure well. CT/Biopsy/Inj or Needle Placement IMPRESSION: 1. CT directed core needle biopsy of the liver, using CT image guidance with image documentation as described. 2. Conscious Sedation protocol utilized with independent monitoring. Electronically Signed: Vincent Marley MD at 10:39 EDT , Service support ,
[2020-12-22 09:08] LABS: Absolute Lymphocyte Count 2.48 X10^3/uL (0.83-4.51); Absolute Neutrophil Count 5.2 X10^3/uL (2.0-7.7); Basophil# 0.04 X10^3/uL; Basophil% 0.5 % (0-1); Eosinophil# 0.15 X10^3/uL; Eosinophils% 1.7 % (0-5); Hematocrit 36.8 % (40-54); Hemoglobin 12.1 g/dL (13.0-16.5); Lymphocyte # 2.48 X10^3/ul (0.83-4.51); Lymphocyte % 28.1 % (19-41); Mean Corp Hgb Conc 32.9 g/dL (32-36); Mean Corpuscular Hgb 32.8 pg (27.0-32.0); Mean Corpuscular Volume 99.7 fL (80-94); Mean Platelet Vol. 10.2 fl (6.2-12.0); Monocyte# 0.89 X10^3/uL; Monocyte% 10.1 % (0-10); NRBC Flagged by Analyzer 0 % (0-5); Neutrophil # 5.22 X10^3/uL (2.7-7.7); Neutrophil % 59.1 % (47-70); Platelet Count 299 K/mm3 (150-450); RBC Distribution Width CV 14.5 % (11.6-14.6); Red Blood Count 3.69 M/mm3 (4.6-6.2); White Blood Count 8.8 K/mm3 (4.4-11.0)
[2020-12-22 09:20] LABS: Prothrombin Time (Protime)PT. 12.3 SECONDS (11.7-14.9)
[2020-12-22 09:21] LABS: Partial Thromboplast Time 34.9 Seconds (24.1-36.2)
[2020-12-22] MEDS: Midazolam 2 MG/2 ML Syringe IV (09:58)
[2020-12-22] MEDS: fentaNYL 100 MCG/2 ML Ampul IV ×2 (09:59→10:18)
[2020-12-22] MEDS: 0.9% Saline Lock 10 ML Syringe IV (10:05)
[2020-12-22] MEDS: Lidocaine 2% (20 ml mdv) 20 ML Vial INFILT (10:05)
--- NOTE | 2020-12-22 10:15 | IMM_PTH ---
PATIENT: JUSTICE OWEN LOC: CT U#:[id number] AGE/SX: 75/M ROOM: RE12/22/[address]: ARTEM Wray : 1945 BED: DIS: 12/22/2020 SPEC #: [id number] RECD: 12/22/20 15:09 STATUS: JESUS REQ #: [id number] NBA: 12/22/20 10:[address]: Izabel Ghotra NP DEPT: IMMUNOHISTOCHEMISTRY RECD BY: Gavi May ENTERED: 12/22/20 15:16 SP TYPE: IMMUNO OTHR DR: Dr. Jorgito Villeda MD Tissues: Liver, NOS Procedures: RCC (add) MSH2 (add) MLH-1 (add) MSH6 (add) Anti-PMS2 (add) NAPSIN A (add) CK20 (add) CK5-6 (add) CK7 (add) CK8 (add) FINK-2 (add) HEP PAR (add) HER2 YEYO (add) KI-67 (add) P53 (add) TTF1 (add) Pankeratin (initial) P40 (add) PSAP (add) PHYSICIAN & [place] [id number] SPECIMEN INFORMATION: Tissue Source: Liver mass, CT-guided core biopsy Clinical Info: Liver mass Specimen Number: [id number] CPT code: 79455, 86228 x18 METHODOLOGY: Deparaffinized sections of prefer/formalin-fixed tissue or PAP/DQ stained slides are incubated with monoclonal/polyclonal antibodies/oligonucleotide probes. Localization is made via biotin free immunoperoxidase method. Appropriate controls are performed and reacted as expected. Results on target cell population are indicated in the following table: RESULTS: ANTIBODY / CLONE RESULT AE1-3 (AE1/AE3/PCK26) positive CK7 (OV-TL12/30) negative CK8 (00qvqaY07) positive CK20 (KS20.8) positive TTF-1 (8G7G3/1) negative Napsin A (Rabbit Polyclonal) positive HepPar (OCh1E5) negative RCC (PN-15) negative PSAP (PASE/4LJ) negative CK5-6 (D5 & 1684) negative P40 (BC28) negative These tests were developed and their performance characteristics determined by [facility]. They may not have been cleared or approved by the U.S. Food and Drug Administration. The FDA has determined that such clearance or approval is not necessary. The above immunohistochemical/dualISH markers are ordered and reviewed by the Pathologist. INTERPRETATION: Liver mass, CT-guided core biopsy: Metastatic adenocarcinoma consistent with colonic primary. SJ:rg 12/23/2020 Case has been reviewed in consultation with Dr. Hamilton who concurs with the above diagnosis. IDC:AM ADDENDUM ADDENDUM ADDENDUM ADDENDUM ADDENDUM ADDENDUM ADDENDUM ADDENDUM ADDENDUM ADDENDUM ADDENDUM ADDENDUM ADDENDUM ADDENDUM ADDENDUM ADDENDUM ADDENDUM ADDENDUM 01/04/2021 10:03 ADDENDUM 01/04/2021 10:03 ADDENDUM 01/04/2021 10:03 ADDENDUM 01/04/2021 10:03 ADDENDUM 01/04/2021 10:03 ANTIBODY / CLONE RESULT Ki-67 (30-9) positive, high P53 (DO-7) positive FINK-2 (SP21) positive MLH-1 (M1) positive MSH2 (25D12) positive MSH6 (44) positive PMS2 (KVN5415) positive Her-2neu (CB11) negative (0) The above immunohistochemical/dualISH markers are ordered by Dr. Carpenter and reviewed by the pathologist. Result of Microsatellite Instability Study: Negative (no loss of mismatch protein; no microsatellite instability detected). SJ:yobani 01/04/2021
== END | disposition home or self-care (01) ==
LOC: CT 08:52
PROVIDERS: PCP Family Medicine Geriatric Medicine; Referring Provider Nurse Practitioner Family; Visit Provider Nurse Practitioner Family
DX: C78.7 Secondary malignant neoplasm of liver and intrahepatic bile duct (principal); C61 Malignant neoplasm of prostate; I65.23 Occlusion and stenosis of bilateral carotid arteries; D50.9 Iron deficiency anemia, unspecified
CPT/HCPCS: 47000; 36415; 77012; 85025; 85610; 85730; 88172; 88305; 88307; 88313; 88341; 88342; 99156; J7040; A4216

== ENCOUNTER → 2021-01-12 17:25 | Outpatient (CLI) | payer MEDICARE, BC, SELFPAY ==
--- NOTE | 2021-01-12 17:25 | MRI_ITS ---
STUDY: MRI BRAIN WITH AND WITHOUT CONTRAST REASON FOR EXAM: Male, 75 years old. METASTATIC COLON CANCER TECHNIQUE: Standardized multiplanar fat and water weighted pulse sequences were obtained. IV Yes YES was administered for the contrast portion of the examination. COMPARISON: None. FINDINGS: There is mild cerebral atrophy with widening of the extra-axial spaces and ventricular dilatation. There are a limited number of small white matter hyperintensities, distributed throughout the deep white matter tracts of the cerebral hemispheres, consistent with mild chronic white matter ischemic changes. Normal bilateral basal ganglia. There is no extra-axial fluid accumulation. There is a small left parietal developmental venous anomaly. There is no enhancing intra-axial or extra-axial abnormality. Normal sella turcica, pituitary gland, infundibular stalk, optic chiasm and hypothalamus. Normal tectal plate and pineal gland. Normal midbrain, winnie and medulla. Normal cerebellum. MRI/Brain W/WO Contrast IMPRESSION: No evidence of metastatic disease. Left parietal DVA Electronically Signed: Katy Ragland MD at 15:03 EDT Tel , Service support ,
[2021-01-13 06:51] LABS: CREATININE FINGERSTICK 1.2 mg/dL (0.70-1.30); EGFR FINGERSTICK > 60.0000 mL/min (>60)
== END ==
PROVIDERS: PCP Family Medicine Geriatric Medicine; Referring Provider Internal Medicine Medical Oncology; Visit Provider Internal Medicine Medical Oncology
DX: C18.7 Malignant neoplasm of sigmoid colon (principal); Z85.038 Personal history of other malignant neoplasm of large intestine
CPT/HCPCS: 70553; A9575

== ENCOUNTER → 2021-02-01 11:56 | Outpatient (CLI) | payer MEDICARE, BC, SELFPAY ==
[2021-02-01 12:57] LABS: Absolute Lymphocyte Count 1.89 X10^3/uL (0.83-4.51); Absolute Neutrophil Count 4.9 X10^3/uL (2.0-7.7); Basophil# 0.05 X10^3/uL; Basophil% 0.6 % (0-1); Eosinophil# 0.31 X10^3/uL; Eosinophils% 3.9 % (0-5); Hematocrit 35.7 % (40-54); Hemoglobin 11.6 g/dL (13.0-16.5); Lymphocyte # 1.89 X10^3/ul (0.83-4.51); Mean Corp Hgb Conc 32.5 g/dL (32-36); Mean Corpuscular Hgb 31.7 pg (27.0-32.0); Mean Corpuscular Volume 97.5 fL (80-94); Mean Platelet Vol. 10.8 fl (6.2-12.0); Monocyte# 0.69 X10^3/uL; Monocyte% 8.7 % (0-10); NRBC Flagged by Analyzer 0 % (0-5); Neutrophil # 4.93 X10^3/uL (2.7-7.7); Neutrophil % 62.5 % (47-70); Platelet Count 380 K/mm3 (150-450); RBC Distribution Width CV 14.6 % (11.6-14.6); RBC Distribution Width SD 52.3 fl (35.1-43.9); Red Blood Count 3.66 M/mm3 (4.6-6.2); White Blood Count 7.9 K/mm3 (4.4-11.0)
[2021-02-01 13:13] LABS: Vitamin D,25 Hydroxy 66.2 ng/mL
[2021-02-01 13:20] LABS: ALB/GLOB Ratio 0.8 RATIO (0.9-2.4); AST(SGOT) 25 U/L (15-37); Alanine Aminotransfer ALT/SGPT 23 U/L (16-61); Albumin, Serum 3.3 g/dL (3.2-5.0); Alkaline Phosphatase 229 U/L (45-117); Anion Gap 6 (5-15); BUN 20 mg/dL (7-18); BUN/Creat Ratio 19.8 RATIO (10-20); Calcium,Total 9.7 mg/dL (8.5-10.1); Chloride 104 mmol/L (98-107); Creatinine, Serum 1.01 mg/dL (0.70-1.30); EST Glomerular Filtration Rate 77 mL/min (>60); Est Glom Filt Rate - Afr Amer 93 mL/min (>60); Globulin 4.3 g/dL (2.2-4.2); Glucose 122 mg/dL (74-106); PSA,Total- Diagnostic < 0.01 ng/mL (0.0-4.0); Potassium 4.1 mmol/L (3.5-5.1); Protein, Total 7.6 g/dL (6.4-8.2); Sodium Level 137 mmol/L (136-145)
== END ==
PROVIDERS: PCP Family Medicine Geriatric Medicine; Visit Provider Family Medicine Geriatric Medicine
DX: I10 Essential (primary) hypertension (principal); E55.9 Vitamin D deficiency, unspecified; F52.8 Other sexual dysfunction not due to a substance or known physiological condition; C61 Malignant neoplasm of prostate
CPT/HCPCS: 36415; 80053; 82306; 84153; 84403; 84443; 85025

== ENCOUNTER → 2021-04-19 13:38 | Outpatient (CLI) | payer MEDICARE, BC, SELFPAY ==
--- NOTE | 2021-04-19 13:39 | CT_ITS ---
STUDY: CT ABDOMEN AND PELVIS WITH CONTRAST REASON FOR EXAM: Male, 75 years old. ASSESS TREATMENT RESPONSE. History of colon cancer and prior colectomy. History of prostate cancer and bone metastasis. RADIATION DOSAGE (If Supplied By Facility): CTDIvol = ( 16.17 ) mGy, DLP = ( 1039.36 ) mGycm TECHNIQUE: Transaxial images were obtained from the dome of the diaphragm to the symphysis pubis without oral contrast. IV 100mL Isovue-300 was administered. Sagittal and coronal images were reconstructed. Individualized dose optimization techniques were used for this CT. COMPARISON: Comparison is made with prior study dated 11/16/2020. FINDINGS: The visualized lung bases are unremarkable. Coronary artery calcification. There is decreased attenuation of the liver consistent with steatosis. The previously seen hypodense mass in the posterior aspect of the right lobe of the liver laterally has decreased in size. It presently measures 5 cm x 4.5 cm. Adjacent to this, there is a similar appearing hypodense mass. This measures 4.3 cm x 3.3 cm. This has increased slightly in size as compared to prior study. There now is evidence of a new 1 cm hypodense nodule in the inferior portion of the right lobe of the liver. There is also evidence of a new 1.4 cm x 4.1 cm subcapsular hypodense mass in the inferior lateral aspect of the right lobe of the liver. The patient is status post cholecystectomy. There are multiple benign calcified granulomata of the spleen. Normal pancreas. There is a 1.7 cm hypodense nodule in the lateral limb of the left leg. This is new as compared to prior study. Normal right kidney. Normal left kidney. Normal visualized stomach. Normal small intestine. Normal colon. The appendix is visualized and appears normal. There is diffuse atherosclerotic calcification of the abdominal aorta, without a demonstrated aneurysm. Normal inferior vena cava. Normal retroperitoneum. The urinary bladder is empty at the time of the examination. Normal abdominal wall. Once again, there is heterogeneous appearance of the lumbar vertebrae suggestive of a bony metastasis. CT/Abdomen/Pelvis WITH Contrast IMPRESSION: Progressive enlargement of a hypodense mass in the posterior medial aspect of the right lobe of the liver as well as a new subcapsular mass as described within the liver. Electronically Signed: Vincent Marley MD at 9:45 EST , Service support ,
[2021-04-19] MEDS: 0.9% Saline Lock 10 ML Syringe IV (14:04)
== END ==
PROVIDERS: PCP Family Medicine Geriatric Medicine; Referring Provider Internal Medicine Medical Oncology; Visit Provider Internal Medicine Medical Oncology
DX: C18.7 Malignant neoplasm of sigmoid colon (principal)
CPT/HCPCS: 74177; Q9967; A4216

== ENCOUNTER 2021-06-14 13:48 | Outpatient (CLI) | payer MEDICARE, BC, SELFPAY ==
[2021-06-14 15:44] LABS: Anion Gap 4 (5-15); BUN 16 mg/dL (7-18); BUN/Creat Ratio 16.6 RATIO (10-20); Calcium,Total 9.5 mg/dL (8.5-10.1); Chloride 112 mmol/L (98-107); Creatinine, Serum 0.97 mg/dL (0.70-1.30); EST Glomerular Filtration Rate 81 mL/min (>60); Est Glom Filt Rate - Afr Amer 98 mL/min (>60); Glucose 92 mg/dL (74-106); Potassium 4.7 mmol/L (3.5-5.1); Sodium Level 141 mmol/L (136-145)
[2021-06-14 15:50] LABS: Absolute Lymphocyte Count 2.37 X10^3/uL (0.83-4.51); Absolute Neutrophil Count 2.6 X10^3/uL (2.0-7.7); Basophil# 0.05 X10^3/uL; Basophil% 0.8 % (0-1); Eosinophil# 0.16 X10^3/uL; Eosinophils% 2.6 % (0-5); Hematocrit 31.8 % (40-54); Hemoglobin 10.9 g/dL (13.0-16.5); Lymphocyte # 2.37 X10^3/ul (0.83-4.51); Lymphocyte % 38.5 % (19-41); Mean Corp Hgb Conc 34.3 g/dL (32-36); Mean Corpuscular Hgb 37.8 pg (27.0-32.0); Mean Corpuscular Volume 110.4 fL (80-94); Monocyte# 0.93 X10^3/uL; Monocyte% 15.1 % (0-10); NRBC Flagged by Analyzer 0 % (0-5); Neutrophil # 2.61 X10^3/uL (2.7-7.7); Neutrophil % 42.5 % (47-70); POSITIVE MORPHOLOGY YES; Platelet Count 190 K/mm3 (150-450); RBC Distribution Width CV 16.7 % (11.6-14.6); RBC Distribution Width SD 68.9 fl (35.1-43.9); Red Blood Count 2.88 M/mm3 (4.6-6.2); White Blood Count 6.2 K/mm3 (4.4-11.0)
[2021-06-14 15:55] LABS: Differential Indicated SCAN CRITERIA MET
[2021-06-14 16:16] LABS: Prothrombin Time (Protime)PT. 12.3 SECONDS (11.7-14.9)
== END 2021-06-14 23:59 | disposition short-term general hospital (02) ==
LOC: POLAB3 13:49
PROVIDERS: PCP Family Medicine Geriatric Medicine; Visit Provider Family Medicine Geriatric Medicine
DX: Z01.818 Encounter for other preprocedural examination (principal)
CPT/HCPCS: 36415; 80048; 85025; 85610; 96523; A4216

== ENCOUNTER 2021-08-08 13:33 | Outpatient (CLI) | payer MEDICARE, BC, SELFPAY ==
[2021-08-08 17:34] LABS: Absolute Lymphocyte Count 2.62 X10^3/uL (0.83-4.51); Absolute Neutrophil Count 2.8 X10^3/uL (2.0-7.7); Basophil# 0.05 X10^3/uL; Basophil% 0.8 % (0-1); Eosinophil# 0.12 X10^3/uL; Eosinophils% 1.9 % (0-5); Hematocrit 32.7 % (40-54); Hemoglobin 10.9 g/dL (13.0-16.5); Lymphocyte # 2.62 X10^3/ul (0.83-4.51); Lymphocyte % 41.4 % (19-41); Mean Corp Hgb Conc 33.3 g/dL (32-36); Mean Corpuscular Hgb 34.2 pg (27.0-32.0); Mean Corpuscular Volume 102.5 fL (80-94); Mean Platelet Vol. 11.5 fl (6.2-12.0); Monocyte% 11.1 % (0-10); NRBC Flagged by Analyzer 0 % (0-5); Neutrophil # 2.83 X10^3/uL (2.7-7.7); Neutrophil % 44.6 % (47-70); POSITIVE MORPHOLOGY YES; Platelet Count 223 K/mm3 (150-450); RBC Distribution Width CV 18.8 % (11.6-14.6); RBC Distribution Width SD 71.4 fl (35.1-43.9); Red Blood Count 3.19 M/mm3 (4.6-6.2); White Blood Count 6.3 K/mm3 (4.4-11.0)
[2021-08-08 18:01] LABS: ALB/GLOB Ratio 0.8 RATIO (0.9-2.4); AST(SGOT) 25 U/L (15-37); Alanine Aminotransfer ALT/SGPT 13 U/L (16-61); Alkaline Phosphatase 177 U/L (45-117); Anion Gap 9 (5-15); BUN 10 mg/dL (7-18); BUN/Creat Ratio 11.7 RATIO (10-20); Calcium,Total 9.1 mg/dL (8.5-10.1); Chloride 107 mmol/L (98-107); Creatinine, Serum 0.86 mg/dL (0.70-1.30); EST Glomerular Filtration Rate 93 mL/min (>60); Est Glom Filt Rate - Afr Amer 112 mL/min (>60); Globulin 3.7 g/dL (2.2-4.2); Glucose 90 mg/dL (74-106); Potassium 4.3 mmol/L (3.5-5.1); Protein, Total 6.7 g/dL (6.4-8.2); Sodium Level 138 mmol/L (136-145); Thyroid Stim Hormone (TSH) 2.97 uIU/mL (0.358-3.74)
[2021-08-08 18:10] LABS: Differential Indicated SCAN CRITERIA MET
[2021-08-08 18:19] LABS: Anisocytosis 1+; Macrocytosis 2+; Ovalocyte RARE; Platelet Estimate ADEQUATE (ADEQ); Red Cell Morphology N CHROM NORMAL (NORM C&C)
[2021-08-08 18:35] LABS: Vitamin D,25 Hydroxy 37.5 ng/mL
== END 2021-08-08 23:59 | disposition home or self-care (01) ==
LOC: POLAB3 13:36
PROVIDERS: PCP Family Medicine Geriatric Medicine; Visit Provider Family Medicine Geriatric Medicine
DX: E55.9 Vitamin D deficiency, unspecified (principal); F52.8 Other sexual dysfunction not due to a substance or known physiological condition; I10 Essential (primary) hypertension
CPT/HCPCS: 36415; 80053; 82306; 84403; 84443; 85025

== ENCOUNTER 2021-08-30 14:13 | Outpatient (CLI) | payer MEDICARE, BC, SELFPAY ==
[2021-08-30 15:53] LABS: PSA,Total- Diagnostic < 0.01 ng/mL (0.0-4.0)
== END 2021-08-30 23:59 | disposition home or self-care (01) ==
LOC: LAB 14:16
PROVIDERS: PCP Family Medicine Geriatric Medicine; Visit Provider Registered Nurse
DX: C61 Malignant neoplasm of prostate (principal)
CPT/HCPCS: 36415; 84153

== ENCOUNTER → 2021-10-17 | Outpatient (CLI) | payer MEDICARE, BC, SELFPAY ==
--- NOTE | 2021-10-17 12:37 | CT_ITS ---
STUDY: CT ABDOMEN AND PELVIS WITH CONTRAST REASON FOR EXAM: Male, 75 years old. MONITOR COLON CANCER. The patient is status post prior partial colectomy. History of metastatic prostate carcinoma. RADIATION DOSAGE (If Supplied By Facility): CTDIvol = ( 11.08 ) mGy, DLP = ( 629.15 ) mGycm TECHNIQUE: Transaxial images were obtained from the dome of the diaphragm to the symphysis pubis without oral contrast. IV 100mL Isovue-300 was administered. Sagittal and coronal images were reconstructed. Individualized dose optimization techniques were used for this CT. COMPARISON: Comparison is made with prior study dated 04/19/2021. FINDINGS: The visualized lung bases are unremarkable. The visualized portions of the heart are within normal limits. There is decreased attenuation of the liver consistent with steatosis. Since prior study, the patient underwent partial right hepatectomy with resection of the previously seen hypodense masses in the posterior aspect of the right lobe of the liver. There are surgical clips in the gallbladder fossa consistent with a prior cholecystectomy. Normal spleen. Normal pancreas. Since prior study, the hypodense mass seen in the lateral limb of the left adrenal gland has increased in size. It presently measures 2.5 cm x 2.6 cm. Normal right kidney. Normal left kidney. Normal visualized stomach. Normal small intestine. Surgical anastomosis seen at the level of the rectosigmoid colon. Surgical anastomosis also seen in the region of the hepatic flexure. The appendix is visualized and appears normal. There is diffuse atherosclerotic calcification of the abdominal aorta, without a demonstrated aneurysm. Normal inferior vena cava. Normal retroperitoneum. Normal urinary bladder. There are prostatic calcifications. Normal abdominal wall. Stable heterogeneous appearance of the lumbar vertebrae. CT/Abdomen/Pelvis W IV Cont ONLY IMPRESSION: Status post partial hepatectomy of the posterior aspect of the right lobe of the liver. Interval increase in size of the left adrenal mass present measuring 2.5 cm x 2.6 cm. Electronically Signed: Vincent Marley MD at 14:24 EDT ,
[2021-10-17 12:39] LABS: Absolute Lymphocyte Count 2.88 X10^3/uL (0.83-4.51); Absolute Neutrophil Count 2.8 X10^3/uL (2.0-7.7); Basophil# 0.04 X10^3/uL; Basophil% 0.6 % (0-1); Eosinophil# 0.17 X10^3/uL; Eosinophils% 2.5 % (0-5); Hematocrit 31.3 % (40-54); Hemoglobin 10.5 g/dL (13.0-16.5); Lymphocyte # 2.88 X10^3/ul (0.83-4.51); Lymphocyte % 42.9 % (19-41); Mean Corp Hgb Conc 33.5 g/dL (32-36); Mean Corpuscular Hgb 34.8 pg (27.0-32.0); Mean Corpuscular Volume 103.6 fL (80-94); Mean Platelet Vol. 10.5 fl (6.2-12.0); Monocyte# 0.77 X10^3/uL; Monocyte% 11.5 % (0-10); NRBC Flagged by Analyzer 0 % (0-5); Neutrophil # 2.84 X10^3/uL (2.7-7.7); Neutrophil % 42.2 % (47-70); POSITIVE MORPHOLOGY YES; Platelet Count 252 K/mm3 (150-450); RBC Distribution Width CV 15.6 % (11.6-14.6); RBC Distribution Width SD 58.4 fl (35.1-43.9); Red Blood Count 3.02 M/mm3 (4.6-6.2); White Blood Count 6.7 K/mm3 (4.4-11.0)
[2021-10-17 12:41] LABS: Differential Indicated SCAN CRITERIA MET
[2021-10-17 12:50] LABS: CREATININE FINGERSTICK < 0.9 mg/dL (0.70-1.30); EGFR FINGERSTICK > 60.0000 mL/min (>60)
[2021-10-17] MEDS: 0.9% Saline Lock 10 ML Syringe IV (13:00)
[2021-10-17 13:08] LABS: ALB/GLOB Ratio 0.8 RATIO (0.9-2.4); AST(SGOT) 20 U/L (15-37); Alanine Aminotransfer ALT/SGPT 12 U/L (16-61); Albumin, Serum 3.2 g/dL (3.2-5.0); Alkaline Phosphatase 180 U/L (45-117); Anion Gap 7 (5-15); BUN 17 mg/dL (7-18); BUN/Creat Ratio 18.9 RATIO (10-20); Calcium,Total 9.3 mg/dL (8.5-10.1); Chloride 109 mmol/L (98-107); EST Glomerular Filtration Rate 88 mL/min (>60); Est Glom Filt Rate - Afr Amer 106 mL/min (>60); Globulin 3.9 g/dL (2.2-4.2); Glucose 98 mg/dL (74-106); LDH 180 U/L (87-241); Potassium 4.4 mmol/L (3.5-5.1); Protein, Total 7.1 g/dL (6.4-8.2); Sodium Level 139 mmol/L (136-145)
[2021-10-17 13:19] LABS: Differential Comment SCANNED; Reactive Lymphocyte 1+
[2021-10-18 16:45] LABS: Carcinoembryonic Antigen 2.2 ng/mL (0.0-4.7)
== END | disposition home or self-care (01) ==
LOC: CT 12:26
PROVIDERS: PCP Family Medicine Geriatric Medicine; Referring Provider Internal Medicine Medical Oncology; Visit Provider Internal Medicine Medical Oncology
DX: C18.9 Malignant neoplasm of colon, unspecified (principal); Z90.49 Acquired absence of other specified parts of digestive tract; Z85.46 Personal history of malignant neoplasm of prostate
CPT/HCPCS: 36415; 74177; 80053; 82378; 83615; 85025; Q9967; A4216

== ENCOUNTER → 2022-01-17 | Outpatient (CLI) | payer MEDICARE, BC, SELFPAY ==
--- NOTE | 2022-01-17 13:48 | CT_ITS ---
STUDY: CT ABDOMEN AND PELVIS WITH CONTRAST REASON FOR EXAM: Male, 76 years old. Colon cancer monitoring. RADIATION DOSAGE (If Supplied By Facility): CTDIvol = ( 11.3 ) mGy, DLP = ( 647.05 ) mGycm TECHNIQUE: Transaxial images were obtained from the dome of the diaphragm to the symphysis pubis without oral contrast. 100 mL Isovue 300 was administered. Sagittal and coronal images were reconstructed. Individualized dose optimization techniques were used for this CT. COMPARISON: April 19, 2021. Report of PET/CT scan January 11, 2021. FINDINGS: The visualized lung bases are unremarkable. The visualized portions of the heart are within normal limits. Defect along the surgical clips posterior segment right lobe of the liver compatible with tumor resection. No recurrence of tumor visualized. There are surgical clips in the gallbladder fossa consistent with a prior cholecystectomy. 0.4 cm low-attenuation lesion mid portion spleen are unchanged. Normal pancreas. Normal right adrenal gland. Increase in size of left adrenal nodule now measuring 2.8 x 2.3 cm as compared to the prior study where it measured 1.9 x 1.6 cm as determined by this examiner on both exams. Attenuation of the adrenal nodule not diagnostic of an adrenal adenoma. Normal right kidney. Normal left kidney. Normal visualized stomach. 0.7 cm lipoma unchanged third portion duodenum coronal image 59. There are now suture lines in the proximal transverse colon and sigmoid colon. Resection of the proximal colon. Slightly distal to the suture line proximal transverse colon there is a 5.3 cm segment of wall thickening coronal image 38 and axial images 48 through 54. There is non-visualization of the appendix. There are atherosclerotic changes of the abdominal aorta. Normal inferior vena cava. Normal retroperitoneum. No intra-abdominal free air. Normal urinary bladder. Prostate gland is not enlarged. Normal abdominal wall. Scattered mild sclerotic densities in the spine unchanged. In view of the finding on the PET CT scan these probably do not represent metastatic disease. Mild anterior wedging of upper lumbar vertebral bodies unchanged. Degenerative changes of the lower thoracic spine. CT/Abdomen/Pelvis W IV Cont ONLY IMPRESSION: Wall thickening involving a short segment of the transverse colon slightly distal to the suture line. This finding may represent recurrence of tumor. Postoperative changes of tumor resection right lobe of the liver without recurrence of tumor visualized. Increase in size of left adrenal nodule which requires follow-up. Very small low attenuation lesion within the spleen unchanged which probably represents a cyst or hemangioma. This can be correlated with ultrasound. Electronically Signed: Bo Burns MD at 8:22 EDT Reading Location ID and State: [id number] / , Service support ,
[2022-01-17] MEDS: 0.9% Saline Lock 10 ML Syringe IV (14:07)
[2022-01-17 14:16] LABS: CREATININE FINGERSTICK < 0.9 mg/dL (0.70-1.30); EGFR FINGERSTICK > 60.0000 mL/min (>60)
== END | disposition home or self-care (01) ==
LOC: CT 13:47
PROVIDERS: PCP Family Medicine Geriatric Medicine; Referring Provider Internal Medicine Medical Oncology; Visit Provider Internal Medicine Medical Oncology
DX: C18.9 Malignant neoplasm of colon, unspecified (principal)
CPT/HCPCS: 74177; Q9967; A4216

== ENCOUNTER 2022-01-29 21:12 | Emergency (ER) | payer MEDICARE, BC, SELFPAY ==
[2022-01-29 21:14] VITALS: BP 149/84; PULSE 61; RESP 18; TEMP 36.4; O2SAT 100; BMI 22.6
[2022-01-29] MEDS: 0.9% Normal Saline 1,000 ML 1000 ML IV (22:20)
--- NOTE | 2022-01-29 22:29 | RAD_ITS ---
STUDY: X-RAY CHEST REASON FOR EXAM: Male, 76 years old. Weakness TECHNIQUE: Single AP portable view of the chest. COMPARISON: 04/23/2019 FINDINGS: Interval placement of right subclavian chest port with tip the catheter overlying the superior vena cava and with no pneumothorax. The lungs are clear and expanded. There is no demonstrated pleural abnormality. Normal size heart. Normal mediastinum and augustin. Normal visualized pulmonary arteries. Normal visualized aortic arch and descending thoracic aorta. Normal visualized thoracic spine. Normal visualized ribs, clavicles, and shoulders. There is no demonstrated abnormality of the visualized soft tissue structures of the upper abdomen. RAD/Chest 1 View (Portable) IMPRESSION: No active disease. Electronically Signed: Bartolo Bolton MD at 23:02 EDT ,
[2022-01-29 22:37] LABS: Red Blood Cells-Urine 0 SEEN /hpf (0-5); White Blood Cells 0 SEEN /hpf (0-5)
[2022-01-29 22:40] LABS: Absolute Lymphocyte Count 1.26 X10^3/uL (0.83-4.51); Absolute Neutrophil Count 4.9 X10^3/uL (2.0-7.7); Basophil# 0.02 X10^3/uL; Basophil% 0.3 % (0-1); Eosinophil# 0.07 X10^3/uL; Hematocrit 32.8 % (40-54); Hemoglobin 11.4 g/dL (13.0-16.5); Lymphocyte # 1.26 X10^3/ul (0.83-4.51); Lymphocyte % 18.5 % (19-41); Mean Corp Hgb Conc 34.8 g/dL (32-36); Mean Corpuscular Hgb 34.4 pg (27.0-32.0); Mean Corpuscular Volume 99.1 fL (80-94); Mean Platelet Vol. 10.3 fl (6.2-12.0); Monocyte# 0.53 X10^3/uL; Monocyte% 7.8 % (0-10); NRBC Flagged by Analyzer 0 % (0-5); Neutrophil # 4.92 X10^3/uL (2.7-7.7); Neutrophil % 72.1 % (47-70); Platelet Count 165 K/mm3 (150-450); RBC Distribution Width CV 12.6 % (11.6-14.6); RBC Distribution Width SD 45.7 fl (35.1-43.9); Red Blood Count 3.31 M/mm3 (4.6-6.2); White Blood Count 6.8 K/mm3 (4.4-11.0)
[2022-01-29 22:46] LABS: Color, Urine Yellow (Yellow); Glucose, Dipstick Normal (Normal); Ketone-Dipstick 5 mg/dl (Negative); Leukocyte Esterase-Dipstick Negative /ul (Negative); Nitrite-Dipstick Negative (Negative); Occult Blood-Urine Negative /ul (Negative); Protein-Dipstick 15 mg/dl (Negative); Specific Gravity, Urine 1.025 (1.002-1.030); Urine Bilirubin Dipstick Negative (Negative); Urine Clarity Clear (Clear); Urine Urobilinogen Normal (Normal)
[2022-01-29 22:54] LABS: Squamous Epithelial Cells - UA 0-5 SEEN /hpf (0-5)
[2022-01-29 22:55] LABS: Bacteria 1+ /hpf (None Seen); Mucous, Urine 1+ /hpf (<or=2+)
[2022-01-29 22:57] LABS: International Normalized Ratio 0.9; Prothrombin Time (Protime)PT. 12.3 SECONDS (11.7-14.9)
[2022-01-29 22:58] LABS: Partial Thromboplast Time 34.3 Seconds (24.1-36.2)
[2022-01-29 22:59] LABS: ALB/GLOB Ratio 1.1 RATIO (0.9-2.4); AST(SGOT) 16 U/L (15-37); Alanine Aminotransfer ALT/SGPT 9 U/L (16-61); Alkaline Phosphatase 107 U/L (45-117); Anion Gap 8 (5-15); BUN 14 mg/dL (7-18); BUN/Creat Ratio 18.3 RATIO (10-20); Calcium,Total 8.5 mg/dL (8.5-10.1); Chloride 108 mmol/L (98-107); Creatinine, Serum 0.76 mg/dL (0.70-1.30); EST Glomerular Filtration Rate 106 mL/min (>60); Est Glom Filt Rate - Afr Amer 128 mL/min (>60); Estimated Creatinine Clearance 69.39 ml/min; Globulin 2.8 g/dL (2.2-4.2); Glucose 98 mg/dL (74-106); Potassium 3.8 mmol/L (3.5-5.1); Protein, Total 5.8 g/dL (6.4-8.2); Sodium Level 142 mmol/L (136-145); Troponin-I HS 8 pg/mL (3.0-78.0)
[2022-01-29 23:08] LABS: Lactic Acid 1.2 mmol/L (0.4-1.9)
--- NOTE | 2022-01-30 00:15 | EX.ED.DYSGE1 ---
HPI History of Present Illness Chief Complaint: General Illness Informant: patient Onset/Context/Timing Onset: Weeks (1) Context: Gradual Onset Timing: Continuous Quality: Weakness Location: Generalized Worsened by: Nothing Relieved by: Nothing Narrative Narrative: Patient presents with dizziness and weakness that has been getting progressively worse over the past week. Patient states he feels weak all over. Patient states nothing makes it better and nothing makes it worse. Patient admits to some nausea but denies any vomiting. Patient has a history of colon cancer and prostate cancer. Patient states he is scheduled for a PET scan this week. Patient denies any chest pain or shortness of breath. Patient denies any vomiting or diarrhea. Patient denies any urinary complaints. [facility] Medical History Colon cancer Cortisone injection Fatigue Hypothyroidism Knee pain, bilateral Liver lesion, right lobe Loose, teeth Prostate cancer metastatic to bone Restless legs Smoker Tobacco abuse Wears hearing aid in both ears Home Medications aspirin 81 mg tablet,delayed release 81 mg PO QHS 06/16/19 [History Last Taken 01/27/22] levothyroxine 25 mcg tablet 25 mcg PO DAILY 08/14/19 [History Last Taken 12/22/20 07:00] lidocaine-prilocaine 2.5 %-2.5 % topical cream 1 applic topical ONCE PRN port access 30 days #30 grams 02/21/21 [Rx Last Taken Unknown] citalopram 10 mg tablet 10 mg PO DAILY 01/29/22 [History Last Taken Unknown] enzalutamide 40 mg capsule (Xtandi) 160 mg PO DAILY 01/29/22 [History Last Taken Unknown] mirtazapine 7.5 mg tablet 7.5 mg PO QHS 01/29/22 [History Last Taken Unknown] polysaccharide iron complex 150 mg iron capsule (Ferrex) 150 mg PO DAILY 01/29/22 [History Last Taken Unknown] Allergy/AdvReac Type Severity Reaction Status Date / Time No Known Allergies Allergy Verified 07/27/21 13:56 Family History Mother Cancer Surgical History History of biopsy History of colonoscopy (~06/18/19) History of left-sided carotid endarterectomy S/P colectomy Social History Smoking Status: Current every day smoker tobacco type: cigarettes Tobacco: How many years used: 50 second hand exposure: Yes alcohol intake: never details: substance use type: does not use seatbelt use: always do you feel safe at home: Yes ROS ROS ED Constitutional Constitutional ED: Denies chills or fever(s) Eyes Eyes: Denies blurry vision or change in vision ENT ENT ED: Denies rhinorrhea or sore throat Cardiovascular Cardiovascular: Denies chest pain or palpitations Respiratory/Chest Respiratory/Chest: Denies cough or dyspnea Gastrointestinal Gastrointestinal: Reports nausea; Denies vomiting Genitourinary Genitourinary ED: Denies dysuria or hematuria Musculoskeletal Musculoskeletal: Denies back pain or neck pain Integumentary Denies abscess or rash Neurologic Neurologic: Reports weakness; Denies headache(s) Allergic/Immunologic Allergic/Immunologic ED: Denies mouth swelling or urticaria EXAM Physical Exam Const Vital Signs: 01/29/22 21:14 01/29/22 21:28 01/30/22 00:17 Temperature 97.6 F L Temperature Source Oral Pulse Rate 61 54 L Respiratory Rate 18 14 Respiratory Effort Normal Respiratory Pattern Normal Blood Pressure 149/84 H 136/67 H Blood Pressure Mean 105 90 Pulse Ox 100 Oxygen Delivery Method Room Air Room Air Positive well nourished and well developed General Appearance ED: well developed HEENT Reports moist mucous membranes Neck supple and no JVD Resp normal respiratory effort and clear to auscultation bilaterally Cardio regular rate, regular rhythm and no murmurs GI normal to inspection, nondistended, normoactive bowel sounds and non-tender Palpation: soft Extremity normal to inspection General Extremety ED: Negative for edema or tenderness General Extremity: Negative for edema Neuro oriented x3, CN's II-XII intact bilaterally and no sensory deficits noted Sensorium / Orientation: alert Motor Exam: strength 5/5 throughout Psych mental status grossly normal Skin no rashes or lesions noted MDM MDM MDM Narrative Medical decision making narrative: Patient was given IV fluids. CBC shows a mild anemia with a hemoglobin of 11.4 and hematocrit 32.8. Platelets were normal. PT with INR and PTT are within normal limits. Urinalysis does not show any evidence of urinary tract infection or hematuria. Comprehensive metabolic profile was within normal limits. Lactate was normal. High-sensitivity troponin was normal. Portable 1 view chest x-ray was obtained. On my interpretation, lung galeano are clear. There is normal cardiac silhouette. Bony thorax is normal. There is no acute process noted. Radiologist also interpreted the x-ray and agrees. EKG was obtained. On my interpretation, shows a sinus bradycardia with a rate of 53. There is left axis deviation at -45. ME interval, QRS interval, and QTc intervals were all normal. There are no acute ST or T wave changes. There is a left anterior fascicular block. Patient is feeling better on reevaluation. Patient was able to ambulate without difficulty. Patient was advised of his findings. Patient was agreeable with being discharged home. Patient will follow-up as an outpatient with his primary care doctor and oncologist as scheduled. Patient understood and was agreeable with the plan. All questions were answered. Lab Data Attestation: I reviewed the patient's lab results. Labs: Laboratory Results - last 24 hr 01/29/22 01/29/22 01/29/22 22:25 22:26 22:26 WBC 6.8 RBC 3.31 L Hgb 11.4 L Hct 32.8 L MCV 99.1 H MCH 34.4 H MCHC 34.8 RDW Std Deviation 45.7 H RDW Coeff of Lisa 12.6 Plt Count 165 MPV 10.3 Immature Gran % (Auto) 0.300 Neut % (Auto) 72.1 H Lymph % (Auto) 18.5 L [place] % (Auto) 7.8 Eos % (Auto) 1.0 Baso % (Auto) 0.3 Absolute Neuts (auto) 4.9 Absolute Lymphs (auto) 1.26 Nucleated RBC % 0 PT 12.3 INR 0.9 APTT 34.3 Sodium Potassium Chloride Carbon Dioxide Anion Gap BUN Creatinine Estim Creat Clear Calc Est GFR (MDRD) Af Amer Est GFR (MDRD) Non-Af BUN/Creatinine Ratio Glucose Lactic Acid Calcium Total Bilirubin AST ALT Alkaline Phosphatase Troponin I High Sens Total Protein Albumin Globulin Albumin/Globulin Ratio Urine Color Yellow Urine Clarity Clear Urine pH 5.0 Ur Specific [place] 1.025 Urine Protein 15 H Urine Glucose (UA) Normal Urine Ketones 5 H Urine Occult Blood Negative Urine Nitrite Negative Urine Bilirubin Negative Urine Urobilinogen Normal Ur Leukocyte Esterase Negative Urine RBC 0 SEEN Urine WBC 0 SEEN Ur Squamous Epith Cells 0-5 SEEN Urine Bacteria 1+ Urine Mucus 1+ 01/29/22 01/29/22 22:26 22:26 WBC RBC Hgb Hct MCV MCH MCHC RDW Std Deviation RDW Coeff of Lisa Plt Count MPV Immature Gran % (Auto) Neut % (Auto) Lymph % (Auto) [place] % (Auto) Eos % (Auto) Baso % (Auto) Absolute Neuts (auto) Absolute Lymphs (auto) Nucleated RBC % PT INR APTT Sodium 142 Potassium 3.8 Chloride 108 H Carbon Dioxide 26.0 Anion Gap 8 BUN 14 Creatinine 0.76 Estim Creat Clear Calc 69.39 Est GFR (MDRD) Af Amer 128 Est GFR (MDRD) Non-Af 106 BUN/Creatinine Ratio 18.3 Glucose 98 Lactic Acid 1.2 Calcium 8.5 Total Bilirubin 0.40 AST 16 ALT 9 L Alkaline Phosphatase 107 Troponin I High Sens 8 Total Protein 5.8 L Albumin 3.0 L Globulin 2.8 Albumin/Globulin Ratio 1.1 Urine Color Urine Clarity Urine pH Ur Specific [place] Urine Protein Urine Glucose (UA) Urine Ketones Urine Occult Blood Urine Nitrite Urine Bilirubin Urine Urobilinogen Ur Leukocyte Esterase Urine RBC Urine WBC Ur Squamous Epith Cells Urine Bacteria Urine Mucus Radiography Chest X-Ray - ED: 1 View, Read by ED Physician, Read by Radiologist and No Acute Disease Diagnostic Testing: Clinical Impression(s) from Imaging Studies Chest X-Ray 01/29/22 22:29 IMPRESSION: No active disease. Electronically Signed: Bartolo Bolton MD at 23:02 EDT , EKG Initial EKG: Attestation: I personally reviewed and interpreted this EKG as follows: Interpretation: No Acute Injury Pattern, Sinus Bradycardia (53) and LAFB Prior EKG tracings: available for review Prior: Unchanged (04/07/2019) Discharge Plan Triage Chief Complaint: General Illness ED Provider: Cortez Fairbanks Dx/Rx/DC Orders Clinical Impression: General weakness, Colon cancer metastasized to liver Prescriptions: No Action lidocaine-prilocaine 2.5-2.5 % cream 1 applic topical ONCE PRN (Reason: port access) 30 Days Qty: 30 2RF levothyroxine 25 MCG tablet 25 mcg PO DAILY aspirin 81 MG tablet,delayed release (DR/EC) 81 mg PO QHS citalopram 10 mg tablet 10 mg PO DAILY mirtazapine 7.5 mg Tablet 7.5 mg PO QHS Xtandi 40 mg Capsule 160 mg PO DAILY polysaccharide iron complex [Ferrex 150] 150 mg iron capsule 150 mg PO DAILY Primary Care Provider: Jorgito Villeda Chi Referrals: Jorgito Villeda Chi, MD [Primary Care Provider] - 3-5 Days Disposition Disposition: Home, Self Care
[2022-01-30 00:17] VITALS: BP 136/67; PULSE 54; RESP 14
--- NOTE | 2022-01-30 00:20 | EKG12_ITS ---
Test Reason : GEN ILL Blood Pressure : / mmHG Vent. Rate : 053 BPM Atrial Rate : 053 BPM P-R Int : 154 ms QRS Dur : 116 ms QT Int : 472 ms P-R-T Axes : 082 -45 068 degrees QTc Int : 442 ms Sinus bradycardia Left anterior fascicular block Abnormal ECG Confirmed by SUNITA RAHMAN, TANVI ([id number]), website/blog editor SIN DIAZ ([id number]) on 01/30/2022 10:55:25 AM Referred By: Confirmed By:TANVI DORSEY MD
[2022-01-30 00:48] VITALS: BP 136/67; PULSE 56; RESP 15; O2SAT 99
== END 2022-01-30 00:50 | disposition home or self-care (01) ==
PROVIDERS: Emergency Provider Emergency Medicine; PCP Family Medicine Geriatric Medicine; Visit Provider Emergency Medicine
DX: R53.1 Weakness (principal); C78.7 Secondary malignant neoplasm of liver and intrahepatic bile duct; C18.9 Malignant neoplasm of colon, unspecified; F17.210 Nicotine dependence, cigarettes, uncomplicated; R11.0 Nausea; Z79.82 Long term (current) use of aspirin
CPT/HCPCS: 71045; 80053; 81001; 83605; 84484; 85025; 85610; 85730; 87040; 87428; 93005; 96360; 96361; 99285; A4216

== ENCOUNTER 2022-02-05 15:36 | Observation (INO) | payer MEDICARE, BC, SELFPAY ==
[2022-02-05 15:37] VITALS: BP 151/91; PULSE 81; RESP 22; TEMP 36.1; O2SAT 99; BMI 22.0
[2022-02-05 15:40] VITALS: BP 151/91; PULSE 72; RESP 31; TEMP 36.1; O2SAT 99
--- NOTE | 2022-02-05 15:54 | EKG12_ITS ---
Test Reason : nausea Blood Pressure : / mmHG Vent. Rate : 057 BPM Atrial Rate : 057 BPM P-R Int : 144 ms QRS Dur : 110 ms QT Int : 470 ms P-R-T Axes : 080 -35 064 degrees QTc Int : 457 ms Sinus bradycardia Left axis deviation Abnormal ECG Confirmed by SUNITA RAHMAN, TANVI ([id number]), newspaper or periodical editor SIN DIAZ ([id number]) on 02/07/2022 1:01:36 PM Referred By: C Confirmed By:TANVI DORSEY MD
--- NOTE | 2022-02-05 15:55 | EDS_ITS ---
HPI History of Present Illness Chief Complaint: Nausea/Vomiting Narrative Narrative: Patient has a history of prostate cancer, he also has a history of colon cancer which was thought to be in remission since May of this year. However he has been weak for a few weeks, he recently had a PET scan which showed some brain lesions. He is scheduled for an MRI tomorrow morning. For the past 7 or 8 days he has not gotten out of bed, he is not eating and drinking, he is only smoking 1 or 2 cigarettes a day as opposed to his usual pack a day, he tells me he is too weak and does not have any appetite. He is brought in by his . He is denying any pain, no chest pain no abdominal pain no back pain no lower extremity pain. He has no urinary symptoms. He admits to being weak but when I talked to him he is not confused, there is no history of confusion per him or his [facility] Medical History Colon cancer Cortisone injection Fatigue Hypothyroidism Knee pain, bilateral Liver lesion, right lobe Loose, teeth Prostate cancer metastatic to bone Restless legs Smoker Tobacco abuse Wears hearing aid in both ears Home Medications aspirin 81 mg tablet,delayed release 81 mg PO QHS 06/16/19 [History Last Taken 01/27/22] levothyroxine 25 mcg tablet 25 mcg PO DAILY 08/14/19 [History Last Taken 12/12 06/03 07:00] lidocaine-prilocaine 2.5 %-2.5 % topical cream 1 applic topical ONCE PRN port access 30 days #30 grams 02/21/21 [Rx Last Taken Unknown] citalopram 10 mg tablet 10 mg PO DAILY 01/29/22 [History Last Taken Unknown] enzalutamide 40 mg capsule (Xtandi) 160 mg PO DAILY 01/29/22 [History Last Taken Unknown] mirtazapine 7.5 mg tablet 7.5 mg PO QHS 01/29/22 [History Last Taken Unknown] polysaccharide iron complex 150 mg iron capsule (Ferrex) 150 mg PO DAILY 01/29/22 [History Last Taken Unknown] Allergy/AdvReac Type Severity Reaction Status Date / Time No Known Allergies Allergy Verified 02/05/22 15:41 Family History Mother Cancer Surgical History History of biopsy History of colonoscopy (~06/18/19) History of left-sided carotid endarterectomy S/P colectomy Social History Smoking Status: Current every day smoker tobacco type: cigarettes Tobacco: How many years used: 50 second hand exposure: Yes alcohol intake: never details: substance use type: does not use seatbelt use: always do you feel safe at home: Yes ROS ROS ED ROS Narrative Past medical history: Reviewed, includes prostate cancer, colon cancer with history of metastasis, neuropathy, history of anemia, history of peripheral vascular disease. Medications: Reviewed Social history: Lives with his , smoker Review of systems: All systems negative except as indicated General: No fever or chills. Generalized weakness as in HPI Eyes: No visual changes ENT: No upper airway congestion, normal voice Neck: No neck pain Cardiovascular: No chest pain Respiratory: No shortness of breath or cough Gastrointestinal: No abdominal pain, nausea vomiting or diarrhea Genitourinary: No dysuria, somewhat decreased output, no suprapubic pain Musculoskeletal: Denies myalgias. Skin: No rash Neurological: No memory loss, confusion or any focal weakness Psych: No recent behavioral changes Hematologic: No easy bleeding or easy bruising EXAM Physical Exam Narrative Exam Narrative: Physical exam General: Patient appears chronically ill. He appears somewhat uncomfortable. His does not appear acutely ill he does not appear in distress. Head: Normocephalic, Atraumatic Eyes: Conjunctiva not pale ENT: Dry mucous membranes, no congestion. Neck: Supple, Nontender, No lymphadenopathy Cardiovascular: Regular rate, Regular rhythm Respiratory: No distress, coarse bilateral breath sounds Abdomen: Soft, Nontender, Nondistended Back: Nontender, Normal Inspection. Negative for: CVA tenderness Extremities: Nontender, No edema Skin: Normal color, No rash Neurological: Alert, oriented x3, equal strength bilaterally, normal sensation. He is hyperreflexic, both upper and lower extremities. Psychological: Flat, depressed affect Const Vital Signs: 02/05/22 15:37 02/05/22 15:40 Temperature 97.0 F L 97.0 F L Temperature Source Temporal Temporal Pulse Rate 81 72 Respiratory Rate 22 H 31 H Blood Pressure 151/91 H 151/91 H Blood Pressure Mean 111 111 Pulse Ox 99 99 Oxygen Delivery Method Room Air Room Air MDM MDM MDM Narrative Medical decision making narrative: Patient is found to have signs of dehydration, he was hydrated, however I talked to and the patient at this time it is difficult for him to ambulate or get around, he does not feel safe being discharged, he is quite weak. I talked to the about this I did tell him that if we admit him to the hospital it would be with intention to put him in a skilled nursing for his weakness and then he can get further cancer work-up from there since he has a couple different etiologies for more the cancer could be including a new possible diagnosis of lung cancer. Patient will be admitted for observation. Lab Data Labs: Laboratory Results - last 24 hr 02/05/22 02/05/22 02/05/22 16:10 16:10 16:10 WBC 5.2 RBC 3.80 L Hgb 13.1 Hct 37.2 L MCV 97.9 H MCH 34.5 H MCHC 35.2 RDW Std Deviation 44.8 H RDW Coeff of Lisa 12.4 Plt Count 198 MPV 10.6 Immature Gran % (Auto) 0.400 Neut % (Auto) 61.7 Lymph % (Auto) 28.7 [place] % (Auto) 7.5 Eos % (Auto) 1.3 Baso % (Auto) 0.4 Absolute Neuts (auto) 3.2 Absolute Lymphs (auto) 1.50 Nucleated RBC % 0 Sodium 143 Potassium 3.6 Chloride 107 Carbon Dioxide 22.0 Anion Gap 14 BUN 13 Creatinine 0.71 Estim Creat Clear Calc 67.65 Est GFR (MDRD) Af Amer 140 Est GFR (MDRD) Non-Af 115 BUN/Creatinine Ratio 18.3 Glucose 83 Calcium 9.3 Total Bilirubin 0.80 AST 15 ALT 10 L Alkaline Phosphatase 123 H Total Protein 6.4 Albumin 3.3 Globulin 3.1 Albumin/Globulin Ratio 1.1 Lipase 92 Urine Color Yellow Urine Clarity Clear Urine pH 5.0 Ur Specific [place] 1.025 Urine Protein 30 H Urine Glucose (UA) Normal Urine Ketones 150 A* Urine Occult Blood Negative Urine Nitrite Negative Urine Bilirubin 1 H Urine Urobilinogen Normal Ur Leukocyte Esterase Negative Urine RBC 0 SEEN Urine WBC 0 SEEN Ur Squamous Epith Cells 0-5 SEEN Urine Bacteria 1+ Urine Mucus 0 SEEN Radiography Diagnostic Testing: Clinical Impression(s) from Imaging Studies Chest X-Ray 02/05/22 16:10 IMPRESSION: 1. Right Port-A-Cath with its distal tip is in the vena cava. 2. No active cardiopulmonary disease. 3. 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 4. No interval change since previous study of 01/29/2022. Electronically Signed: Shaq Beckett MD at 16:25 EDT , EKG Initial EKG: Comments: Sinus rhythm with a rate of 57. Normal ME and QTc intervals. Left axis deviation, no ischemic changes. Interpreted by emergency Dr. Discharge Plan Triage Chief Complaint: Nausea/Vomiting ED Provider: Vipin Khoury Dx/Rx/DC Orders Clinical Impression: Weakness, Acute dehydration, Brain metastases Prescriptions: No Action lidocaine-prilocaine 2.5-2.5 % cream 1 applic topical ONCE PRN (Reason: port access) 30 Days Qty: 30 2RF levothyroxine 25 MCG tablet 25 mcg PO DAILY aspirin 81 MG tablet,delayed release (DR/EC) 81 mg PO QHS citalopram 10 mg tablet 10 mg PO DAILY mirtazapine 7.5 mg Tablet 7.5 mg PO QHS Xtandi 40 mg Capsule 160 mg PO DAILY polysaccharide iron complex [Ferrex 150] 150 mg iron capsule 150 mg PO DAILY Primary Care Provider: Jorgito Villeda Chi Referrals: Jorgito Villeda Chi, MD [Primary Care Provider] - Disposition Disposition: Acute Care Hospital [facility]
[2022-02-05] MEDS: 0.9% Normal Saline 1,000 ML 1000 ML IV (16:07)
--- NOTE | 2022-02-05 16:10 | RAD_ITS ---
STUDY: PORTABLE AP UPRIGHT CHEST X-RAY OF 1611 HOURS ON 02/05/2022 REASON FOR EXAM: 76-year-old male with weakness. TECHNIQUE: A 2 view portable AP upright chest x-ray was performed per protocol. COMPARISON: 01/29/2022. FINDINGS: Osseous structures. Right Port-A-Cath with its distal tip at the distal superior vena cava. No cardiomegaly. No pulmonary infiltrates, atelectasis, effusion, pulmonary mass lesions. No subdiaphragmatic abnormalities. Minor osteophytic degenerative changes of the thoracic spine. No interval change since previous study dated 01/29/2022 RAD/Chest 1 View (Portable) IMPRESSION: 1. Right Port-A-Cath with its distal tip is in the vena cava. 2. No active cardiopulmonary disease. 3. 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 4. No interval change since previous study of 01/29/2022. Electronically Signed: Shaq Beckett MD at 16:25 EDT ,
[2022-02-05 16:19] LABS: Absolute Neutrophil Count 3.2 X10^3/uL (2.0-7.7); Basophil# 0.02 X10^3/uL; Basophil% 0.4 % (0-1); Eosinophil# 0.07 X10^3/uL; Eosinophils% 1.3 % (0-5); Hematocrit 37.2 % (40-54); Hemoglobin 13.1 g/dL (13.0-16.5); Lymphocyte % 28.7 % (19-41); Mean Corp Hgb Conc 35.2 g/dL (32-36); Mean Corpuscular Hgb 34.5 pg (27.0-32.0); Mean Corpuscular Volume 97.9 fL (80-94); Mean Platelet Vol. 10.6 fl (6.2-12.0); Monocyte# 0.39 X10^3/uL; Monocyte% 7.5 % (0-10); Mucous, Urine 0 SEEN /hpf (<or=2+); NRBC Flagged by Analyzer 0 % (0-5); Neutrophil # 3.22 X10^3/uL (2.7-7.7); Neutrophil % 61.7 % (47-70); Platelet Count 198 K/mm3 (150-450); RBC Distribution Width CV 12.4 % (11.6-14.6); RBC Distribution Width SD 44.8 fl (35.1-43.9); Red Blood Cells-Urine 0 SEEN /hpf (0-5); White Blood Cells 0 SEEN /hpf (0-5); White Blood Count 5.2 K/mm3 (4.4-11.0)
[2022-02-05 16:21] LABS: Color, Urine Yellow (Yellow); Glucose, Dipstick Normal (Normal); Leukocyte Esterase-Dipstick Negative /ul (Negative); Nitrite-Dipstick Negative (Negative); Occult Blood-Urine Negative /ul (Negative); Protein-Dipstick 30 mg/dl (Negative); Specific Gravity, Urine 1.025 (1.002-1.030); Urine Clarity Clear (Clear); Urine Urobilinogen Normal (Normal)
[2022-02-05 16:25] LABS: Urine Bilirubin Dipstick 1 mg/dL (Negative)
[2022-02-05 16:29] LABS: Ketone-Dipstick 150 mg/dl (Negative)
[2022-02-05 16:36] LABS: ALB/GLOB Ratio 1.1 RATIO (0.9-2.4); AST(SGOT) 15 U/L (15-37); Alanine Aminotransfer ALT/SGPT 10 U/L (16-61); Albumin, Serum 3.3 g/dL (3.2-5.0); Alkaline Phosphatase 123 U/L (45-117); Anion Gap 14 (5-15); BUN 13 mg/dL (7-18); BUN/Creat Ratio 18.3 RATIO (10-20); Bacteria 1+ /hpf (None Seen); Calcium,Total 9.3 mg/dL (8.5-10.1); Chloride 107 mmol/L (98-107); Creatinine, Serum 0.71 mg/dL (0.70-1.30); EST Glomerular Filtration Rate 115 mL/min (>60); Est Glom Filt Rate - Afr Amer 140 mL/min (>60); Estimated Creatinine Clearance 67.65 ml/min; Globulin 3.1 g/dL (2.2-4.2); Glucose 83 mg/dL (74-106); Lipase 92 U/L (73-393); Potassium 3.6 mmol/L (3.5-5.1); Protein, Total 6.4 g/dL (6.4-8.2); Sodium Level 143 mmol/L (136-145); Squamous Epithelial Cells - UA 0-5 SEEN /hpf (0-5)
[2022-02-05 16:40] VITALS: BP 165/82; PULSE 64; RESP 22; TEMP 36.3; O2SAT 96
[2022-02-05 17:09] LABS: Magnesium 1.9 mg/dL (1.6-2.6); Phosphorus 2.5 mg/dL (2.5-4.9)
[2022-02-05 17:11] VITALS: BP 168/82; PULSE 61; RESP 22; TEMP 36.4; O2SAT 99
--- NOTE | 2022-02-05 17:19 | PCM.HP.STD ---
HPI - General General Date of Admission: 02/05/22 Date of Service: 02/05/22 Chief Complaint: Weak, dehydrated not able to or drink for 4 days. HPI Narrative JUSTICE OWEN, is a 76 M with history of C of colon with mets and prostate cancer well brought to ED by EMS for feeling nausea not able to eat or drink for 4 days. Patient is very weak and does not have appetite. His near the bedside and states he just take few sips of water for taking his pills. Patient usually on walker but has very reduced mobility in last [address] Carpenter for metastatic colon cancer and prostate cancer. He has stage III adenocarcinoma involving the colon status post right hemicolectomy and sigmoidectomy on 04/21/2019. Later on patient had partial resection of right lobe of liver and partial colectomy and abdominal nodule on 07/11/2021 for progression of the cancer. CT scan on 01/17/2022 shows left renal gland ethic and large bowel. PET CT on 02/01/2020 showed cerebellar mass, left lung nodule, left adrenal gland and multiple peritoneal nodules. Patient is scheduled for MRI brain tomorrow as an outpatient. Follow-up patient is too weak has difficulty in sitting up. [facility] Medical History Colon cancer Cortisone injection Fatigue Hypothyroidism Knee pain, bilateral Liver lesion, right lobe Loose, teeth Prostate cancer metastatic to bone Restless legs Smoker Tobacco abuse Wears hearing aid in both ears Home Medications aspirin 81 mg tablet,delayed release 81 mg PO QHS 06/16/19 [History Last Taken 01/27/22] levothyroxine 25 mcg tablet 25 mcg PO DAILY 08/14/19 [History Last Taken 12/22/20 07:00] lidocaine-prilocaine 2.5 %-2.5 % topical cream 1 applic topical ONCE PRN port access 30 days #30 grams 02/21/21 [Rx Last Taken Unknown] citalopram 10 mg tablet 10 mg PO DAILY 01/29/22 [History Last Taken Unknown] enzalutamide 40 mg capsule (Xtandi) 160 mg PO DAILY 01/29/22 [History Last Taken Unknown] mirtazapine 7.5 mg tablet 7.5 mg PO QHS 01/29/22 [History Last Taken Unknown] polysaccharide iron complex 150 mg iron capsule (Ferrex) 150 mg PO DAILY 01/29/22 [History Last Taken Unknown] Allergy/AdvReac Type Severity Reaction Status Date / Time No Known Allergies Allergy Verified 02/05/22 15:41 Family History Mother Cancer Surgical History History of biopsy History of colonoscopy (~06/18/19) History of left-sided carotid endarterectomy S/P colectomy Social History Smoking Status: Current every day smoker tobacco type: cigarettes Tobacco: How many years used: 50 second hand exposure: Yes alcohol intake: never details: substance use type: does not use seatbelt use: always do you feel safe at home: Yes ROS ROS Narrative Constitutional: Reports fatigue and weakness. No fever HEENT: No acute cough, rhinorrhea, sinus drainage or postnasal drip. Reports systems reviewed and no addt'l complaints, except as documented Respiratory/Chest: Denies chest pain, shortness of breath at rest or with exertion Gastrointestinal: Mild nausea. No vomiting, diarrhea. Denies coffee ground emesis, hematemesis Genitourinary: Dark mustard color urine, decreased amount of fluid last 3 days. Denies burning urination or new urinary tract symptoms Musculoskeletal: Reports joint pain and limited range of motion Neurologic: Denies seizure-like activity skin: No ulcer. No rash Endocrinology: Reports systems reviewed and no addt'l complaints, except as documented Hematologic/Lymphatic: Metastatic CA colon cancer and CA prostate. Reports systems reviewed and no addt'l complaints, except as documented Rest 14 ROS are negative except as mentioned in HPI Vital Signs Vital Signs Vital Signs: 02/05/22 15:37 02/05/22 15:40 Temperature 97.0 F L 97.0 F L Temperature Source Temporal Temporal Pulse Rate 81 72 Respiratory Rate 22 H 31 H Blood Pressure 151/91 H 151/91 H Blood Pressure Mean 111 111 Pulse Ox 99 99 Oxygen Delivery Method Room Air Room Air Weight Weight: 162 lb 11.218 oz Body Mass Index (BMI) 22.0 Physical Exam Narrative Physical exam General: Alert, Oriented x3, Cooperative HEENT: Atraumatic, PERRLA, EOMI, Normocephalic Oral: Oral mucosa dry no Gingival or Mucosal Lesions/ Ulcerations Neck: Supple, No JVD, Negative Carotid Bruits Lungs: Air entry diminished in bilateral lung bases. No crepitation/rhonchi Cardiovascular: Regular rate, Regular Rhythm, Normal S1, Normal S2, No murmurs Abdomen: Bowel Sounds Present, Soft, Non Tender, Non-Distended : No renal angle tenderness. No suprapubic tenderness. Extremities: No edema, Capillary Refill Less than 3 Seconds Skin: No rashes, No breakdown Musculoskeletal: Mild to moderate muscle atrophy of extremities. Muscle strength 4+/5 at major joints. ROM intact. No Tenderness to Palpation of Joints or Extremities Neurological: Cranial nerves II-XII grossly intact, DTR 2+/4 and Symmetrical Psych/Mental Status: Apathy. Flat affect. Results Lab / Micro Data Result Diagrams: 02/05/22 16:10 02/05/22 16:10 Labs: Laboratory Results - last 24 hr 02/05/22 16:10: WBC 5.2, RBC 3.80 L, Hgb 13.1, Hct 37.2 L, MCV 97.9 H, MCH 34.5 H, MCHC 35.2, RDW Std Deviation 44.8 H, RDW Coeff of Lisa 12.4, Plt Count 198, MPV 10.6, Immature Gran % (Auto) 0.400, Neut % (Auto) 61.7, Lymph % (Auto) 28.7, [place] % (Auto) 7.5, Eos % (Auto) 1.3, Baso % (Auto) 0.4, Absolute Neuts (auto) 3.2, Absolute Lymphs (auto) 1.50, Nucleated RBC % 0 02/05/22 16:10: Sodium 143, Potassium 3.6, Chloride 107, Carbon Dioxide 22.0, Anion Gap 14, BUN 13, Creatinine 0.71, Estim Creat Clear Calc 67.65, Est GFR (MDRD) Af Amer 140, Est GFR (MDRD) Non-Af 115, BUN/Creatinine Ratio 18.3, Glucose 83, Calcium 9.3, Total Bilirubin 0.80, AST 15, ALT 10 L, Alkaline Phosphatase 123 H, Total Protein 6.4, Albumin 3.3, Globulin 3.1, Albumin/Globulin Ratio 1.1, Lipase 92 02/05/22 16:10: Urine Color Yellow, Urine Clarity Clear, Urine pH 5.0, Ur Specific [place] 1.025, Urine Protein 30 H, Urine Glucose (UA) Normal, Urine Ketones 150 A*, Urine Occult Blood Negative, Urine Nitrite Negative, Urine Bilirubin 1 H, Urine Urobilinogen Normal, Ur Leukocyte Esterase Negative, Urine RBC 0 SEEN, Urine WBC 0 SEEN, Ur Squamous Epith Cells 0-5 SEEN, Urine Bacteria 1+, Urine Mucus 0 SEEN 02/05/22 16:10: Phosphorus 2.5, Magnesium 1.9 Radiology Impression Chest X-Ray 02/05/22 16:10 IMPRESSION: 1. Right Port-A-Cath with its distal tip is in the vena cava. 2. No active cardiopulmonary disease. 3. 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 4. No interval change since previous study of 01/29/2022. Electronically Signed: Shaq Beckett MD at 16:25 EDT Reading Location ID and State: [facility] / [place] Tel , Service support , Assessment & Plan Assessment/Plan (1) History of colon cancer, stage III: PLAN: This 76-year-old gentleman is admitted for failure to thrive, severe dehydration and recent progression of CA colon with possible metastasis to brain 1. Generalized weakness, dehydration and failure to thrive, most likely due to progression of colon cancer: Patient is being admitted on [facility] as an observation status. IV fluid Ringer lactate for dehydration. Monitor intake and output. UA shows ketones 150, protein 30.IV fluid Ringer lactate 125 mill per hour for 2 L. Orthostatic blood pressure after rehydration. Patient BP and heart rate in acceptable limit. No hypoxia or tachypnea. Patient electrolytes also in normal range. K3.6, 1 dose KCl 40 M EQ oral ordered. Alkaline phosphatase 123 on borderline range. Resource Paraprofessional consult. 2. CA Colon stge III with possible metastasis to brain: CT scan on 01/17/2022 shows left adrenal gland and thickened large bowel followed by PET/CT on 01/25 which showed centimeter mass, left lung nodule, left renal gland and multiple peritoneal nodules. Patient has a scheduled MRI brain for tomorrow a.m. We will check with the classification case manager if it is okay to order outpatient MRI brain, most probably not. In that case might need to be rescheduled later on. On last visit Dr. Carpenter on 01/30/2022 advised MRI brain and accordingly cranial irradiation before thinking of systemic therapy. At that time patient agreed to proceed. 3. Prostate cancer in remission: Patient PSA has been less than 0.01 since 01/26/2020. Patient takes enzalutamide and as per 3 monthly injection treatment to prevent CA prostate progression to bone, probably LHRH agonist. 4. His other comorbidities include hypothyroidism, chronic iron-deficiency anemia, bilateral carotid stenosis, chronic smoking/nicotine use: Patient usually smokes a pack per day but currently smoking 1 early 1 to 2 cigarettes because of sickness and feeling too weak. 5. Patient also looks depressed VTE prophylaxis, high risk: Lovenox 40 subcu daily. Bilateral SCDs Living will/advanced directive/end of life care: Patient does have living will or advanced directive. His is power of energy attorney for health after discussion of benefits/risks procedures involved with full code, DNR CC arrest and DNR CC, the patient and his opted for full code. Patient does want artificial life support including intubation, tube feed, ventilator and/chest compression, central venous catheter, vasopressor and DC shock if needed Total time spent in [id number] encounter in discussion of advanced directive 16 minutes. (2) Acute dehydration: Charges/Coding Visit Charges OBSV E&M: 86653 Initial observation care L3 Procedures Hospitalists Procedures: 04263 Advncd Care Plan 30 Min
[2022-02-05 17:45] VITALS: BMI 21.8
[2022-02-05 17:55] VITALS: BP 150/74; PULSE 61; RESP 16; TEMP 36.3; O2SAT 99
[2022-02-05] MEDS: 0.9% Saline Lock 10 ML Syringe IV (18:08)
[2022-02-05] MEDS: Lactated Ringers 1,000 ML 125 ML IV (18:08)
[2022-02-05] MEDS: Enoxaparin 40 MG/0.4 ML Syringe SC (18:12)
[2022-02-05] MEDS: ENZALUTAMIDE 40 MG CAPSULE 160 MG PO (19:01)
[2022-02-05] MEDS: Ondansetron 4 MG/2 ML Vial IV (20:09)
[2022-02-05] MEDS: Mirtazapine 15 MG Tablet 7.5 MG PO (22:40)
[2022-02-05] MEDS: Aspirin E.C. 81 MG Tablet PO (22:40)
[2022-02-06] VITALS (7 sets, daily range): BP systolic 139–164; BP diastolic 66–87; PULSE 60–90; RESP 16–18; TEMP 36.3–36.6; O2SAT 95–99
[2022-02-06] MEDS: Lactated Ringers 1,000 ML 125 ML IV ×3 (02:07→20:08)
[2022-02-06 05:03] LABS: Absolute Lymphocyte Count 2.04 X10^3/uL (0.83-4.51); Absolute Neutrophil Count 2.7 X10^3/uL (2.0-7.7); Basophil# 0.03 X10^3/uL; Basophil% 0.6 % (0-1); Eosinophil# 0.09 X10^3/uL; Eosinophils% 1.7 % (0-5); Hematocrit 32.6 % (40-54); Hemoglobin 11.6 g/dL (13.0-16.5); Lymphocyte # 2.04 X10^3/ul (0.83-4.51); Mean Corp Hgb Conc 35.6 g/dL (32-36); Mean Corpuscular Hgb 34.6 pg (27.0-32.0); Mean Corpuscular Volume 97.3 fL (80-94); Mean Platelet Vol. 10.6 fl (6.2-12.0); Monocyte% 7.6 % (0-10); NRBC Flagged by Analyzer 0 % (0-5); Neutrophil # 2.66 X10^3/uL (2.7-7.7); Neutrophil % 50.9 % (47-70); Platelet Count 168 K/mm3 (150-450); RBC Distribution Width CV 12.3 % (11.6-14.6); RBC Distribution Width SD 44.4 fl (35.1-43.9); Red Blood Count 3.35 M/mm3 (4.6-6.2); White Blood Count 5.2 K/mm3 (4.4-11.0)
[2022-02-06 05:27] LABS: Anion Gap 10 (5-15); BUN 11 mg/dL (7-18); BUN/Creat Ratio 19.2 RATIO (10-20); Calcium,Total 8.5 mg/dL (8.5-10.1); Chloride 107 mmol/L (98-107); Creatinine, Serum 0.57 mg/dL (0.70-1.30); EST Glomerular Filtration Rate 148 mL/min (>60); Est Glom Filt Rate - Afr Amer 179 mL/min (>60); Estimated Creatinine Clearance 67.74 ml/min; Glucose 73 mg/dL (74-106); Potassium 3.5 mmol/L (3.5-5.1); Sodium Level 139 mmol/L (136-145)
[2022-02-06] MEDS: Levothyroxine 25 MCG TABLET PO (06:04)
[2022-02-06] MEDS: proCHLORPERazine 10 MG/2 ML Vial 5 MG IV (09:21)
[2022-02-06] MEDS: 0.9% Saline Lock 10 ML Syringe IV ×2 (09:23→14:58)
--- NOTE | 2022-02-06 09:52 | MRI_ITS ---
STUDY: MRI BRAIN WITH AND WITHOUT CONTRAST REASON FOR EXAM: Male, 76 years old. Intractable Nausea/Vomiting/weakness -- possible brain mets TECHNIQUE: Standardized multiplanar fat and water weighted pulse sequences were obtained. IV CLARISCAN 15CC was administered for the contrast portion of the examination. COMPARISON: MRI of the brain dated January 12, 2021. FINDINGS: A large 4.97 cm heterogeneous peripherally enhancing mass occupies the central aspect of the left cerebellar lobe. Portions of the mass are hemorrhagic and necrotic. Mild to moderate surrounding vasogenic edema is at the periphery of the mass. The fourth ventricle is mostly effaced/collapse due to the left cerebellar mass. No additional masses are seen in the cerebellum or brainstem or in the bilateral cerebral hemispheres. Normal remaining aspects of the cerebellum. There is moderate cerebral atrophy with widening of the extra-axial spaces and ventricular dilatation. There are a limited number of small white matter hyperintensities, distributed throughout the deep white matter tracts of the cerebral hemispheres, consistent with mild chronic white matter ischemic changes. Normal bilateral basal ganglia. Normal thalami. There is no extra-axial fluid accumulation. Normal flow voids within the major intracranial circulation suggesting patency by spin echo criteria. Normal venous enhancement. The bilateral mastoid air cells are diffusely opacified with mucus material. Normal sella turcica, pituitary gland, infundibular stalk, optic chiasm and hypothalamus. Normal tectal plate and pineal gland. Normal midbrain, winnie and medulla. Normal basal cisterns. Normal bilateral temporal bones. Normal bilateral internal auditory canals. No demonstrated orbital abnormality, within the constraints of a routine brain study. Normal visualized paranasal sinuses. Normal calvarium and skull base. Normal visualized soft tissue structures. Normal visualized upper cervical spine. MRI/Brain W/WO Contrast IMPRESSION: 1. Large 4.97 cm left cerebellar malignant mass with surrounding vasogenic edema. Electronically Signed: Hasmukh Alvarado MD at 14:23 EDT Reading Location ID and State: [facility] / [place] , Service support ,
--- NOTE | 2022-02-06 10:14 | CASEMGMT ---
Social Work SW spoke with pt regarding advance directives. Pt states he has a living will and a health care POA naming his Mago Carvalho. SW informed pt that documents are not on file at [facility] and requested they be brought in for scanning into the medical record. Pt expresses understanding. LUZ Gayle
[2022-02-06] MEDS: Citalopram 10 MG Tablet PO (10:39)
[2022-02-06] MEDS: Iron Polysaccharide Complex 150 MG CAPSULE PO (10:39)
[2022-02-06] MEDS: Senna/Docusate Sodium 1 Tablet 2 TABLET PO (10:40)
[2022-02-06] MEDS: Enoxaparin 40 MG/0.4 ML Syringe SC (10:40)
--- NOTE | 2022-02-06 10:50 | PCM.PN.HOSP ---
Subjective Subjective Patient seen and examined. Complains of nausea this morning. States he does not feel he is going to be able to go home at discharge. Objective Data Objective Data Vital Signs: Vital Signs Temp Pulse Resp BP Pulse Ox O2 Del Method 97.4 F L 90 18 153/87 H 95 Room Air 02/06/22 08:42 02/06/22 08:42 02/06/22 08:42 02/06/22 08:42 02/06/22 08:42 02/06/22 08:42 Oxygen Delivery Method Room Air Weight: 162 lb 14.746 oz Body Mass Index (BMI) 21.8 Intake & Output: Intake and Output for Last 24 Hours 02/04/22 02/05/22 02/06/22 23:59 23:59 23:59 Intake Total 1000 / 1000 2497.92 / 2497.92 Output Total 550 / 550 Balance 1000 / 1000 1947.92 / 1947.92 Lab / Micro Data Result Diagrams: 02/06/22 04:47 02/06/22 04:47 Labs: Laboratory Results - last 24 hr 02/05/22 16:10: WBC 5.2, RBC 3.80 L, Hgb 13.1, Hct 37.2 L, MCV 97.9 H, MCH 34.5 H, MCHC 35.2, RDW Std Deviation 44.8 H, RDW Coeff of Lisa 12.4, Plt Count 198, MPV 10.6, Immature Gran % (Auto) 0.400, Neut % (Auto) 61.7, Lymph % (Auto) 28.7, [place] % (Auto) 7.5, Eos % (Auto) 1.3, Baso % (Auto) 0.4, Absolute Neuts (auto) 3.2, Absolute Lymphs (auto) 1.50, Nucleated RBC % 0 02/05/22 16:10: Sodium 143, Potassium 3.6, Chloride 107, Carbon Dioxide 22.0, Anion Gap 14, BUN 13, Creatinine 0.71, Estim Creat Clear Calc 67.65, Est GFR (MDRD) Af Amer 140, Est GFR (MDRD) Non-Af 115, BUN/Creatinine Ratio 18.3, Glucose 83, Calcium 9.3, Total Bilirubin 0.80, AST 15, ALT 10 L, Alkaline Phosphatase 123 H, Total Protein 6.4, Albumin 3.3, Globulin 3.1, Albumin/Globulin Ratio 1.1, Lipase 92 02/05/22 16:10: Urine Color Yellow, Urine Clarity Clear, Urine pH 5.0, Ur Specific [place] 1.025, Urine Protein 30 H, Urine Glucose (UA) Normal, Urine Ketones 150 A*, Urine Occult Blood Negative, Urine Nitrite Negative, Urine Bilirubin 1 H, Urine Urobilinogen Normal, Ur Leukocyte Esterase Negative, Urine RBC 0 SEEN, Urine WBC 0 SEEN, Ur Squamous Epith Cells 0-5 SEEN, Urine Bacteria 1+, Urine Mucus 0 SEEN 02/05/22 16:10: Phosphorus 2.5, Magnesium 1.9 02/06/22 04:47: WBC 5.2, RBC 3.35 L, Hgb 11.6 L, Hct 32.6 L, MCV 97.3 H, MCH 34.6 H, MCHC 35.6, RDW Std Deviation 44.4 H, RDW Coeff of Lisa 12.3, Plt Count 168, MPV 10.6, Immature Gran % (Auto) 0.200, Neut % (Auto) 50.9, Lymph % (Auto) 39.0, [place] % (Auto) 7.6, Eos % (Auto) 1.7, Baso % (Auto) 0.6, Absolute Neuts (auto) 2.7, Absolute Lymphs (auto) 2.04, Nucleated RBC % 0 02/06/22 04:47: Sodium 139, Potassium 3.5, Chloride 107, Carbon Dioxide 22.0, Anion Gap 10, BUN 11, Creatinine 0.57 L, Estim Creat Clear Calc 67.74, Est GFR (MDRD) Af Amer 179, Est GFR (MDRD) Non-Af 148, BUN/Creatinine Ratio 19.2, Glucose 73 L, Calcium 8.5 Radiography Diagnostic Testing: Radiology Impression Chest X-Ray 02/05/22 16:10 IMPRESSION: 1. Right Port-A-Cath with its distal tip is in the vena cava. 2. No active cardiopulmonary disease. 3. 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 4. No interval change since previous study of 01/29/2022. Electronically Signed: Shaq Beckett MD at 16:25 EDT ,
--- NOTE | 2022-02-06 10:51 | CASEMGMT ---
Social Work Per Carmencita Bowman pt wants SNF. SW in to pt room to discuss options. Introduced self and role at the hospital. A printed list of SNF providers including quality and resources use date that is consistent with patient's preferred geographical region, medical needs, and insurances network were provided via the [employer].?Pt's present and actively planned with SW. SW explained due to chemo treatment may SNF's would be difficult to place pt based on cost of medication. SW reassured that referral could still be sent. indicated choices for SNF are [facility] and [facility]. SW updated discharge golf course assistant Zoe regarding choices and informed Zoe to inform SNF of medications. Zoe to check with SNFs to determine if willing to accept referral. PLAN: [facility] or [facility], pending precert and acceptance. LUZ Rodriguez
--- NOTE | 2022-02-06 11:09 | CASEMGMT ---
Discharge Take Down Inspector Zoe d/c assistant executive housekeeper called [facility]. [facility] not taking any patients taking chemo medications. Zoe reached out to Ana at [facility]. Ana asked which medication and this jingle writer told Ana Altamirano. Ana is checking and will give this jingle writer a call back. Plan: Zoe Price Discharge Take Down Inspector
--- NOTE | 2022-02-06 11:49 | CASEMGMT ---
Social Work Per Carmencita Bowman, pt now requesting Hospice Referral rather than SNF. SW faxed referral to [facility]. SW to follow for further needs. PLAN: Home with Hospice LUZ Rodriguez
--- NOTE | 2022-02-06 14:15 | CASEMGMT ---
Social Work SW called [facility] to check on pt referral. No answer, SW left message explaining the situation and requested a call back to set up time to meet with pt before pt discharges. PLAN: Home with Hospice LUZ Rodriguez
--- NOTE | 2022-02-06 14:57 | PCM.PN.HOSP ---
Documented by User: Carmencita Bowman CLAY MINE CUTTING MACHINE OPERATOR, CLAY MINE CUTTING MACHINE OPERATOR-C 02/06/22 15:07 Subjective Subjective Patient seen and examined. Drowsy this morning, complains of nausea. at bedside and discussed hospice, awaiting consult. Objective Data Objective Data Vital Signs: Vital Signs Temp Pulse Resp BP Pulse Ox O2 Del Method 97.6 F L 60 18 164/80 H 98 Room Air 02/06/22 14:49 02/06/22 14:49 02/06/22 14:49 02/06/22 14:49 02/06/22 14:49 02/06/22 14:49 Oxygen Delivery Method Room Air Weight: 162 lb 14.746 oz Body Mass Index (BMI) 21.8 Intake & Output: Intake and Output for Last 24 Hours 02/04/22 02/05/22 02/06/22 23:59 23:59 23:59 Intake Total 1000 / 1000 2833.34 / 2833.34 Output Total 550 / 550 Balance 1000 / 1000 2283.34 / 2283.34 Medical Nutrition Assessment Dietitian: Malnutrition Criteria Met Start: 02/06/22 13:07 Freq: Status: Active Protocol: Document 02/06/22 13:07 RMA (Rec: 02/06/22 13:07 RMA [id number]) Nutrition Malnutrition Evidence of Malnutrition Exists Yes Malnutrition (severe): Chronic Evidenced By Suboptimal Energy Intake ( Severe),Weight Loss (Severe) Clinical Problem Chronic Disease or Condition Related Malnutrition Etiology Severe protein-calorie malnutrition in the context of chronic disease related to increased energy expenditure and inadequate oral intake due to N/V Signs/Symptoms as evidenced by ~2% wt loss x past 5 days, PO meeting less than 50% estimated nutrition needs x 1-2 weeks, currently poor intake at meals Status Active Problem Recommendation Dietitian Recommendations/Changes Continue regular diet. Continue 120 ml ensure clear 4 times per day w/ medpass. Will add ensure compact with meals as tolerated. Adjust ONS as needed; encourage PO as tolerated. Lab / Micro Data Result Diagrams: 02/06/22 04:47 02/06/22 04:47 Labs: Laboratory Results - last 24 hr 02/05/22 16:10: WBC 5.2, RBC 3.80 L, Hgb 13.1, Hct 37.2 L, MCV 97.9 H, MCH 34.5 H, MCHC 35.2, RDW Std Deviation 44.8 H, RDW Coeff of Lisa 12.4, Plt Count 198, MPV 10.6, Immature Gran % (Auto) 0.400, Neut % (Auto) 61.7, Lymph % (Auto) 28.7, Mckean % (Auto) 7.5, Eos % (Auto) 1.3, Baso % (Auto) 0.4, Absolute Neuts (auto) 3.2, Absolute Lymphs (auto) 1.50, Nucleated RBC % 0 02/05/22 16:10: Sodium 143, Potassium 3.6, Chloride 107, Carbon Dioxide 22.0, Anion Gap 14, BUN 13, Creatinine 0.71, Estim Creat Clear Calc 67.65, Est GFR (MDRD) Af Amer 140, Est GFR (MDRD) Non-Af 115, BUN/Creatinine Ratio 18.3, Glucose 83, Calcium 9.3, Total Bilirubin 0.80, AST 15, ALT 10 L, Alkaline Phosphatase 123 H, Total Protein 6.4, Albumin 3.3, Globulin 3.1, Albumin/Globulin Ratio 1.1, Lipase 92 02/05/22 16:10: Urine Color Yellow, Urine Clarity Clear, Urine pH 5.0, Ur Specific [place] 1.025, Urine Protein 30 H, Urine Glucose (UA) Normal, Urine Ketones 150 A*, Urine Occult Blood Negative, Urine Nitrite Negative, Urine Bilirubin 1 H, Urine Urobilinogen Normal, Ur Leukocyte Esterase Negative, Urine RBC 0 SEEN, Urine WBC 0 SEEN, Ur Squamous Epith Cells 0-5 SEEN, Urine Bacteria 1+, Urine Mucus 0 SEEN 02/05/22 16:10: Phosphorus 2.5, Magnesium 1.9 02/06/22 04:47: WBC 5.2, RBC 3.35 L, Hgb 11.6 L, Hct 32.6 L, MCV 97.3 H, MCH 34.6 H, MCHC 35.6, RDW Std Deviation 44.4 H, RDW Coeff of Lisa 12.3, Plt Count 168, MPV 10.6, Immature Gran % (Auto) 0.200, Neut % (Auto) 50.9, Lymph % (Auto) 39.0, Mckean % (Auto) 7.6, Eos % (Auto) 1.7, Baso % (Auto) 0.6, Absolute Neuts (auto) 2.7, Absolute Lymphs (auto) 2.04, Nucleated RBC % 0 02/06/22 04:47: Sodium 139, Potassium 3.5, Chloride 107, Carbon Dioxide 22.0, Anion Gap 10, BUN 11, Creatinine 0.57 L, Estim Creat Clear Calc 67.74, Est GFR (MDRD) Af Amer 179, Est GFR (MDRD) Non-Af 148, BUN/Creatinine Ratio 19.2, Glucose 73 L, Calcium 8.5 Radiography Diagnostic Testing: Radiology Impression Chest X-Ray 02/05/22 16:10 IMPRESSION: 1. Right Port-A-Cath with its distal tip is in the vena cava. 2. No active cardiopulmonary disease. 3. 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 4. No interval change since previous study of 01/29/2022. Electronically Signed: Shaq Beckett MD at 16:25 EDT , Brain MRI 02/06/22 09:52 IMPRESSION: 1. Large 4.97 cm left cerebellar malignant mass with surrounding vasogenic edema. Electronically Signed: Hasmukh Alvarado MD at 14:23 EDT , Physical Exam Const Constitutional Narrative: Drowsy, ill-appearing Nutritional Appearance: cachectic HEENT normocephalic Mouth: dry mucous membranes Eyes PERRL, EOMs intact bilaterally and conjunctivae normal Neck no lymphadenopathy Resp normal respiratory effort and clear to auscultation bilaterally Cardio regular rate, regular rhythm and no murmurs Peripheral Pulses: pulses 2+ throughout GI normal to inspection, nondistended, normoactive bowel sounds, non-tender and non-distended Extremity normal to inspection Skin no rashes or lesions noted Lesions: no lesions Rashes: no rashes Trauma: no lacerations or abrasions Neuro CN's II-XII intact bilaterally, no focal motor deficits, no sensory deficits noted and deep tendon reflexes 2+ bilaterally Psych Mood & Affect: flat affect Assessment & Plan Assessment/Plan (1) Weakness: PLAN: Plan 1. Weakness, debility, failure to thrive-likely due to cancer progression. No evidence of infectious or metabolic etiology. reports significant functional decline over the past 3 weeks with very little poor oral intake. Awaiting hospice consult. 2. Metastatic colon cancer, history of prostate cancer-recent PET scan 01/25/2022 with cerebral mass, left lung nodule, left adrenal gland and multiple peritoneal nodules. Plan for MRI of brain with further discussion regarding therapy recommendations. Patient underwent MRI which demonstrates a large 4.97 cm left cerebral malignant mass with surrounding vasogenic edema. Plan for likely home with hospice as noted above. 3. Severe protein calorie malnutrition-as evidenced by cachectic appearance with muscle and fat loss, very poor oral intake. Dietitian consult. 4. Hypothyroidism-continue Synthroid regimen. 5. Chronic iron deficiency anemia-appears at baseline 6. Tobacco dependence-encouraged cessation. DVT prophylaxis-Lovenox subcu This patient was seen by ARTEM Aguilar under the supervision of Dr. Sotomayor. Time spent examining patient, reviewing data and subsequent management of care: 16 minutes Documented by User: Dr. Yfn Sotomayor MD 02/06/22 15:48 Objective Data Lab / Micro Data Result Diagrams: 02/06/22 04:47 02/06/22 04:47 Assessment & Plan Assessment/Plan (1) Weakness: Charges/Coding Addendum Addendum: Addendum: Dr. Sotomayor I personally examined the patient and reviewed the chart. I agree with the above. 76-year-old male with a history of prostate cancer as well as current metastatic colon cancer presented to the hospital with weakness and debility as well as failure to thrive. It was felt that this was likely due to cancer progression, he did have a PET scan about 2 weeks ago which demonstrated a cerebral mass as well as a left lung nodule left adrenal gland as well as multiple peritoneal nodules. MRI today demonstrated a large 5 cm left cerebellar mass with vasogenic edema. He did discuss wanting to maybe talk about hospice care at this time. In the meantime we will start him on IV Decadron to try to get the swelling to go down to see if this causes some relief in his symptoms. In the meantime hospice will meet with the family this evening and come up with a plan. Clinical time spent on all aspects of patient care: 20 minutes Visit Charges OBSV E&M: 18048 Subsequent observation care L3
[2022-02-06] MEDS: Ondansetron 4 MG/2 ML Vial IV (14:58)
--- NOTE | 2022-02-06 15:17 | CASEMGMT ---
MENDEZ RENTERIA in to discuss SHAHID form with patient. Patient sitting in chair with eyes closed. Pt at bedside and asks to sign form and not waken pt. RN CM explained SHAHID form, patient voiced understanding. Pt signed form and filed in chart. Pt provided with a copy of signed SHAHID form. Patient had no further questions or concerns at this time.
--- NOTE | 2022-02-06 15:19 | CASEMGMT ---
Social Work SW called Octavia at [facility] to confirm referral was received. Octavia confirmed, stated would be in touch with pt to set up meeting with Reyna Olsen at [facility] this evening. Octavia asked about DME needs in home. SW updated a hospital bed was discussed but REPAIR SERVICE DISPATCHER, Carmencita Bowman just updated pt may qualify for IPU. Octavia to update Reyna Olsen and schedule apt lilia. ELOY updated REPAIR SERVICE DISPATCHERCarmencita of meeting to hopeful take place this evening. PLAN: Home with Hospice [facility]
[2022-02-06] MEDS: dexAMETHasone 4 MG/ML Vial IV (15:56)
--- NOTE | 2022-02-06 16:05 | NURSING ---
hospice at bedside talking with pt/spouse
[2022-02-06 17:10] LABS: Bedside Glucose 108 mg/dL (74-106)
[2022-02-06] MEDS: ENZALUTAMIDE 40 MG CAPSULE 160 MG PO (20:08)
[2022-02-06] MEDS: oxyCODONE 5 MG Tablet PO (23:13)
[2022-02-06] MEDS: Aspirin E.C. 81 MG Tablet PO (23:14)
[2022-02-06] MEDS: Mirtazapine 15 MG Tablet 7.5 MG PO (23:14)
[2022-02-07] MEDS: dexAMETHasone 4 MG/ML Vial IV ×4 (00:57→17:20)
[2022-02-07 03:33] VITALS: BP 152/79; PULSE 68; RESP 18; TEMP 36.8; O2SAT 98
[2022-02-07] MEDS: Lactated Ringers 1,000 ML 125 ML IV ×2 (03:36→11:23)
[2022-02-07] MEDS: Levothyroxine 25 MCG TABLET PO (06:23)
[2022-02-07 07:30] VITALS: O2SAT 96
[2022-02-07 09:30] VITALS: BP 153/81; PULSE 70; RESP 18; TEMP 36.6; O2SAT 98
[2022-02-07 10:04] VITALS: O2SAT 98
--- NOTE | 2022-02-07 10:10 | DCINST_ITS ---
Discharge Instructions Diet Discharge Diet: No restrictions Activity Discharge Activity: Return to Normal Activity Follow Up Care Test Results: Test results from this visit will be discussed in further detail at your follow- up appointment, if applicable. Discharge Plan Admission Admit Date/Time: 02/05/22 16:48 Primary Reason for Your Visit: Metastatic cancer Attending Provider: Yfn Sotomayor Primary Care Provider: Jorgito Villeda Chi Consulting Providers: Torin Mccauley Instructions Additional Instructions / Restrictions: Home with hospice at discharge. Discharge Orders/Prescriptions Prescriptions: New dexamethasone 4 mg tablet 4 mg PO TID Qty: 21 0RF Continued lidocaine-prilocaine 2.5-2.5 % cream 1 applic topical ONCE PRN (Reason: port access) 30 Days Qty: 30 2RF levothyroxine 25 MCG tablet 25 mcg PO DAILY aspirin 81 MG tablet,delayed release (DR/EC) 81 mg PO QHS citalopram 10 mg tablet 10 mg PO DAILY mirtazapine 7.5 mg Tablet 7.5 mg PO QHS Xtandi 40 mg Capsule 160 mg PO 1900 polysaccharide iron complex [Ferrex 150] 150 mg iron capsule 150 mg PO DAILY Referrals / Follow Up: Jorgito Villeda Chi, MD [Primary Care Provider] - Disposition Disposition (needs filled in before D/C Order can be placed): Hospice in Home
[2022-02-07] MEDS: Citalopram 10 MG Tablet PO (10:13)
[2022-02-07] MEDS: Senna/Docusate Sodium 1 Tablet 2 TABLET PO (10:13)
[2022-02-07] MEDS: Enoxaparin 40 MG/0.4 ML Syringe SC (10:13)
[2022-02-07] MEDS: Iron Polysaccharide Complex 150 MG CAPSULE PO (10:14)
--- NOTE | 2022-02-07 10:18 | PHA.DC.MR ---
Pharmacy Service has performed discharge medication reconciliation for this patient. The patient's discharge medication list was reviewed for discrepancies and discrepancies were resolved. Home Medications aspirin 81 mg tablet,delayed release 81 mg PO QHS 06/16/19 levothyroxine 25 mcg tablet 25 mcg PO DAILY 08/14/19 lidocaine-prilocaine 2.5 %-2.5 % topical cream 1 applic topical ONCE PRN port access 30 days #30 grams 02/21/21 citalopram 10 mg tablet 10 mg PO DAILY 01/29/22 enzalutamide 40 mg capsule (Xtandi) 160 mg PO 1900 01/29/22 mirtazapine 7.5 mg tablet 7.5 mg PO QHS 01/29/22 polysaccharide iron complex 150 mg iron capsule (Ferrex) 150 mg PO DAILY 01/29/22
--- NOTE | 2022-02-07 10:25 | DS.PCM_ITS ---
Documented by User: Carmencita Bowman NP, PRODUCTION SPECIALIST-C 02/07/22 10:47 Providers Date of Admission: 02/05/22 Date of Discharge: 02/07/22 Primary Care Physician: Dr. Jorgito Villeda MD Reason For Visit: DEHYDRATION Diagnosis Discharge Diagnosis (1) Weakness: Status: Acute Code(s): R53.1 - Weakness Medications at Discharge Home Medications aspirin 81 mg tablet,delayed release 81 mg PO QHS 06/16/19 levothyroxine 25 mcg tablet 25 mcg PO DAILY 08/14/19 lidocaine-prilocaine 2.5 %-2.5 % topical cream 1 applic topical ONCE PRN port access 30 days #30 grams 02/21/21 citalopram 10 mg tablet 10 mg PO DAILY 01/29/22 enzalutamide 40 mg capsule (Xtandi) 160 mg PO 1900 01/29/22 mirtazapine 7.5 mg tablet 7.5 mg PO QHS 01/29/22 polysaccharide iron complex 150 mg iron capsule (Ferrex) 150 mg PO DAILY 01/29/22 dexamethasone 4 mg tablet 4 mg PO TID #21 tabs 02/07/22 Hospital Course Operations None Procedures None Summary of Care Provided Hospital Course: Patient is a 76-year-old male admitted 02/05/2022 due to weakness and not ea ting/drinking. 1.? Weakness, debility, failure to thrive-due to cancer progression.? No evidence of infectious or metabolic etiology.? reports significant functional decline over the past 3 weeks with very little poor oral intake.? and patient met with hospice and decided on home with hospice services. 2.? Metastatic colon cancer, history of prostate cancer-recent PET scan 01/25/2022 with cerebral mass, left lung nodule, left adrenal gland and multiple peritoneal nodules. Patient underwent MRI which demonstrates a large 4.97 cm left cerebral malignant mass with surrounding vasogenic edema.? Initiated on IV Decadron with improvement in nausea. Transition to oral Decadron at discharge for symptom management related to large brain mass/edema. Home with hospice as noted above. 3. Severe protein calorie malnutrition-as evidenced by cachectic appearance with muscle and fat loss, very poor oral intake.? Dietitian consulted during admission. Continue supplement recommendations. 4. Hypothyroidism-continue Synthroid regimen. 5. Chronic iron deficiency anemia-appears at baseline 6. Tobacco dependence-encouraged cessation. Physical Exam Const Constitutional Narrative: Drowsy, ill-appearing Nutritional Appearance: cachectic HEENT normocephalic Mouth: dry mucous membranes Eyes PERRL, EOMs intact bilaterally and conjunctivae normal Neck no lymphadenopathy Resp normal respiratory effort and clear to auscultation bilaterally Cardio regular rate, regular rhythm and no murmurs Peripheral Pulses: pulses 2+ throughout GI normal to inspection, nondistended, normoactive bowel sounds, non-tender and non-distended Extremity normal to inspection Skin no rashes or lesions noted Lesions: no lesions Rashes: no rashes Trauma: no lacerations or abrasions Neuro CN's II-XII intact bilaterally, no focal motor deficits, no sensory deficits noted and deep tendon reflexes 2+ bilaterally Psych Mood & Affect: flat affect Patient seen and examined prior to discharge. Physical assessment as noted above. Patient is stable for discharge with follow up recommendations as noted above. This patient was seen by ARTEM Aguilar under the supervision of Dr. Sotomayor. Time spent examining patient, reviewing data and subsequent management of care: 24 minutes Medical Records Data Medical Nutrition Assessment Dietitian: Malnutrition Criteria Met Start: 02/06/22 13:07 Freq: Status: Active Protocol: Document 02/06/22 13:07 RMA (Rec: 02/06/22 13:07 RMA [id number]) Nutrition Malnutrition Evidence of Malnutrition Exists Yes Malnutrition (severe): Chronic Evidenced By Suboptimal Energy Intake ( Severe),Weight Loss (Severe) Clinical Problem Chronic Disease or Condition Related Malnutrition Etiology Severe protein-calorie malnutrition in the context of chronic disease related to increased energy expenditure and inadequate oral intake due to N/V Signs/Symptoms as evidenced by ~2% wt loss x past 5 days, PO meeting less than 50% estimated nutrition needs x 1-2 weeks, currently poor intake at meals Status Active Problem Recommendation Dietitian Recommendations/Changes Continue regular diet. Continue 120 ml ensure clear 4 times per day w/ medpass. Will add ensure compact with meals as tolerated. Adjust ONS as needed; encourage PO as tolerated. Weight / BMI Weight Weight: 162 lb 4.163 oz Body Mass Index (BMI) 21.8 ABG / Lab / Microbiology Data Result Diagrams: 02/06/22 04:47 02/06/22 04:47 Laboratory: Laboratory Results - last 24 hr 02/06/22 16:52: POC Glucose 108 H Radiography Diagnostic Testing: Radiology Impression Brain MRI 02/06/22 09:52 IMPRESSION: 1. Large 4.97 cm left cerebellar malignant mass with surrounding vasogenic edema. Electronically Signed: Hasmukh Alvarado MD at 14:23 EDT Reading Location ID and State: [address] [place] [address] , Service support , D/C Instructions Discharge Diet: No restrictions Meaningful Use Info Meaningful Use Diagnoses (Choose all that apply): None applicable Discharge Plan Admission Admit Date/Time: 02/05/22 16:48 Primary Reason for Your Visit: Metastatic cancer Attending Provider: Yfn Sotomayor Primary Care Provider: Jorgito Villeda Chi Consulting Providers: Torin Mccauley Instructions Additional Instructions / Restrictions: Home with hospice at discharge. Discharge Orders/Prescriptions Prescriptions: New dexamethasone 4 mg tablet 4 mg PO TID Qty: 21 0RF Continued lidocaine-prilocaine 2.5-2.5 % cream 1 applic topical ONCE PRN (Reason: port access) 30 Days Qty: 30 2RF levothyroxine 25 MCG tablet 25 mcg PO DAILY aspirin 81 MG tablet,delayed release (DR/EC) 81 mg PO QHS citalopram 10 mg tablet 10 mg PO DAILY mirtazapine 7.5 mg Tablet 7.5 mg PO QHS Xtandi 40 mg Capsule 160 mg PO 1900 polysaccharide iron complex [Ferrex 150] 150 mg iron capsule 150 mg PO DAILY Referrals / Follow Up: Jorgito Villeda Chi, MD [Primary Care Provider] - Disposition Disposition (needs filled in before D/C Order can be placed): Hospice in Home Documented by User: Dr. Yfn Sotomayor MD 02/07/22 12:03 Providers Date of Admission: 02/05/22 Reason For Visit: DEHYDRATION Diagnosis Discharge Diagnosis (1) Weakness: Status: Acute Code(s): R53.1 - Weakness Medications at Discharge Home Medications aspirin 81 mg tablet,delayed release 81 mg PO QHS 06/16/19 levothyroxine 25 mcg tablet 25 mcg PO DAILY 08/14/19 lidocaine-prilocaine 2.5 %-2.5 % topical cream 1 applic topical ONCE PRN port access 30 days #30 grams 02/21/21 citalopram 10 mg tablet 10 mg PO DAILY 01/29/22 enzalutamide 40 mg capsule (Xtandi) 160 mg PO 1900 01/29/22 mirtazapine 7.5 mg tablet 7.5 mg PO QHS 01/29/22 polysaccharide iron complex 150 mg iron capsule (Ferrex) 150 mg PO DAILY 01/29/22 dexamethasone 4 mg tablet 4 mg PO TID #21 tabs 02/07/22 ABG / Lab / Microbiology Data Result Diagrams: 02/06/22 04:47 02/06/22 04:47 Discharge Plan Admission Admit Date/Time: 02/05/22 16:48 Primary Reason for Your Visit: Metastatic cancer Attending Provider: Yfn Sotomayor Primary Care Provider: Jorgito Villeda Chi Consulting Providers: Torin Mccauley Instructions Additional Instructions / Restrictions: Home with hospice at discharge. Discharge Orders/Prescriptions Prescriptions: New dexamethasone 4 mg tablet 4 mg PO TID Qty: 21 0RF Continued lidocaine-prilocaine 2.5-2.5 % cream 1 applic topical ONCE PRN (Reason: port access) 30 Days Qty: 30 2RF levothyroxine 25 MCG tablet 25 mcg PO DAILY aspirin 81 MG tablet,delayed release (DR/EC) 81 mg PO QHS citalopram 10 mg tablet 10 mg PO DAILY mirtazapine 7.5 mg Tablet 7.5 mg PO QHS Xtandi 40 mg Capsule 160 mg PO 1900 polysaccharide iron complex [Ferrex 150] 150 mg iron capsule 150 mg PO DAILY Referrals / Follow Up: Jorgito Villeda Chi, MD [Primary Care Provider] - Disposition Disposition (needs filled in before D/C Order can be placed): Hospice in Home Charges/Coding Addendum Addendum: Dr. Sotomayor I personally examined the patient and reviewed the chart. I agree with the above.? 76-year-old male with a history of prostate cancer as well as current me tastatic colon cancer presented to the hospital with weakness and debility as well as failure to thrive.? It was felt that this was likely due to cancer progression, he did have a PET scan about 2 weeks ago which demonstrated a cerebral mass as well as a left lung nodule left adrenal gland as well as multiple peritoneal nodules.? MRI today demonstrated a large 5 cm left cerebellar mass with vasogenic edema.? He did discuss wanting to maybe talk about hospice care at this time.? In the meantime we will start him on IV Decadron to try to get the swelling to go down to see if this causes some relief in his symptoms.? In the meantime hospice will meet with the family this evening and come up with a plan.? Clinical time spent on all aspects of patient care: 20 minutes 02/07/2022: Says that he feels all better today after the initiation of Decadron for his swelling around his brain mass. There were multiple discussions to family and himself yesterday about hospice and they have elected to proceed with hospice care. I discussed with him his CODE STATUS today and other advance care planning options for about 20minutes and he expressed understanding of his prognosis and his desire to proceed with comfort care. He did agree with becoming a DNR CC. In the meantime we will continue with p.o. Decadron on discharge to help with swelling. Plan will be for discharge today with hospice once everything is set up at home. Clinical time spent in all aspects of patie nt care: 40 minutes Visit Charges OBSV E&M: 30033 Observation care discharge Procedures Hospitalists Procedures: 85674 Advncd Care Plan 30 Min
--- NOTE | 2022-02-07 10:42 | NURSING ---
received phone call from Annabel SIMMSdustless operator. [facility] DME equipment all set up for pt to arrive at home. states she spoke with pt spouse who is on her way into [facility] to see pt. Once have approximate time pt/spouse would like to be discharged Annabel requests to call her [phone] to let her know the time of discharge so they can meet pt at his house.
--- NOTE | 2022-02-07 10:59 | NURSING ---
spoke with Annabel SIMMS at hospice to clarify if they would prefer pt VAD port be left accessed or to de-access. She states to de-access pt.
[2022-02-07] MEDS: Ondansetron 4 MG/2 ML Vial IV (11:23)
[2022-02-07] MEDS: 0.9% Saline Lock 10 ML Syringe IV ×3 (11:25→17:36)
--- NOTE | 2022-02-07 11:25 | NURSING ---
pt spouse at bedside, states she has some errands to run and is preferring that pt not arrive until 1500 or after. spouse states she is under impression that hospice will be providing transport to home from [facility]. Phoned hospice Asmita RN and updated on conversation with pt spouse. Asmita states she was not aware that hospice was going to be transporting pt home. Per hospice, they will provide transport for pt to go home and will be later this afternoon d/t they are currently booked until late afternoon. Hospice will call back with specific warehouse order picker time and then nursing staff can let spouse/pt know.
--- NOTE | 2022-02-07 11:43 | CASEMGMT ---
Social Work SW informed pt signed with Hospice last night. Per pt nurse, Anh, Hospice called and they have all DME set up at pt home. Hospice will also provide transportation for pt to return home today upon discharge after 3pm. PLAN: Home with [facility]ospice [facility]
--- NOTE | 2022-02-07 11:43 | NURSING ---
spouse at bedside, informed of conversation regarding discharge planning. spouse Mago states she is going to go home and get some things done and will be home the rest of the day, just call her [phone] and update her on the time Hospice will be arriving to pick pt up and transport him home.
--- NOTE | 2022-02-07 12:03 | NURSING ---
Hospice phoned in, states clam picker time 1730 for transport home. Spouse Mago updated.
[2022-02-07] MEDS: proCHLORPERazine 10 MG/2 ML Vial 5 MG IV (17:20)
[2022-02-07 17:35] VITALS: BP 143/72; PULSE 66; RESP 18; TEMP 36.3; O2SAT 100
== END 2022-02-07 17:40 | disposition hospice, home (50) ==
LOC: ED 17:13 → MS3 17:24
PROVIDERS: Admitting Provider Internal Medicine; Emergency Provider Emergency Medicine; PCP Family Medicine Geriatric Medicine; Visit Provider Family Medicine
DX: E86.0 Dehydration (principal); C79.31 Secondary malignant neoplasm of brain; E43 Unspecified severe protein-calorie malnutrition; C18.9 Malignant neoplasm of colon, unspecified; Z85.46 Personal history of malignant neoplasm of prostate; F17.210 Nicotine dependence, cigarettes, uncomplicated; R62.7 Adult failure to thrive; D50.9 Iron deficiency anemia, unspecified; R53.81 Other malaise; Z79.82 Long term (current) use of aspirin; R11.2 Nausea with vomiting, unspecified; E03.9 Hypothyroidism, unspecified; Z79.899 Other long term (current) drug therapy; Z79.890 Hormone replacement therapy; Z68.22 Body mass index [BMI] 22.0-22.9, adult
CPT/HCPCS: 36415; 36591; 70553; 71045; 80048; 80053; 81001; 82962; 83690; 83735; 84100; 85025; 93005; 96361; 96372; 96374; 96375; 96376; 97166; 97802; 99218; 99285; 99406; A9575; J7030; J7120; A4216; G0378; J2405